=== PATIENT | female | born 1935 | race Caucasian/White ===

== ENCOUNTER 2018-02-16 23:04 | Inpatient (IN) ==
--- NOTE | 2018-02-16 23:28 | Emergency Department Note ---
Disposition Clinical Impression: Left-sided weakness, Ataxia of left upper extremity Disposition: Admitted As Inpatient Condition: Good Time of Disposition: 02:51 Neuro HPI - General Chief Complaint: ED Neuro Symptoms/Deficit Stated Complaint: left sided weakness Time Seen by Provider: 02/16/18 23:12 Source: patient, EMS Limitations: no limitations Nursing Notes Reviewed: Yes Vital Signs Reviewed: Yes - History of Present Illness HPI Narrative: Patient is an 82-year-old female with past medical history of diabetes, hypertension, hyperlipidemia. She presents today due to left-sided weakness. She states that around 3 PM, possibly earlier, she started having left upper and left lower extremity weakness and some mild slurred speech. She states that she did not notice any slurred speech until her neighbor came over around 3 PM and told her that she was slurring her words. At that time, she did notice that she was weaker on the left upper and lower extremities. She also has chronic intermittent tingling of the left hand that is present today. She says that the symptoms have fully speech have since resolved. She was not going to come in but her neighbors and family convinced her to come in. She does report some residual mild left upper and left lower extremity weakness but says that it has improved significantly from earlier today. Denies any previous history of stroke. Not on any blood thinners. - Related Data Home Medications: Previous Rx's Medication Instructions Recorded Amoxicillin/Clavulanate [Augmentin] 875 mg PO BIDWM #20 tablet 04/26/17 Cetirizine HCl [Zyrtec] 10 mg PO DAILY #14 tablet 04/26/17 Meclizine [Antivert] 25 mg PO QID #20 tablet 04/26/17 Allergies/Adverse Reactions: Allergies Allergy/AdvReac Type Severity Reaction Status Date / Time No Known Allergies Allergy Verified 04/26/17 20:15 All systems ED: reviewed and negative except as stated. Constitutional: Denies: fever Cardiovascular: Denies: chest pain Respiratory: Denies: cough, dyspnea, wheezes Gastrointestinal: Denies: abdominal pain, nausea, vomiting, diarrhea Integumentary: Denies: rash Neurological: Reports: weakness, paresthesias. Denies: headache, numbness Past Medical History - Past Medical History Attestation: Yes The following information was validated with the patient. Source: patient Medical history: Reports: diabetes, hyperlipidemia, hypertension, thyroid disease Surgical history: Reports: non-contributory - Social History Smoking Status: Never smoker Alcohol use: Reports: none Drug use: Reports: none Physical Exam - General Limitations: no limitations General appearance: alert - Head Head exam: atraumatic, normocephalic, normal inspection - Eye Eye exam: Present: normal appearance, PERRL, EOMI - ENT ENT exam: normal exam, normal oropharynx, mucous membranes moist - Neck Neck exam: Present: normal inspection, full ROM, trachea midline - Chest Chest inspection: Present: normal inspection, symmetric chest wall rise - Respiratory Respiratory exam: Present: normal lung sounds bilaterally. Absent: respiratory distress, wheezes, stridor, accessory muscle use - Cardiovascular Cardiovascular exam: Present: regular rate, normal rhythm, normal heart sounds - Abdominal Exam Abdominal exam: Present: soft, Non-Tender. Absent: tenderness, distention, guarding, rebound, rigidity - Extremities Exam Extremities exam: Present: normal inspection, full ROM. Absent: tenderness, pedal edema - Neurological Exam Neurological exam: Present: alert, oriented X3, CN II-XII intact - Expanded Neurological Exam Patient oriented to: Present: person, place, time Speech: Present: fluid speech Cranial nerves: EOM function (II, III, IV, ): Normal, facial sensation (V): Normal, facial palsy (VII): Normal, spinal accessory function (XI): Normal, tongue deviation (XII): Normal Cerebellar function: finger to nose: Abnormal Left Motor strength - LUE: 5/5 Motor strength - RUE: 5/5 Motor strength - LLE: 4/5 Motor strength - RLE: 5/5 Sensory exam upper extremity: light touch: Normal Sensory exam lower extremity: light touch: Normal Coma Scale Eye Opening: Spontaneous Coma Scale Motor Response: Obeys Commands Coma Scale Verbal Response: Oriented Coma Scale Total: 15 Course Course Narrative: Patient is approximately 8-1/2 hours out from the original onset of symptoms. L5 window for TPA. However, we will proceed with CT angiogram of the head and neck to assess for any large clot that may be amenable to thrombectomy. Patient does have left upper cavity ataxia and some mild weakness of the left lower extremity on exam. See NIH section for further detail. We discussed admission after testing for further CVA care and workup. Patient was agreeable with this plan. 02:46 CXR negative for any acute cardiopulmonary process. Troponin negative. EKG shows no acute ST changes. CTA of head and neck negative for any acute infarct or area amenable to thrombectomy. We will admit the patient for further care at this time. Chest X-Ray 02/16/18 23:23 IMPRESSION: Hypoventilatory changes. No radiographic evidence of acute cardiopulmonary process. D/ / Master Hoffman MD / Master Hoffman MD Interpreting Provider: Master Hoffman MD Angiography CT 02/16/18 23:24 IMPRESSION: Chronic appearing infarct, small, left parieto-occipital area. No evidence of acute territorial infarct. Right proximal ICA stenosis of 60%. Mild narrowing of both right and left M1 segments of middle cerebral arteries. D/ / Pineda Schuster MD / Pineda Schuster MD Interpreting Provider: Pineda Schuster MD Neck CTA 02/16/18 23:24 IMPRESSION: Chronic appearing infarct, small, left parieto-occipital area. No evidence of acute territorial infarct. Right proximal ICA stenosis of 60%. Mild narrowing of both right and left M1 segments of middle cerebral arteries. D/ / Pineda Schuster MD / Pineda Schuster MD Interpreting Provider: Pineda Schuster MD Vital Signs Temperature 97.6 F 02/16/18 23:09 Pulse Rate 57 02/16/18 23:09 Respiratory Rate 16 02/16/18 23:09 Blood Pressure 198/111 02/16/18 23:09 O2 Sat by Pulse Oximetry 96 02/16/18 23:09 Temperature 97.6 F 02/17/18 04:24 Pulse Rate 65 02/17/18 04:24 Respiratory Rate 19 02/17/18 04:24 Blood Pressure 207/92 02/17/18 04:24 O2 Sat by Pulse Oximetry 92 02/17/18 04:24 Oxygen Delivery Oxygen Delivery Room Air Neuro Symptoms/Deficit - MDM Narrative Medical decision making narrative: Patient is approximately 8-1/2 hours out from the original onset of symptoms. L5 window for TPA. However, we will proceed with CT angiogram of the head and neck to assess for any large clot that may be amenable to thrombectomy. Patient does have left upper cavity ataxia and some mild weakness of the left lower extremity on exam. See NIH section for further detail. We discussed admission after testing for further CVA care and workup. Patient was agreeable with this plan. 02:46 CXR negative for any acute cardiopulmonary process. Troponin negative. EKG shows no acute ST changes. CTA of head and neck negative for any acute infarct or area amenable to thrombectomy. We will admit the patient for further care at this time. Patient given aspirin 325mg - Medical Records Medical records reviewed: Yes I reviewed the patient's medical records. - Lab Data Lab results reviewed: Yes I reviewed the patient's lab results. Result diagrams: 02/16/18 23:59 02/16/18 23:59 Lab Results 02/16/18 02/16/18 02/16/18 Range/Units 23:59 23:59 23:59 WBC 5.2 (4.3-11.1) K/mcL RBC 2.77 L (3.82-4.97) M/mcL Hgb 9.0 L (11.5-15.4) g/dL Hct 27.5 L (35.3-44.9) % MCV 99.3 (83.0-100.0) fL MCH 32.5 (28.0-33.3) pg MCHC 32.7 (31.6-35.5) g/dL RDW 14.5 (11.5-14.5) % Plt Count 221 (140-400) K/mcL MPV 10.7 (9.4-12.4) fL Immature Gran % 0.0 (0-4) % Seg Neutrophils % 51.6 % Lymphocytes % 35.9 % Monocytes % 6.9 % Eosinophils % 5.2 % Basophils % 0.4 % Neutrophils # 2.7 (1.6-8.9) K/mcL Lymphocytes # 1.9 (0.6-4.6) K/mcL Monocytes # 0.4 (0.0-1.3) K/mcL Eosinophils # 0.3 (0.0-0.6) K/mcL Basophils # 0.0 (0.0-0.2) K/mcL PT 11.9 (9.4-12.1) Seconds INR 1.1 APTT 33.7 (26.0-36.0) Seconds Sodium 137 (136-145) mEq/L Potassium 4.0 (3.5-5.1) mEq/L Chloride 105 (98-107) mEq/L Carbon Dioxide 24 (23-29) mEq/L BUN 18 (8-23) mg/dL Creatinine 1.04 (0.60-1.20) mg/dL Est GFR ( Amer) > 60 (> 60) Est GFR (Non-Af Amer) 51 L (> 60) BUN/Creatinine Ratio 17 (6-26) Glucose 119 H (70-105) mg/dL Calculated Osmolality 287 (280-300) Calcium 9.4 (8.6-10.3) mg/dL Troponin I < 0.03 (< 0.04) ng/mL - Radiology Data Radiology results reviewed: Yes I reviewed the patient's radiology results. Chest X-Ray 02/16/18 23:23 IMPRESSION: Hypoventilatory changes. No radiographic evidence of acute cardiopulmonary process. D/ / Master Hoffman MD / Master Hoffman MD Interpreting Provider: Master Hoffman MD Angiography CT 02/16/18 23:24 IMPRESSION: Chronic appearing infarct, small, left parieto-occipital area. No evidence of acute territorial infarct. Right proximal ICA stenosis of 60%. Mild narrowing of both right and left M1 segments of middle cerebral arteries. D/ / Pineda Schuster MD / Pineda Schuster MD Interpreting Provider: Pineda Schuster MD Neck CTA 02/16/18 23:24 IMPRESSION: Chronic appearing infarct, small, left parieto-occipital area. No evidence of acute territorial infarct. Right proximal ICA stenosis of 60%. Mild narrowing of both right and left M1 segments of middle cerebral arteries. D/ / Pineda Schuster MD / Pineda Schuster MD Interpreting Provider: Pineda Schuster MD - EKG Data EKG attestation: Yes I reviewed and interpreted this EKG. NIH Stroke Scale - Level of Consciousness LOC: Alert - LOC Questions LOC Questions: Answers both correctly - LOC Commands LOC Commands: Performs both correctly - Best Gaze Best Gaze: Normal - Visual Visual: No visual loss - Facial Palsy Facial Palsy: Normal - Motor Arms Motor Arm-Left: No drift for 10 seconds Motor Arm-Right: No drift for 10 seconds - Motor Legs Motor Leg-Left: No drift for 5 seconds Motor Leg-Right: No drift for 5 seconds - Limb Ataxia Limb Ataxia: Present in ONE limb - Sensory Sensory: Normal - Best Language Best Language: No aphasia - Dysarthria Dysarthria: Normal - Extinction and Inattention Extinction and Inattention: Normal - NIHSS Total Score NIHSS Total Score: 1 S.B.A.R. - S.B.A.R. Situation: Demographics, MOA Background: Presenting Complaint, Relevant PMH, Meds, & Allergies Assessment: Vital Signs, Course and respsone to treatment, Exam Concerns, Patient/Family Expectation, Pertinant Lab Results Recommendation: Barrier(s) to disposition, Recommendation based on pending studies, treatments, or consults S.B.A.R. Report Given to: Dr. Schwartz Attestation Statement - Attestation Attestation: I examined this patient and my medical decision-making was reviewed with the Resident Physician. I agree with the documented findings, disposition and treatment plan as described except to the extent set forth below. Findings consistent with possible stroke. The patient is out of the window for any thrombolytic medication. An NIH score is 1. Patient be admitted for further intervention. No advanced imaging findings of acute stroke.
[2018-02-17 00:13] LABS: Basophils % 0.4 %; Eosinophils # 0.3 K/mcL (0.0-0.6); Eosinophils % 5.2 %; Hematocrit 27.5 % (35.3-44.9); Lymphocytes # 1.9 K/mcL (0.6-4.6); Lymphocytes % 35.9 %; Mean Corpuscular HGB Conc 32.7 g/dL (31.6-35.5); Mean Corpuscular Hemoglobin 32.5 pg (28.0-33.3); Mean Corpuscular Volume 99.3 fL (83.0-100.0); Mean Platelet Volume 10.7 fL (9.4-12.4); Monocytes # 0.4 K/mcL (0.0-1.3); Monocytes % 6.9 %; Neutrophils # 2.7 K/mcL (1.6-8.9); Platelet Count 221 K/mcL (140-400); Red Blood Count 2.77 M/mcL (3.82-4.97); Red Cell Distribution Width 14.5 % (11.5-14.5); Segmented Neutrophils % 51.6 %
[2018-02-17 00:17] LABS: INR 1.1; Prothrombin Time 11.9 Seconds (9.4-12.1)
[2018-02-17 00:20] LABS: Activated Partial Thrombo Time 33.7 Seconds (26.0-36.0)
[2018-02-17 00:30] LABS: BUN/Creatinine Ratio 17 (6-26); Blood Urea Nitrogen 18 mg/dL (8-23); Calcium 9.4 mg/dL (8.6-10.3); Carbon Dioxide 24 mEq/L (23-29); Chloride 105 mEq/L (98-107); Glucose 119 mg/dL (70-105); Osmolality,Calculated 287 (280-300); Sodium 137 mEq/L (136-145); Troponin I < 0.03 ng/mL (< 0.04); eGFR For African Americans > 60 (> 60); eGFR For Non-African Americans 51 (> 60)
[2018-02-17] MEDS ORDERED: Aspirin 325 MG TABLET PO ONE (02:30)
[2018-02-17] MEDS ORDERED: Gadolinium Contrast Agent (WT Based) IV PRN (03:27)
[2018-02-17] MEDS ORDERED: Naloxone 0.4 MG/ML INJ IVP PRN (03:36)
[2018-02-17] MEDS ORDERED: OXYCODONE Oral CONC 10 MG/0.5 ML ORAL.SYG SL PRN (03:36)
[2018-02-17] MEDS ORDERED: Acetaminophen 650 MG RECTAL SUPP RC PRN (03:43)
[2018-02-17] MEDS ORDERED: Ondansetron 4 MG/2 ML VIAL IVP STA (03:44)
[2018-02-17] MEDS ORDERED: Ondansetron 4 MG/2 ML VIAL IVP PRN (03:45)
--- NOTE | 2018-02-17 04:48 | Internal Med History&Physical ---
Date of Encounter: 02/17/18 Time of Encounter: 04:44 Internal Medicine - H&P: HPI Chief complaint: "My friend was worried about my speech" Admitted From: Emergency Dept Plans for Post Hospital Care: Home History of present illness: Ms. Navarro is a 82 year old female who presented to ED this evening after a friend thought she was having speech difficulties. Patient was in her apartment when a friend came to visit. Friend noticed that patient had " slurred speech." Patient states that she also noticed some left arm and left leg weakness, accompanied by left arm parasthesias worse than her baseline. At the time of my interview, patient was accompanied by her son. Son states that the patient's speech is currently still slurred. She states that the left arm numbness, tingling, and weakness is better, but still present. She denies chest pain, SOB, abdominal pain, nausea, vomiting, fever, and chills. She denies NELSON and any other focal neurological deficits other than those mentioned previously. She is hemodynamically stable at this time. BP is a little elevated, but we will let it ride a little higher to maintain permissive hypertension following CVA. Patient has no other specific complaints at this time. Chart review shows PMH of HTN, HLD, Type II DM, and hypothyroidism. However, patient has not been to PCP or taking her medications for several months now. Past Med Surg Social Fam HX - Past Medical History Attestation: Yes The following information was validated with the patient. Medical history: diabetes, hyperlipidemia, hypertension, thyroid disease - Past Surgical History Surgical History: non-contributory - Social History Smoking Status: Never smoker Smokeless Tobacco Status: No Alcohol use: none Drug use: none - Family History Father History Unknown: Yes Mother Living Status: Age at : 59 Cause of : cancer; lymphoma Hx Family Cardiac Disorders: No Hx Family Respiratory Disorders: No Hx Family Cancer: Yes Hx Family GI Disorders: No Hx Family Genitourinary Disorders: No Hx Family Endocrine Disorder: No Hx Family Musculoskeletal Disorders: No Hx Family Neuromuscular Disorders: No Hx Family Neurologic Disorders: No Hx Family HEENT Disorders: No Hx Family Autoimmune Disorders: No Hx Family Reproductive Disorders: No Hx Family Psychosocial Disorders: No Hx Family Medical Disorders: No - Additional Family History Additional family history: I reviewed family history with patient. Internal Medicine - H&P: Meds Amoxicillin/Clavulanate [Augmentin] 875 mg PO BIDWM #20 tablet 04/26/17 [Rx] Cetirizine HCl [Zyrtec] 10 mg PO DAILY #14 tablet 04/26/17 [Rx] Meclizine [Antivert] 25 mg PO QID #20 tablet 04/26/17 [Rx] 3 Allergy/AdvReac Type Severity Reaction Status Date / Time No Known Allergies Allergy Verified 04/26/17 20:15 All Systems PM: A 10-system review of systems was performed and is negative for pertinent findings except as documented above in the HPI. - Constitutional Vitals: Temp Pulse Resp BP Pulse Ox 97.6 F 65 19 207/92 92 02/17/18 04:24 02/17/18 04:24 02/17/18 04:24 02/17/18 04:24 02/17/18 04:24 General appearance: Present: cooperative, A&O X 3, pleasant, no acute distress, obese, answers questions appropriately - Head Head exam: Present: atraumatic, normal inspection, normocephalic - Eye Eye exam: Present: EOMI, normal appearance, PERRL. Absent: conjunctival injection, nystagmus, scleral icterus - ENT ENT exam: Present: mucous membranes moist, normal external ear exam, normal oropharynx - Neck Neck exam general surgery: Present: supple, trachea midline. Absent: lymphadenopathy, tenderness, thyromegaly - Respiratory Respiratory exam: Present: CTAB. Absent: accessory muscle use, rales, rhonchi, wheezes Additional comments: Normal WOB - Cardiovascular Cardiovascular exam: Present: RRR, +S1, +S2. Absent: diastolic murmur, gallop, rubs, systolic murmur Additional comments: No BLE edema - GI/Abdominal GI/Abdominal exam: Present: normal bowel sounds, soft. Absent: distended, hepatomegaly, mass, splenomegaly, tenderness - Neurological Exam Neurological exam: Present: alert, CN II-XII intact, motor sensory deficit, oriented X3, speech deficit. Absent: no focal deficits, strengths equal and symetr throughout, facial droop Additional comments: Slurred speech, LUE/LLE strength 4/5, RUE/RLE strength 5/5, altered sensation on left dorsal hand - Psychiatric Psychiatric exam: Present: normal affect, normal mood. Absent: agitated, anxious, depressed - Skin Skin exam: Present: dry, intact, warm. Absent: cyanosis, rash Internal Med - H&P Results - Labs CBC & Chem 7: 02/16/18 23:59 02/16/18 23:59 - Assessment and plan (1) CVA (cerebral vascular accident) Current Visit: Yes Status: Suspected Assessment and plan: Patient admitted as inpatient with telemetry. He is outside the window for tPA. We will perform stroke workup. CT head showed a likely old stroke. Will order MRI brain to evaluate further. Consult neurology in AM; appreciate their input. NPO until speech evaluation. PT/OT consulted. Will also obtain ECHO. CTA neck already performed in ED. We will allow permissive HTN for the time being. Continue aspirin 81 mg QD and lipitor 40 mg QHS when taking PO. We will monitor closely with Q4H neurochecks. Qualifiers: CVA mechanism: unspecified Qualified Code(s): I63.9 - Cerebral infarction, unspecified (2) Paresthesia of left upper extremity Current Visit: Yes Status: Acute Assessment and plan: This is an acute on chronic issue. Chronic issue may be related to uncontrolled Type II DM. Acute worsening may be related to CVA. Treatment CVA as per above. Treating Type II DM as per below. (3) Left-sided weakness Current Visit: Yes Status: Acute Assessment and plan: Likely secondary to acute CVA. Management of CVA as per above. (4) Anemia Current Visit: Yes Status: Acute Assessment and plan: Hgb = 9.0. No signs or symptoms of bleeding. We will check hemoccult. Repeat CBC in AM. Qualifiers: Anemia type: unspecified type Qualified Code(s): D64.9 - Anemia, unspecified (5) Poor compliance Current Visit: Yes Status: Chronic Assessment and plan: Has not seen PCP or taking medications for HTN, HLD, Type II DM, and hypothyroidism for several months now. SW consulted. (6) HTN (hypertension) Current Visit: Yes Status: Chronic Assessment and plan: Non-compliance over last few months. BP elevated now, but will allow permissive hypertension due to acute CVA. We will resume home BP medications once we are able to do the reconciliation and once we're outside of the permissive hypertension window. Qualifiers: Hypertension type: essential hypertension Qualified Code(s): I10 - Essential (primary) hypertension (7) HLD (hyperlipidemia) Current Visit: Yes Status: Chronic Assessment and plan: Non-compliance over last few months. Started lipitor 40 mg QHS as per above. We will looking into reconciling this with what she was taking at home. Qualifiers: Hyperlipidemia type: mixed hyperlipidemia Qualified Code(s): E78.2 - Mixed hyperlipidemia (8) Type 2 diabetes mellitus with polyneuropathy Current Visit: Yes Status: Chronic Assessment and plan: Non-compliance over last few months. Blood glucose looks ok at this time. We will start accuchecks and low dose SSI Q6H while NPO. (9) Hypothyroidism Current Visit: Yes Status: Chronic Assessment and plan: Non-compliance over last few months. Restart levothyroxine at old home dose when taking PO. Qualifiers: Hypothyroidism type: unspecified Qualified Code(s): E03.9 - Hypothyroidism , unspecified (10) DVT prophylaxis Current Visit: Yes Status: Acute Assessment and plan: Start lovenox 40 mg SQ QD. - Time Spent With Patient Total time spent is greater than 50% in coordination of care (as documented) at patient's floor/unit and/or counseling patient: less than 15 minutes
[2018-02-17] MEDS: *HR* Enoxaparin 40 MG/0.4 ML SYRINGE SQ SCH (04:53)
[2018-02-17] MEDS ORDERED: *HR* Dextrose 50 % in Water (Syg) 50 ML SYRINGE IVP PRN (05:04)
[2018-02-17] MEDS ORDERED: D5% in Water 1,000 ML IVC PRN (05:04)
[2018-02-17] MEDS ORDERED: Dextrose Gel 15 GM/37.5 ML TUBE PO PRN ×2 (05:04)
[2018-02-17] MEDS: Insulin LISPRO 300 UNITS/3 ML VIAL SQ SCH ×4 (05:40→23:20)
[2018-02-17 05:58] LABS: Basophils % 0.3 %; Eosinophils # 0.2 K/mcL (0.0-0.6); Eosinophils % 2.7 %; Hematocrit 29.6 % (35.3-44.9); Hemoglobin 9.5 g/dL (11.5-15.4); Immature Granulocytes % 0.2 % (0-4); Lymphocytes # 1.3 K/mcL (0.6-4.6); Lymphocytes % 21.4 %; Mean Corpuscular HGB Conc 32.1 g/dL (31.6-35.5); Mean Corpuscular Volume 99.7 fL (83.0-100.0); Mean Platelet Volume 10.8 fL (9.4-12.4); Monocytes # 0.3 K/mcL (0.0-1.3); Monocytes % 4.9 %; Neutrophils # 4.2 K/mcL (1.6-8.9); Platelet Count 222 K/mcL (140-400); Red Blood Count 2.97 M/mcL (3.82-4.97); Red Cell Distribution Width 14.6 % (11.5-14.5); Segmented Neutrophils % 70.5 %
[2018-02-17 06:17] LABS: Chol/HDL Ratio 7.9 (0-4.9)
[2018-02-17 06:18] LABS: Amphetamine Screen,Urine Negative ng/mL (Cutoff=1000); Barbiturate Screen,Urine Negative ng/mL (Cutoff=200); Benzodiazepines Screen,Urine Negative ng/mL (Cutoff=200); Cannabinoid Screen,Urine Negative ng/mL (Cutoff = 50); Cocaine Screen,Urine Negative ng/mL (Cutoff= 300); Opiate Screen,Urine Negative ng/mL (Cutoff=300); Phencyclidine Screen,Urine Negative ng/mL (Cutoff=25)
[2018-02-17 06:18] LABS: BUN/Creatinine Ratio 16 (6-26); Blood Urea Nitrogen 16 mg/dL (8-23); Calcium 9.4 mg/dL (8.6-10.3); Carbon Dioxide 25 mEq/L (23-29); Chloride 105 mEq/L (98-107); Glucose 136 mg/dL (70-105); Osmolality,Calculated 287 (280-300); Sodium 137 mEq/L (136-145); eGFR For African Americans > 60 (> 60); eGFR For Non-African Americans 55 (> 60)
[2018-02-17 08:14] LABS: Estimated Average Glucose 123 mg/dl; Hemoglobin A1C 5.9 %
[2018-02-17] MEDS: Aspirin Enteric Coated 81 MG Tablet PO SCH (08:33)
--- NOTE | 2018-02-17 13:54 | Internal Med Progress Note ---
Date of Encounter: 02/17/18 Time of Encounter: 13:52 - Assessment and plan (1) CVA (cerebral vascular accident) Current Visit: Yes Status: Suspected Assessment and plan: presented with left-sided weakness and slurred speech. Not eligible for TPA due to time of last known well. Head CT negative. Brain MRI several small acute infarcts within the right MCA involving the posterior right frontal lobe and right parietal lobe. Neck CTA with 60% stenosis of our ICA and mild narrowing of bilateral middle cerebral arteries. Still with left-sided weakness on exam. Continue ASA, statin. Echo pending. Neurology consulted Qualifiers: CVA mechanism: unspecified Qualified Code(s): I63.9 - Cerebral infarction, unspecified (2) Poor compliance Current Visit: Yes Status: Chronic Assessment and plan: Has not seen PCP or taking medications for HTN, HLD, Type II DM, and hypothyroidism for several months now. SW consulted. (3) HTN (hypertension) Current Visit: Yes Status: Chronic Assessment and plan: Non-compliance over last few months. BP elevated; BP medication initially held to allow for permissive hypertension. Resume home BP medication to allow for a gradual reduction in SBP. On her to BP and titrate PRN Qualifiers: Hypertension type: essential hypertension Qualified Code(s): I10 - Essential (primary) hypertension (4) HLD (hyperlipidemia) Current Visit: Yes Status: Chronic Assessment and plan: per hx. LDL 185; has been noncompliant with medications recently. Continue home statin. Qualifiers: Hyperlipidemia type: mixed hyperlipidemia Qualified Code(s): E78.2 - Mixed hyperlipidemia (5) Type 2 diabetes mellitus with polyneuropathy Current Visit: Yes Status: Chronic Assessment and plan: per hx. Hgb A1c 5.9%. Monitor blood sugar (6) Hypothyroidism Current Visit: Yes Status: Chronic Assessment and plan: per hx. Cont home levothyroxine. Qualifiers: Hypothyroidism type: unspecified Qualified Code(s): E03.9 - Hypothyroidism , unspecified (7) Anemia Current Visit: Yes Status: Acute Assessment and plan: Hgb = 9.0. No signs or symptoms of bleeding. We will check hemoccult. Repeat CBC in AM. Qualifiers: Anemia type: unspecified type Qualified Code(s): D64.9 - Anemia, unspecified (8) DVT prophylaxis Current Visit: Yes Status: Acute Assessment and plan: lovenox - Time Spent With Patient Total time spent is greater than 50% in coordination of care (as documented) at patient's floor/unit and/or counseling patient: - Subjective Interval history: Seen and examined at bedside. Patient is new to me, information obtained from chart review and patient report. Says she feels better but still having some left-sided weakness. She thinks speech is back to baseline. No blurred or double vision. No paresthesias. - Constitutional Vitals: Temp Pulse Resp BP Pulse Ox 97.8 F 52 14 165/73 97 02/17/18 11:17 02/17/18 11:17 02/17/18 11:17 02/17/18 11:17 02/17/18 11:17 General appearance: Present: cooperative, A&O X 3, pleasant, no acute distress, obese, answers questions appropriately - Head Head exam: Present: atraumatic, normocephalic - Eye Eye exam: Present: PERRL, conjuntiva pink, sclera anicteric Pupils: Present: PERRL - Neck Neck exam general surgery: Present: supple, trachea midline. Absent: lymphadenopathy - Respiratory Respiratory exam: Present: CTAB. Absent: accessory muscle use, rales, rhonchi, wheezes - Cardiovascular Cardiovascular exam: Present: RRR, +S1, +S2. Absent: diastolic murmur, gallop, rubs, systolic murmur - GI/Abdominal GI/Abdominal exam: Present: normal bowel sounds, soft, no peritoneal signs. Absent: distended, tenderness - Extremities Exam Extremities exam: Present: warm, radial pulses palpable and symmetrical. Absent : calf tenderness, cyanotic, pedal edema - Neurological Exam Neurological exam: Present: CN II-XII intact, oriented X3, no focal deficits. Absent: strengths equal and symetr throughout, pronater drift, facial droop, speech deficit Additional comments: Right upper extremity 4/5 strength. - Skin Skin exam: Present: dry, intact Internal Medicine: Result - Labs CBC & Chem 7: 02/17/18 05:39 02/17/18 05:39 Labs: Short CBC 02/17/18 Range/Units 05:39 WBC 6.0 (4.3-11.1) K/mcL Hgb 9.5 L (11.5-15.4) g/dL Hct 29.6 L (35.3-44.9) % Plt Count 222 (140-400) K/mcL Neutrophils # 4.2 (1.6-8.9) K/mcL BMP 02/17/18 05:39 Sodium 137 Potassium 4.0 Chloride 105 Carbon Dioxide 25 BUN 16 Creatinine 0.98 Glucose 136 H Calcium 9.4 - ABG Interpretation ABG results: PT/INR, D-dimer PT 11.9 Seconds (9.4-12.1) 02/16/18 23:59 Consult Discharge Plan - Plan Referrals: NONE,PCP [Primary Care Provider] -
--- NOTE | 2018-02-17 17:21 | Neurology - Consult Note ---
Date of Encounter: 02/17/18 Time of Encounter: 17:19 Assessment and Plan (1) CVA (cerebral vascular accident) Current Visit: Yes Status: Suspected Patient has developed left sided weakness, facial droop, slurry speech and left sided paresthesia, caused by likely borderzone infarct to th right side, likely related to symptomatic left ICA stenosis of 60%. She does have multiple risk factors for CVA including her age, HTN, DM and hyperlipidemia. Agree with continuing her on Aspirin as antiplatelet therapy for stroke. Would recommend vascular surgery consultation, and i do believe that the left ICA stenosis of 60% is symptomatic but the patient is an elderly patient and has multiple risk factors therefore questionable conservative vs surgical intervention vs carotid artery stenting. Continue statin therapy. Regular BP, permissive blood pressure management. Await echocardiography. Qualifiers: CVA mechanism: stenosis Precerebral and cerebral artery: carotid artery Laterality of affected vessel: right Qualified Code(s): I63.231 - Cerebral infarction due to unspecified occlusion or stenosis of right carotid arteries History of Present Illness Chief complaint: left sided weakness, numbness and speech difficulty HPI: Ms. Navarro is a 82 year old female with PMH significant for HTN, DM, hyperlipidemia obesity who developed acute onset of slurry speech, left sided weakness and paresthesia. Symptoms started few days ago and she states that a girl who knew her told her that she needs to get checked because her speech was slurred. She describes weakness to her left arm and leg and also numbness to the left side as well. Initial CT of head was read negative for acute changes. However, MRI of brain demonstrated ' Several small punctate acute infarcts are identified within the right MCA distribution involving the posterior right frontal lobe and right parietal lobe'. I reviewed the images personally and i think the pattern may suggest borderzone infarct. CTA of the neck reviewed 60% right ICA stenosis. Patient currently still has weakness to the left arm and leg that interfere with her walking. She normally does not take aspirin at home. She was started aspirin here in the hospital Past Med Surg Social Fam HX - Past Medical History Medical history: diabetes, hyperlipidemia, hypertension, thyroid disease - Past Surgical History Surgical History: non-contributory - Social History Smoking Status: Never smoker Smokeless Tobacco Status: No Alcohol use: none Drug use: none - Family History Father History Unknown: Yes Mother Living Status: Age at : 59 Cause of : cancer; lymphoma Hx Family Cardiac Disorders: No Hx Family Respiratory Disorders: No Hx Family Cancer: Yes Hx Family GI Disorders: No Hx Family Genitourinary Disorders: No Hx Family Endocrine Disorder: No Hx Family Musculoskeletal Disorders: No Hx Family Neuromuscular Disorders: No Hx Family Neurologic Disorders: No Hx Family HEENT Disorders: No Hx Family Autoimmune Disorders: No Hx Family Reproductive Disorders: No Hx Family Psychosocial Disorders: No Hx Family Medical Disorders: No Medications and Allergies Amoxicillin/Clavulanate [Augmentin] 875 mg PO BIDWM #20 tablet 04/26/17 [Rx] Cetirizine HCl [Zyrtec] 10 mg PO DAILY #14 tablet 04/26/17 [Rx] Meclizine [Antivert] 25 mg PO QID #20 tablet 04/26/17 [Rx] 3 Allergy/AdvReac Type Severity Reaction Status Date / Time No Known Allergies Allergy Verified 04/26/17 20:15 All Systems: The remainder of the systems were reviewed and are negative Physical Examination - Vital Signs Vital Signs: Initial Vital Signs Temp Pulse Resp BP Pulse Ox 97.6 F 57 16 198/111 96 02/16/18 23:09 02/16/18 23:09 02/16/18 23:09 02/16/18 23:09 02/16/18 23:09 - Constitutional General appearance: comfortable - Neurologic Sensorimotor examination: intact (Grossly intact) Motor examination - right side: 5/5: deltoids, biceps, triceps, wrist flexion, wrist extension, elevator repairer, hip flexors, tibialis Anterior, quadriceps, toe extension (EHL), plantarflexion Motor examination - left side: 4/5: deltoids, biceps, triceps, wrist flexion, wrist extension, hip flexors, elevator repairer, quadriceps, tibialis Anterior, toe extension (EHL), plantarflexion Detailed sensory examination: intact (Grossly intact) Posture: other (None) Reflexes: Biceps: 1+, Triceps: 1+, Brachioradialis: 1+, Patella: 1+, Achilles: 1 + Mental Status Examination: awake, alert, oriented to person, oriented to place, oriented to time, follows commands appropriately, answers questions appropriately, no agnosia, no aphasia, no aproxia Cranial nerve examination: PERRL, EOMI (few large amplitude, non sustained nystagmus noted when gazing to the right side), visual mon intact, corneal reflexes brisk symmetrically, sensory to face intact, mastication intact, no facial asymmetry is present (left facial droop noted), no dysarthria (Slightly dysarthric, language content is normal), hearing is intact symmetrically, soft palate elevates bilaterally upon phonation, gag reflex intact, flexes SCM and trapezius muscles symmetrically with full power, tongue protrudes midline, no atrophy or facial fasiculations present Results - Laboratory Findings CBC and BMP: 02/17/18 05:39 02/17/18 05:39 Abnormal lab findings: Abnormal lab results RBC 2.97 M/mcL (3.82-4.97) L 02/17/18 05:39 Hgb 9.5 g/dL (11.5-15.4) L 02/17/18 05:39 Hct 29.6 % (35.3-44.9) L 02/17/18 05:39 RDW 14.6 % (11.5-14.5) H 02/17/18 05:39 Est GFR (Non-Af Amer) 55 (> 60) L 02/17/18 05:39 Glucose 136 mg/dL (70-105) H 02/17/18 05:39 POC Glucose 144 mg/dL (70-99) H 02/17/18 04:29 Hemoglobin A1c 5.9 % (-5.6) H 02/17/18 05:39 Triglycerides 285 mg/dL (< 150) H 02/17/18 05:39 Cholesterol 277 mg/dL (< 200) H 02/17/18 05:39 LDL Cholesterol, Calc 185 mg/dL (0-99) H 02/17/18 05:39 VLDL Cholesterol, Calc 57 mg/dL (< 31) H 02/17/18 05:39 HDL Cholesterol 35 mg/dL (40-59) L 02/17/18 05:39 Cholesterol/HDL Ratio 7.9 (0-4.9) H 02/17/18 05:39 Consult Discharge Plan - Plan Referrals: Axel Vazquez MD [Non-Partnered Physician] - 02/18/18 3:00 pm NONE,PCP [Primary Care Provider] -
[2018-02-18] MEDS: *HR* Enoxaparin 40 MG/0.4 ML SYRINGE SQ SCH (04:53)
[2018-02-18] MEDS: Insulin LISPRO 300 UNITS/3 ML VIAL SQ SCH ×4 (05:24→20:31)
[2018-02-18] MEDS: Aspirin Enteric Coated 81 MG Tablet PO SCH (09:16)
--- NOTE | 2018-02-18 13:15 | Internal Med Progress Note ---
Date of Encounter: 02/18/18 Time of Encounter: 10:30 - Assessment and plan (1) CVA (cerebral vascular accident) Current Visit: Yes Status: Suspected Assessment and plan: Patient developed left-sided weakness and facial droop slurred speech and left- sided anesthesia was seen by neurology suspect likely border zone infarct to the right side related to symptomatic left ICA stenosis of 60%. Neurology recommending continue aspirin and statin-vascular consultation-consult Dr. Benjamin- he requested carotid Dopplers which were ordered TTE showed no source of emboli Qualifiers: Qualified Code(s): I63.231 - Cerebral infarction due to unspecified occlusion or stenosis of right carotid arteries (2) Poor compliance Current Visit: Yes Status: Chronic Assessment and plan: Social work has been consulted-patient has not been compliant with medications and has not followed with PCP for several months. According to case planner note her insurance company has denied rehabilitation placement and she will have to follow up with primary care after discharge in order for PCP to assess and set up home health (3) HTN (hypertension) Current Visit: Yes Status: Chronic Assessment and plan: Patient has been noncompliant with medication over the past few months-resume blood pressure is stable Qualifiers: Qualified Code(s): I10 - Essential (primary) hypertension (4) HLD (hyperlipidemia) Current Visit: Yes Status: Chronic Assessment and plan: LDL 185; has been noncompliant with medications recently. Continue home statin. Qualifiers: Qualified Code(s): E78.2 - Mixed hyperlipidemia (5) Type 2 diabetes mellitus with polyneuropathy Current Visit: Yes Status: Chronic Assessment and plan: per hx. Hgb A1c 5.9%. Accu-Cheks before meals at bedtime with sliding scale insulin and diabetic diet (6) Hypothyroidism Current Visit: Yes Status: Chronic Assessment and plan: Cont home levothyroxine. Qualifiers: Qualified Code(s): E03.9 - Hypothyroidism, unspecified (7) Anemia Current Visit: Yes Status: Acute Assessment and plan: Hgb stable 9.5 today. No signs or symptoms of bleeding. We will check hemoccult. Repeat CBC in AM. Qualifiers: Qualified Code(s): D64.9 - Anemia, unspecified (8) DVT prophylaxis Current Visit: Yes Status: Acute Assessment and plan: lovenox - Time Spent With Patient Total time spent is greater than 50% in coordination of care (as documented) at patient's floor/unit and/or counseling patient: - Subjective Interval history: This patient is new to me I did review records. I examined the patient at bedside. She is sitting up in a chair She is A/O x3 following simple commands. Speech is clear and fluent, equal strength X4. Denies any pain or discomfort. - Constitutional Vitals: Temp Pulse Resp BP Pulse Ox 97.8 F 52 14 137/61 93 02/18/18 10:56 02/18/18 10:56 02/18/18 10:56 02/18/18 10:56 02/18/18 10:56 General appearance: Present: cooperative, A&O X 3, pleasant, no acute distress, obese, answers questions appropriately - Head Head exam: Present: atraumatic, normocephalic - Eye Eye exam: Present: PERRL, conjuntiva pink, sclera anicteric Pupils: Present: PERRL - Neck Neck exam general surgery: Present: supple, trachea midline. Absent: lymphadenopathy - Respiratory Respiratory exam: Present: CTAB. Absent: accessory muscle use, rales, rhonchi, wheezes - Cardiovascular Cardiovascular exam: Present: RRR, +S1, +S2. Absent: diastolic murmur, gallop, rubs, systolic murmur - GI/Abdominal GI/Abdominal exam: Present: normal bowel sounds, soft, no peritoneal signs. Absent: distended, tenderness - Extremities Exam Extremities exam: Present: warm, radial pulses palpable and symmetrical. Absent : calf tenderness, cyanotic, pedal edema - Neurological Exam Neurological exam: Present: CN II-XII intact, oriented X3, no focal deficits, strengths equal and symetr throughout. Absent: pronater drift, facial droop, speech deficit - Skin Skin exam: Present: dry, intact Internal Medicine: Result - Labs CBC & Chem 7: 02/17/18 05:39 02/17/18 05:39 - ABG Interpretation ABG results: PT/INR, D-dimer PT 11.9 Seconds (9.4-12.1) 02/16/18 23:59 Consult Discharge Plan - Plan Referrals: Axel Vazquez MD [Primary Care Provider] - 02/20/18 11:00 am
--- NOTE | 2018-02-18 16:07 | Neurology Progress Note ---
Date of Encounter: 02/18/18 Time of Encounter: 16:04 Assessment and Plan (1) CVA (cerebral vascular accident) Current Visit: Yes Status: Suspected Patient has developed left sided weakness, facial droop, slurry speech and left sided paresthesia, caused by likely borderzone infarct to th right side, likely related to symptomatic left ICA stenosis of 60%. She does have multiple risk factors for CVA including her age, HTN, DM and hyperlipidemia. Agree with continuing her on Aspirin as antiplatelet therapy for stroke. echocardiography showed no source of emboli or other pathologies that would require anticoagulation therapy. Would recommend vascular surgery consultation, and i do believe that the left ICA stenosis of 60% is symptomatic but the patient is an elderly patient and has multiple risk factors therefore questionable conservative vs surgical intervention. Continue statin therapy. Regular BP, permissive blood pressure management. Follow PT evaluation and recommendation. Please call if any questions Qualifiers: CVA mechanism: stenosis Precerebral and cerebral artery: carotid artery Laterality of affected vessel: right Qualified Code(s): I63.231 - Cerebral infarction due to unspecified occlusion or stenosis of right carotid arteries Subjective Principal diagnosis: CVA, carotid artery stenosis Interval history: patient seen and examined. She is doing well and stable in terms of her neurological deficits She is slightly weak to the left side with reduced dexterity. Speech appears fluent now. She still has slight facial droop. echocardiography resulted reviewed. normal LVEF, no significant regional wall motion abnormality, no evidence of PFO. CTA of neck showed 60% left ICA stenosis. Carotid artery duplex result pending. Patient on Aspirin 81mg daily which is new for her. Objective - Constitutional Vitals: Temp Pulse Resp BP Pulse Ox 98.3 F 55 14 125/53 92 02/18/18 15:06 02/18/18 15:06 02/18/18 15:06 02/18/18 15:06 02/18/18 15:06 - Neurological Exam Sensorimotor examination: Present: intact (Grossly intact) Motor examination - right side: 5/5: deltoids, biceps, triceps, wrist flexion, wrist extension, leases and land supervisor, hip flexors, tibialis Anterior, quadriceps, toe extension (EHL), plantarflexion Motor examination - left side: 4/5: deltoids, biceps, triceps, wrist flexion, wrist extension, hip flexors, leases and land supervisor, quadriceps, tibialis Anterior, toe extension (EHL), plantarflexion Sensation intact: Present: intact (Grossly intact) Posture: Present: other (None) Mental Status Examination: Present: awake, alert, oriented to person, oriented to place, oriented to time, follows commands appropriately, answers questions appropriately, no agnosia, no aphasia, no aproxia Cranial nerve examination: Present: PERRL, EOMI (few large amplitude, non sustained nystagmus noted when gazing to the right side), visual mon intact, corneal reflexes brisk symmetrically, sensory to face intact, mastication intact , no facial asymmetry is present (left facial droop noted), no dysarthria ( Slightly dysarthric, language content is normal), hearing is intact symmetrically, soft palate elevates bilaterally upon phonation, gag reflex intact, flexes SCM and trapezius muscles symmetrically with full power, tongue protrudes midline, no atrophy or facial fasiculations present Results - Laboratory Findings CBC and BMP: 02/17/18 05:39 02/17/18 05:39 Abnormal lab findings: Abnormal lab results RBC 2.97 M/mcL (3.82-4.97) L 02/17/18 05:39 Hgb 9.5 g/dL (11.5-15.4) L 02/17/18 05:39 Hct 29.6 % (35.3-44.9) L 02/17/18 05:39 RDW 14.6 % (11.5-14.5) H 02/17/18 05:39 Est GFR (Non-Af Amer) 55 (> 60) L 02/17/18 05:39 Glucose 136 mg/dL (70-105) H 02/17/18 05:39 POC Glucose 121 mg/dL (70-99) H 02/17/18 16:32 Hemoglobin A1c 5.9 % (-5.6) H 02/17/18 05:39 Triglycerides 285 mg/dL (< 150) H 02/17/18 05:39 Cholesterol 277 mg/dL (< 200) H 02/17/18 05:39 LDL Cholesterol, Calc 185 mg/dL (0-99) H 02/17/18 05:39 VLDL Cholesterol, Calc 57 mg/dL (< 31) H 02/17/18 05:39 HDL Cholesterol 35 mg/dL (40-59) L 02/17/18 05:39 Cholesterol/HDL Ratio 7.9 (0-4.9) H 02/17/18 05:39 TSH 39.714 mcIU/mL (0.340-5.600) H 02/18/18 07:04 Consult Discharge Plan - Plan Referrals: Axel Vazquez MD [Primary Care Provider] - 02/20/18 11:00 am
--- NOTE | 2018-02-18 18:17 | Vascular/Endovasc Consult Note ---
Date of Encounter: 02/18/18 Time of Encounter: 18:09 Assessment and Plan (1) Carotid stenosis Current Visit: Yes Status: Acute Patient has carotid stenosis by CT angiogram of 60% on the right and 50% on the left. The vertebral arteries appear to be normal. In order to further corroborate this study however have recommended a carotid artery duplex scan. This is not yet been performed. Pending the results of the duplex scan I will make further recommendations in regards to the utility and timing of any carotid endarterectomy procedure. Due to her age I do not recommend carotid stenting angioplasty. Qualifiers: Laterality: bilateral Qualified Code(s): I65.23 - Occlusion and stenosis of bilateral carotid arteries (2) Carotid stenosis with cerebral infarction less than 8 weeks ago Current Visit: Yes Status: Acute See above (3) Ataxia of left upper extremity Current Visit: Yes Status: Acute Residual left upper extremity weakness and ataxia following recent right hemispheric stroke (4) CVA (cerebral vascular accident) Current Visit: Yes Status: Suspected Right hemispheric acute strokes. These are punctate. Qualifiers: CVA mechanism: stenosis Precerebral and cerebral artery: carotid artery Laterality of affected vessel: right Qualified Code(s): I63.231 - Cerebral infarction due to unspecified occlusion or stenosis of right carotid arteries (5) Anemia Current Visit: Yes Status: Acute Patient has anemia documented on her CBC Qualifiers: Anemia type: unspecified type Qualified Code(s): D64.9 - Anemia, unspecified - History of Present Illness Consult date: 02/18/18 Consult reason: Acute stroke and carotid stenosis Chief complaint: Acute stroke History of present illness: Ms. Navarro is a 82 year old female Admitted via the ER with facial droop and left-sided weakness and slurred speech. These symptoms have improved during the hospitalization. The patient has no previous history of neurologic events or stroke. She has not had a previous carotid duplex scan. Imaging studies during this hospitalization have included a CT angiogram of the neck and brain, MRI of the brain, and echocardiogram. The studies demonstrate what is interpreted as a 60% right and 50% left internal carotid artery stenosis by CT angiogram. There are several punctate acute strokes in the right frontal and right parietal region. The echocardiogram was unimpressive. The patient has a carotid artery duplex scan ordered but it is not yet been performed. The patient has a whole host of risk factors for vascular disease. In addition she also has an anemia and her hemoglobin is only 9.5. Past Med Surg Social Fam HX - Past Medical History Medical history: diabetes, hyperlipidemia, hypertension, thyroid disease - Past Surgical History Surgical History: non-contributory - Social History Smoking Status: Never smoker Smokeless Tobacco Status: No Alcohol use: none Drug use: none - Family History Father History Unknown: Yes Mother Living Status: Age at : 59 Cause of : cancer; lymphoma Hx Family Cardiac Disorders: No Hx Family Respiratory Disorders: No Hx Family Cancer: Yes Hx Family GI Disorders: No Hx Family Genitourinary Disorders: No Hx Family Endocrine Disorder: No Hx Family Musculoskeletal Disorders: No Hx Family Neuromuscular Disorders: No Hx Family Neurologic Disorders: No Hx Family HEENT Disorders: No Hx Family Autoimmune Disorders: No Hx Family Reproductive Disorders: No Hx Family Psychosocial Disorders: No Hx Family Medical Disorders: No Medications and Allergies Cetirizine HCl [Zyrtec] 10 mg PO DAILY #14 tablet 04/26/17 [Rx] Cyanocobalamin (B-12) [Vitamin B12] 1,000 mcg PO DAILY 02/18/18 [History] 3 Allergy/AdvReac Type Severity Reaction Status Date / Time No Known Allergies Allergy Verified 04/26/17 20:15 All Systems Review: The remainder of the systems were reviewed and are negative Exam Vital Signs, Last 4 Hours Temp Pulse Resp BP Pulse Ox 02/18/18 15:06 98.3 F 55 14 125/53 92 General: Present: Conversant, No Apparent Distress, Well developed, Well nourished, Other (Obese) HEENT: Present: Atraumatic, Normocephaly, Trachea midline, Pupils equal Neck: Absent: JVD, Lymphadenopathy, Left Carotid bruit, Right Carotid bruit, Midline deformity, Tracheal deviation, Thyromegaly Cardiac: Present: Reg Rate and Rhythm, Normal S1 and S2, Other (Patient has a holosystolic murmur 2/6 that is across the precordium and radiates into the upper chest.) Lungs: Present: Normal Breath Sounds, No Wheeze, Rales, Rhonchi Neuro: Present: Alert and responsive, Cranial nerves grossly intact, Sensory nerves grossly intact, Other (Patient has ataxia of the left wrist and hands with mild weakness of the left upper extremity and of the left lower extremity. Right-handed individual) Abdomen: Present: Soft, Non-tender, Other (No abdominal bruits. No pulsatile masses.). Absent: Masses Vascular: Present: Normal capillary refill, Pulse, normal. Absent: Clubbing, Cyanosis, Surgical incisions, Amputation(s) Skin: Present: No rashes noted on visualized skin. Absent: Wound/ulcer(s) Musculoskeletal: Present: No Chest Wall Tenderness Consult Discharge Plan - Plan Referrals: Axel Vazquez MD [Primary Care Provider] - 02/20/18 11:00 am
[2018-02-18] MEDS ORDERED: Insulin LISPRO 300 UNITS/3 ML VIAL SQ SCH (21:00)
[2018-02-19 05:09] LABS: Basophils % 0.4 %; Eosinophils # 0.3 K/mcL (0.0-0.6); Eosinophils % 4.6 %; Hematocrit 28.3 % (35.3-44.9); Hemoglobin 8.7 g/dL (11.5-15.4); Immature Granulocytes % 0.2 % (0-4); Lymphocytes # 2.1 K/mcL (0.6-4.6); Lymphocytes % 36.7 %; Mean Corpuscular HGB Conc 30.7 g/dL (31.6-35.5); Mean Corpuscular Volume 100.7 fL (83.0-100.0); Mean Platelet Volume 11.4 fL (9.4-12.4); Monocytes # 0.4 K/mcL (0.0-1.3); Monocytes % 6.5 %; Platelet Count 243 K/mcL (140-400); Red Blood Count 2.81 M/mcL (3.82-4.97); Red Cell Distribution Width 14.6 % (11.5-14.5); Segmented Neutrophils % 51.6 %
[2018-02-19] MEDS: *HR* Enoxaparin 40 MG/0.4 ML SYRINGE SQ SCH (05:11)
[2018-02-19 05:33] LABS: Calcium 9.2 mg/dL (8.6-10.3); Potassium 4.2 mEq/L (3.5-5.1)
[2018-02-19] MEDS: Insulin LISPRO 300 UNITS/3 ML VIAL SQ SCH ×4 (07:52→20:18)
[2018-02-19] MEDS: Aspirin Enteric Coated 81 MG Tablet PO SCH (08:04)
[2018-02-19 09:37] LABS: % Iron Saturation 17 % (15-50); Ferritin 106 ng/ml (10-120); Iron 47 mcg/dL (50-170); Transferrin 203 mg/dL (203-362)
[2018-02-19 10:23] LABS: Folate 8.9 ng/mL (3.0-16.0)
--- NOTE | 2018-02-19 16:20 | Neurology Progress Note ---
Date of Encounter: 02/19/18 Time of Encounter: 16:13 Assessment and Plan (1) CVA (cerebral vascular accident) Current Visit: Yes Status: Suspected Patient has developed left sided weakness, facial droop, slurry speech and left sided paresthesia, caused by likely borderzone infarct to th right side, likely related to symptomatic left ICA stenosis of 60%. Already seen by Dr. Archie Toscano who recommended carotid artery duplex study, showing bilateral ICA stenosis of 60-79%. Agree that due to her age and comorbidities, surgical intervention may be related to increased risk of cardiovascular or cerebral vascular consequence and would defer to vascular surgery for treatment recommendations. If surgical intervention not considered will keep her antiplatelet therapy in the form of full strength aspirin 325mg daily, continue statin therapy. Physical therapy. Qualifiers: CVA mechanism: stenosis Precerebral and cerebral artery: carotid artery Laterality of affected vessel: right Qualified Code(s): I63.231 - Cerebral infarction due to unspecified occlusion or stenosis of right carotid arteries Subjective Principal diagnosis: CVA, carotid artery stenosis Interval history: patient seen and examined. She is doing well and stable in terms of her neurological deficits She is slightly weak to the left side with reduced dexterity. Speech appears fluent now. She still has slight facial droop. echocardiography resulted reviewed. normal LVEF, no significant regional wall motion abnormality, no evidence of PFO. CTA of neck showed 60% left ICA stenosis. Carotid artery duplex result pending. Patient on Aspirin 81mg daily which is new for her. Dr Archie Toscano saw the patient and recommended carotid artery duplex study which is already completed. showed bilateral ICA stenosis of 60-79% bilateral. Objective - Constitutional Vitals: Temp Pulse Resp BP Pulse Ox 98.2 F 56 17 134/66 95 02/19/18 14:52 02/19/18 14:52 02/19/18 14:52 02/19/18 14:52 02/19/18 14:52 - Neurological Exam Sensorimotor examination: Present: intact (Grossly intact) Motor examination - left side: 4/5: deltoids, biceps, triceps, wrist flexion, wrist extension, hip flexors, brick sorter, quadriceps, tibialis Anterior, toe extension (EHL), plantarflexion Sensation intact: Present: intact (Grossly intact) Posture: Present: other (None) Mental Status Examination: Present: awake, alert, oriented to person, oriented to place, oriented to time, follows commands appropriately, answers questions appropriately, no agnosia, no aphasia, no aproxia Cranial nerve examination: Present: PERRL, EOMI (few large amplitude, non sustained nystagmus noted when gazing to the right side), visual mon intact, corneal reflexes brisk symmetrically, sensory to face intact, mastication intact , no facial asymmetry is present (left facial droop noted), no dysarthria ( Slightly dysarthric, language content is normal), hearing is intact symmetrically, soft palate elevates bilaterally upon phonation, gag reflex intact, flexes SCM and trapezius muscles symmetrically with full power, tongue protrudes midline, no atrophy or facial fasiculations present Results - Laboratory Findings CBC and BMP: 02/19/18 04:05 02/19/18 04:05 Abnormal lab findings: Abnormal lab results RBC 2.81 M/mcL (3.82-4.97) L 02/19/18 04:05 Hgb 8.7 g/dL (11.5-15.4) L 02/19/18 04:05 Hct 28.3 % (35.3-44.9) L 02/19/18 04:05 MCV 100.7 fL (83.0-100.0) H 02/19/18 04:05 MCHC 30.7 g/dL (31.6-35.5) L 02/19/18 04:05 RDW 14.6 % (11.5-14.5) H 02/19/18 04:05 Est GFR ( Amer) 54 (> 60) L 02/19/18 04:05 Est GFR (Non-Af Amer) 45 (> 60) L 02/19/18 04:05 POC Glucose 124 mg/dL (70-99) H 02/18/18 20:30 Hemoglobin A1c 5.9 % (-5.6) H 02/17/18 05:39 Iron 47 mcg/dL (50-170) L 02/19/18 08:51 Triglycerides 285 mg/dL (< 150) H 02/17/18 05:39 Cholesterol 277 mg/dL (< 200) H 02/17/18 05:39 LDL Cholesterol, Calc 185 mg/dL (0-99) H 02/17/18 05:39 VLDL Cholesterol, Calc 57 mg/dL (< 31) H 02/17/18 05:39 HDL Cholesterol 35 mg/dL (40-59) L 02/17/18 05:39 Cholesterol/HDL Ratio 7.9 (0-4.9) H 02/17/18 05:39 Vitamin B12 229 pg/mL (250-1100) L 02/19/18 08:51 TSH 39.714 mcIU/mL (0.340-5.600) H 02/18/18 07:04 Consult Discharge Plan - Plan Referrals: Axel Vazquez MD [Primary Care Provider] - 02/20/18 11:00 am
--- NOTE | 2018-02-19 18:30 | Vascular/[facility] Progress Note ---
Date of Encounter: 02/19/18 Time of Encounter: 18:00 - Assessment and plan (1) Carotid stenosis Current Visit: Yes Status: Acute The patient's carotid duplex scan indicates an approximate 80% right internal carotid artery stenosis. She also has atherosclerotic disease in the right common carotid artery. In light of the patient's history and other imaging studies I believe that the right carotid system is symptomatic. Therefore I recommended a right carotid endarterectomy for the patient for next week. I believe she would benefit from further therapy. I've anticipated that we would offer her carotid artery surgery on of next week. I'm not sure what her inpatient or outpatient status will be at that time. She clearly needs to continue her therapy to allow her to make as complete a recovery as possible from her right hemispheric stroke. I reviewed with the patient the potential risks and benefits as well as complications and alternatives to the right carotid endarterectomy. All questions were answered. The patient wishes to proceed as recommended. Qualifiers: Laterality: bilateral Qualified Code(s): I65.23 - Occlusion and stenosis of bilateral carotid arteries (2) Carotid stenosis with cerebral infarction less than 8 weeks ago Current Visit: Yes Status: Acute See above (3) Ataxia of left upper extremity Current Visit: Yes Status: Acute Residual left upper extremity weakness and ataxia following recent right hemispheric stroke (4) CVA (cerebral vascular accident) Current Visit: Yes Status: Suspected Right hemispheric acute strokes. These are punctate. Qualifiers: CVA mechanism: stenosis Precerebral and cerebral artery: carotid artery Laterality of affected vessel: right Qualified Code(s): I63.231 - Cerebral infarction due to unspecified occlusion or stenosis of right carotid arteries (5) Anemia Current Visit: Yes Status: Acute Patient has anemia documented on her CBC Qualifiers: Anemia type: unspecified type Qualified Code(s): D64.9 - Anemia, unspecified - Subjective Interval history: Patient complains of nausea this afternoon. She states it's related to her sinuses with sinus drainage and she has had this problem in the past. She relates no new neurologic symptoms. The patient has been receiving physical and occupational therapy. I have reviewed the carotid duplex scan that I had ordered yesterday. The images and velocity measurements indicate an approximate right internal carotid artery stenosis of 80%. There is diffuse disease in the right carotid system. There is less significant stenosis in the left carotid system. Vital Signs, Last 4 Hours Temp Pulse Resp BP Pulse Ox 02/19/18 14:52 98.2 F 56 17 134/66 95 - Physical Examination General: Present: Conversant, No Apparent Distress, Well developed HEENT: Present: Atraumatic, Normocephaly Neck: Absent: JVD Neuro: Present: Alert and responsive, Cranial nerves grossly intact, Other ( Mild left hand weakness and ataxia.) Results 02/19/18 04:05 02/19/18 04:05 Lab Results, Last 24 hours 02/19/18 02/19/18 04:05 04:05 WBC 5.7 Hgb 8.7 L Hct 28.3 L Plt Count 243 Sodium 139 Potassium 4.2 Chloride 106 Carbon Dioxide 27 BUN 21 Creatinine 1.17 Glucose 104 Calcium 9.2 - Imaging / Other Tests Non Invasive Vascular Testing: report reviewed (Approximate 80% right internal carotid artery stenosis), image reviewed Consult Discharge Plan - Plan Referrals: Axel Vazquez MD [Primary Care Provider] - 02/20/18 11:00 am
--- NOTE | 2018-02-19 19:19 | Internal Med Progress Note ---
Date of Encounter: 02/19/18 Time of Encounter: 19:16 - Assessment and plan (1) CVA (cerebral vascular accident) Current Visit: Yes Status: Suspected Assessment and plan: Patient developed left-sided weakness and facial droop slurred speech and left- sided anesthesia was seen by neurology suspect likely border zone infarct to the right side related to symptomatic left ICA stenosis of 60%. Neurology recommending continue aspirin and statin-vascular consultation-consult Dr. Benjamin- he requested carotid Dopplers which were ordered- did an approximate 80 % right internal carotid artery stenosis. - vascular recommending carotid endarterectomy- scheduling for next week possibly THUR TTE showed no source of emboli PT/OT recommending short term rehab- porter sample case states insurance denying rehab placement- will have PCP set up Home health PT/OT Qualifiers: CVA mechanism: stenosis Precerebral and cerebral artery: carotid artery Laterality of affected vessel: right Qualified Code(s): I63.231 - Cerebral infarction due to unspecified occlusion or stenosis of right carotid arteries (2) Poor compliance Current Visit: Yes Status: Chronic (3) HTN (hypertension) Current Visit: Yes Status: Chronic Qualifiers: Hypertension type: essential hypertension Qualified Code(s): I10 - Essential (primary) hypertension (4) HLD (hyperlipidemia) Current Visit: Yes Status: Chronic Assessment and plan: LDL 185; has been noncompliant with medications recently. Continue home statin. Qualifiers: Hyperlipidemia type: mixed hyperlipidemia Qualified Code(s): E78.2 - Mixed hyperlipidemia (5) Type 2 diabetes mellitus with polyneuropathy Current Visit: Yes Status: Chronic Assessment and plan: per hx. Hgb A1c 5.9%. Accu-Cheks before meals at bedtime with sliding scale insulin and diabetic diet (6) Hypothyroidism Current Visit: Yes Status: Chronic Assessment and plan: Cont home levothyroxine. Qualifiers: Hypothyroidism type: unspecified Qualified Code(s): E03.9 - Hypothyroidism , unspecified (7) Anemia Current Visit: Yes Status: Acute Assessment and plan: Hgb stable. No signs or symptoms of bleeding. We will check hemoccult. Repeat CBC in AM. Qualifiers: Anemia type: unspecified type Qualified Code(s): D64.9 - Anemia, unspecified (8) DVT prophylaxis Current Visit: Yes Status: Acute - Time Spent With Patient Total time spent is greater than 50% in coordination of care (as documented) at patient's floor/unit and/or counseling patient: - Subjective Interval history: I examined the patient at bedside. She is sitting up in chair, she is neurologically intact. - Constitutional Vitals: Temp Pulse Resp BP Pulse Ox 98.0 F 61 16 165/65 94 02/19/18 18:41 02/19/18 18:41 02/19/18 18:41 02/19/18 18:41 02/19/18 18:41 General appearance: Present: cooperative, A&O X 3, pleasant, no acute distress, obese, answers questions appropriately - Head Head exam: Present: atraumatic, normocephalic - Eye Eye exam: Present: PERRL, conjuntiva pink, sclera anicteric Pupils: Present: PERRL - Neck Neck exam general surgery: Present: supple, trachea midline. Absent: lymphadenopathy - Respiratory Respiratory exam: Present: CTAB. Absent: accessory muscle use, rales, rhonchi, wheezes - Cardiovascular Cardiovascular exam: Present: RRR, +S1, +S2. Absent: diastolic murmur, gallop, rubs, systolic murmur - GI/Abdominal GI/Abdominal exam: Present: normal bowel sounds, soft, no peritoneal signs. Absent: distended, tenderness - Extremities Exam Extremities exam: Present: warm, radial pulses palpable and symmetrical. Absent : calf tenderness, cyanotic, pedal edema - Neurological Exam Neurological exam: Present: CN II-XII intact, oriented X3, no focal deficits. Absent: pronater drift, facial droop, speech deficit - Skin Skin exam: Present: dry, intact Internal Medicine: Result - Labs CBC & Chem 7: 02/19/18 04:05 02/19/18 04:05 Labs: Short CBC 02/19/18 Range/Units 04:05 WBC 5.7 (4.3-11.1) K/mcL Hgb 8.7 L (11.5-15.4) g/dL Hct 28.3 L (35.3-44.9) % Plt Count 243 (140-400) K/mcL Neutrophils # 3.0 (1.6-8.9) K/mcL BMP 02/19/18 04:05 Sodium 139 Potassium 4.2 Chloride 106 Carbon Dioxide 27 BUN 21 Creatinine 1.17 Glucose 104 Calcium 9.2 - ABG Interpretation ABG results: PT/INR, D-dimer PT 11.9 Seconds (9.4-12.1) 02/16/18 23:59 Consult Discharge Plan - Plan Referrals: Axel Vazquez MD [Primary Care Provider] - 02/20/18 11:00 am
[2018-02-20] MEDS ORDERED: *HR* Enoxaparin 30 MG/0.3 ML SYRINGE SQ SCH (06:00)
[2018-02-20 06:13] LABS: Basophils % 0.4 %; Eosinophils # 0.3 K/mcL (0.0-0.6); Eosinophils % 5.3 %; Hematocrit 28.2 % (35.3-44.9); Hemoglobin 8.9 g/dL (11.5-15.4); Immature Granulocytes % 0.4 % (0-4); Lymphocytes # 1.8 K/mcL (0.6-4.6); Lymphocytes % 33.6 %; Mean Corpuscular HGB Conc 31.6 g/dL (31.6-35.5); Mean Corpuscular Hemoglobin 31.8 pg (28.0-33.3); Mean Corpuscular Volume 100.7 fL (83.0-100.0); Mean Platelet Volume 10.5 fL (9.4-12.4); Monocytes # 0.4 K/mcL (0.0-1.3); Monocytes % 7.4 %; Neutrophils # 2.8 K/mcL (1.6-8.9); Nucleated Red Blood Cells 0.6 /100 WBC (0); Platelet Count 225 K/mcL (140-400); Red Cell Distribution Width 14.6 % (11.5-14.5); Segmented Neutrophils % 52.9 %
[2018-02-20 06:27] LABS: Calcium 9.3 mg/dL (8.6-10.3); Potassium 4.2 mEq/L (3.5-5.1)
[2018-02-20] MEDS: Aspirin Enteric Coated 81 MG Tablet PO SCH (07:37)
[2018-02-20] MEDS: Insulin LISPRO 300 UNITS/3 ML VIAL SQ SCH ×3 (07:37→16:22)
--- NOTE | 2018-02-20 10:56 | Vascular/[facility] Progress Note ---
Date of Encounter: 02/20/18 Time of Encounter: 10:54 - Assessment and plan (1) Carotid stenosis Current Visit: Yes Status: Acute The patient's carotid duplex scan indicates an approximate 80% right internal carotid artery stenosis. She also has atherosclerotic disease in the right common carotid artery. In light of the patient's history and other imaging studies I believe that the right carotid system is symptomatic. Therefore I recommended a right carotid endarterectomy for the patient for next week. I believe she would benefit from further therapy. I've anticipated that we would offer her carotid artery surgery on of next week. I'm not sure what her inpatient or outpatient status will be at that time. She clearly needs to continue her therapy to allow her to make as complete a recovery as possible from her right hemispheric stroke. I reviewed with the patient the potential risks and benefits as well as complications and alternatives to the right carotid endarterectomy. All questions were answered. The patient wishes to proceed as recommended. The carotid surgery recommendations were again reviewed with the patient. All questions were answered. Patient may leave the hospital from a vascular surgery perspective. Plan on right carotid endarterectomy a week from today. Qualifiers: Laterality: bilateral Qualified Code(s): I65.23 - Occlusion and stenosis of bilateral carotid arteries (2) Carotid stenosis with cerebral infarction less than 8 weeks ago Current Visit: Yes Status: Acute See above (3) Ataxia of left upper extremity Current Visit: Yes Status: Acute Residual left upper extremity weakness and ataxia following recent right hemispheric stroke (4) CVA (cerebral vascular accident) Current Visit: Yes Status: Suspected Right hemispheric acute strokes. These are punctate. Qualifiers: CVA mechanism: stenosis Precerebral and cerebral artery: carotid artery Laterality of affected vessel: right Qualified Code(s): I63.231 - Cerebral infarction due to unspecified occlusion or stenosis of right carotid arteries (5) Anemia Current Visit: Yes Status: Acute Patient has anemia documented on her CBC Qualifiers: Anemia type: unspecified type Qualified Code(s): D64.9 - Anemia, unspecified - Subjective Interval history: Patient is feeling better today. She was up walking in the hallways. She was able to ambulate to the nurse's station and back. She has improved strength and agility in her left hand and she is able bean picker objects without using the right hand. Vital Signs, Last 4 Hours Temp Pulse Resp BP Pulse Ox 02/20/18 06:55 97.9 F 76 17 113/55 97 - Physical Examination General: Present: Conversant, No Apparent Distress HEENT: Present: Atraumatic Neck: Absent: JVD Neuro: Present: Alert and responsive, No focal deficits noted, Cranial nerves grossly intact Results 02/20/18 05:55 02/20/18 05:55 Lab Results, Last 24 hours 02/20/18 02/20/18 05:55 05:55 WBC 5.3 Hgb 8.9 L Hct 28.2 L Plt Count 225 Sodium 138 Potassium 4.2 Chloride 105 Carbon Dioxide 29 BUN 22 Creatinine 1.20 Glucose 106 H Calcium 9.3 Consult Discharge Plan - Plan Referrals: Axel Vazquez MD [Primary Care Provider] - 02/26/18 9:30 am
--- NOTE | 2018-02-20 13:12 | Event Note ---
Date of Encounter: 02/20/18 Time of Encounter: 13:11 Due to scheduling changes the right carotid endarterectomy will have to be changed to February 25.
[2018-02-20 15:03] VITALS: BP 123/72
[2018-02-20] MEDS ORDERED: Cyanocobalamin (B-12) 1,000 MCG/ML VIAL SQ ONE (15:13)
--- NOTE | 2018-02-20 17:09 | Discharge Summary ---
- NOTES TO OUTPATIENT PROVIDER Notes to Outpatient Provider: Patient is to undergo Right cartoid endartectomy SaturdayFebruary 25. Patient is noncompliant with medications- B12 low offered home injections she refused, will cont with oral medications. Monitor H/H. Monitor TSH. Continue ASA Statin per neurology. Insurance denied rehab placement - please assess for HH Orders not resulted at time of discharge: Pending orders 02/17/18 05:03 Fecal Hemoccult [Occult Blood,Stool] [BF] Stat Date of Encounter: 02/20/18 Time of Encounter: 17:05 - Discharge Diagnosis (1) CVA (cerebral vascular accident) Priority: Primary Status: Suspected Qualifiers: CVA mechanism: stenosis Precerebral and cerebral artery: carotid artery Laterality of affected vessel: right Qualified Code(s): I63.231 - Cerebral infarction due to unspecified occlusion or stenosis of right carotid arteries (2) Poor compliance Priority: Secondary Status: Chronic (3) HTN (hypertension) Priority: Secondary Status: Chronic Qualifiers: Hypertension type: essential hypertension Qualified Code(s): I10 - Essential (primary) hypertension (4) HLD (hyperlipidemia) Priority: Secondary Status: Chronic Qualifiers: Hyperlipidemia type: mixed hyperlipidemia Qualified Code(s): E78.2 - Mixed hyperlipidemia (5) Type 2 diabetes mellitus with polyneuropathy Priority: Secondary Status: Chronic (6) Hypothyroidism Priority: Secondary Status: Chronic Qualifiers: Hypothyroidism type: unspecified Qualified Code(s): E03.9 - Hypothyroidism , unspecified (7) Anemia Priority: Secondary Status: Chronic Qualifiers: Anemia type: unspecified type Qualified Code(s): D64.9 - Anemia, unspecified Hospital course: Ms. Navarro is a 82 year old female PMH HTN HLD hypothyroid DM- Patient has not been to PCP or taking medications for several month . She was brought to the ED after experiencing slurred speech and left sided weakness. Her symptoms have resolved CT of head was negative for avcute changes, MRI did show several small punctate acute infarcta within the borderzone infarct. Echo with EF 60-65 % NO PFO CTA of neck show Right proximal ICA stenosis of 60%.Carotid duplex revealed 80% right internal carotoid artery stenosis- Seen by neurology- CVA caused borderzone infarct to th right side, likely related to symptomatic left ICA stenosis of 60%. vascular surgery was consulted recommending - a right carotid endarterectomy for the patient for next week. She is scheduled for Saturday. Neurology recommending to continue with ASA and statin. Patient has not been taking medications for several months, Explained to her the importance of compliance especially with ASA and statin. She was restarted on home medications., Hgb around 8-9 No active bleeding anemia workup did show low B12 as well as patient appears to have undiagnosed stage 3 CKD- Wanted to give patient subque B12 at home but patient refused. Will continue with home oral B12. Advised patient to follow up with PCP- set up appointment for next week, appoint was originally for however will need to be rescheduled after surgery. PT had originally recommended swing bed rehab for patient however insurance declined. She lives at home with her son and will require home health. This will need to be initiated by PCP. Patient verbalized understanding concerning follow ups and compliance to medications. Also advised her to follow preop instructions She is hemodynamically stable and ready for discharge Discharge discussed with: patient - Time Spent with Patient Total time spent providing and/or coordinating discharge services: - Discharge Medications Prescriptions: Aspirin Enteric Coated [Aspirin EC] 81 mg PO DAILY #30 tablet. Atorvastatin [Lipitor] 40 mg PO HS #30 tablet Cyanocobalamin (B-12) [Vitamin B12] 1,000 mcg PO DAILY #30 tablet Levothyroxine [Synthroid] 50 mcg PO 0630 #30 tablet Home Medications: Cetirizine HCl [Zyrtec] 10 mg PO DAILY #14 tablet 04/26/17 [Rx] Aspirin Enteric Coated [Aspirin EC] 81 mg PO DAILY #30 tablet. 02/20/18 [Rx] Atorvastatin [Lipitor] 40 mg PO HS #30 tablet 02/20/18 [Rx] Cyanocobalamin (B-12) [Vitamin B12] 1,000 mcg PO DAILY #30 tablet 02/20/18 [Rx] Levothyroxine [Synthroid] 50 mcg PO 0630 #30 tablet 02/20/18 [Rx] Allergies/Adverse Reactions: 3 Allergy/AdvReac Type Severity Reaction Status Date / Time No Known Allergies Allergy Verified 04/26/17 20:15 Date of admission: 02/17/18 03:36 Primary care physician: Axel Vazquez MD Consults: 02/17/18 04:44 Consult to Media Reporter [CONS] Routine Reason for SW Consult: Please assess home situation and find placement if needed. 02/18/18 13:08 Consult to Vascular Surgery [CONS] Routine Consulting Provider: Vascular Surgery Maru Reason for Consult: Right proximal ICA stenosis of 60%- L sided weakness and slurre speech Time Notified: 13:09 Call Completed: Yes Discharging clinician: Abbie Zuniga Anticipated date of discharge: 02/20/18 - Constitutional Vitals: Temp Pulse Resp BP Pulse Ox 97.3 F L 60 16 123/72 94 02/20/18 15:00 02/20/18 15:00 02/20/18 15:00 02/20/18 15:00 02/20/18 15:00 General appearance: Present: cooperative, A&O X 3, pleasant, no acute distress, obese, answers questions appropriately - Head Head exam: Present: atraumatic, normocephalic - Neck Neck exam general surgery: Present: supple, trachea midline. Absent: lymphadenopathy - Respiratory Respiratory exam: Present: CTAB. Absent: accessory muscle use, rales, rhonchi, wheezes - Cardiovascular Cardiovascular exam: Present: RRR, +S1, +S2. Absent: diastolic murmur, gallop, rubs, systolic murmur - GI/Abdominal GI/Abdominal exam: Present: normal bowel sounds, soft, no peritoneal signs. Absent: distended, tenderness - Extremities Exam Extremities exam: Present: warm, radial pulses palpable and symmetrical. Absent : calf tenderness, cyanotic, pedal edema - Neurological Exam Neurological exam: Present: CN II-XII intact, oriented X3, no focal deficits. Absent: pronater drift, facial droop, speech deficit - Skin Skin exam: Present: dry, intact - Patient Status Disposition: Home, Self-Care Condition: Good Functional capacity at discharge: independent ambulation Overall status at discharge: patient is back to baseline - Discharge Instructions Instructions: Levothyroxine (By mouth), Aspirin (By mouth), Atorvastatin (By mouth), Vitamin B-12 (Cyanocobalamin) (By mouth), Carotid Endarterectomy (DC), Ischemic Stroke (DC), Ischemic Stroke (GEN), Self Care Measures After a Stroke ( DC), Self Care Measures After a Stroke (GEN), Ischemic Stroke, Senior Safety Support Manager ( GEN) Follow Up With: Axel Vazquez MD [Primary Care Provider] - 02/26/18 9:30 am Archie Toscano MD [Partnered Physician] - (Please attend you scheduled appts.) - Diet and Activity Activity: increase activity as tolerated Diet: low fat, low cholesterol
== END 2018-02-20 18:00 | disposition home or self-care (01) | DRG 65 ==
LOC: 3BNU 23:04 → EMEROO 23:04 → 3BNU 02-17 04:00
PROVIDERS: ADMIT Internal Medicine; ATTEND Internal Medicine

== ENCOUNTER 2018-02-25 10:26 | Inpatient (IN) ==
[2018-02-25] MEDS ORDERED: Ringers Solution, Lactated 1,000 ML IVC SCH (11:00)
--- NOTE | 2018-02-25 11:24 | Anesthesia Evaluation PreOp ---
Date of Encounter: 02/25/18 Time of Encounter: 11:24 - Past History Planned Operation: R CEA Cardiac History: HTN, Hyperlipidemia, Other (Findings: Study Quality * Technically adequate exam. ECG Findings * Sinus bradycardia. Left Ventricle * LVEF 60-65%. * Moderate concentric left ventricular hypertrophy. * Resting LVOT gradient, 22mmHg. No evidence for LOIDA of the mitral valve. Right Ventricle * Normal right ventricular structure and function. Mitral Valve * Trace mitral regurgitation. * Normal mitral valve structure. Interatrial Septum * No evidence of PFO with agitated saline contrast. 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 02/20/18 [Rx] Atorvastatin [Lipitor] 40 mg PO HS #30 tablet 02/20/18 [Rx] Cyanocobalamin (B-12) [Vitamin B12] 1,000 mcg PO DAILY #30 tablet 02/20/18 [Rx] Levothyroxine [Synthroid] 50 mcg PO 0630 #30 tablet 02/20/18 [Rx] 3 Allergy/AdvReac Type Severity Reaction Status Date / Time No Known Allergies Allergy Verified 02/25/18 11:03 - Meds/Allergy Pre-op Review Medications Reviewed: Yes Allergies Reviewed: Yes Beta Blockers on Current Med List: No Anesthesia Results - Labs Laboratory Tests 02/16/18 02/17/18 02/20/18 23:59 05:39 05:55 WBC 5.3 Hgb 8.9 L Hct 28.2 L Plt Count 225 PT 11.9 INR 1.1 APTT 33.7 Sodium Potassium Chloride Carbon Dioxide BUN Creatinine Glucose POC Glucose Est Mean Plasma Glucose 123 Hemoglobin A1c 5.9 H 02/20/18 02/20/18 05:55 16:16 WBC Hgb Hct Plt Count PT INR APTT Sodium 138 Potassium 4.2 Chloride 105 Carbon Dioxide 29 BUN 22 Creatinine 1.20 Glucose 106 H POC Glucose 138 H Est Mean Plasma Glucose Hemoglobin A1c - Imaging EKG: report reviewed (sinus bradycardia) Anesthesia Exam O2 Sat Height 1.63 m Height 1.63 m Weight 96.615 kg Weight 96.615 kg O2 Sat by Pulse Oximetry 97 Vital Signs Temp Pulse Resp BP Pulse Ox 97.9 F 62 18 192/91 97 02/25/18 11:00 02/25/18 11:00 02/25/18 11:00 02/25/18 11:00 02/25/18 11:00 Height: 63" Weight: 209lbs - HEENT Pupil (Motor): Pupils equal, EOMI Mallampati: II Teeth: Edentulous Denture Type: Upper: Complete, Lower: Complete Oral Opening: Greater than 3 - FICTION AND NONFICTION WRITER PROSE LOC: Oriented FICTION AND NONFICTION WRITER PROSE Motor: Normal RUE, Normal LUE, Normal RLE, Normal LLE, Normal Face FICTION AND NONFICTION WRITER PROSE Sensory: Normal: RUE, LUE, RLE, LLE, Face - Cardiac Rhythm: Regular - Pulmonary Breath Sounds: bilateral Clear Respiratory Effort: Symmetrical Anesthesia Assess/Plan ASA Score: 3 Modified Eldred Scale for Level of Consciousness: Cooperative, oriented, and tranquil Anesthetic Plan: General Monitoring Plan: Standard Monitors, A-Line (phil) Recovery Plan: PACU
[2018-02-25] MEDS ORDERED: CeFAZolin Syr 2,000MG/20 ML 2,000 MG/20 ML SYRINGE IVPB ONE (11:40)
[2018-02-25] MEDS ORDERED: ceFAZolin 1,000 MG, Sodium Chloride IRRigation 1,000 ML IR ONE (12:10)
[2018-02-25] MEDS ORDERED: Heparin 1,000 UNITS/500 mL 500 ML ONE (13:21)
--- NOTE | 2018-02-25 14:51 | History & Physical Report ---
Date of Encounter: 02/25/18 Time of Encounter: 14:49 24 Hour HP Update - Instructions Instructions: If the History and Physical is less than 30 days old and was completed prior to A.M. admission and or procedure and has NOT been updated on calendar day of procedure please complete this update prior to performing procedure. - Update Patient reports changes in Medical Condition: No Changes in examination, assessment, or condition: No Changes in Medication: No Preop tests/diagnostics Reviewed: Yes Surgery Remains Indicated: Yes Consent for Planned Operative Procedure(s) Verified: Yes - Pre-Operative Checklist Preoperative Checklist Indicated: Yes Prophylactic Antibiotic Ordered: Yes Home Medications Include Beta Sonia: No Beta Sonia Taken Today (Day of Surgery): No Beta Sonia Taken Yesterday (Day Prior to Surgery): No Is VTE Prophylaxis Indicated?: Yes
[2018-02-25] MEDS ORDERED: Lidocaine 1% 20 ML MDV ONE (14:52)
[2018-02-25] MEDS ORDERED: Heparin 1,000 UNITS/500 mL 1,000 ML ONE (14:52)
[2018-02-25] MEDS ORDERED: *HR* Promethazine 25 MG/ML VIAL IVP PRN (15:07)
[2018-02-25] MEDS ORDERED: *HR* Labetalol 100 MG/20 ML MDV IVP PRN (15:07)
[2018-02-25] MEDS ORDERED: *HR* OxyCODONE Immed Rel 5 MG TABLET PO PRN (15:07)
[2018-02-25] MEDS ORDERED: *HR* FentaNYL (PF) 100 MCG/2 ML VIAL IVP PRN (15:07)
[2018-02-25] MEDS ORDERED: MORPHINE SUL Oral CONC 10 MG/0.5 ML ORAL.SYG SL PRN (15:07)
[2018-02-25] MEDS ORDERED: Ondansetron 4 MG/2 ML VIAL IVP ONE (15:07)
[2018-02-25] MEDS ORDERED: Lidocaine -MPF 4% 5 ML AMPUL ONE (16:20)
[2018-02-25] MEDS ORDERED: *HR* Phenylephrine 10 MG/ML VIAL ONE (16:20)
[2018-02-25] MEDS ORDERED: Lidocaine -MPF 2% 2 ML VIAL ONE (16:20)
[2018-02-25] MEDS ORDERED: *HR* FentaNYL (PF) 100 MCG/2 ML VIAL ONE (16:20)
[2018-02-25] MEDS ORDERED: *HR* Propofol 200 MG/20 ML VIAL IVP ONE (16:20)
[2018-02-25] MEDS ORDERED: *HR* Atropine Sulfate 8 MG/20 ML VIAL IVP ONE (16:20)
[2018-02-25] MEDS ORDERED: Ondansetron 4 MG/2 ML VIAL ONE (16:20)
[2018-02-25] MEDS ORDERED: *HR* Rocuronium Bromide 50 MG/5 ML VIAL ONE (16:20)
[2018-02-25] MEDS ORDERED: *HR* Remifentanil 2 MG VIAL IVP ONE (16:20)
[2018-02-25] MEDS ORDERED: Dexamethasone 4 MG/ML VIAL ONE (16:20)
[2018-02-25] MEDS ORDERED: EPHEDrine 50 MG/ML VIAL ONE (16:20)
[2018-02-25] MEDS ORDERED: *HR* Heparin 5,000 UNIT/ML VIAL ONE ×2 (16:50→18:04)
[2018-02-25] MEDS ORDERED: *HR* Remifentanil 1 MG VIAL IVP ONE (18:39)
--- NOTE | 2018-02-25 19:40 | Operative Note ---
Date of procedure: 02/25/18 Pre-op diagnosis: CVA/right carotid stenosis Post-op diagnosis: same Procedure: right carotid endarterectomy with 8 Fr shunt and 2 bovine pericardial patches Complications: none Anesthesia: JAMEEA Surgeon: Archie Toscano Was there an digital sales assistant present: No Estimated blood loss (cc): 200 Specimen: 0 Condition: stable Disposition: PACU Procedure in Detail: History Qian Navarro is an 82-year-old white female who was seen in consultation last week for an acute stroke and significant carotid artery disease. The patient haddisturbance and left-sided weakness for a significant right carotid artery stenosis. The patient was improving with therapy and it made dramatic improvement in her neurologic condition over the 48 hours following her stroke. It was judged appropriate for her to continue her therapy as she was improving rapidly and asked the patient to return in one week later for her right carotid endarterectomy. Patient now comes for that procedure. Procedure After informed consent was obtained the patient was taken to the operating room. General endotracheal anesthesia was established under arterial line pressure monitoring. The right neck was sterilely prepped and draped. A timeout protocol was observed. An oblique incision was then made paralleling the anterior border of sternocleidomastoid muscle. Dissection was carried down to reveal the carotid sheath. The contents of the carotid sheath were identified. The nervous structures were preserved. The bifurcation of the carotid artery was high in the neck and there was significant tortuosity of the right internal carotid artery. This led to a rather tedious dissection in order to adequately mobilize the vessel. The hypoglossal nerve was identified and preserved but required mobilization due to the high extent of the carotid artery lesion. After this long dissection was complete and controls obtained of the respective carotid vessels 5000 units of heparin were administered intravenously. After a three-minute delay the vessels were clamped with the internal carotid artery clamped first. Using an 11 blade knife and Boothe scissors the artery was opened. An 8 [place] shunt was then inserted atraumatically. Patency of the shunt was confirmed by the use of intraoperative Doppler. Inspection of the plaque revealed a very irregular in threatening plaque with loose material and heterogeneous appearances. There is no signs of thrombus in the luminal surface. There is no signs of intraluminal hemorrhage. The endarterectomy was begun at the distal aspect of the common carotid artery. A dissection plane was established and then the dissection was carried proximally and distally circumferentially. Proceeding proximally the plaque extended such that the arteriotomy needed to be extended in order to remove an appropriate amount of the plaque. Similarly on the distal extent of the endarterectomy the distal arteriotomy also needed to be extended. The plaque was then eventually completely removed. The bed of the vessel was inspected for any residual debris. The superior thyroid and external carotid artery orifice were also endarterectomized. The bed of the vessel was carefully flushed and inspected. A patch angioplasty using a bovine pericardial patch was then initiated. Because of the length of the disease in the long endarterectomy necessary to bovine pericardial patches were necessary in order to close the wound. These were cut to size and were sewn into position at the proximal and distal end. There were then cut to size and sewn together immediately below the area of the carotid bifurcation. Leaving a small space open on the suture line the 8 [place] shunt was clamped, divided, and removed. The area was back flushed from the internal carotid artery and then the final few sutures were placed. The external carotid and common carotid artery were opened. Then the internal was reopened. There was no hemodynamic distress with this maneuver. The wound was then irrigated with antibiotic containing solution. Hemostasis was achieved. The heparin was not reversed. A superficial cervical block using half percent Marcaine was performed. The wound was then closed in layers using absorbable suture. No drains were placed. A dry sterile dressing was applied. The patient was extubated in the operating room and found to be neurologically intact. She was then taken to the recovery room in stable condition.
--- NOTE | 2018-02-25 20:31 | Anesthesia Evaluation Post Op ---
Date of Encounter: 02/25/18 Time of Encounter: 20:35 - Vital Signs Vital Signs: Vital Signs/O2 Sat/Glucose, Most Current Temp Pulse Resp BP Pulse Ox 02/25/18 20:21 97.2 F L 73 18 139/64 93 02/25/18 20:11 71 18 136/66 94 02/25/18 20:01 70 16 146/66 94 02/25/18 19:51 98.5 F 76 16 134/71 95 - Lungs Lungs: Clear Ascult./Percussion - Airway Airway: Non-obstructed - Cardiovascular Regular Rate - Mental Status Mental Status: Alert & Oriented, Answers Appropriately - Pain Pain Scale: 0 - Nausea Vomiting Nausea Vomiting: Not Present - Hydration Hydration: Ice chips - Discharge PostOp Status: Transfer Patient to floor
[2018-02-25] MEDS ORDERED: *HR* HYDROcodone/Acet 5/325 mg TABLET PO PRN (21:42)
[2018-02-25] MEDS ORDERED: Ondansetron 4 MG/2 ML VIAL IVP PRN (21:42)
[2018-02-25] MEDS ORDERED: traMADol 50 MG TABLET PO PRN (21:42)
[2018-02-25] MEDS ORDERED: Naloxone 0.4 MG/ML INJ IVP PRN (21:42)
[2018-02-25] MEDS ORDERED: Acetaminophen 325 MG TABLET PO PRN (21:42)
[2018-02-25] MEDS: CeFAZolin Pre 2,000 MG/100 ML 2,000 MG/100 ML BAG IVPB SCH (23:29)
[2018-02-25] MEDS: *HR* Metoprolol 5 MG/5 ML VIAL IVP SCH (23:29)
[2018-02-26 04:20] LABS: Basophils % 0.1 %; Hematocrit 24.6 % (35.3-44.9); Hemoglobin 7.9 g/dL (11.5-15.4); Immature Granulocytes % 0.5 % (0-4); Lymphocytes % 7.5 %; Mean Corpuscular HGB Conc 32.1 g/dL (31.6-35.5); Mean Corpuscular Hemoglobin 32.1 pg (28.0-33.3); Mean Platelet Volume 11.1 fL (9.4-12.4); Monocytes # 0.2 K/mcL (0.0-1.3); Monocytes % 2.2 %; Neutrophils # 7.7 K/mcL (1.6-8.9); Platelet Count 222 K/mcL (140-400); Red Blood Count 2.46 M/mcL (3.82-4.97); Red Cell Distribution Width 14.6 % (11.5-14.5); Segmented Neutrophils % 89.7 %
[2018-02-26 04:31] LABS: Lymphocytes # 0.7 K/mcL (0.6-4.6)
[2018-02-26 04:34] LABS: Potassium 4.1 mEq/L (3.5-5.1)
[2018-02-26] MEDS: *HR* Metoprolol 5 MG/5 ML VIAL IVP SCH ×2 (05:29→11:34)
[2018-02-26] MEDS: CeFAZolin Pre 2,000 MG/100 ML 2,000 MG/100 ML BAG IVPB SCH (08:00)
[2018-02-26] MEDS ORDERED: Cyanocobalamin (B-12) 1,000 MCG TABLET PO SCH (09:00)
[2018-02-26] MEDS ORDERED: Aspirin Enteric Coated 81 MG Tablet PO SCH (09:00)
[2018-02-26] MEDS ORDERED: Loratadine 10 MG TABLET PO SCH (09:00)
--- NOTE | 2018-02-26 10:07 | Discharge Summary ---
Orders not resulted at time of discharge: Pending orders 02/25/18 Red Blood Cells [BBK] Routine Date of Encounter: 02/26/18 Time of Encounter: 08:20 - Discharge Diagnosis (1) Type 2 diabetes mellitus with polyneuropathy Priority: Secondary Status: Chronic Comments: Patient has chronic diabetes (2) CVA (cerebral vascular accident) Priority: Secondary Status: Suspected Comments: Patient had right frontal and parietal lobe infarcts Qualifiers: CVA mechanism: embolism Precerebral and cerebral artery: middle cerebral artery Laterality of affected vessel: right Qualified Code(s): I63.411 - Cerebral infarction due to embolism of right middle cerebral artery (3) Carotid stenosis with cerebral infarction less than 8 weeks ago Priority: Primary Status: Acute Comments: Patient has significant carotid artery stenosis greater on right side than on the left. (4) Left-sided weakness Priority: Secondary Status: Acute Comments: Secondary to right hemispheric CVA - Hospital Course Hospital course: Ms. Navarro is a 82 year old female Fluids suffered a right hemispheric stroke last week. The patient was responding well to therapy. She was stable and was brought back to the hospital at this time. She underwent a right carotid endarterectomy yesterday. The patient very complex plaque. It was very diffuse and heterogeneous. The degree of stenosis is greater than what was depicted on duplex scan and CT angiogram. The patient tolerated the procedure and anesthesia well. She was neurologically stable postoperatively. She has mild left-sided weakness and particularly ataxia of the left hand. This is slowly improving with therapy and exercise. The patient was hemodynamically stable. She was felt fit for discharge on the afternoon of postoperative day #1. Postoperative instructions were reviewed with the patient. A prescription for [place] was provided to the patient upon discharge for a number of 7 pills - Time Spent with Patient Total time spent providing and/or coordinating discharge services: - Discharge Medications Prescriptions: HYDROcodone/Acet 5/325 mg [[place] 5-325 mg] 1 tab PO Q6HR PRN 7 Days #7 tablet PRN Reason: Moderate Pain Home Medications: Cetirizine HCl [Zyrtec] 10 mg PO DAILY #14 tablet 04/26/17 [Rx] Aspirin Enteric Coated [Aspirin EC] 81 mg PO DAILY #30 tablet 02/20/18 [Rx] Atorvastatin [Lipitor] 40 mg PO HS #30 tablet 02/20/18 [Rx] Cyanocobalamin (B-12) [Vitamin B12] 1,000 mcg PO DAILY #30 tablet 02/20/18 [Rx] Levothyroxine [Synthroid] 50 mcg PO 0630 #30 tablet 02/20/18 [Rx] HYDROcodone/Acet 5/325 mg [[place] 5-325 mg] 1 tab PO Q6HR PRN 7 Days #7 tablet [Rx] Allergies/Adverse Reactions: 3 Allergy/AdvReac Type Severity Reaction Status Date / Time No Known Allergies Allergy Verified 02/25/18 11:03 Date of admission: 02/25/18 20:52 Primary care physician: Axel Vazquez MD Consults: None Procedure(s) Performed: Right carotid endarterectomy with bovine pericardial patch angioplasty Discharging clinician: Archie Toscano Anticipated date of discharge: 02/26/18 Exam Vital Signs, Last 4 Hours Temp Pulse Resp BP Pulse Ox 02/26/18 08:00 56 02/26/18 07:23 97.5 F L 74 18 117/62 100 General: Present: Conversant, No Apparent Distress HEENT: Present: Atraumatic, Normocephaly, Trachea midline Neck: Absent: JVD Cardiac: Present: Reg Rate and Rhythm Lungs: Present: Decreased breath sounds Neuro: Present: Alert and responsive, Cranial nerves grossly intact, Other ( Mild left-sided weakness. Ataxia of left hand. These are similar to the findings preoperatively.) Abdomen: Present: Soft Vascular: Present: Surgical incisions (Right neck incision is clean and dry.) - Patient Status Disposition: Home, Self-Care Condition: Fair Functional capacity at discharge: uses cane/walker Overall status at discharge: patient is progressing back to baseline - Discharge Instructions Follow Up With: Axel Vazquez MD [Primary Care Provider] - 03/04/18 9:30 am Archie Toscano MD [Partnered Physician] - 03/19/18 2:25 pm Additional Instructions: Use ice pack on right neck for 48 hours following discharge Keep right neck incision dry for 5 days following surgery Resume usual home medications Resume physical and occupational therapy exercises as recommended from her original admission last week following her stroke No lifting greater than 10 pounds - Diet and Activity Activity: increase activity as tolerated Diet: advance to your usual diet - VTE Documentation of Mechanical Device: Intermittent pneumatic compression device
[2018-02-26 11:36] VITALS: BP 110/48
== END 2018-02-26 14:19 | disposition home or self-care (01) | DRG 37 ==
LOC: SAMDAY 10:26 → 2NNU 20:52
PROVIDERS: ADMIT Surgery Vascular Surgery; ATTEND Surgery Vascular Surgery

== ENCOUNTER 2018-07-25 04:08 | Inpatient (IN) ==
[2018-07-25] MEDS ORDERED: Nitroglycerin 0.4 MG TAB.SUBL SL PRN (04:29)
--- NOTE | 2018-07-25 04:37 | Emergency Department Note ---
Disposition Clinical Impression: Chest pain Qualifiers: Chest pain type: unspecified Qualified Code(s): R07.9 - Chest pain, unspecified Disposition: Admitted As Inpatient Condition: Fair Time of Disposition: 06:31 Chest Pain HPI - General Chief Complaint: ED Chest Pain Stated Complaint: CP Time Seen by Provider: 07/25/18 04:13 Source: patient, EMS Limitations: no limitations Vital Signs Reviewed: Yes Nursing Notes Reviewed: Yes - History of Present Illness HPI Narrative: 82-year-old female presents from home via EMS for evaluation of chest pain. Onset approximately 3:00 this morning. She was ordered awake when it occurred. This started as a dull pain in the middle of her back and then became as substernal chest heaviness. She has associated nausea with mild dyspnea. No diaphoresis. PMH: DM, HTN, HLD, thyroid disease ROS: Positive: As above Negative: Fever, chills, palpitations, dyspnea, abdominal pain, trauma or fall, weakness, numbness, tingling. No melena or hematochezia. Severity scale (1-10): 9 - Related Data Home Medications Medication Instructions Recorded Confirmed Diclofenac Sodium [Voltaren] 2 gm TP QID PRN 07/25/18 07/25/18 Levothyroxine Sodium [Levoxyl] 75 mcg PO DAILY 07/25/18 07/25/18 Lisinopril [Zestril] 5 mg PO DAILY 07/25/18 07/25/18 Loratadine [Allergy Relief] 10 mg PO DAILY 07/25/18 07/25/18 Metformin HCl 500 mg PO BID 07/25/18 07/25/18 Previous Rx's Medication Instructions Recorded Aspirin Enteric Coated [Aspirin EC] 81 mg PO DAILY #30 tablet. 02/20/18 Atorvastatin [Lipitor] 40 mg PO HS #30 tablet 02/20/18 Cyanocobalamin (B-12) [Vitamin B12] 1,000 mcg PO DAILY #30 tablet 02/20/18 Allergies Allergy/AdvReac Type Severity Reaction Status Date / Time No Known Allergies Allergy Verified 07/25/18 04:10 Chest Pain PMH - Past Medical History Medical history: Reports: diabetes, hyperlipidemia, hypertension, thyroid disease Surgical history: Reports: non-contributory Psychiatric history: Reports: no psych history - Social History Smoking Status: Never smoker Alcohol use: Reports: none Drug use: Reports: none Physical Exam - General Limitations: no limitations General appearance: alert Course Course Narrative: Cardiac Echo January 2018: Findings: Study Quality: * Technically adequate exam. ECG Findings: * Sinus bradycardia. Left Ventricle: * LVEF 60-65%. * Moderate concentric left ventricular hypertrophy. * Resting LVOT gradient, 22mmHg. No evidence for LOIDA of the mitral valve. Right Ventricle: * Normal right ventricular structure and function. Mitral Valve: * Trace mitral regurgitation. * Normal mitral valve structure. Interatrial Septum: * No evidence of PFO with agitated saline contrast. IVC: * The IVC is not dilated. The patient describes the chest pain that is atypical, concern for ACS. Initial troponin is normal in no acute ischemic changes on EKG. This is, however, within the window of uncertainty 4 troponin. She is a vasculopath is evidence for medical history including her carotid stenosis. Last echo shows LVEF 60- 65%. Patient's pain was unchanged and remain 8/10 after receiving a single nitroglycerin. Blood pressure dropped from systolic 150s to systolic 120s. Nursing did not continue with the second sublingual nitroglycerin secondary to BP concerns. Morphine ordered. Serum hematology shows anemia. This is consistent with patient's baseline hemoglobin for the past several months. She reports no melena or hematochezia. Discussed the above with the admitting hospitalist. He requests consult to cardiology. Will also FOBT in order type and screen prior to transport to floor. EKG #1 EKG dated 07/25/2018 at 04:22 interpreted as sinus bradycardia with rate 47. Baseline artifact. TN measured to appx 80ms. QRS 131, QTC 4:30. Normal axis. Nonspecific ST-T changes. Compared to previous EKG dated 07/14/2018 showing no acute ischemic changes or comparison; heart rate 67 at that time. EKG #2 EKG dated 07/25/2018 at 05:01 interpreted as sinus bradycardia with rate of 44. TN interval measured at approximately 80 ms. QRS 124, QTC 473. Normal axis. Nonspecific ST-T changes. Compared to EKG #1 and 2 EKG dated 07/14/2018 showing no acute ischemic changes comparison. Vital Signs Temperature 98.7 F 07/25/18 04:11 Pulse Rate 51 07/25/18 04:11 Respiratory Rate 16 07/25/18 04:11 Blood Pressure 146/69 07/25/18 04:11 O2 Sat by Pulse Oximetry 100 07/25/18 04:11 Temperature 98.7 F 07/25/18 04:11 Pulse Rate 54 07/25/18 06:56 Respiratory Rate 16 07/25/18 06:56 Blood Pressure 98/43 07/25/18 06:56 O2 Sat by Pulse Oximetry 99 07/25/18 06:56 Oxygen Delivery Oxygen Delivery Room Air Chest Pain - Lab Data Result diagrams: 07/25/18 04:19 07/25/18 04:19 Lab Results 07/25/18 07/25/18 07/25/18 Range/Units 04:13 04:19 04:19 WBC 10.3 (4.3-11.1) K/mcL RBC 2.77 L (3.82-4.97) M/mcL Hgb 7.9 L (11.5-15.4) g/dL Hct 26.8 L (35.3-44.9) % MCV 96.8 (83.0-100.0) fL MCH 28.5 (28.0-33.3) pg MCHC 29.5 L (31.6-35.5) g/dL RDW 14.1 (11.5-14.5) % Plt Count 408 H (140-400) K/mcL MPV 10.4 (9.4-12.4) fL Immature Gran % 0.3 (0-4) % Seg Neutrophils % 62.4 % Lymphocytes % 26.3 % Monocytes % 6.8 % Eosinophils % 3.9 % Basophils % 0.3 % Neutrophils # 6.4 (1.6-8.9) K/mcL Lymphocytes # 2.7 (0.6-4.6) K/mcL Monocytes # 0.7 (0.0-1.3) K/mcL Eosinophils # 0.4 (0.0-0.6) K/mcL Basophils # 0.0 (0.0-0.2) K/mcL PT 13.0 H (9.4-12.1) Seconds INR 1.2 APTT 33.4 (26.0-36.0) Seconds Sodium 139 (136-145) mEq/L Potassium 3.9 (3.5-5.1) mEq/L Chloride 105 (98-107) mEq/L Carbon Dioxide 22 L (23-29) mEq/L BUN 21 (8-23) mg/dL Creatinine 1.14 (0.60-1.20) mg/dL Est GFR ( Amer) 56 L (> 60) Est GFR (Non-Af Amer) 46 L (> 60) BUN/Creatinine Ratio 18 (6-26) Glucose 164 H (70-105) mg/dL Calculated Osmolality 295 (280-300) Calcium 9.2 (8.6-10.3) mg/dL Troponin I < 0.03 (< 0.04) ng/mL Stool Occult Bld Scrn (Negative) 07/25/18 Range/Units 07:15 WBC (4.3-11.1) K/mcL RBC (3.82-4.97) M/mcL Hgb (11.5-15.4) g/dL Hct (35.3-44.9) % MCV (83.0-100.0) fL MCH (28.0-33.3) pg MCHC (31.6-35.5) g/dL RDW (11.5-14.5) % Plt Count (140-400) K/mcL MPV (9.4-12.4) fL Immature Gran % (0-4) % Seg Neutrophils % % Lymphocytes % % Monocytes % % Eosinophils % % Basophils % % Neutrophils # (1.6-8.9) K/mcL Lymphocytes # (0.6-4.6) K/mcL Monocytes # (0.0-1.3) K/mcL Eosinophils # (0.0-0.6) K/mcL Basophils # (0.0-0.2) K/mcL PT (9.4-12.1) Seconds INR APTT (26.0-36.0) Seconds Sodium (136-145) mEq/L Potassium (3.5-5.1) mEq/L Chloride (98-107) mEq/L Carbon Dioxide (23-29) mEq/L BUN (8-23) mg/dL Creatinine (0.60-1.20) mg/dL Est GFR ( Amer) (> 60) Est GFR (Non-Af Amer) (> 60) BUN/Creatinine Ratio (6-26) Glucose (70-105) mg/dL Calculated Osmolality (280-300) Calcium (8.6-10.3) mg/dL Troponin I (< 0.04) ng/mL Stool Occult Bld Scrn Negative (Negative) Heart Score - Score History: Moderately Suspicious EKG: Non Specific repolarisation Disturbance Age: Greater than 65 Risk Factors: Equal/Greater than 3 risk factor or history of atherosclerotic disease Troponin: Less than normal limit HEART Score Total: 6
[2018-07-25 04:55] LABS: Basophils % 0.3 %; Eosinophils # 0.4 K/mcL (0.0-0.6); Eosinophils % 3.9 %; Hematocrit 26.8 % (35.3-44.9); Hemoglobin 7.9 g/dL (11.5-15.4); Immature Granulocytes % 0.3 % (0-4); Lymphocytes # 2.7 K/mcL (0.6-4.6); Lymphocytes % 26.3 %; Mean Corpuscular HGB Conc 29.5 g/dL (31.6-35.5); Mean Corpuscular Hemoglobin 28.5 pg (28.0-33.3); Mean Corpuscular Volume 96.8 fL (83.0-100.0); Mean Platelet Volume 10.4 fL (9.4-12.4); Monocytes # 0.7 K/mcL (0.0-1.3); Monocytes % 6.8 %; Neutrophils # 6.4 K/mcL (1.6-8.9); Platelet Count 408 K/mcL (140-400); Red Blood Count 2.77 M/mcL (3.82-4.97); Red Cell Distribution Width 14.1 % (11.5-14.5); Segmented Neutrophils % 62.4 %
[2018-07-25 05:09] LABS: INR 1.2
[2018-07-25 05:11] LABS: Activated Partial Thrombo Time 33.4 Seconds (26.0-36.0)
[2018-07-25 05:13] LABS: BUN/Creatinine Ratio 18 (6-26); Blood Urea Nitrogen 21 mg/dL (8-23); Calcium 9.2 mg/dL (8.6-10.3); Carbon Dioxide 22 mEq/L (23-29); Chloride 105 mEq/L (98-107); Glucose 164 mg/dL (70-105); Osmolality,Calculated 295 (280-300); Potassium 3.9 mEq/L (3.5-5.1); Sodium 139 mEq/L (136-145); Troponin I < 0.03 ng/mL (< 0.04); eGFR For Non-African Americans 46 (> 60)
[2018-07-25] MEDS ORDERED: *HR* Morphine 2 MG/ML SYRINGE IVP ONE (06:41)
[2018-07-25] MEDS ORDERED: Aspirin 325 MG TABLET PO ONE (06:48)
[2018-07-25] MEDS ORDERED: *HR* FentaNYL (PF) 100 MCG/2 ML VIAL IVP ONE (07:01)
[2018-07-25] MEDS ORDERED: 0.9 % Sodium Chloride 500 ML IVC ONE (07:01)
--- NOTE | 2018-07-25 07:35 | Emergency Department Note ---
Disposition Clinical Impression: Chest pain Qualifiers: Chest pain type: unspecified Qualified Code(s): R07.9 - Chest pain, unspecified Disposition: Admitted As Inpatient Condition: Fair General Adult HPI - General Chief complaint: ED Chest Pain Stated complaint: CP Time Seen by Provider: 07/25/18 04:13 Source: patient, EMS Limitations: no limitations Nursing Notes Reviewed: Yes Vital Signs Reviewed: Yes - History of Present Illness Pain Scale: 9 - Related Data Home Medications Medication Instructions Recorded Confirmed Diclofenac Sodium [Voltaren] 2 gm TP QID PRN 07/25/18 07/25/18 Levothyroxine Sodium [Levoxyl] 75 mcg PO DAILY 07/25/18 07/25/18 Lisinopril [Zestril] 5 mg PO DAILY 07/25/18 07/25/18 Loratadine [Allergy Relief] 10 mg PO DAILY 07/25/18 07/25/18 Metformin HCl 500 mg PO BID 07/25/18 07/25/18 Previous Rx's Medication Instructions Recorded Aspirin Enteric Coated [Aspirin EC] 81 mg PO DAILY #30 tablet. 02/20/18 Atorvastatin [Lipitor] 40 mg PO HS #30 tablet 02/20/18 Cyanocobalamin (B-12) [Vitamin B12] 1,000 mcg PO DAILY #30 tablet 02/20/18 Allergies Allergy/AdvReac Type Severity Reaction Status Date / Time No Known Allergies Allergy Verified 07/25/18 04:10 Past Medical History - Past Medical History Medical history: Reports: diabetes, hyperlipidemia, hypertension, thyroid disease Surgical history: Reports: non-contributory Psychiatric history: Reports: no psych history - Social History Smoking Status: Never smoker Smokeless Tobacco Status: No Alcohol use: Reports: none Drug use: Reports: none Physical Exam - General Limitations: no limitations General appearance: alert Course Vital Signs Temperature 98.7 F 07/25/18 04:11 Pulse Rate 51 07/25/18 04:11 Respiratory Rate 16 07/25/18 04:11 Blood Pressure 146/69 07/25/18 04:11 O2 Sat by Pulse Oximetry 100 07/25/18 04:11 Temperature 98.7 F 07/25/18 04:11 Pulse Rate 54 07/25/18 06:56 Respiratory Rate 16 07/25/18 06:56 Blood Pressure 98/43 07/25/18 06:56 O2 Sat by Pulse Oximetry 99 07/25/18 06:56 Oxygen Delivery Oxygen Delivery Room Air Medical Decision Making - Medical Records Medical records reviewed: Yes I reviewed the patient's medical records. - Lab Data Lab results reviewed: Yes I reviewed the patient's lab results. Result diagrams: 07/25/18 04:19 07/25/18 04:19 Lab Results 07/25/18 07/25/18 07/25/18 Range/Units 04:13 04:19 04:19 WBC 10.3 (4.3-11.1) K/mcL RBC 2.77 L (3.82-4.97) M/mcL Hgb 7.9 L (11.5-15.4) g/dL Hct 26.8 L (35.3-44.9) % MCV 96.8 (83.0-100.0) fL MCH 28.5 (28.0-33.3) pg MCHC 29.5 L (31.6-35.5) g/dL RDW 14.1 (11.5-14.5) % Plt Count 408 H (140-400) K/mcL MPV 10.4 (9.4-12.4) fL Immature Gran % 0.3 (0-4) % Seg Neutrophils % 62.4 % Lymphocytes % 26.3 % Monocytes % 6.8 % Eosinophils % 3.9 % Basophils % 0.3 % Neutrophils # 6.4 (1.6-8.9) K/mcL Lymphocytes # 2.7 (0.6-4.6) K/mcL Monocytes # 0.7 (0.0-1.3) K/mcL Eosinophils # 0.4 (0.0-0.6) K/mcL Basophils # 0.0 (0.0-0.2) K/mcL PT 13.0 H (9.4-12.1) Seconds INR 1.2 APTT 33.4 (26.0-36.0) Seconds Sodium 139 (136-145) mEq/L Potassium 3.9 (3.5-5.1) mEq/L Chloride 105 (98-107) mEq/L Carbon Dioxide 22 L (23-29) mEq/L BUN 21 (8-23) mg/dL Creatinine 1.14 (0.60-1.20) mg/dL Est GFR ( Amer) 56 L (> 60) Est GFR (Non-Af Amer) 46 L (> 60) BUN/Creatinine Ratio 18 (6-26) Glucose 164 H (70-105) mg/dL Calculated Osmolality 295 (280-300) Calcium 9.2 (8.6-10.3) mg/dL Troponin I < 0.03 (< 0.04) ng/mL Stool Occult Bld Scrn (Negative) 07/25/18 Range/Units 07:15 WBC (4.3-11.1) K/mcL RBC (3.82-4.97) M/mcL Hgb (11.5-15.4) g/dL Hct (35.3-44.9) % MCV (83.0-100.0) fL MCH (28.0-33.3) pg MCHC (31.6-35.5) g/dL RDW (11.5-14.5) % Plt Count (140-400) K/mcL MPV (9.4-12.4) fL Immature Gran % (0-4) % Seg Neutrophils % % Lymphocytes % % Monocytes % % Eosinophils % % Basophils % % Neutrophils # (1.6-8.9) K/mcL Lymphocytes # (0.6-4.6) K/mcL Monocytes # (0.0-1.3) K/mcL Eosinophils # (0.0-0.6) K/mcL Basophils # (0.0-0.2) K/mcL PT (9.4-12.1) Seconds INR APTT (26.0-36.0) Seconds Sodium (136-145) mEq/L Potassium (3.5-5.1) mEq/L Chloride (98-107) mEq/L Carbon Dioxide (23-29) mEq/L BUN (8-23) mg/dL Creatinine (0.60-1.20) mg/dL Est GFR ( Amer) (> 60) Est GFR (Non-Af Amer) (> 60) BUN/Creatinine Ratio (6-26) Glucose (70-105) mg/dL Calculated Osmolality (280-300) Calcium (8.6-10.3) mg/dL Troponin I (< 0.04) ng/mL Stool Occult Bld Scrn Negative (Negative) - Radiology Data Radiology results reviewed: Yes I reviewed the patient's radiology results. Chest X-Ray 07/25/18 04:13 IMPRESSION: No acute process. Stable exam. D/ / Barak Castillo MD / Barak Castillo MD Interpreting Provider: Barak Castillo MD - EKG Data EKG #1 EKG attestation: Yes I reviewed and interpreted this EKG. EKG results narrative: EKG shows a sinus bradycardia with ventricular rate of 44. Left ventricular hypertrophy. No acute ST segment elevation or depression. Attestation Statement - Attestation Attestation: I, Mani Madsen MD, personally evaluated this patient and discussed their management with the resident physician. I reviewed the resident's note and agree with the documented findings, medical decision making, and plan of care. 82-year-old female presents to the emergency department by EMS with a complaint of awakening from sleep about 3 AM with pain across the middle of her back which then radiated into the anterior chest in the substernal region. She described as a dull aching pain. Some mild shortness of breath associated with the pain. Some nausea and vomiting. No diaphoresis. The back pain totally resolved after the pain moved into the front of her chest. Time of my exam she denies any back pain but states she still has some substernal discomfort which she describes as just a heaviness in her chest. On examination patient is a well-developed well-nourished elderly female in no acute distress. She is alert and oriented 3. There is no cyanosis or diaphoresis. There is some mild tenderness palpation over the anterior chest wall. No bony crepitus or subcutaneous emphysema. Breath sounds are clear and equal bilaterally. Heart regular with a mild bradycardia. Abdomen is soft and nontender with normal bowel sounds. EKG shows a sinus bradycardia with ventricular rate of 44. LVH. No acute ST segment elevation or depression. Labs reviewed. Troponin normal. Chest x-ray negative for acute cardiopulmonary abnormality. The hospitalist, Dr. Perez, was consulted and accepted admission of the patient.
[2018-07-25] MEDS ORDERED: Naloxone 0.4 MG/ML INJ IVP PRN (09:27)
[2018-07-25] MEDS ORDERED: Acetaminophen 325 MG TABLET PO PRN (09:27)
[2018-07-25] MEDS ORDERED: 0.9 % Sodium Chloride 1,000 ML IVC SCH (09:30)
[2018-07-25] MEDS ORDERED: Isovue-370 500 ML INFUS..BTL IV ONE (09:30)
--- NOTE | 2018-07-25 09:41 | Internal Med History&Physical ---
Date of Encounter: 07/25/18 Time of Encounter: 08:00 Internal Medicine - H&P: HPI Chief complaint: Epigastric pain Admitted From: Home Plans for Post Hospital Care: Home History of present illness: Ms. Navarro is a 82 year old female present to ER for epigastric pain with nausea and vomiting. Past medical history is significant for diabetes, hypertension, hypothyroidism, Hx of carotid stenosis s/p Rt carotid endart erectomy. Patient to start to have epigastric pain since 3 AM this morning, with nausea and vomited 5 times. The vomiting is stomach content, no blood in it. Patient said the pain is sharp, constant, 8 out of 10, radiated to the back. Patient has mild shortness of breath. Denies diaphoresis. Denies fever, diarrhea, or urination symptoms. Patient has mild dry cough. In the emergency room, EKG and chest x-ray unremarkable, first troponin negative. Patient was considered chest pain and admitted to rule out ACS. Past Med Surg Social Fam HX - Past Medical History Medical history: diabetes, hyperlipidemia, hypertension, thyroid disease Psychiatric history: no psych history - Past Surgical History Surgical History: non-contributory Additional surgical history: goiter, rt carotid endarectomy - Social History Smoking Status: Never smoker Smokeless Tobacco Status: No Alcohol use: none Drug use: none - Family History Mother Living Status: Age at : 58 Cause of : lymphoma Hx Family Cardiac Disorders: No Hx Family Respiratory Disorders: No Hx Family Cancer: Yes (lymphoma) Hx Family GI Disorders: No Hx Family Endocrine Disorder: No Hx Family Neuromuscular Disorders: No Hx Family Neurologic Disorders: No Hx Family HEENT Disorders: No Hx Family Autoimmune Disorders: No Father History Unknown: Yes Internal Medicine - H&P: Meds Aspirin Enteric Coated [Aspirin EC] 81 mg PO DAILY #30 tablet. 02/20/18 [Rx] Atorvastatin [Lipitor] 40 mg PO HS #30 tablet 02/20/18 [Rx] Cyanocobalamin (B-12) [Vitamin B12] 1,000 mcg PO DAILY #30 tablet 02/20/18 [Rx] Diclofenac Sodium [Voltaren] 2 gm TP QID PRN 07/25/18 [History] Levothyroxine Sodium [Levoxyl] 75 mcg PO DAILY 07/25/18 [History] Lisinopril [Zestril] 5 mg PO DAILY 07/25/18 [History] Loratadine [Allergy Relief] 10 mg PO DAILY 07/25/18 [History] Metformin HCl 500 mg PO BID 07/25/18 [History] Allergy/AdvReac Type Severity Reaction Status Date / Time No Known Allergies Allergy Verified 07/25/18 04:10 All Systems PM: A 10-system review of systems was performed and is negative for pertinent findings except as documented above in the HPI. - Constitutional Vitals: Temp Pulse Resp BP Pulse Ox 97.4 F L 52 17 140/59 98 07/25/18 08:36 07/25/18 08:36 07/25/18 08:36 07/25/18 08:36 07/25/18 08:41 General appearance: Present: mild distress, A&O X 3, answers questions appropriately Exam: AAO x 3, in mild acute distress HEENT: NC/AT, PERRL Neck: Supple, no JVD Lungs: CTA b/l Heart: S1S2, RRR, systolic murmur 4/6 in aortic area Abd: Soft, tenderness on epigastric are, no rebound or guarding, BS normal Ext: No pedal edema Neuro: No focal deficit Internal Med - H&P Results - Labs CBC & Chem 7: 07/25/18 04:19 07/25/18 10:39 Labs: Short CBC 07/25/18 Range/Units 04:19 WBC 10.3 (4.3-11.1) K/mcL Hgb 7.9 L (11.5-15.4) g/dL Hct 26.8 L (35.3-44.9) % Plt Count 408 H (140-400) K/mcL Neutrophils # 6.4 (1.6-8.9) K/mcL BMP 07/25/18 04:19 Sodium 139 Potassium 3.9 Chloride 105 Carbon Dioxide 22 L BUN 21 Creatinine 1.14 Glucose 164 H Calcium 9.2 Cardiac Enzymes 07/25/18 Range/Units 04:19 Troponin I < 0.03 (< 0.04) ng/mL - Impressions ITS Impressions Chest X-Ray 07/25/18 04:13 IMPRESSION: No acute process. Stable exam. D/ / Barak Castillo MD / Barak Castillo MD Interpreting Provider: Barak Castillo MD - Assessment and plan (1) Chest pain Current Visit: Yes Status: Acute Assessment and plan: Actually epigastric area pain. Pt has elevated lipase >1800, consist with acute pancreatitis. - Cont cardiac surgeon and finish 3 sets of troponin to r/o ACS - Start acute pancreatitis treatment. Qualifiers: Chest pain type: unspecified Qualified Code(s): R07.9 - Chest pain, unspecified (2) DVT prophylaxis Current Visit: No Status: Acute Assessment and plan: Heparin SC (3) HTN (hypertension) Current Visit: No Status: Chronic Assessment and plan: Cont home med after resume diet. Now hydralazine PRN iv. Qualifiers: Hypertension type: essential hypertension Qualified Code(s): I10 - Essential (primary) hypertension (4) Hypothyroidism Current Visit: No Status: Chronic Assessment and plan: Cont home meds. Qualifiers: Hypothyroidism type: unspecified Qualified Code(s): E03.9 - Hypothyroidism, unspecified (5) Type 2 diabetes mellitus with polyneuropathy Current Visit: No Status: Chronic Assessment and plan: SSI now (6) Acute pancreatitis Current Visit: Yes Status: Acute Assessment and plan: Pt has epigastric pain, radiated to back. with N/V. Lipase > 1800 with mildly increased bilirubin and liver enzyme. Consistant with acute pancreatitis. - CT abd to r/o necrotic pancreatitis. - NPO, IVF - Symptomatic treatment with pain and nausea med - US abd r/o gall stone - Lipid penal r/o hypertriglyceridemia - Pt denies alcohol use. Qualifiers: Pancreatitis type: unspecified pancreatitis type Acute pancreatitis complication: uninfected necrosis Qualified Code(s): K85.91 - Acute pancreatitis with uninfected necrosis, unspecified - Time Spent With Patient Total time spent is greater than 50% in coordination of care (as documented) at patient's floor/unit and/or counseling patient: 30 min 25 - 35 minutes
[2018-07-25] MEDS: *HR* HYDROcodone/Acet 5/325 mg TABLET PO PRN (10:58)
[2018-07-25] MEDS: Ondansetron 4 MG/2 ML VIAL IVP PRN (10:58)
[2018-07-25] MEDS: Pantoprazole 40 MG VIAL IVP SCH (10:58)
[2018-07-25 11:10] LABS: Troponin I < 0.03 ng/mL (< 0.04)
[2018-07-25 11:34] LABS: Alanine Aminotransferase 60 Units/L (7-52); Albumin 3.2 g/dL (3.5-5.7); Albumin/Globulin Ratio 0.8 (1.1-2.2); Alkaline Phosphatase 105 Units/L (34-104); Aspartate Amino Transferase 150 Units/L (13-39); BUN/Creatinine Ratio 19 (6-26); Bilirubin,Total 1.1 mg/dL (0.3-1.0); Blood Urea Nitrogen 22 mg/dL (8-23); Calcium 9.3 mg/dL (8.6-10.3); Carbon Dioxide 23 mEq/L (23-29); Chloride 108 mEq/L (98-107); Globulin 3.8 g/dL (2.4-3.5); Glucose 174 mg/dL (70-105); Lipase > 1800 Units/L (11-82); Osmolality,Calculated 300 (280-300); Potassium 4.3 mEq/L (3.5-5.1); Sodium 141 mEq/L (136-145); eGFR For Non-African Americans 46 (> 60)
[2018-07-25] MEDS ORDERED: *HR* Dextrose 50 % in Water (Syg) 50 ML SYRINGE IVP PRN (11:49)
[2018-07-25] MEDS ORDERED: Dextrose Gel 15 GM/37.5 ML TUBE PO PRN ×2 (11:49)
[2018-07-25] MEDS ORDERED: D5% in Water 1,000 ML IVC PRN (11:49)
[2018-07-25] MEDS ORDERED: OXYCODONE Oral CONC 10 MG/0.5 ML ORAL.SYG SL PRN (12:34)
[2018-07-25] MEDS: 0.9 % Sodium Chloride 1,000 ML IVC SCH (13:01)
[2018-07-25] MEDS: Insulin LISPRO 300 UNITS/3 ML VIAL SQ SCH ×2 (13:08→21:13)
--- NOTE | 2018-07-25 16:09 | Electrocardiograph Report ---
[facility] Test Date: 2018-07-25 Pat Name: Qian Navarro Department: [id number] Room: 3B21 Gender: F [employer] Supervisor: : [id number] Requested By: Nahum Perez Order Number: [id number] Reading MD: Luis Enrique Edward Measurements Intervals [place] Rate: 47 P: 53 MN: 53 QRS: -22 QRSD: 131 T: 220 QT: 495 QTc: 438 Interpretive Statements Sinus bradycardia Short MN interval Left ventricular hypertrophy Anterior Q waves, possibly due to LVH Abnormal T, probable ischemia, lateral leads Electronically Signed On 07-25-2018 16:07:31 EDT by Luis Enrique Edward
[2018-07-25] MEDS: *HR* Heparin 5,000 UNIT/ML VIAL SQ SCH (21:38)
[2018-07-25 22:57] LABS: Adenovirus Not Detected (Not Detect); Bordetella Pertussis Not Detected (Not Detect); Chlamydophila pneumoniae Not Detected (Not Detect); Coronavirus 229E Not Detected (Not Detect); Coronavirus HKU1 Not Detected (Not Detect); Coronavirus NL63 Not Detected (Not Detect); Coronavirus OC43 Not Detected (Not Detect); Human Metapneumovirus Not Detected (Not Detect); Human Rhinovirus/Enterovirus Not Detected (Not Detect); Influenza A Subtype 2009 H1 Not Detected (Not Detect); Influenza A Untypeable Not Detected (Not Detect); Influenza B Not Detected (Not Detect); Mycoplasma pneumoniae Not Detected (Not Detect); Parainfluenza Virus 1 Not Detected (Not Detect); Parainfluenza Virus 2 Not Detected (Not Detect); Parainfluenza Virus 3 Not Detected (Not Detect); Parainfluenza Virus 4 Not Detected (Not Detect); Respiratory Syncytial Virus Not Detected (Not Detect)
[2018-07-26] MEDS: MetroNIDAZOLE 500 MG/100 ML 500 MG/100 ML BAG IVPB SCH ×3 (00:02→17:12)
[2018-07-26] MEDS: Insulin LISPRO 300 UNITS/3 ML VIAL SQ SCH ×4 (01:23→16:56)
[2018-07-26] MEDS: 0.9 % Sodium Chloride 1,000 ML IVC SCH ×2 (02:50→09:00)
[2018-07-26 04:08] LABS: Basophils % 0.2 %; Eosinophils # 0.1 K/mcL (0.0-0.6); Eosinophils % 0.7 %; Hematocrit 24.1 % (35.3-44.9); Hemoglobin 7.2 g/dL (11.5-15.4); Immature Granulocytes % 0.3 % (0-4); Lymphocytes # 1.4 K/mcL (0.6-4.6); Lymphocytes % 10.8 %; Mean Corpuscular HGB Conc 29.9 g/dL (31.6-35.5); Mean Corpuscular Hemoglobin 28.7 pg (28.0-33.3); Monocytes % 7.7 %; Neutrophils # 10.4 K/mcL (1.6-8.9); Platelet Count 341 K/mcL (140-400); Red Blood Count 2.51 M/mcL (3.82-4.97); Red Cell Distribution Width 14.6 % (11.5-14.5); Segmented Neutrophils % 80.3 %
[2018-07-26 04:30] LABS: Chol/HDL Ratio 3.2 (0-4.9)
[2018-07-26 04:45] LABS: Thyroid Stimulating Hormone 3.908 mcIU/mL (0.340-5.600)
[2018-07-26 04:50] LABS: Alanine Aminotransferase 169 Units/L (7-52); Albumin 2.8 g/dL (3.5-5.7); Albumin/Globulin Ratio 0.8 (1.1-2.2); Alkaline Phosphatase 158 Units/L (34-104); Aspartate Amino Transferase 310 Units/L (13-39); BUN/Creatinine Ratio 20 (6-26); Bilirubin,Total 2.1 mg/dL (0.3-1.0); Blood Urea Nitrogen 29 mg/dL (8-23); Calcium 8.5 mg/dL (8.6-10.3); Carbon Dioxide 25 mEq/L (23-29); Chloride 110 mEq/L (98-107); Globulin 3.3 g/dL (2.4-3.5); Glucose 87 mg/dL (70-105); Lipase > 1800 Units/L (11-82); Osmolality,Calculated 297 (280-300); Potassium 4.2 mEq/L (3.5-5.1); Sodium 141 mEq/L (136-145); Total Protein 6.1 g/dL (6.4-8.9); eGFR For Non-African Americans 35 (> 60)
[2018-07-26 04:56] LABS: Folate 9.2 ng/mL (3.0-16.0)
[2018-07-26 05:02] LABS: Vitamin B12 > 1500 pg/mL (250-1100)
[2018-07-26] MEDS: *HR* Heparin 5,000 UNIT/ML VIAL SQ SCH ×2 (06:09→17:18)
[2018-07-26] MEDS: Loratadine 10 MG TABLET PO SCH (08:27)
[2018-07-26] MEDS ORDERED: Aspirin Enteric Coated 81 MG Tablet PO SCH (09:00)
[2018-07-26] MEDS: Pantoprazole 40 MG VIAL IVP SCH (09:14)
--- NOTE | 2018-07-26 10:38 | General Surgery Consult Note ---
<Dom Stock S - Last Filed: 07/26/18 10:48> Date of Encounter: 07/26/18 Time of Encounter: 10:00 Assessment and Plan (1) Cholecystitis Current Visit: Yes Status: Acute Evidence on US and CT ab/pelvis (07/25) Plan for laparoscopic cholecystectomy with possible open in a few days after pancreatitis has resolved Patient NPO WBC 12.9 On flagyl and cipro Alk phos elevated at 158 today, will follow labs On IVF 110 ml/hr Acetaminophen and norco for pain Zofran for nausea, Protonix for GI prophylaxis (2) Acute pancreatitis Current Visit: Yes Status: Acute Evidence on CT ab/pelvis (07/25), possibility of gallstone pancreatitis Lipase >1800, amylase 823 Continue Abx NPO IV fluid 110 ml/hr Pain controlled with norco and acetaminophen GI prophylaxis Plan for laparoscopic cholecystectomy when pancreatitis resolves Will continue to monitor labs Qualifiers: Pancreatitis type: unspecified pancreatitis type Acute pancreatitis c omplication: uninfected necrosis Qualified Code(s): K85.91 - Acute pancreatitis with uninfected necrosis, unspecified History of Present Illness Consult date: 07/26/18 Reason for consult: other (cholecystitis) Requesting physician: Anaya Tucker History of present illness: 82 F with PMHx of HTN, HLD, and diabetes presented to ED 07/25 with epigastric pain. Patient had negative troponin. Abdomen/pelvis CT concerning for acute pancreatits, cholelithiasis, and sigmoid diverticulosis. Right upper quadrant ultrasound showed cholecystitis, multiple gallstones, and an 8mm common bile duct. Patient had elevated lipase, alk phos, and leukocytosis. Surgery was consulted for acute cholecystitis with the possibility of gallstone pancreati tis. Patient states she developed dull epigastric pain that radiates to the back a few days ago. Eating makes it worse. She admits to associated nausea and vomiting that occurred around the same time. Patient states the pain is better today. She denies fevers/chill, chest pain, SOB, trauma, changes in bowel/bladder habits. Past Med Surg Social Fam HX - Past Medical History Medical history: diabetes, hyperlipidemia, hypertension, thyroid disease Psychiatric history: no psych history - Past Surgical History Surgical History: non-contributory Additional surgical history: goiter, rt carotid endarectomy - Social History Smoking Status: Never smoker Smokeless Tobacco Status: No Alcohol use: none Drug use: none - Family History Father History Unknown: Yes Mother Living Status: Age at : 58 Cause of : lymphoma Hx Family Cardiac Disorders: No Hx Family Respiratory Disorders: No Hx Family Cancer: Yes (lymphoma) Hx Family GI Disorders: No Hx Family Endocrine Disorder: No Hx Family Neuromuscular Disorders: No Hx Family Neurologic Disorders: No Hx Family HEENT Disorders: No Hx Family Autoimmune Disorders: No Medications and Allergies RX: Aspirin Enteric Coated [Aspirin EC] 81 mg PO DAILY #30 tablet.dr 02/20/18 [Rx] RX: Atorvastatin [Lipitor] 40 mg PO HS #30 tablet 02/20/18 [Rx] RX: Cyanocobalamin (B-12) [Vitamin B12] 1,000 mcg PO DAILY #30 tablet 02/20/18 [Rx] Diclofenac Sodium [Voltaren] 2 gm TP QID PRN 07/25/18 [History] Levothyroxine Sodium [Levoxyl] 75 mcg PO DAILY 07/25/18 [History] Loratadine [Allergy Relief] 10 mg PO DAILY 07/25/18 [History] RX: Lisinopril [Zestril] 5 mg PO DAILY 07/25/18 [History] RX: Metformin HCl 500 mg PO BID 07/25/18 [History] Allergy/AdvReac Type Severity Reaction Status Date / Time No Known Allergies Allergy Verified 07/25/18 04:10 Review of Systems All systems PM: The remainder of the systems were reviewed and are negative General Surgery Exam Initial Vital Signs Temp Pulse Resp BP Pulse Ox 98.7 F 51 16 146/69 100 07/25/18 04:11 07/25/18 04:11 07/25/18 04:11 07/25/18 04:11 07/25/18 04:11 - General physical appearance well developed, well nourished - Respiratory normal expansion, normal respiratory effort - Cardiovascular Cardiovascular exam: Present: RRR - Abdomen Abdomen general surgery: Present: bowel sounds present, soft, tender Abdominal Tenderness: Present: epigastic, RUQ - Integumentary Integumentary general surgery: Present: warm and dry, no abnormal pigmentation - Psychiatric Psychiatric general surgery: Present: A&Ox3, appropriate Exam Initial Vital Signs Temp Pulse Resp BP Pulse Ox 98.7 F 51 16 146/69 100 07/25/18 04:11 07/25/18 04:11 07/25/18 04:11 07/25/18 04:11 07/25/18 04:11 Results - Labs 07/26/18 03:07 07/26/18 03:07 Abnormal lab results WBC 12.9 K/mcL (4.3-11.1) H 07/26/18 03:07 RBC 2.51 M/mcL (3.82-4.97) L 07/26/18 03:07 Hgb 7.2 g/dL (11.5-15.4) L 07/26/18 03:07 Hct 24.1 % (35.3-44.9) L 07/26/18 03:07 MCHC 29.9 g/dL (31.6-35.5) L 07/26/18 03:07 RDW 14.6 % (11.5-14.5) H 07/26/18 03:07 Neutrophils # 10.4 K/mcL (1.6-8.9) H 07/26/18 03:07 PT 13.0 Seconds (9.4-12.1) H 07/25/18 04:13 Chloride 110 mEq/L (98-107) H 07/26/18 03:07 BUN 29 mg/dL (8-23) H 07/26/18 03:07 Creatinine 1.43 mg/dL (0.60-1.20) H 07/26/18 03:07 Est GFR ( Amer) 43 (> 60) L 07/26/18 03:07 Est GFR (Non-Af Amer) 35 (> 60) L 07/26/18 03:07 Calcium 8.5 mg/dL (8.6-10.3) L 07/26/18 03:07 Iron 10 mcg/dL (50-170) L 07/26/18 03:07 % Saturation 5 % (15-50) L 07/26/18 03:07 Transferrin 156 mg/dL (203-362) L 07/26/18 03:07 Ferritin 375 ng/mL (10-120) H 07/26/18 03:07 Total Bilirubin 2.1 mg/dL (0.3-1.0) H 07/26/18 03:07 AST 310 Units/L (13-39) H 07/26/18 03:07 ALT 169 Units/L (7-52) H 07/26/18 03:07 Alkaline Phosphatase 158 Units/L (34-104) H 07/26/18 03:07 Serum Total Protein 6.1 g/dL (6.4-8.9) L 07/26/18 03:07 Albumin 2.8 g/dL (3.5-5.7) L 07/26/18 03:07 Albumin/Globulin Ratio 0.8 (1.1-2.2) L 07/26/18 03:07 HDL Cholesterol 25 mg/dL (40-59) L 07/26/18 03:07 Amylase 823 Units/L (29-103) H 07/26/18 08:51 Lipase > 1800 Units/L (11-82) H 07/26/18 03:07 Vitamin B12 > 1500 pg/mL (250-1100) H 07/26/18 03:07 Diabetes panel 07/25/18 07/26/18 07/26/18 Range/Units 10:39 03:07 03:07 Sodium 141 141 (136-145) mEq/L Potassium 4.3 4.2 (3.5-5.1) mEq/L Chloride 108 H 110 H (98-107) mEq/L Carbon Dioxide 23 25 (23-29) mEq/L BUN 22 29 H (8-23) mg/dL Creatinine 1.13 1.43 H (0.60-1.20) mg/dL Glucose 174 H 87 (70-105) mg/dL Calcium 9.3 8.5 L (8.6-10.3) mg/dL AST 150 H 310 H (13-39) Units/L ALT 60 H 169 H (7-52) Units/L Alkaline Phosphatase 105 H 158 H (34-104) Units/L Albumin 3.2 L 2.8 L (3.5-5.7) g/dL Triglycerides 84 (< 150) mg/dL HDL Cholesterol 25 L (40-59) mg/dL Thyroid panel 07/26/18 Range/Units 03:07 TSH 3.908 (0.340-5.600) mcIU/mL Calcium panel 07/25/18 07/26/18 Range/Units 10:39 03:07 Calcium 9.3 8.5 L (8.6-10.3) mg/dL Albumin 3.2 L 2.8 L (3.5-5.7) g/dL Pituitary panel 07/25/18 07/26/18 07/26/18 Range/Units 10:39 03:07 03:07 Sodium 141 141 (136-145) mEq/L Potassium 4.3 4.2 (3.5-5.1) mEq/L Chloride 108 H 110 H (98-107) mEq/L Carbon Dioxide 23 25 (23-29) mEq/L BUN 22 29 H (8-23) mg/dL Creatinine 1.13 1.43 H (0.60-1.20) mg/dL Glucose 174 H 87 (70-105) mg/dL Calcium 9.3 8.5 L (8.6-10.3) mg/dL TSH 3.908 (0.340-5.600) mcIU/mL Adrenal panel 07/25/18 07/26/18 Range/Units 10:39 03:07 Sodium 141 141 (136-145) mEq/L Potassium 4.3 4.2 (3.5-5.1) mEq/L Chloride 108 H 110 H (98-107) mEq/L Carbon Dioxide 23 25 (23-29) mEq/L BUN 22 29 H (8-23) mg/dL Creatinine 1.13 1.43 H (0.60-1.20) mg/dL Glucose 174 H 87 (70-105) mg/dL Calcium 9.3 8.5 L (8.6-10.3) mg/dL Total Bilirubin 1.1 H 2.1 H (0.3-1.0) mg/dL AST 150 H 310 H (13-39) Units/L ALT 60 H 169 H (7-52) Units/L Alkaline Phosphatase 105 H 158 H (34-104) Units/L Albumin 3.2 L 2.8 L (3.5-5.7) g/dL All other labs normal. Consult Discharge Plan - Plan Referrals: Jordyn Renee, [Primary Care Provider] - <Radha Potter - Last Filed: 07/26/18 12:43> Assessment and Plan (1) Gallstone pancreatitis Current Visit: Yes Status: Acute patient with acute gallstone pancreatitis amylase >800 lipase >1800 npo ivf hydration prn pain control gi/dvt prophylaxis before patient can undergo surgery she needs to normalize her amylase/lipase additionally her lfts have increased, will trend, if continue to elevate she may need MRCP/ERCP (2) Sigmoid diverticulitis Current Visit: Yes Status: Acute patient with diverticulosis of the colon and inflammation around the sigmoid - mild but present with complaints of LLQ pain several days ago she is on cipro and flagyl which is appropriate treatment for diverticulitis patient has never previously had a colonoscopy and therefore will need one as outpatient (3) HTN (hypertension) Current Visit: No Status: Chronic ok to continue home meds wiht sip water Qualifiers: Hypertension type: essential hypertension Qualified Code(s): I10 - Essential (primary) hypertension (4) HLD (hyperlipidemia) Current Visit: No Status: Chronic ok to hold currently cholesterol panel ok Qualifiers: Hyperlipidemia type: mixed hyperlipidemia Qualified Code(s): E78.2 - Mixed hyperlipidemia (5) Type 2 diabetes mellitus with polyneuropathy Current Visit: No Status: Chronic MBS/SSI, management per hospitalist primarily controlled (6) Hypothyroidism Current Visit: No Status: Chronic continue synthroid Qualifiers: Hypothyroidism type: unspecified Qualified Code(s): E03.9 - Hypothyroidism, unspecified (7) Anemia Current Visit: No Status: Chronic patient with chronic anemia - no previous colonosocpy, will need as outpatient Qualifiers: Anemia type: unspecified type Qualified Code(s): D64.9 - Anemia, unspecified History of Present Illness History of present illness: Patient is an 82 yo female with complaints of abdominal pain that started this past saturday (today is saturday), the pain was epigastric and radiated into her back. She also complained of LLQ several days ago that is no longer present. It was a dull persistent pain with episodes of sharp pain. She had nausea and vomiting Saturday as well. No diarrhea. No fevers, chills or night sweats. She presented to the ED and was admitted. Patient with CT scan abdomen which showed pancreatitis, duodenal inflammation, cholecystitis and mild sigmoid diverticulitis. wbc 10, Hb low at 7, lfts elevated. US gallbladder showed gallastones, 8 mm cbd, mild gallbladder wall thickening and small amount of pericholecystic fluid. Past Med Surg Social Fam HX - Past Medical History Source: patient Medical history: diabetes, hyperlipidemia, hypertension, thyroid disease (hypothyroid) - Past Surgical History Surgical History: hysterectomy, orthopedic, other (right knee scope) - Social History Current living situation: Home - Independent, Home Review of Systems All systems PM: reviewed and no additional remarkable complaints except as stated All systems PM: The remainder of the systems were reviewed and are negative General Surgery Exam Initial Vital Signs Temp Pulse Resp BP Pulse Ox 98.7 F 51 16 146/69 100 07/25/18 04:11 07/25/18 04:11 07/25/18 04:11 07/25/18 04:11 07/25/18 04:11 - General physical appearance well developed, well nourished, no distress - Eyes PERRL, normal ocular movement - ENT normal mucosa, normocephalic - Neck trachea midline - Respiratory normal expansion, clear to auscultation - Cardiovascular Cardiovascular exam: Present: RRR, no murmurs/rubs/gallops - Abdomen Abdomen general surgery: Present: bowel sounds present, soft, non tender. Absent: tender, guarding, rebound - Integumentary Integumentary general surgery: Present: warm and dry, no abnormal pigmentation - Neurologic Present: CN 2-12 grossly intact - Musculoskeletal Present: normal posture - Psychiatric Psychiatric general surgery: Present: A&Ox3, speech is normal Exam Initial Vital Signs Temp Pulse Resp BP Pulse Ox 98.7 F 51 16 146/69 100 07/25/18 04:11 07/25/18 04:11 07/25/18 04:11 07/25/18 04:11 07/25/18 04:11 Results - Labs 07/26/18 03:07 07/26/18 03:07 Abnormal lab results WBC 12.9 K/mcL (4.3-11.1) H 07/26/18 03:07 RBC 2.51 M/mcL (3.82-4.97) L 07/26/18 03:07 Hgb 7.2 g/dL (11.5-15.4) L 07/26/18 03:07 Hct 24.1 % (35.3-44.9) L 07/26/18 03:07 MCHC 29.9 g/dL (31.6-35.5) L 07/26/18 03:07 RDW 14.6 % (11.5-14.5) H 07/26/18 03:07 Neutrophils # 10.4 K/mcL (1.6-8.9) H 07/26/18 03:07 PT 13.0 Seconds (9.4-12.1) H 07/25/18 04:13 Chloride 110 mEq/L (98-107) H 07/26/18 03:07 BUN 29 mg/dL (8-23) H 07/26/18 03:07 Creatinine 1.43 mg/dL (0.60-1.20) H 07/26/18 03:07 Est GFR ( Amer) 43 (> 60) L 07/26/18 03:07 Est GFR (Non-Af Amer) 35 (> 60) L 07/26/18 03:07 Calcium 8.5 mg/dL (8.6-10.3) L 07/26/18 03:07 Iron 10 mcg/dL (50-170) L 07/26/18 03:07 % Saturation 5 % (15-50) L 07/26/18 03:07 Transferrin 156 mg/dL (203-362) L 07/26/18 03:07 Ferritin 375 ng/mL (10-120) H 07/26/18 03:07 Total Bilirubin 2.1 mg/dL (0.3-1.0) H 07/26/18 03:07 AST 310 Units/L (13-39) H 07/26/18 03:07 ALT 169 Units/L (7-52) H 07/26/18 03:07 Alkaline Phosphatase 158 Units/L (34-104) H 07/26/18 03:07 Serum Total Protein 6.1 g/dL (6.4-8.9) L 07/26/18 03:07 Albumin 2.8 g/dL (3.5-5.7) L 07/26/18 03:07 Albumin/Globulin Ratio 0.8 (1.1-2.2) L 07/26/18 03:07 HDL Cholesterol 25 mg/dL (40-59) L 07/26/18 03:07 Amylase 823 Units/L (29-103) H 07/26/18 08:51 Lipase > 1800 Units/L (11-82) H 07/26/18 03:07 Vitamin B12 > 1500 pg/mL (250-1100) H 07/26/18 03:07 Diabetes panel 07/26/18 07/26/18 Range/Units 03:07 03:07 Sodium 141 (136-145) mEq/L Potassium 4.2 (3.5-5.1) mEq/L Chloride 110 H (98-107) mEq/L Carbon Dioxide 25 (23-29) mEq/L BUN 29 H (8-23) mg/dL Creatinine 1.43 H (0.60-1.20) mg/dL Glucose 87 (70-105) mg/dL Calcium 8.5 L (8.6-10.3) mg/dL AST 310 H (13-39) Units/L ALT 169 H (7-52) Units/L Alkaline Phosphatase 158 H (34-104) Units/L Albumin 2.8 L (3.5-5.7) g/dL Triglycerides 84 (< 150) mg/dL HDL Cholesterol 25 L (40-59) mg/dL Thyroid panel 07/26/18 Range/Units 03:07 TSH 3.908 (0.340-5.600) mcIU/mL Calcium panel 07/26/18 Range/Units 03:07 Calcium 8.5 L (8.6-10.3) mg/dL Albumin 2.8 L (3.5-5.7) g/dL Pituitary panel 07/26/18 07/26/18 Range/Units 03:07 03:07 Sodium 141 (136-145) mEq/L Potassium 4.2 (3.5-5.1) mEq/L Chloride 110 H (98-107) mEq/L Carbon Dioxide 25 (23-29) mEq/L BUN 29 H (8-23) mg/dL Creatinine 1.43 H (0.60-1.20) mg/dL Glucose 87 (70-105) mg/dL Calcium 8.5 L (8.6-10.3) mg/dL TSH 3.908 (0.340-5.600) mcIU/mL Adrenal panel 07/26/18 Range/Units 03:07 Sodium 141 (136-145) mEq/L Potassium 4.2 (3.5-5.1) mEq/L Chloride 110 H (98-107) mEq/L Carbon Dioxide 25 (23-29) mEq/L BUN 29 H (8-23) mg/dL Creatinine 1.43 H (0.60-1.20) mg/dL Glucose 87 (70-105) mg/dL Calcium 8.5 L (8.6-10.3) mg/dL Total Bilirubin 2.1 H (0.3-1.0) mg/dL AST 310 H (13-39) Units/L ALT 169 H (7-52) Units/L Alkaline Phosphatase 158 H (34-104) Units/L Albumin 2.8 L (3.5-5.7) g/dL All other labs normal. - Imaging CT scan - abdomen: report reviewed, image reviewed CT scan - pelvis: report reviewed, image reviewed US - abdomen: report reviewed - Attending Attestation I examined this patient and my medical decision-making was reviewed with the Resident Physician. I agree with the documented findings, disposition and treatment plan as described except to the extent set forth below.
--- NOTE | 2018-07-26 15:17 | Internal Med Progress Note ---
Hospitalist Progress Note - Encounter Date of Encounter: 07/26/18 Time of Encounter: 09:00 - Subjective Interval History: Pt state less abd pain today. No fever. Vitals stable. Denies N/V - Exam Vitals: Temp Pulse Resp BP Pulse Ox 97.8 F 78 16 118/56 95 07/26/18 12:14 07/26/18 12:14 07/26/18 12:14 07/26/18 12:14 07/26/18 12:14 Exam: AAO x 3, in mild acute distress HEENT: NC/AT, PERRL Neck: Supple, no JVD Lungs: CTA b/l Heart: S1S2, RRR, systolic murmur 4/6 in aortic area Abd: Soft, tenderness on epigastric are, no rebound or guarding, BS normal, Gonsales's sign +/- Ext: No pedal edema Neuro: No focal deficit - Assessment and Plan (1) Chest pain Current Visit: Yes Status: Acute Assessment and Plan: Actually epigastric area pain. Pt has elevated lipase >1800, consist with acute pancreatitis. - 3 sets of troponin negative, has r/o ACS - Start acute pancreatitis treatment. (2) DVT prophylaxis Current Visit: No Status: Acute Assessment and Plan: Heparin SC (3) HTN (hypertension) Current Visit: No Status: Chronic Assessment and Plan: Cont home med after resume diet. Now hydralazine PRN iv.. BP is not high. (4) Hypothyroidism Current Visit: No Status: Chronic Assessment and Plan: Cont home meds. 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 with N/V. Lipase > 1800 with mildly increased bilirubin and liver enzyme. Consistant with acute pancreatitis. - CT abd confirmed pancreatitis. - Cont NPO, IVF - Symptomatic treatment with pain and nausea med - US abd shows gall stone with cholecystitis, CBD 8mm - No hypertriglyceridemia - Pt denies alcohol use. (7) Cholecystitis Current Visit: Yes Status: Acute Assessment and Plan: CT and US abd shows acute cholecystitis. - Cont NPO. - Place pt on cipro and flagyl iv. - Surgical consult appreciated, plan for Lap cholecystectomy when pancreatitis improved. (8) Sigmoid diverticulitis Current Visit: Yes Status: Acute Assessment and Plan: CT shows diverticulitis. Pt has no symptoms now but c/o LLQ pain previously. - Pt is on NPO now. - On cipro and flagyl. DVT Prophylaxis: Heparin SC - Summary of Assessment and Plan Summary of Assessment and Plan: Change to inpatient status as pt has high lipase > 1800 - Time Spent with Patient Total time spent is greater than 50% in coordination of care (as documented) at patient's floor/unit and/or counseling patient: 25 - 35 minutes Plan of Care Discussed with: patient Internal Medicine: Result - Labs CBC & Chem 7: 07/26/18 03:07 07/26/18 03:07 Labs: Short CBC 07/26/18 Range/Units 03:07 WBC 12.9 H (4.3-11.1) K/mcL Hgb 7.2 L (11.5-15.4) g/dL Hct 24.1 L (35.3-44.9) % Plt Count 341 (140-400) K/mcL Neutrophils # 10.4 H (1.6-8.9) K/mcL BMP 07/26/18 03:07 Sodium 141 Potassium 4.2 Chloride 110 H Carbon Dioxide 25 BUN 29 H Creatinine 1.43 H Glucose 87 Calcium 8.5 L Cardiac Enzymes 07/25/18 Range/Units 15:46 Troponin I < 0.03 (< 0.04) ng/mL Liver Function 07/26/18 Range/Units 03:07 Total Bilirubin 2.1 H (0.3-1.0) mg/dL AST 310 H (13-39) Units/L ALT 169 H (7-52) Units/L Alkaline Phosphatase 158 H (34-104) Units/L Albumin 2.8 L (3.5-5.7) g/dL - ABG Interpretation ABG results: PT/INR, D-dimer PT 13.0 Seconds (9.4-12.1) H 07/25/18 04:13 - Impressions Impressions Abdomen/Pelvis CT 07/25/18 11:44 IMPRESSION: 1. Acute pancreatitis. No abnormal fluid collection or abscess. Please note that in the absence of intravenous contrast, sensitivity of the exam for pancreatic necrosis is low. 2. Cholelithiasis. Please refer to recent ultrasound done for additional information as ultrasound is a more sensitive modality for evaluation of the gallbladder. By CT, there is mild pericholecystic inflammation. 3. Mild periduodenal inflammation, likely secondary duodenitis from the pancreatitis. 4. Sigmoid diverticulosis with mild perisigmoid inflammation in the left lower quadrant. Please correlate with clinical symptoms if patient has left lower quadrant abdominal pain, this may represent an uncomplicated diverticulitis. D/ / 07/25/2018 18:42:25 Syd Gayle MD / jackson Interpreting Provider: Syd Gayle MD Echocardiogram 07/25/18 12:17 Impressions: Technically adequate exam. LVEF 60-65%. Mild left ventricular diastolic dysfunction. Normal right ventricular structure and function. Mild aortic stenosis. The estimated aortic valve area was approximately 1.6 cm2 with peak aortic valve gradient of 28 mmHg and peak aortic valve velocity of 2.62m/s Abdomen Ultrasound 07/25/18 17:00 IMPRESSION: Findings suspicious for cholecystitis D/ / Raghav Tinoco MD / Raghav Tinoco MD Interpreting Provider: Raghav Tinoco MD Consult Discharge Plan - Plan Referrals: Jordyn Renee, DO [Primary Care Provider] - (1) Chest pain Qualifiers: Chest pain type: unspecified Qualified Code(s): R07.9 - Chest pain, unspecified (3) HTN (hypertension) Qualifiers: Hypertension type: essential hypertension Qualified Code(s): I10 - Essential (primary) hypertension (4) Hypothyroidism Qualifiers: Hypothyroidism type: unspecified Qualified Code(s): E03.9 - Hypothyroidism, unspecified (6) Acute pancreatitis Qualifiers: Pancreatitis type: biliary Acute pancreatitis complication: uninfected necrosis Qualified Code(s): K85.11 - Biliary acute pancreatitis with uninfected necrosis
[2018-07-27] MEDS: 0.9 % Sodium Chloride 1,000 ML IVC SCH ×3 (00:19→17:00)
[2018-07-27] MEDS: MetroNIDAZOLE 500 MG/100 ML 500 MG/100 ML BAG IVPB SCH ×3 (01:11→15:52)
[2018-07-27] MEDS: Insulin LISPRO 300 UNITS/3 ML VIAL SQ SCH ×4 (01:21→17:02)
[2018-07-27] MEDS: D5% in Lactated Ringers 1,000 ML IVC SCH (02:24)
[2018-07-27 03:55] LABS: Basophils % 0.1 %; Eosinophils # 0.2 K/mcL (0.0-0.6); Eosinophils % 2.1 %; Hematocrit 23.4 % (35.3-44.9); Hemoglobin 6.8 g/dL (11.5-15.4); Immature Granulocytes % 0.3 % (0-4); Lymphocytes # 0.9 K/mcL (0.6-4.6); Lymphocytes % 9.9 %; Mean Corpuscular HGB Conc 29.1 g/dL (31.6-35.5); Mean Corpuscular Hemoglobin 28.2 pg (28.0-33.3); Mean Corpuscular Volume 97.1 fL (83.0-100.0); Mean Platelet Volume 10.9 fL (9.4-12.4); Monocytes # 0.7 K/mcL (0.0-1.3); Monocytes % 7.8 %; Neutrophils # 6.9 K/mcL (1.6-8.9); Platelet Count 289 K/mcL (140-400); Red Blood Count 2.41 M/mcL (3.82-4.97); Red Cell Distribution Width 14.6 % (11.5-14.5); Segmented Neutrophils % 79.8 %
[2018-07-27 04:17] LABS: Alanine Aminotransferase 99 Units/L (7-52); Albumin 2.5 g/dL (3.5-5.7); Albumin/Globulin Ratio 0.8 (1.1-2.2); Alkaline Phosphatase 171 Units/L (34-104); Amylase 341 Units/L (29-103); Aspartate Amino Transferase 111 Units/L (13-39); BUN/Creatinine Ratio 24 (6-26); Bilirubin,Direct 1.1 mg/dL (0.0-0.2); Bilirubin,Indirect 0.5 mg/dL (0.0-1.2); Bilirubin,Total 1.6 mg/dL (0.3-1.0); Blood Urea Nitrogen 25 mg/dL (8-23); Calcium 8.2 mg/dL (8.6-10.3); Carbon Dioxide 24 mEq/L (23-29); Chloride 110 mEq/L (98-107); Globulin 3.2 g/dL (2.4-3.5); Glucose 77 mg/dL (70-105); Osmolality,Calculated 291 (280-300); Potassium 3.8 mEq/L (3.5-5.1); Sodium 139 mEq/L (136-145); Total Protein 5.7 g/dL (6.4-8.9); eGFR For Non-African Americans 52 (> 60)
[2018-07-27 04:29] LABS: Lipase 872 Units/L (11-82)
[2018-07-27] MEDS: *HR* Heparin 5,000 UNIT/ML VIAL SQ SCH ×2 (06:15→18:25)
[2018-07-27] MEDS: *HR* HYDROcodone/Acet 5/325 mg TABLET PO PRN (08:12)
[2018-07-27] MEDS: Pantoprazole 40 MG VIAL IVP SCH (08:13)
[2018-07-27] MEDS: Loratadine 10 MG TABLET PO SCH (08:40)
--- NOTE | 2018-07-27 09:34 | General Surgery Progress Note ---
<Radha Potter - Last Filed: 07/27/18 14:42> Date of Encounter: 07/27/18 - Assessment and Plan (1) Gallstone pancreatitis Current Visit: Yes Status: Acute amylase and lipase trending down appropriately check labs tomorrow plan lapaproscopic cholecystectomy in next 24 to 48 hours (2) Sigmoid diverticulitis Current Visit: Yes Status: Acute pain in LLQ resolved continue abx currently outpatient colonoscopy (3) HTN (hypertension) Current Visit: No Status: Chronic ok po meds, controlled Qualifiers: Hypertension type: essential hypertension Qualified Code(s): I10 - Essential (primary) hypertension (4) Type 2 diabetes mellitus with polyneuropathy Current Visit: No Status: Chronic (5) Hypothyroidism Current Visit: No Status: Chronic continue synthroid Qualifiers: Hypothyroidism type: unspecified Qualified Code(s): E03.9 - Hypothyroidism, unspecified (6) Anemia Current Visit: No Status: Chronic colonoscopy as outpatient Qualifiers: Anemia type: unspecified type Qualified Code(s): D64.9 - Anemia, unspecified (7) Cyst, dermoid, scalp and neck Current Visit: Yes Status: Acute patient with at least 5 very large protuberant scalp cysts that are increasing in size with time and causing pain will plan excision in OR when remove gallbladder risks and benefits discussed with patient and she wishes to proceed (8) Pain Current Visit: Yes Status: Acute scalp cysts cause pain Subjective Patient reports: no new complaints, feels better, tolerating liquids well, flatus, no bowel movement, afebrile Narrative: patient complains of 6 scalp sebaceous cysts that she first noticed 13 years ago. Over this time they have increased in size, some significantly. She complains of pain when she tries to lean her head against things even pillows and when she underwood/brushes her hair. She would like to have them removed Objective Vital Signs - Last 8 Hours Temp Pulse Resp BP Pulse Ox 07/27/18 12:47 98.6 F 54 16 152/54 100 07/27/18 12:32 97.7 F 53 16 131/56 07/27/18 11:33 97.6 F 53 16 149/61 98 07/27/18 07:42 98.6 F 59 16 146/68 94 Intake and Output 07/26/18 07/27/18 07/27/18 23:59 07:59 15:59 Intake Total 300 / 300 100 / 100 350 / 350 Output Total 300 / 300 200 / 200 Balance 0 / 0 -100 / -100 350 / 350 Intake: IV Fluids 300 / 300 100 / 100 Cipro Premix 400 MG/200 ML 400 200 / 200 mg In 200 ml @ 200 mls/hr IVPB Q12HR [facility] Rx#:[id number] Flagyl Premix 500 MG/100 ML 500 100 / 100 100 / 100 mg In 100 ml @ 100 mls/hr IVPB Q8HR [facility] Rx#:[id number] Blood Product 350 / 350 Rbcs Leuko Poor As-1 Unit 350 / 350 [id number] Output: Urine 300 / 300 200 / 200 Other: Weight 88.9 kg Blood Glucose* 76 95 112 Patient Weight 07/27/18 23:59 Weight 88.9 kg - General physical appearance well developed, well nourished, no distress - Eyes PERRL, normal ocular movement - ENT normal mucosa, Other (5 large (over 2 cm) scalp sebaceous cysts, one ~1 cm size) - Neck Neck exam: trachea midline - Respiratory normal expansion, normal respiratory effort - Cardiovascular Cardiovascular exam: Present: RRR - Abdomen Abdomen: Present: bowel sounds present, soft, non tender. Absent: distended, guarding, rebound - Integumentary no rash, no growths - Musculoskeletal normal posture - Psychiatric oriented to time, oriented to person, oriented to place, memory intact - Labs 07/27/18 02:38 07/27/18 02:38 Diabetes panel 07/27/18 Range/Units 02:38 Sodium 139 (136-145) mEq/L Potassium 3.8 (3.5-5.1) mEq/L Chloride 110 H (98-107) mEq/L Carbon Dioxide 24 (23-29) mEq/L BUN 25 H (8-23) mg/dL Creatinine 1.03 (0.60-1.20) mg/dL Glucose 77 (70-105) mg/dL Calcium 8.2 L (8.6-10.3) mg/dL AST 111 H (13-39) Units/L ALT 99 H (7-52) Units/L Alkaline Phosphatase 171 H (34-104) Units/L Albumin 2.5 L (3.5-5.7) g/dL Calcium panel 07/27/18 Range/Units 02:38 Calcium 8.2 L (8.6-10.3) mg/dL Albumin 2.5 L (3.5-5.7) g/dL Pituitary panel 07/27/18 Range/Units 02:38 Sodium 139 (136-145) mEq/L Potassium 3.8 (3.5-5.1) mEq/L Chloride 110 H (98-107) mEq/L Carbon Dioxide 24 (23-29) mEq/L BUN 25 H (8-23) mg/dL Creatinine 1.03 (0.60-1.20) mg/dL Glucose 77 (70-105) mg/dL Calcium 8.2 L (8.6-10.3) mg/dL Adrenal panel 07/27/18 Range/Units 02:38 Sodium 139 (136-145) mEq/L Potassium 3.8 (3.5-5.1) mEq/L Chloride 110 H (98-107) mEq/L Carbon Dioxide 24 (23-29) mEq/L BUN 25 H (8-23) mg/dL Creatinine 1.03 (0.60-1.20) mg/dL Glucose 77 (70-105) mg/dL Calcium 8.2 L (8.6-10.3) mg/dL Total Bilirubin 1.6 H (0.3-1.0) mg/dL AST 111 H (13-39) Units/L ALT 99 H (7-52) Units/L Alkaline Phosphatase 171 H (34-104) Units/L Albumin 2.5 L (3.5-5.7) g/dL Consult Discharge Plan - Plan Referrals: Jordyn Renee DO [Primary Care Provider] - - Attending Attestation I examined this patient and my medical decision-making was reviewed with the Resident Physician. I agree with the documented findings, disposition and treatment plan as described except to the extent set forth below. <Dom Stock - Last Filed: 07/27/18 16:23> Time of Encounter: 07:20 - Assessment and Plan (1) Cholecystitis Current Visit: Yes Status: Acute Evidence on US and CT ab/pelvis (07/25) Plan for laparoscopic cholecystectomy with possible open in 24-28 hours after pancreatitis has resolved Patient had elevated LFTs, will trend, may need MRCP/ERCP Patient NPO WBC 12.9 > 8.7 today On flagyl and cipro Alk phos elevated 158 > 171 today, will follow labs On IVF 110 ml/hr Acetaminophen and norco for pain Zofran for nausea, Protonix for GI prophylaxis (2) Acute pancreatitis Current Visit: Yes Status: Acute Evidence on CT ab/pelvis (07/25), possibility of gallstone pancreatitis Lipase >1800 > 872 today Amylase 823 > 341 today Continue Abx NPO IV fluid 110 ml/hr Pain controlled with norco and acetaminophen GI prophylaxis Plan for laparoscopic cholecystectomy when pancreatitis resolves Will continue to monitor labs Qualifiers: Pancreatitis type: biliary Acute pancreatitis complication: uninfected necrosis Qualified Code(s): K85.11 - Biliary acute pancreatitis with uninfected necrosis (3) Sigmoid diverticulitis Current Visit: Yes Status: Acute CT evidence of diverticulosis with inflammation around sigmoid colon LLQ pain has resolved On cipro and flagyl Patient denies history of colonoscopy and will need one as an outpatient (4) Cyst, dermoid, scalp and neck Current Visit: Yes Status: Acute Patient complains of at least 5 large cysts on her scalp They are causing her pain and have increased in size over the past few years Plan to excise cysts at same time of cholecystectomy Patient is in agreement with procedure Subjective Patient reports: no new complaints, feels better, pain is less, flatus, no bowel movement Narrative: Patient resting well this AM. She states her pain is improved. She denies nausea, vomiting, abdominal pain, CP, SOB. This morning patient also complained of several sebaceous scalp cysts which have grown overtime and cause her pain. She wishes to have these removed during her cholecystectomy. Objective Vital Signs - Last 8 Hours Temp Pulse Resp BP Pulse Ox 07/27/18 07:42 98.6 F 59 16 146/68 94 07/27/18 02:55 98.5 F 60 16 129/55 99 Intake and Output 07/26/18 07/27/18 07/27/18 23:59 07:59 15:59 Intake Total 300 / 300 100 / 100 Output Total 300 / 300 200 / 200 Balance 0 / 0 -100 / -100 Intake: IV Fluids 300 / 300 100 / 100 Cipro Premix 400 MG/200 ML 400 200 / 200 mg In 200 ml @ 200 mls/hr IVPB Q12HR [facility] Rx#:[id number] Flagyl Premix 500 MG/100 ML 500 100 / 100 100 / 100 mg In 100 ml @ 100 mls/hr IVPB Q8HR [facility] Rx#:[id number] Output: Urine 300 / 300 200 / 200 Other: Weight 88.9 kg Blood Glucose* 76 95 Patient Weight 07/27/18 23:59 Weight 88.9 kg - General physical appearance well developed - Respiratory normal expansion, normal respiratory effort - Cardiovascular Cardiovascular exam: Present: RRR - Abdomen Abdomen: Present: bowel sounds present, soft, tender Abdominal Tenderness: epigastic, RUQ - Integumentary no rash - Psychiatric oriented to time, oriented to person, oriented to place - Labs 07/27/18 02:38 07/27/18 02:38 Diabetes panel 07/27/18 Range/Units 02:38 Sodium 139 (136-145) mEq/L Potassium 3.8 (3.5-5.1) mEq/L Chloride 110 H (98-107) mEq/L Carbon Dioxide 24 (23-29) mEq/L BUN 25 H (8-23) mg/dL Creatinine 1.03 (0.60-1.20) mg/dL Glucose 77 (70-105) mg/dL Calcium 8.2 L (8.6-10.3) mg/dL AST 111 H (13-39) Units/L ALT 99 H (7-52) Units/L Alkaline Phosphatase 171 H (34-104) Units/L Albumin 2.5 L (3.5-5.7) g/dL Calcium panel 07/27/18 Range/Units 02:38 Calcium 8.2 L (8.6-10.3) mg/dL Albumin 2.5 L (3.5-5.7) g/dL Pituitary panel 07/27/18 Range/Units 02:38 Sodium 139 (136-145) mEq/L Potassium 3.8 (3.5-5.1) mEq/L Chloride 110 H (98-107) mEq/L Carbon Dioxide 24 (23-29) mEq/L BUN 25 H (8-23) mg/dL Creatinine 1.03 (0.60-1.20) mg/dL Glucose 77 (70-105) mg/dL Calcium 8.2 L (8.6-10.3) mg/dL Adrenal panel 07/27/18 Range/Units 02:38 Sodium 139 (136-145) mEq/L Potassium 3.8 (3.5-5.1) mEq/L Chloride 110 H (98-107) mEq/L Carbon Dioxide 24 (23-29) mEq/L BUN 25 H (8-23) mg/dL Creatinine 1.03 (0.60-1.20) mg/dL Glucose 77 (70-105) mg/dL Calcium 8.2 L (8.6-10.3) mg/dL Total Bilirubin 1.6 H (0.3-1.0) mg/dL AST 111 H (13-39) Units/L ALT 99 H (7-52) Units/L Alkaline Phosphatase 171 H (34-104) Units/L Albumin 2.5 L (3.5-5.7) g/dL
[2018-07-27] MEDS ORDERED: 0.9 % Sodium Chloride 250 ML ONE (11:42)
[2018-07-27] MEDS: Ondansetron 4 MG/2 ML VIAL IVP PRN ×2 (11:44→15:48)
--- NOTE | 2018-07-27 13:39 | Internal Med Progress Note ---
Hospitalist Progress Note - Encounter Date of Encounter: 07/27/18 Time of Encounter: 09:00 - Subjective Interval History: Pt denies abd pain/nausea/vomiting. No fever. C/O mild back pain. C/O right hands numbness but state she has it on and off for months. - Exam Vitals: Temp Pulse Resp BP Pulse Ox 98.6 F 54 16 152/54 100 07/27/18 12:47 07/27/18 12:47 07/27/18 12:47 07/27/18 12:47 07/27/18 12:47 Exam: AAO x 3, in mild acute distress HEENT: NC/AT, PERRL Neck: Supple, no JVD Lungs: CTA b/l Heart: S1S2, RRR, systolic murmur 4/6 in aortic area Abd: Soft, NT, BS normal Ext: No pedal edema Neuro: No focal deficit - Assessment and Plan (1) Chest pain Current Visit: Yes Status: Acute Assessment and Plan: Actually epigastric area pain. Pt has elevated lipase >1800, consist with acute pancreatitis. - 3 sets of troponin negative, has r/o ACS - Start acute pancreatitis treatment. (2) DVT prophylaxis Current Visit: No Status: Acute Assessment and Plan: Heparin SC (3) HTN (hypertension) Current Visit: No Status: Chronic Assessment and Plan: Cont home med. (4) Hypothyroidism Current Visit: No Status: Chronic Assessment and Plan: Cont home meds. 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 with N/V. Lipase > 1800 with mildly increased bilirubin and liver enzyme. Consistant with acute pancreatitis. CT abd confirmed pancreatitis. - Improved, started clear liquid diet - Symptomatic treatment with pain and nausea med - US abd shows gall stone with cholecystitis, CBD 8mm, surgery consult on case, plan for lap cholecystectomy after pancreatitis resolved. - No hypertriglyceridemia - Pt denies alcohol use. (7) Cholecystitis Current Visit: Yes Status: Acute Assessment and Plan: CT and US abd shows acute cholecystitis. - Cont cipro and flagyl iv. - Surgical consult appreciated, plan for Lap cholecystectomy when pancreatitis resolved. (8) Sigmoid diverticulitis Current Visit: Yes Status: Acute Assessment and Plan: CT shows diverticulitis. Pt has no symptoms now but c/o LLQ pain previously. - On cipro and flagyl. DVT Prophylaxis: Heparin SC - Time Spent with Patient Total time spent is greater than 50% in coordination of care (as documented) at patient's floor/unit and/or counseling patient: 25 - 35 minutes Plan of Care Discussed with: patient Internal Medicine: Result - Labs CBC & Chem 7: 07/27/18 02:38 07/27/18 02:38 Labs: Short CBC 07/27/18 Range/Units 02:38 WBC 8.7 (4.3-11.1) K/mcL Hgb 6.8 L (11.5-15.4) g/dL Hct 23.4 L (35.3-44.9) % Plt Count 289 (140-400) K/mcL Neutrophils # 6.9 (1.6-8.9) K/mcL BMP 07/27/18 02:38 Sodium 139 Potassium 3.8 Chloride 110 H Carbon Dioxide 24 BUN 25 H Creatinine 1.03 Glucose 77 Calcium 8.2 L Liver Function 07/27/18 Range/Units 02:38 Total Bilirubin 1.6 H (0.3-1.0) mg/dL Direct Bilirubin 1.1 H (0.0-0.2) mg/dL AST 111 H (13-39) Units/L ALT 99 H (7-52) Units/L Alkaline Phosphatase 171 H (34-104) Units/L Albumin 2.5 L (3.5-5.7) g/dL - ABG Interpretation ABG results: PT/INR, D-dimer PT 13.0 Seconds (9.4-12.1) H 07/25/18 04:13 - Impressions Impressions Abdomen/Pelvis CT 07/25/18 11:44 IMPRESSION: 1. Acute pancreatitis. No abnormal fluid collection or abscess. Please note that in the absence of intravenous contrast, sensitivity of the exam for pancreatic necrosis is low. 2. Cholelithiasis. Please refer to recent ultrasound done for additional information as ultrasound is a more sensitive modality for evaluation of the gallbladder. By CT, there is mild pericholecystic inflammation. 3. Mild periduodenal inflammation, likely secondary duodenitis from the pancreatitis. 4. Sigmoid diverticulosis with mild perisigmoid inflammation in the left lower quadrant. Please correlate with clinical symptoms if patient has left lower quadrant abdominal pain, this may represent an uncomplicated diverticulitis. D/ / 07/25/2018 18:42:25 Syd Gayle MD / jackson Interpreting Provider: Syd Gayle MD Echocardiogram 07/25/18 12:17 Impressions: Technically adequate exam. LVEF 60-65%. Mild left ventricular diastolic dysfunction. Normal right ventricular structure and function. Mild aortic stenosis. The estimated aortic valve area was approximately 1.6 cm2 with peak aortic valve gradient of 28 mmHg and peak aortic valve velocity of 2.62m/s Consult Discharge Plan - Plan Referrals: Jordyn Renee DO [Primary Care Provider] - (1) Chest pain Qualifiers: Chest pain type: unspecified Qualified Code(s): R07.9 - Chest pain, unspecified (3) HTN (hypertension) Qualifiers: Hypertension type: essential hypertension Qualified Code(s): I10 - Essential (primary) hypertension (4) Hypothyroidism Qualifiers: Hypothyroidism type: unspecified Qualified Code(s): E03.9 - Hypothyroidism, u nspecified (6) Acute pancreatitis Qualifiers: Pancreatitis type: biliary Acute pancreatitis complication: uninfected necrosis Qualified Code(s): K85.11 - Biliary acute pancreatitis with uninfected necrosis
[2018-07-28] MEDS: MetroNIDAZOLE 500 MG/100 ML 500 MG/100 ML BAG IVPB SCH ×3 (00:03→15:28)
[2018-07-28 00:58] LABS: Basophils % 0.1 %; Eosinophils # 0.3 K/mcL (0.0-0.6); Eosinophils % 4.2 %; Hemoglobin 7.8 g/dL (11.5-15.4); Immature Granulocytes % 0.3 % (0-4); Lymphocytes % 14.2 %; Mean Corpuscular Hemoglobin 28.6 pg (28.0-33.3); Mean Corpuscular Volume 95.2 fL (83.0-100.0); Mean Platelet Volume 11.1 fL (9.4-12.4); Monocytes # 0.6 K/mcL (0.0-1.3); Monocytes % 8.2 %; Neutrophils # 5.2 K/mcL (1.6-8.9); Platelet Count 259 K/mcL (140-400); Red Blood Count 2.73 M/mcL (3.82-4.97); Red Cell Distribution Width 14.9 % (11.5-14.5)
[2018-07-28 01:09] LABS: Alanine Aminotransferase 79 Units/L (7-52); Albumin 2.8 g/dL (3.5-5.7); Albumin/Globulin Ratio 0.9 (1.1-2.2); Alkaline Phosphatase 217 Units/L (34-104); Amylase 155 Units/L (29-103); Aspartate Amino Transferase 72 Units/L (13-39); BUN/Creatinine Ratio 21 (6-26); Bilirubin,Direct 0.8 mg/dL (0.0-0.2); Bilirubin,Indirect 0.7 mg/dL (0.0-1.2); Bilirubin,Total 1.5 mg/dL (0.3-1.0); Blood Urea Nitrogen 20 mg/dL (8-23); Calcium 8.8 mg/dL (8.6-10.3); Carbon Dioxide 25 mEq/L (23-29); Chloride 109 mEq/L (98-107); Glucose 72 mg/dL (70-105); Lipase 389 Units/L (11-82); Osmolality,Calculated 287 (280-300); Potassium 3.8 mEq/L (3.5-5.1); Sodium 138 mEq/L (136-145); Total Protein 5.8 g/dL (6.4-8.9); eGFR For Non-African Americans 56 (> 60)
[2018-07-28] MEDS: D5% in Lactated Ringers 1,000 ML IVC SCH (03:51)
[2018-07-28] MEDS ORDERED: OXYCODONE Oral CONC 10 MG/0.5 ML ORAL.SYG SL ONE (04:11)
[2018-07-28] MEDS: *HR* Heparin 5,000 UNIT/ML VIAL SQ SCH ×2 (04:37→17:45)
[2018-07-28 05:38] LABS: Hematocrit 25.8 % (35.3-44.9); Hemoglobin 7.7 g/dL (11.5-15.4)
[2018-07-28] MEDS: Insulin LISPRO 300 UNITS/3 ML VIAL SQ SCH ×3 (07:34→17:26)
[2018-07-28] MEDS: Ondansetron 4 MG/2 ML VIAL IVP PRN ×2 (08:44→18:39)
[2018-07-28] MEDS: Pantoprazole 40 MG VIAL IVP SCH (08:44)
[2018-07-28] MEDS: Loratadine 10 MG TABLET PO SCH ×2 (08:47→10:28)
--- NOTE | 2018-07-28 12:06 | General Surgery Progress Note ---
<KarloEvita An - Last Filed: 07/28/18 12:04> Date of Encounter: 07/28/18 Time of Encounter: 12:05 - Assessment and Plan (1) Gallstone pancreatitis Current Visit: Yes Status: Acute Remains with n/v. Will decrease diet to CLD and add prn promethazine. If vomiting or pains worsens, make NPO Will plan for surgical intervention in the next 24-48 hours NPO at midnight Continue IV ATBX continue IVF (2) Cyst, dermoid, scalp and neck Current Visit: Yes Status: Acute Will plan for surgical excisions in the next 24-48 hours See a/p above Subjective Patient reports: no new complaints, still having pain (and nausea), voiding w/o difficulty, nausea, vomiting, afebrile Objective Vital Signs - Last 8 Hours Temp Pulse Resp BP Pulse Ox 07/28/18 11:59 97.9 F 53 16 147/63 99 07/28/18 07:03 97.8 F 72 16 169/62 95 Intake and Output 07/27/18 07/28/18 07/28/18 23:59 07:59 15:59 Intake Total 300 / 300 100 / 100 0 / 0 Balance 300 / 300 100 / 100 0 / 0 Intake: IV Fluids 300 / 300 100 / 100 Cipro Premix 400 MG/200 ML 400 200 / 200 mg In 200 ml @ 200 mls/hr IVPB Q12HR [facility] Rx#:[id number] Flagyl Premix 500 MG/100 ML 500 100 / 100 100 / 100 mg In 100 ml @ 100 mls/hr IVPB Q8HR [facility] Rx#:[id number] Oral 0 / 0 Other: Meal Breakfast Percent of Meal Consumed 0% Weight 92 kg Blood Glucose* 136 87 93 Patient Weight 07/28/18 23:59 Weight 92 kg - General physical appearance no distress, moderate pain - ENT poor mcc - Neck Neck exam: trachea midline, no lymphadectomy - Respiratory normal expansion, normal respiratory effort, clear to auscultation - Cardiovascular Cardiovascular exam: Present: RRR, distant heart sounds - Abdomen Abdomen: Present: bowel sounds present, soft, tender Abdominal Tenderness: RUQ - Integumentary other (multiple large cysts on her scalp) - Neurologic normal sensation - Musculoskeletal normal posture - Psychiatric oriented to time, oriented to person, oriented to place, memory intact - Labs 07/28/18 05:24 07/28/18 00:07 Diabetes panel 07/28/18 Range/Units 00:07 Sodium 138 (136-145) mEq/L Potassium 3.8 (3.5-5.1) mEq/L Chloride 109 H (98-107) mEq/L Carbon Dioxide 25 (23-29) mEq/L BUN 20 (8-23) mg/dL Creatinine 0.96 (0.60-1.20) mg/dL Glucose 72 (70-105) mg/dL Calcium 8.8 (8.6-10.3) mg/dL AST 72 H (13-39) Units/L ALT 79 H (7-52) Units/L Alkaline Phosphatase 217 H (34-104) Units/L Albumin 2.8 L (3.5-5.7) g/dL Calcium panel 07/28/18 Range/Units 00:07 Calcium 8.8 (8.6-10.3) mg/dL Albumin 2.8 L (3.5-5.7) g/dL Pituitary panel 07/28/18 Range/Units 00:07 Sodium 138 (136-145) mEq/L Potassium 3.8 (3.5-5.1) mEq/L Chloride 109 H (98-107) mEq/L Carbon Dioxide 25 (23-29) mEq/L BUN 20 (8-23) mg/dL Creatinine 0.96 (0.60-1.20) mg/dL Glucose 72 (70-105) mg/dL Calcium 8.8 (8.6-10.3) mg/dL Adrenal panel 07/28/18 Range/Units 00:07 Sodium 138 (136-145) mEq/L Potassium 3.8 (3.5-5.1) mEq/L Chloride 109 H (98-107) mEq/L Carbon Dioxide 25 (23-29) mEq/L BUN 20 (8-23) mg/dL Creatinine 0.96 (0.60-1.20) mg/dL Glucose 72 (70-105) mg/dL Calcium 8.8 (8.6-10.3) mg/dL Total Bilirubin 1.5 H (0.3-1.0) mg/dL AST 72 H (13-39) Units/L ALT 79 H (7-52) Units/L Alkaline Phosphatase 217 H (34-104) Units/L Albumin 2.8 L (3.5-5.7) g/dL Consult Discharge Plan - Plan Referrals: Jordyn Renee, DO [Primary Care Provider] - <Radha Potter - Last Filed: 07/29/18 09:06> - Assessment and Plan (1) Gallstone pancreatitis Current Visit: Yes Status: Acute (2) Sigmoid diverticulitis Current Visit: Yes Status: Acute (3) HTN (hypertension) Current Visit: No Status: Chronic Qualifiers: Hypertension type: essential hypertension Qualified Code(s): I10 - Essential (primary) hypertension (4) Type 2 diabetes mellitus with polyneuropathy Current Visit: No Status: Chronic (5) Hypothyroidism Current Visit: No Status: Chronic Qualifiers: Hypothyroidism type: unspecified Qualified Code(s): E03.9 - Hypothyroidism, unspecified (6) Anemia Current Visit: No Status: Chronic Qualifiers: Anemia type: unspecified type Qualified Code(s): D64.9 - Anemia, unspecified (7) Cyst, dermoid, scalp and neck Current Visit: Yes Status: Acute (8) Pain Current Visit: Yes Status: Acute Objective Vital Signs - Last 8 Hours Temp Pulse Resp BP Pulse Ox 07/29/18 06:41 98.2 F 55 15 156/55 98 07/29/18 04:03 98.0 F 51 16 160/76 98 Intake and Output 07/28/18 07/29/18 07/29/18 23:59 07:59 15:59 Intake Total 320 / 320 1026 / 1026 Output Total 300 / 300 300 / 300 Balance 726 / 726 Intake: IV Fluids 200 / 200 1026 / 1026 0.9 % Sodium Chloride 1,000 ML 726 / 726 @ 60 mls/hr IVC .[id number] [facility] Rx #:[id number] Cipro Premix 400 MG/200 ML 400 100 / 100 200 / 200 mg In 200 ml @ 200 mls/hr IVPB Q12HR [facility] Rx#:[id number] Flagyl Premix 500 MG/100 ML 500 100 / 100 100 / 100 mg In 100 ml @ 100 mls/hr IVPB Q8HR [facility] Rx#:[id number] Oral 120 / 120 0 / 0 Output: Urine 300 / 300 300 / 300 Other: Weight 91.8 kg Blood Glucose* 156 91 Patient Weight 07/29/18 23:59 Weight 91.8 kg - Labs 07/29/18 06:11 07/29/18 06:11 Diabetes panel 07/29/18 Range/Units 06:11 Sodium 139 (136-145) mEq/L Potassium 3.7 (3.5-5.1) mEq/L Chloride 110 H (98-107) mEq/L Carbon Dioxide 25 (23-29) mEq/L BUN 11 (8-23) mg/dL Creatinine 0.81 (0.60-1.20) mg/dL Glucose 80 (70-105) mg/dL Calcium 8.8 (8.6-10.3) mg/dL AST 36 (13-39) Units/L ALT 53 H (7-52) Units/L Alkaline Phosphatase 208 H (34-104) Units/L Albumin 2.6 L (3.5-5.7) g/dL Calcium panel 07/29/18 Range/Units 06:11 Calcium 8.8 (8.6-10.3) mg/dL Albumin 2.6 L (3.5-5.7) g/dL Pituitary panel 07/29/18 Range/Units 06:11 Sodium 139 (136-145) mEq/L Potassium 3.7 (3.5-5.1) mEq/L Chloride 110 H (98-107) mEq/L Carbon Dioxide 25 (23-29) mEq/L BUN 11 (8-23) mg/dL Creatinine 0.81 (0.60-1.20) mg/dL Glucose 80 (70-105) mg/dL Calcium 8.8 (8.6-10.3) mg/dL Adrenal panel 07/29/18 Range/Units 06:11 Sodium 139 (136-145) mEq/L Potassium 3.7 (3.5-5.1) mEq/L Chloride 110 H (98-107) mEq/L Carbon Dioxide 25 (23-29) mEq/L BUN 11 (8-23) mg/dL Creatinine 0.81 (0.60-1.20) mg/dL Glucose 80 (70-105) mg/dL Calcium 8.8 (8.6-10.3) mg/dL Total Bilirubin 0.8 (0.3-1.0) mg/dL AST 36 (13-39) Units/L ALT 53 H (7-52) Units/L Alkaline Phosphatase 208 H (34-104) Units/L Albumin 2.6 L (3.5-5.7) g/dL - Attending Attestation I have personally performed a face to face evaluation on this patient. I have reviewed and agree with the care plan. History and Exam by me shows:
[2018-07-28 12:56] LABS: Hematocrit 27.9 % (35.3-44.9); Hemoglobin 8.4 g/dL (11.5-15.4)
[2018-07-28] MEDS: *HR* HYDROcodone/Acet 5/325 mg TABLET PO PRN (15:27)
[2018-07-28] MEDS: 0.9 % Sodium Chloride 1,000 ML IVC SCH (15:28)
--- NOTE | 2018-07-28 16:41 | Internal Med Progress Note ---
Hospitalist Progress Note - Encounter Date of Encounter: 07/28/18 Time of Encounter: 09:00 - Subjective Interval History: Pt has nausea/vomiting this morning but not abd pain. states feels funny after have received oxycodone this am. No fever. C/O mild back pain. C/O right hands numbness but state she has it on and off for months. - Exam Vitals: Temp Pulse Resp BP Pulse Ox 97.8 F 57 16 174/66 99 07/28/18 15:43 07/28/18 15:43 07/28/18 15:43 07/28/18 15:43 07/28/18 15:43 Exam: AAO x 3, in mild acute distress HEENT: NC/AT, PERRL Neck: Supple, no JVD Lungs: CTA b/l Heart: S1S2, RRR, systolic murmur 4/6 in aortic area Abd: Soft, NT, BS normal Ext: No pedal edema Neuro: No focal deficit - Assessment and Plan (1) DVT prophylaxis Current Visit: No Status: Acute (2) HTN (hypertension) Current Visit: No Status: Chronic Assessment and Plan: Cont home med. Hydralazine iv PRN. (3) Hypothyroidism Current Visit: No Status: Chronic Assessment and Plan: Cont home meds. (4) Type 2 diabetes mellitus with polyneuropathy Current Visit: No Status: Chronic Assessment and Plan: SSI now (5) Acute pancreatitis Current Visit: Yes Status: Acute Assessment and Plan: - Improved, still on clear liquid diet because she has N/V today - Symptomatic treatment with pain and nausea med - US abd shows gall stone with cholecystitis, CBD 8mm, surgery consult on case, plan for lap cholecystectomy after pancreatitis resolved. - No hypertriglyceridemia - Pt denies alcohol use. (6) Cholecystitis Current Visit: Yes Status: Acute Assessment and Plan: CT and US abd shows acute cholecystitis. - Cont cipro and flagyl iv. - Surgical consult appreciated, plan for Lap cholecystectomy when pancreatitis resolved. (7) Sigmoid diverticulitis Current Visit: Yes Status: Acute Assessment and Plan: CT shows diverticulitis. Pt has no symptoms now but c/o LLQ pain previously. - On cipro and flagyl. DVT Prophylaxis: Heparin SC - Time Spent with Patient Total time spent is greater than 50% in coordination of care (as documented) at patient's floor/unit and/or counseling patient: 30 min 25 - 35 minutes Plan of Care Discussed with: patient Internal Medicine: Result - Labs CBC & Chem 7: 07/28/18 12:44 07/28/18 00:07 Labs: Short CBC 07/28/18 07/28/18 07/28/18 Range/Units 00:07 05:24 12:44 WBC 7.2 (4.3-11.1) K/mcL Hgb 7.8 L 7.7 L 8.4 L (11.5-15.4) g/dL Hct 26.0 L 25.8 L 27.9 L (35.3-44.9) % Plt Count 259 (140-400) K/mcL Neutrophils # 5.2 (1.6-8.9) K/mcL BMP 07/28/18 00:07 Sodium 138 Potassium 3.8 Chloride 109 H Carbon Dioxide 25 BUN 20 Creatinine 0.96 Glucose 72 Calcium 8.8 Liver Function 07/28/18 Range/Units 00:07 Total Bilirubin 1.5 H (0.3-1.0) mg/dL Direct Bilirubin 0.8 H (0.0-0.2) mg/dL AST 72 H (13-39) Units/L ALT 79 H (7-52) Units/L Alkaline Phosphatase 217 H (34-104) Units/L Albumin 2.8 L (3.5-5.7) g/dL - ABG Interpretation ABG results: PT/INR, D-dimer PT 13.0 Seconds (9.4-12.1) H 07/25/18 04:13 Consult Discharge Plan - Plan Referrals: Jordyn Renee DO [Primary Care Provider] - (2) HTN (hypertension) Qualifiers: Hypertension type: essential hypertension Qualified Code(s): I10 - Essential (primary) hypertension (3) Hypothyroidism Qualifiers: Hypothyroidism type: unspecified Qualified Code(s): E03.9 - Hypothyroidism, unspecified (5) Acute pancreatitis Qualifiers: Pancreatitis type: biliary Acute pancreatitis complication: uninfected necrosis Qualified Code(s): K85.11 - Biliary acute pancreatitis with uninfected necrosis
[2018-07-28 17:34] LABS: Hematocrit 27.3 % (35.3-44.9); Hemoglobin 8.1 g/dL (11.5-15.4)
--- NOTE | 2018-07-28 19:14 | Anesthesia Evaluation PreOp ---
Date of Encounter: 07/28/18 Time of Encounter: 19:00 - Past History Planned Operation: Lap Cholecystectomy, Excision Scalp Lesion Cardiac History: HTN, Hyperlipidemia, Other (Anemia) Pulmonary History: Denies Any Significant HX RETINAL SURGEON History: Denies Any Significant HX Other Medical History: Diabetes Type II, Thyroid (Hypothyroid) Anesthesia History: No Prior Anesthetic Complications, Past Anesthesia (Rt CEA) Alcohol Use: none Drug use: none Medications and Allergies Aspirin Enteric Coated [Aspirin EC] 81 mg PO DAILY #30 tablet. 02/20/18 [Rx] Atorvastatin [Lipitor] 40 mg PO HS #30 tablet 02/20/18 [Rx] Cyanocobalamin (B-12) [Vitamin B12] 1,000 mcg PO DAILY #30 tablet 02/20/18 [Rx] Diclofenac Sodium [Voltaren] 2 gm TP QID PRN 07/25/18 [History] Levothyroxine Sodium [Levoxyl] 75 mcg PO DAILY 07/25/18 [History] Lisinopril [Zestril] 5 mg PO DAILY 07/25/18 [History] Loratadine [Allergy Relief] 10 mg PO DAILY 07/25/18 [History] Metformin HCl 500 mg PO BID 07/25/18 [History] Allergy/AdvReac Type Severity Reaction Status Date / Time No Known Allergies Allergy Verified 07/25/18 04:10 - Meds/Allergy Pre-op Review Medications Reviewed: Yes Allergies Reviewed: Yes Beta Blockers on Current Med List: No Anesthesia Results - Labs 07/28/18 17:21 07/28/18 00:07 - Imaging EKG: report reviewed (SB Short DE) Additional studies: ECHO EF 65%, mild , mild Diastolic Dysfunction Anesthesia Exam Vital Signs/O2 Sat/Glucose, Most Current Temp Pulse Resp BP Pulse Ox 07/28/18 18:34 97.7 F 52 16 155/74 98 07/28/18 15:43 97.8 F 57 16 174/66 99 Height: 5'5 Weight: 202 lbs NPO (# of Hours): MN Pain Scale: 0 - HEENT Pupil (Motor): Pupils equal, EOMI Mallampati: III Teeth: Prosthesis Denture Type: Upper: Complete Oral Opening: Less than or equal to 3 - RETINAL SURGEON LOC: Oriented RETINAL SURGEON Motor: Normal RUE, Normal LUE, Normal RLE, Normal LLE, Normal Face RETINAL SURGEON Sensory: Normal: RUE, LUE, RLE, LLE, Face - Cardiac Rhythm: Regular Murmur: None JVD: No Carotid Bruit: No - Pulmonary Breath Sounds: bilateral Clear Respiratory Effort: Symmetrical Anesthesia Assess/Plan ASA Score: 3 (HTN Anemia DM) Modified [place] Scale for Level of Consciousness: Cooperative, oriented, and tranquil Anesthetic Plan: General Monitoring Plan: Standard Monitors Recovery Plan: PACU (Discussed GA, agrees to proceed)
[2018-07-28] MEDS: *HR* Promethazine 25 MG/ML VIAL IVP PRN (20:04)
[2018-07-29] MEDS: MetroNIDAZOLE 500 MG/100 ML 500 MG/100 ML BAG IVPB SCH ×4 (01:08→16:05)
[2018-07-29] MEDS: *HR* Heparin 5,000 UNIT/ML VIAL SQ SCH ×2 (06:01→18:10)
[2018-07-29 06:28] LABS: Basophils % 0.2 %; Eosinophils # 0.3 K/mcL (0.0-0.6); Eosinophils % 4.5 %; Hemoglobin 7.9 g/dL (11.5-15.4); Immature Granulocytes % 0.3 % (0-4); Lymphocytes # 0.7 K/mcL (0.6-4.6); Lymphocytes % 11.8 %; Mean Corpuscular HGB Conc 30.4 g/dL (31.6-35.5); Mean Corpuscular Volume 95.6 fL (83.0-100.0); Mean Platelet Volume 10.4 fL (9.4-12.4); Monocytes # 0.5 K/mcL (0.0-1.3); Monocytes % 8.2 %; Neutrophils # 4.7 K/mcL (1.6-8.9); Platelet Count 243 K/mcL (140-400); Red Blood Count 2.72 M/mcL (3.82-4.97); Red Cell Distribution Width 14.6 % (11.5-14.5)
[2018-07-29 06:52] LABS: Alanine Aminotransferase 53 Units/L (7-52); Albumin 2.6 g/dL (3.5-5.7); Albumin/Globulin Ratio 0.8 (1.1-2.2); Alkaline Phosphatase 208 Units/L (34-104); Aspartate Amino Transferase 36 Units/L (13-39); BUN/Creatinine Ratio 14 (6-26); Bilirubin,Direct 0.5 mg/dL (0.0-0.2); Bilirubin,Indirect 0.3 mg/dL (0.0-1.2); Bilirubin,Total 0.8 mg/dL (0.3-1.0); Blood Urea Nitrogen 11 mg/dL (8-23); Calcium 8.8 mg/dL (8.6-10.3); Carbon Dioxide 25 mEq/L (23-29); Chloride 110 mEq/L (98-107); Globulin 3.2 g/dL (2.4-3.5); Glucose 80 mg/dL (70-105); Lipase 94 Units/L (11-82); Osmolality,Calculated 286 (280-300); Potassium 3.7 mEq/L (3.5-5.1); Sodium 139 mEq/L (136-145); Total Protein 5.8 g/dL (6.4-8.9); eGFR For Non-African Americans > 60 (> 60)
[2018-07-29] MEDS: Insulin LISPRO 300 UNITS/3 ML VIAL SQ SCH ×3 (07:23→17:23)
[2018-07-29] MEDS: Loratadine 10 MG TABLET PO SCH (07:30)
[2018-07-29] MEDS: Pantoprazole 40 MG VIAL IVP SCH (07:30)
[2018-07-29] MEDS ORDERED: 0.9 % Sodium Chloride 250 ML ONE (12:15)
--- NOTE | 2018-07-29 12:36 | Internal Med Progress Note ---
Hospitalist Progress Note - Encounter Date of Encounter: 07/29/18 Time of Encounter: 12:35 - Subjective Interval History: Pt resting and had no complaints. She is a little nervous about the upcoming surgery. - Exam Vitals: Temp Pulse Resp BP Pulse Ox 98.1 F 58 15 158/59 97 07/29/18 10:40 07/29/18 10:40 07/29/18 10:40 07/29/18 10:40 07/29/18 10:40 Exam: AAO x 3, in mild acute distress HEENT: NC/AT, PERRL Neck: Supple, no JVD Lungs: CTA b/l Heart: S1S2, RRR, systolic murmur 4/6 in aortic area Abd: Soft, NT, BS normal Ext: No pedal edema Neuro: No focal deficit - Assessment and Plan (1) Acute pancreatitis Current Visit: Yes Status: Acute Assessment and Plan: Patient presented with acute pancreatitis, likely secondary to gallstone disease, significantly elevated lipase, AST/ALT, and ALP initially, ultrasound showed possible cholecystitis, cholelithiasis, mildly dilated CBD. Patient lipase, AST/ALT decreased, patient is stable for surgical management. (2) Cholecystitis Current Visit: Yes Status: Acute Assessment and Plan: Cholecystectomy scheduled today. (3) HTN (hypertension) Current Visit: No Status: Chronic Assessment and Plan: Cont home med. Hydralazine iv PRN. (4) Type 2 diabetes mellitus with polyneuropathy Current Visit: No Status: Chronic Assessment and Plan: SSI now (5) Hypothyroidism Current Visit: No Status: Chronic Assessment and Plan: Cont home meds. (6) DVT prophylaxis Current Visit: No Status: Acute Assessment and Plan: Heparin SC (7) Sigmoid diverticulitis Current Visit: Yes Status: Acute Assessment and Plan: CT shows diverticulitis. Pt has no symptoms now but c/o LLQ pain previously. - On cipro and flagyl. - Time Spent with Patient Total time spent is greater than 50% in coordination of care (as documented) at patient's floor/unit and/or counseling patient: Greater than 35 minutes Plan of Care Discussed with: patient Internal Medicine: Result - Labs CBC & Chem 7: 07/29/18 06:11 07/29/18 06:11 Labs: Short CBC 07/28/18 07/28/18 07/29/18 Range/Units 12:44 17:21 06:11 WBC 6.2 (4.3-11.1) K/mcL Hgb 8.4 L 8.1 L 7.9 L (11.5-15.4) g/dL Hct 27.9 L 27.3 L 26.0 L (35.3-44.9) % Plt Count 243 (140-400) K/mcL Neutrophils # 4.7 (1.6-8.9) K/mcL BMP 07/29/18 06:11 Sodium 139 Potassium 3.7 Chloride 110 H Carbon Dioxide 25 BUN 11 Creatinine 0.81 Glucose 80 Calcium 8.8 Liver Function 07/29/18 Range/Units 06:11 Total Bilirubin 0.8 (0.3-1.0) mg/dL Direct Bilirubin 0.5 H (0.0-0.2) mg/dL AST 36 (13-39) Units/L ALT 53 H (7-52) Units/L Alkaline Phosphatase 208 H (34-104) Units/L Albumin 2.6 L (3.5-5.7) g/dL - ABG Interpretation ABG results: PT/INR, D-dimer PT 13.0 Seconds (9.4-12.1) H 07/25/18 04:13 Consult Discharge Plan - Plan Referrals: Jordyn Renee DO [Primary Care Provider] - (1) Acute pancreatitis Qualifiers: Pancreatitis type: biliary Acute pancreatitis complication: uninfected necrosis Qualified Code(s): K85.11 - Biliary acute pancreatitis with uninfected necrosis (3) HTN (hypertension) Qualifiers: Hypertension type: essential hypertension Qualified Code(s): I10 - Essential (primary) hypertension (5) Hypothyroidism Qualifiers: Hypothyroidism type: unspecified Qualified Code(s): E03.9 - Hypothyroidism, unspecified
[2018-07-29] MEDS ORDERED: *HR* Propofol 200 MG/20 ML VIAL IVP ONE (13:40)
[2018-07-29] MEDS ORDERED: *HR* FentaNYL (PF) 100 MCG/2 ML VIAL ONE (13:40)
[2018-07-29] MEDS: Ondansetron 4 MG/2 ML VIAL IVP PRN ×2 (13:43→21:25)
--- NOTE | 2018-07-29 13:55 | Electrocardiograph Report ---
[place] [id number] Test Date: 2018-07-25 Pat Name: Qian Navarro Department: [id number] Room: 3A Gender: F Kindergartner: : 1935 Requested By: Chayo Perez Order Number: [id number] Reading MD: Ramos Kraus Measurements Intervals [place] Rate: 44 P: 24 [place]: 45 QRS: -24 QRSD: 124 T: 151 QT: 552 QTc: 473 Interpretive Statements Sinus bradycardia IVCD Possible left ventricular hypertrophy ST-T changes due to hypertrophy and/or ischemia Electronically Signed On 07-29-2018 13:53:24 EDT by Ramos Kraus
[2018-07-29] MEDS ORDERED: Lidocaine -MPF 2% 2 ML VIAL ONE (13:58)
[2018-07-29] MEDS ORDERED: Dexamethasone 4 MG/ML VIAL ONE (13:58)
[2018-07-29] MEDS ORDERED: *HR* Rocuronium Bromide 50 MG/5 ML VIAL ONE (13:58)
[2018-07-29] MEDS ORDERED: Ondansetron 4 MG/2 ML VIAL ONE (13:58)
[2018-07-29] MEDS ORDERED: Neostigmine Methylsulfate 3 MG/3 ML SYRINGE ONE (14:08)
[2018-07-29] MEDS ORDERED: Acetaminophen IV 1,000 MG/100 ML INFUS..BTL ONE (14:19)
--- NOTE | 2018-07-29 16:38 | Anesthesia Evaluation Post Op ---
Date of Encounter: 07/29/18 Time of Encounter: 16:37 - Vital Signs Vital Signs: Vital Signs/O2 Sat, Most Current Temp Pulse Resp BP Pulse Ox 98.8 F 60 15 143/62 97 07/29/18 16:25 07/29/18 16:25 07/29/18 16:25 07/29/18 16:25 07/29/18 16:25 - Lungs Lungs: Clear Ascult./Percussion - Airway Airway: Non-obstructed - Cardiovascular Regular Rate - Mental Status Mental Status: Alert & Oriented, Answers Appropriately - Pain Pain Scale: 0 Pain Scale used: Numeric (1 - 10) - Nausea Vomiting Nausea Vomiting: Not Present - Hydration Hydration: Ice chips, Has not voided - Discharge PostOp Status: Transfer Patient to floor
[2018-07-29] MEDS: 0.9 % Sodium Chloride 1,000 ML IVC SCH ×3 (17:22→21:33)
[2018-07-30 05:22] LABS: Basophils % 0.1 %; Eosinophils # 0.2 K/mcL (0.0-0.6); Eosinophils % 3.6 %; Hematocrit 30.7 % (35.3-44.9); Hemoglobin 9.2 g/dL (11.5-15.4); Immature Granulocytes % 0.1 % (0-4); Lymphocytes % 15.2 %; Mean Corpuscular Hemoglobin 28.4 pg (28.0-33.3); Mean Corpuscular Volume 94.8 fL (83.0-100.0); Mean Platelet Volume 10.3 fL (9.4-12.4); Monocytes # 0.5 K/mcL (0.0-1.3); Monocytes % 7.3 %; Platelet Count 263 K/mcL (140-400); Red Blood Count 3.24 M/mcL (3.82-4.97); Red Cell Distribution Width 14.8 % (11.5-14.5); Segmented Neutrophils % 73.7 %
[2018-07-30 05:43] LABS: BUN/Creatinine Ratio 10 (6-26); Blood Urea Nitrogen 9 mg/dL (8-23); Calcium 8.7 mg/dL (8.6-10.3); Carbon Dioxide 27 mEq/L (23-29); Chloride 109 mEq/L (98-107); Glucose 112 mg/dL (70-105); Osmolality,Calculated 287 (280-300); Potassium 3.5 mEq/L (3.5-5.1); Sodium 139 mEq/L (136-145); eGFR For Non-African Americans > 60 (> 60)
[2018-07-30 05:59] LABS: Thyroid Stimulating Hormone 10.304 mcIU/mL (0.340-5.600)
[2018-07-30] MEDS: *HR* Heparin 5,000 UNIT/ML VIAL SQ SCH ×2 (05:59→18:16)
[2018-07-30] MEDS: Insulin LISPRO 300 UNITS/3 ML VIAL SQ SCH ×3 (08:05→18:16)
[2018-07-30] MEDS: MetroNIDAZOLE 500 MG/100 ML 500 MG/100 ML BAG IVPB SCH (08:07)
[2018-07-30] MEDS: Pantoprazole 40 MG VIAL IVP SCH (08:32)
[2018-07-30] MEDS: Cyanocobalamin (B-12) 1,000 MCG TABLET PO SCH (08:32)
[2018-07-30] MEDS: Loratadine 10 MG TABLET PO SCH (08:32)
--- NOTE | 2018-07-30 11:41 | Internal Med Progress Note ---
Hospitalist Progress Note - Encounter Date of Encounter: 07/30/18 Time of Encounter: 11:39 - Subjective Interval History: Patient seen and examined in the room, she has no complaints at this time. She was reported to have 1 episode of atrial fibrillation with RVR while on the OR table yesterday. The scheduled cholecystectomy was canceled, patient was placed on Cardizem drip, cardiology was consulted. Due to the floor yesterday. Cardizem drip was discontinued due to bradycardia. Patient denies history of atrial fibrillation, she denies any chest pain, shortness of breath, or palpitation. - Exam Vitals: Temp Pulse Resp BP Pulse Ox 97.5 F L 58 15 165/65 97 07/30/18 08:01 07/30/18 08:01 07/30/18 08:01 07/30/18 08:01 07/30/18 08:01 Exam: AAO x 3, in mild acute distress HEENT: NC/AT, PERRL Neck: Supple, no JVD Lungs: CTA b/l Heart: S1S2, RRR, systolic murmur 4/6 in aortic area Abd: Soft, NT, BS normal Ext: No pedal edema Neuro: No focal deficit - Assessment and Plan (1) Atrial fibrillation Current Visit: Yes Status: Suspected Assessment and Plan: Patient was reported to have 1 episode of atrial fibrillation with RVR yesterday while on the OR table. Surgeries was canceled. Patient was placed on Cardizem drip and cardiology was consulted. She was found to be sinus rhythm when arrived on the floor. Cardizem gtt was dc later due to bradycardia HR40-60. repeat labs showed TSH 10, and free T4 is low. ECHO 07/25/2018 LVEF 60-65%, Mild left ventricular diastolic dysfunction, Normal right ventricular structure and function, Mild aortic stenosis. - NO EKG obtained while Pt was in afib. She does not have any afib prior and after the reported event. - ECHO results showed mild valvular disease. No other alarming structural abnormalities. - Hx of hypothyroid and on Synthroid, TSH is low. will adjust does if OK with cardiology. - Cardio on board, appreciate help. (2) Acute pancreatitis Current Visit: Yes Status: Resolved Assessment and Plan: Patient presented with acute pancreatitis, likely secondary to gallstone disease, significantly elevated lipase, AST/ALT, and ALP initially, ultrasound showed possible cholecystitis, cholelithiasis, mildly dilated CBD. Patient lipase, AST/ALT decreased, patient is stable for surgical management. (3) Cholecystitis Current Visit: Yes Status: Acute Assessment and Plan: Cholecystectomy was canceled yesterday due to new onset of atrial fibrillation with RVR. (4) HTN (hypertension) Current Visit: No Status: Chronic Assessment and Plan: BP slightly elevated, Lisinopril dose increased. Hydralazine iv PRN. (5) Type 2 diabetes mellitus with polyneuropathy Current Visit: No Status: Chronic Assessment and Plan: SSI now (6) Hypothyroidism Current Visit: No Status: Chronic Assessment and Plan: TSH is 10, will adjust dose if OK with cardiology. She had one reported episode of Afib with RVR yesterday while in the OR. (7) DVT prophylaxis Current Visit: No Status: Acute Assessment and Plan: Heparin SC (8) Sigmoid diverticulitis Current Visit: Yes Status: Acute Assessment and Plan: CT shows diverticulitis. Pt has no symptoms now but c/o LLQ pain previously. - On cipro and flagyl. - Time Spent with Patient Total time spent is greater than 50% in coordination of care (as documented) at patient's floor/unit and/or counseling patient: Greater than 35 minutes Plan of Care Discussed with: patient Internal Medicine: Result - Labs CBC & Chem 7: 07/30/18 05:03 07/30/18 05:03 Labs: Short CBC 07/30/18 Range/Units 05:03 WBC 6.7 (4.3-11.1) K/mcL Hgb 9.2 L (11.5-15.4) g/dL Hct 30.7 L (35.3-44.9) % Plt Count 263 (140-400) K/mcL Neutrophils # 5.0 (1.6-8.9) K/mcL BMP 07/30/18 05:03 Sodium 139 Potassium 3.5 Chloride 109 H Carbon Dioxide 27 BUN 9 Creatinine 0.87 Glucose 112 H Calcium 8.7 - ABG Interpretation ABG results: PT/INR, D-dimer PT 13.0 Seconds (9.4-12.1) H 07/25/18 04:13 Consult Discharge Plan - Plan Referrals: Jordyn Renee, [Primary Care Provider] - (1) Atrial fibrillation Qualifiers: Atrial fibrillation type: paroxysmal Qualified Code(s): I48.0 - Paroxysmal atrial fibrillation (2) Acute pancreatitis Qualifiers: Pancreatitis type: biliary Acute pancreatitis complication: uninfected necrosis Qualified Code(s): K85.11 - Biliary acute pancreatitis with uninfected necrosis (4) HTN (hypertension) Qualifiers: Hypertension type: essential hypertension Qualified Code(s): I10 - Essential (primary) hypertension (6) Hypothyroidism Qualifiers: Hypothyroidism type: unspecified Qualified Code(s): E03.9 - Hypothyroidism, unspecified
--- NOTE | 2018-07-30 11:48 | Cardiology Consult Note ---
<Nan Guzmán - Last Filed: 07/30/18 12:36> Date of Encounter: 07/30/18 Time of Encounter: 10:45 Assessment and Plan (1) Arrhythmia Current Visit: Yes Status: Acute Lap alexa reportedly cancelled yesterday due to reported new onset atrial fibrillation after induction of anesthesia. No ECG's or saved telemetry strips represent atrial fibrillation. On anesthesia record--reported HR 128. No atrial fibrillation identified on telemetry review. No chest pain or palpitations reported. Telemetry reviewed, there is a short episode of PAT on telemetry. Reviewed with Dr. Lozoya. TTE shows preserved LVEF with normal wall motion. No evidence of atrial fibrillation noted on available telemetry strips, ECGs, or telemetry review. No further cardiac testing recommended. Qualifiers: Arrhythmia type: paroxysmal tachycardia, unspecified Qualified Code(s): I47.9 - Paroxysmal tachycardia, unspecified; I47 - Paroxysmal tachycardia (2) Anemia Current Visit: No Status: Chronic Has required 2 units PRBC admission. Mgmt per GI/primary service. Qualifiers: Anemia type: unspecified type Qualified Code(s): D64.9 - Anemia, unspecified Discussion w patient/family: The assessment and plan as outlined above was discussed with the patient and/or family members who expressed understanding and agreement. All questions were answered. Thank you for involving us in the care of your patient. Please call with any questions. History of Present Illness Consult date: 07/30/18 Requesting physician: Radha Potter Consult reason: Atrial fibrillation Chief complaint: Abdominal pain History of present illness: Ms. Navarro is a 83 year old female with PMHx significant for HTN, CVA, and recent right CEA who presented to the ED several days ago with complaints of back and abdominal pain. She was found to have acute pancreatitis secondary to gallstones; she has been hospitalized for several days. Lap alexa scheduled for yesterday, however cancelled due to reported new onset atrial fibrillation after induction of anesthesia--Cardiology was then consulted. Saved strips reviewed with Dr. Lozoya; there is no evidence of atrial fibrillation noted on strips available. Past Med Surg Social Fam HX - Past Medical History Attestation: Yes The following information was validated with the patient. Source: patient Medical history: diabetes, hyperlipidemia, hypertension, peripheral artery disease, thyroid disease (hypothyroid) Psychiatric history: no psych history - Past Surgical History Surgical History: hysterectomy, orthopedic, other (right knee scope) Additional surgical history: goiter, rt carotid endarectomy - Social History Smoking Status: Never smoker Smokeless Tobacco Status: No Alcohol use: none Drug use: none - Family History Mother Living Status: Age at : 58 Cause of : lymphoma Hx Family Cardiac Disorders: No Hx Family Respiratory Disorders: No Hx Family Cancer: Yes (lymphoma) Hx Family GI Disorders: No Hx Family Endocrine Disorder: No Hx Family Neuromuscular Disorders: No Hx Family Neurologic Disorders: No Hx Family HEENT Disorders: No Hx Family Autoimmune Disorders: No Father History Unknown: Yes Medications and Allergies Aspirin Enteric Coated [Aspirin EC] 81 mg PO DAILY #30 tablet.dr 02/20/18 [Rx] Atorvastatin [Lipitor] 40 mg PO HS #30 tablet 02/20/18 [Rx] Cyanocobalamin (B-12) [Vitamin B12] 1,000 mcg PO DAILY #30 tablet 02/20/18 [Rx] Diclofenac Sodium [Voltaren] 2 gm TP QID PRN 07/25/18 [History] Levothyroxine Sodium [Levoxyl] 75 mcg PO DAILY 07/25/18 [History] Lisinopril [Zestril] 5 mg PO DAILY 07/25/18 [History] Loratadine [Allergy Relief] 10 mg PO DAILY 07/25/18 [History] Metformin HCl 500 mg PO BID 07/25/18 [History] Allergy/AdvReac Type Severity Reaction Status Date / Time No Known Allergies Allergy Verified 07/25/18 04:10 All Systems Review: The remainder of the systems were reviewed and are negative - Cardiovascular Cardiovascular: as per HPI Physical Examination Vital Signs, Last 4 Hours Temp Pulse Resp BP Pulse Ox 07/30/18 11:20 98.6 F 57 15 170/72 97 07/30/18 08:01 97.5 F L 58 15 165/65 97 General: Conversant, No Apparent Distress HEENT: Atraumatic, Normocephaly, Mucus Membranes Moist Neck: No JVD, Normal carotid pulses Cardiac: Reg Rate and Rhythm, Normal S1 and S2, No Murmur Lungs: Normal Breath Sounds, No Wheeze, Rales, Rhonchi Neuro: Alert and responsive, No focal deficits noted Abdomen: Soft, Non-Tender Skin: No rashes noted on visualized skin Musculoskeletal: No Chest Wall Tenderness Extremities: No Clubbing, No Cyanosis, No Edema, Normal Pulses Results 07/30/18 05:03 07/30/18 05:03 Lab Results 07/30/18 07/30/18 07/30/18 05:03 05:03 05:03 WBC 6.7 Hgb 9.2 L Hct 30.7 L Plt Count 263 Sodium 139 Potassium 3.5 Chloride 109 H Carbon Dioxide 27 BUN 9 Creatinine 0.87 Glucose 112 H Calcium 8.7 TSH 10.304 H Active Medications Acetaminophen (Tylenol) 650 mg PO Q6HR PRN PRN Reason: Mild Pain/Fever Stop: 01/24/19 09:28 Hydrocodone Bitart/Acetaminophen ([place] 5-325 Mg) 1 tab PO Q6HR PRN PRN Reason: Moderate Pain Stop: 01/24/19 09:28 Last Admin: 07/28/18 15:27 Dose: 1 tab Atorvastatin Calcium (Lipitor) 40 mg PO HS [facility] Stop: 01/24/19 21:01 Last Admin: 07/29/18 21:25 Dose: 40 mg Cyanocobalamin (Vitamin B12) 1,000 mcg PO DAILY [facility] Stop: 01/29/19 09:01 Last Admin: 07/30/18 08:32 Dose: 1,000 mcg Dextrose/Water (Dextrose 50% (Syg)) 25 ml IVP AD PRN PRN Reason: Hypoglycemia Stop: 01/24/19 11:50 Last Admin: 07/27/18 01:10 Dose: 25 ml Glucagon (Glucagen) 1 mg IM ONCE PRN PRN Reason: Hypoglycemia Stop: 01/24/19 11:50 Glucose (Gluctose) 15 gm PO ONCE PRN PRN Reason: Hypoglycemia Stop: 01/24/19 11:50 Glucose (Gluctose) 30 gm PO ONCE PRN PRN Reason: Hypoglycemia Stop: 01/24/19 11:50 Heparin Sodium (Porcine) (Heparin) 5,000 unit SQ Q12HCO [facility] Stop: 01/24/19 18:01 Last Admin: 07/30/18 05:59 Dose: 5,000 unit Hydralazine HCl (Hydralazine) 10 mg IVP Q6HR PRN PRN Reason: Hypertension Stop: 01/24/19 12:28 Last Admin: 07/29/18 13:30 Dose: 10 mg Dextrose (Dextrose 5%) 1,000 mls @ 100 mls/hr IVC .Q10H PRN PRN Reason: HYPOGLYCEMIA Stop: 01/24/19 11:50 Last Admin: 07/27/18 01:11 Dose: 100 mls/hr Ciprofloxacin Lactate (Cipro Premix 400 Mg/200 Ml) 400 mg in 200 mls @ 200 mls/hr IVPB Q12HR [facility] Stop: 01/24/19 19:14 Last Admin: 07/30/18 05:59 Dose: 200 mls/hr Metronidazole (Flagyl Premix 500 Mg/100 Ml) 500 mg in 100 mls @ 100 mls/hr IVPB Q8HR [facility] Stop: 01/25/19 00:01 Last Infusion: 07/30/18 10:03 Dose: Infused Sodium Chloride (0.9 % Sodium Chloride) 1,000 mls @ 60 mls/hr IVC .[id number] [facility] Stop: 01/26/19 10:46 Last Admin: 07/29/18 21:33 Dose: Not Given Insulin Human Lispro (Humalog) 0 units SQ TIDAC [facility]; Protocol Stop: 01/26/19 11:31 Last Admin: 07/30/18 12:00 Dose: Not Given Levothyroxine Sodium (Synthroid) 75 mcg PO 0630 [facility] Stop: 01/25/19 06:31 Last Admin: 07/30/18 05:59 Dose: 75 mcg Lisinopril (Zestril) 10 mg PO DAILY [facility]; Protocol Stop: 01/29/19 11:46 Loratadine (Claritin) 10 mg PO DAILY [facility]; Protocol Stop: 01/25/19 09:01 Last Admin: 07/30/18 08:32 Dose: 10 mg Naloxone HCl (Narcan) 0.4 mg IVP Q2MIN PRN PRN Reason: SEE COMMENTS Stop: 01/24/19 09:28 Nitroglycerin (Nitroglycerin) 0.4 mg SL Q5MIN PRN PRN Reason: Chest Pain Stop: 01/24/19 04:30 Last Admin: 07/25/18 06:33 Dose: 0.4 mg Ondansetron HCl (Zofran) 4 mg IVP Q4H PRN PRN Reason: Nausea And Vomiting Stop: 01/24/19 09:28 Last Admin: 07/29/18 21:25 Dose: 4 mg Pantoprazole Sodium (Protonix) 40 mg IVP DAILY [facility] Stop: 01/24/19 09:46 Last Admin: 07/30/18 08:32 Dose: 40 mg Promethazine HCl (Phenergan) 12.5 mg IVP Q6HR PRN PRN Reason: Nausea And Vomiting Stop: 01/27/19 12:07 Last Admin: 07/28/18 20:04 Dose: 12.5 mg - Imaging and Cardiology Echo: report reviewed - EKG Interpretation EKG results cardiology: personally reviewed Consult Discharge Plan - Plan Referrals: Jordyn Renee, DO [Primary Care Provider] - <Trish Lozoya - Last Filed: 07/30/18 17:20> - Attending Attestation Patient was seen and evaluated independently by me. Findings, assessment and plan were discussed at length with patient, questions answered. Agree with nurse practitioner's/resident's documentation. Addition as follows, 83 yo CF ho CVA, HTN, R-CEA, hypothyroidism, anemia. P/w abd pain. Imp gall stone pancreatitis. Plan for lap alexa yesterday, which was cancelled for possible "Afib" on tele. Review of ECG and Tele showed SR, PAT, PACs without evidence of Afib. Echo nl EF, RV nl, no chamber dilatation, mild . A: PAT anemia gall stone pancreatitis P: no anticoagulation indicated lopressor jaz-op for HR and BP ctr GI consult Trish Lozoya MD, PhD Assessment and Plan Discussion w patient/family: The assessment and plan as outlined above was discussed with the patient and/or family members who expressed understanding and agreement. All questions were answered. Thank you for involving us in the care of your patient. Please call with any questions. History of Present Illness History of present illness: Ms. Navarro is a 83 year old female All Systems Review: The remainder of the systems were reviewed and are negative Physical Examination Vital Signs, Last 4 Hours Temp Pulse Resp BP Pulse Ox 07/30/18 17:02 98.2 F 59 17 146/71 98 Results 07/30/18 05:03 07/30/18 05:03 Lab Results 07/30/18 07/30/18 07/30/18 05:03 05:03 05:03 WBC 6.7 Hgb 9.2 L Hct 30.7 L Plt Count 263 Sodium 139 Potassium 3.5 Chloride 109 H Carbon Dioxide 27 BUN 9 Creatinine 0.87 Glucose 112 H Calcium 8.7 TSH 10.304 H
--- NOTE | 2018-07-30 16:48 | General Surgery Progress Note ---
<Dom Stock S - Last Filed: 07/30/18 17:42> Date of Encounter: 07/30/18 Time of Encounter: 09:00 - Assessment and Plan (1) Cholecystitis Current Visit: Yes Status: Acute Scheduled lap alexa was cancelled yesterday due to new onset atrial fibrillation with RVR after induction of anesthesia Cardiology was consulted No ECGs or telemetry strips represent atrial fibrillation No chest pain or palpitations TTE shows preserved LVEF with normal wall motion No further cardiac testing recommended Evidence on US and CT ab/pelvis (07/25) Patient had elevated LFTs, now are down trending T. bili normal Patient on diabetic diet today WBC 6.7 today On flagyl and cipro Alk phos 171 > 217 > 208 today Amylase and lipase have been down trending On IVF 60 ml/hr Acetaminophen and norco for pain Zofran for nausea, Protonix for GI prophylaxis (2) Acute pancreatitis Current Visit: Yes Status: Resolved Evidence on CT ab/pelvis (07/25), possibility of gallstone pancreatitis Lipase >1800 > 872 > 389 > 94 Amylase 823 > 341 > 155 Continue Abx On diabetic diet IV fluid 60 ml/hr Patient denies pain, nausea, vomiting Not tender to palpation Pain controlled with norco and acetaminophen GI prophylaxis Will continue to monitor labs Qualifiers: Pancreatitis type: biliary Acute pancreatitis complication: uninfected necrosis Qualified Code(s): K85.11 - Biliary acute pancreatitis with uninfected necrosis (3) Sigmoid diverticulitis Current Visit: Yes Status: Acute CT evidence of diverticulosis with inflammation around sigmoid colon LLQ pain has resolved On cipro and flagyl Patient denies history of colonoscopy and will need one as an outpatient (4) Cyst, dermoid, scalp and neck Current Visit: Yes Status: Acute Patient complains of at least 5 large cysts on her scalp They are causing her pain and have increased in size over the past few years Plan to excise cysts at same time of cholecystectomy Patient is in agreement with procedure (5) Hypothyroidism Current Visit: No Status: Chronic Management per primary team Patient's TSH was elevated >10 Started on home levothyroxine Qualifiers: Hypothyroidism type: unspecified Qualified Code(s): E03.9 - Hypothyroidism, unspecified (6) Anemia Current Visit: No Status: Chronic Management per primary team Patient has required 2 units of PRBCs this admission, 1 additional is ordered if patient would need in OR Hgb 9.2 today Qualifiers: Anemia type: unspecified type Qualified Code(s): D64.9 - Anemia, unspecified Subjective Patient reports: no new complaints, feels better, pain is less, tolerating a regular diet, flatus, no bowel movement Narrative: Patient's surgery was cancelled yesterday due to afib with RVR. She is doing well this morning. She states her abdominal pain is improving and almost gone. She said she was very nervous about her surgery yesterday. She tolerated her diet well this AM. She denies nausea, vomiting, BMs, CP, SOB. Objective Vital Signs - Last 8 Hours Temp Pulse Resp BP Pulse Ox 07/30/18 11:20 98.6 F 57 15 170/72 97 Intake and Output 07/30/18 07/30/18 07/30/18 07:59 15:59 23:59 Intake Total 41 / 41 520 / 520 Output Total 400 / 400 225 / 225 Balance -359 / -359 295 / 295 Intake: IV Fluids 41 / 41 100 / 100 Cardizem 50 MG In 0.9 % Sodium 41 / 41 Chloride 40 ML @ 5 MG/HR 5 mls/ hr IVC .Q10H [facility] Rx#:[id number] Flagyl Premix 500 MG/100 ML 500 100 / 100 mg In 100 ml @ 100 mls/hr IVPB Q8HR [facility] Rx#:[id number] Oral 0 / 0 420 / 420 Output: Urine 400 / 400 225 / 225 Other: Meal Lunch Percent of Meal Consumed 100% Weight 94.5 kg Blood Glucose* 129 Patient Weight 07/30/18 23:59 Weight 94.5 kg - General physical appearance well developed, well nourished - Respiratory normal expansion, normal respiratory effort - Cardiovascular Cardiovascular exam: Present: RRR - Abdomen Abdomen: Present: bowel sounds present, soft, non tender - Integumentary no rash - Psychiatric oriented to time, oriented to person, oriented to place - Additional Exam Multiple (at least 5) sebaceous cysts on patient's scalp - Labs 07/30/18 05:03 07/30/18 05:03 Diabetes panel 07/30/18 Range/Units 05:03 Sodium 139 (136-145) mEq/L Potassium 3.5 (3.5-5.1) mEq/L Chloride 109 H (98-107) mEq/L Carbon Dioxide 27 (23-29) mEq/L BUN 9 (8-23) mg/dL Creatinine 0.87 (0.60-1.20) mg/dL Glucose 112 H (70-105) mg/dL Calcium 8.7 (8.6-10.3) mg/dL Thyroid panel 07/30/18 Range/Units 05:03 TSH 10.304 H (0.340-5.600) mcIU/mL Calcium panel 07/30/18 Range/Units 05:03 Calcium 8.7 (8.6-10.3) mg/dL Pituitary panel 07/30/18 07/30/18 Range/Units 05:03 05:03 Sodium 139 (136-145) mEq/L Potassium 3.5 (3.5-5.1) mEq/L Chloride 109 H (98-107) mEq/L Carbon Dioxide 27 (23-29) mEq/L BUN 9 (8-23) mg/dL Creatinine 0.87 (0.60-1.20) mg/dL Glucose 112 H (70-105) mg/dL Calcium 8.7 (8.6-10.3) mg/dL TSH 10.304 H (0.340-5.600) mcIU/mL Adrenal panel 07/30/18 Range/Units 05:03 Sodium 139 (136-145) mEq/L Potassium 3.5 (3.5-5.1) mEq/L Chloride 109 H (98-107) mEq/L Carbon Dioxide 27 (23-29) mEq/L BUN 9 (8-23) mg/dL Creatinine 0.87 (0.60-1.20) mg/dL Glucose 112 H (70-105) mg/dL Calcium 8.7 (8.6-10.3) mg/dL Consult Discharge Plan - Plan Referrals: Jordyn Renee, DO [Primary Care Provider] - <Radha Potter - Last Filed: 07/31/18 08:21> - Assessment and Plan (1) Gallstone pancreatitis Current Visit: Yes Status: Acute patients labs have returned to normal ok for diet ok to dc from surgery standpoint and will schedule surgery as outpatient no abdominal pain, no nausea or emesis (2) Sigmoid diverticulitis Current Visit: Yes Status: Acute (3) HTN (hypertension) Current Visit: No Status: Chronic Qualifiers: Hypertension type: essential hypertension Qualified Code(s): I10 - Essential (primary) hypertension (4) Type 2 diabetes mellitus with polyneuropathy Current Visit: No Status: Chronic (5) Hypothyroidism Current Visit: No Status: Chronic Qualifiers: Hypothyroidism type: unspecified Qualified Code(s): E03.9 - Hypothyroidism, unspecified (6) Anemia Current Visit: No Status: Chronic Qualifiers: Anemia type: unspecified type Qualified Code(s): D64.9 - Anemia, unspecified (7) Cyst, dermoid, scalp and neck Current Visit: Yes Status: Acute (8) Pain Current Visit: Yes Status: Acute (9) Atrial fibrillation Current Visit: Yes Status: Suspected patient did not undergo anesthesia induction yesterday, afib was noted on ekg monitor tech while she was laying awake on OR table appreciate cardiology input Qualifiers: Atrial fibrillation type: paroxysmal Qualified Code(s): I48.0 - Paroxysmal atrial fibrillation Subjective Patient reports: feels better, tolerating a regular diet, flatus, afebrile Objective Vital Signs - Last 8 Hours Temp Pulse Resp BP Pulse Ox 07/31/18 06:27 98.9 F 67 18 180/63 95 07/31/18 04:46 98.8 F 66 18 177/62 91 Intake and Output 07/30/18 07/31/18 07/31/18 23:59 07:59 15:59 Intake Total 200 / 200 0 / 0 Output Total 700 / 700 500 / 500 Balance -500 / -500 -500 / -500 Intake: Oral 200 / 200 0 / 0 Output: Urine 700 / 700 500 / 500 Other: # Bowel Movements 0 0 Weight 95.9 kg Blood Glucose* 145 112 Patient Weight 07/31/18 23:59 Weight 95.9 kg - General physical appearance well developed, well nourished, no distress - Eyes PERRL - ENT normal mucosa, normocephalic - Respiratory normal expansion, normal respiratory effort - Cardiovascular Cardiovascular exam: Present: RRR - Abdomen Abdomen: Present: bowel sounds present, soft, non tender. Absent: distended - Musculoskeletal normal posture - Psychiatric oriented to time, oriented to person, oriented to place, speech is normal - Labs 07/31/18 05:16 07/31/18 05:16 Diabetes panel 07/31/18 Range/Units 05:16 Sodium 141 (136-145) mEq/L Potassium 3.5 (3.5-5.1) mEq/L Chloride 110 H (98-107) mEq/L Carbon Dioxide 24 (23-29) mEq/L BUN 9 (8-23) mg/dL Creatinine 0.84 (0.60-1.20) mg/dL Glucose 117 H (70-105) mg/dL Calcium 8.4 L (8.6-10.3) mg/dL Calcium panel 07/31/18 Range/Units 05:16 Calcium 8.4 L (8.6-10.3) mg/dL Pituitary panel 07/31/18 Range/Units 05:16 Sodium 141 (136-145) mEq/L Potassium 3.5 (3.5-5.1) mEq/L Chloride 110 H (98-107) mEq/L Carbon Dioxide 24 (23-29) mEq/L BUN 9 (8-23) mg/dL Creatinine 0.84 (0.60-1.20) mg/dL Glucose 117 H (70-105) mg/dL Calcium 8.4 L (8.6-10.3) mg/dL Adrenal panel 07/31/18 Range/Units 05:16 Sodium 141 (136-145) mEq/L Potassium 3.5 (3.5-5.1) mEq/L Chloride 110 H (98-107) mEq/L Carbon Dioxide 24 (23-29) mEq/L BUN 9 (8-23) mg/dL Creatinine 0.84 (0.60-1.20) mg/dL Glucose 117 H (70-105) mg/dL Calcium 8.4 L (8.6-10.3) mg/dL - Attending Attestation I examined this patient and my medical decision-making was reviewed with the Resident Physician. I agree with the documented findings, disposition and treatment plan as described except to the extent set forth below.
[2018-07-30] MEDS: metroNIDAZOLE 500 MG TABLET PO SCH ×2 (18:16→21:18)
[2018-07-31 05:30] LABS: Basophils % 0.3 %; Eosinophils # 0.2 K/mcL (0.0-0.6); Eosinophils % 2.9 %; Hematocrit 28.3 % (35.3-44.9); Hemoglobin 8.7 g/dL (11.5-15.4); Immature Granulocytes % 0.3 % (0-4); Lymphocytes # 1.1 K/mcL (0.6-4.6); Lymphocytes % 15.5 %; Mean Corpuscular HGB Conc 30.7 g/dL (31.6-35.5); Mean Corpuscular Volume 94.3 fL (83.0-100.0); Mean Platelet Volume 10.3 fL (9.4-12.4); Monocytes # 0.5 K/mcL (0.0-1.3); Monocytes % 7.3 %; Neutrophils # 5.4 K/mcL (1.6-8.9); Platelet Count 228 K/mcL (140-400); Red Cell Distribution Width 14.8 % (11.5-14.5); Segmented Neutrophils % 73.7 %
[2018-07-31] MEDS: *HR* Heparin 5,000 UNIT/ML VIAL SQ SCH (05:36)
[2018-07-31] MEDS: 0.9 % Sodium Chloride 1,000 ML IVC SCH (05:37)
[2018-07-31 05:51] LABS: BUN/Creatinine Ratio 11 (6-26); Blood Urea Nitrogen 9 mg/dL (8-23); Calcium 8.4 mg/dL (8.6-10.3); Carbon Dioxide 24 mEq/L (23-29); Chloride 110 mEq/L (98-107); Glucose 117 mg/dL (70-105); Osmolality,Calculated 292 (280-300); Potassium 3.5 mEq/L (3.5-5.1); Sodium 141 mEq/L (136-145); eGFR For Non-African Americans > 60 (> 60)
[2018-07-31] MEDS: Loratadine 10 MG TABLET PO SCH (07:53)
[2018-07-31] MEDS: Cyanocobalamin (B-12) 1,000 MCG TABLET PO SCH (07:53)
[2018-07-31] MEDS: metroNIDAZOLE 500 MG TABLET PO SCH ×2 (07:53→15:09)
[2018-07-31] MEDS ORDERED: amLODIPine 5 MG TABLET PO SCH (09:00)
--- NOTE | 2018-07-31 09:51 | Discharge Summary ---
- NOTES TO OUTPATIENT PROVIDER Notes to Outpatient Provider: f/u with general surgery within one week. f/u with PCP within a week. Orders not resulted at time of discharge: Pending orders 07/29/18 11:24 Red Blood Cells [BBK] Stat Type and Screen [BBK] Stat Date of Encounter: 07/31/18 Time of Encounter: 09:48 - Discharge Diagnosis (1) Acute pancreatitis Priority: Primary Status: Resolved Qualifiers: Pancreatitis type: biliary Acute pancreatitis complication: uninfected necrosis Qualified Code(s): K85.11 - Biliary acute pancreatitis with uninfected necrosis (2) Cholecystitis Priority: Primary Status: Acute (3) HTN (hypertension) Priority: Secondary Status: Chronic Qualifiers: Hypertension type: essential hypertension Qualified Code(s): I10 - Essential (primary) hypertension (4) Type 2 diabetes mellitus with polyneuropathy Priority: Secondary Status: Chronic (5) Hypothyroidism Priority: Secondary Status: Chronic Qualifiers: Hypothyroidism type: unspecified Qualified Code(s): E03.9 - Hypothyroidism, unspecified (6) DVT prophylaxis Priority: Primary Status: Acute (7) Sigmoid diverticulitis Priority: Primary Status: Acute Hospital course: Ms. Navarro is a 83 year old female with past medical history significant for diabetes, hypertension, hypothyroidism, diverticulosis, and carotid artery stenosis status post right side carotid endarterectomy presented with acute onset of epigastric pain. Labs revealed significantly elevated lipase and amylase. AST/LT, ALP, and bilirubin were also elevated. An abdominal CT revealed acute pancreatitis, possible cholecystitis and cholelithiasis. Her symptoms have improved after supportive care. Amylase and lipase have been trending down. General surgery was consulted, cholecystectomy was scheduled on 07/29/2018. However, patient was found to be tachycardia while on the OR table, the surgery was canceled. Atrial fibrillation with RVR was suspected, card iology was consulted. A By reviewing patient telemetry, there was no evidence of atrial fibrillation recorded. Her recent echocardiogram 07/25/2018 revealed normal ejection fraction without wall motion abnormalities. TSH was found slightly elevated, although the patient thyroid hormone replacement. These could be caused by acute illness. Decision was made to continue monitoring her TSH as outpatient, adjust the dose by PCP if indicated. After discussing with general surgery, patient will be discharged home today. She will continue follow-up with general surgery, and plan for cholecystectomy as outpatient. She will continue to take oral antibiotics for 5 more days (acute cholecystitis and diverticulitis). She will follow-up with PCP within a week. Discharge discussed with: patient Time spent discussing smoking cessation with patient: more than 10 minutes - Time Spent with Patient Total time spent providing and/or coordinating discharge services: Greater than 30 minutes - Discharge Medications Prescriptions: HYDROcodone/Acet 5/325 mg [[place] 5-325 mg] 1 tab PO Q6HR PRN 3 Days #12 tablet PRN Reason: Moderate Pain amLODIPine [Norvasc] 5 mg PO DAILY #30 tablet Ciprofloxacin [Cipro] 500 mg PO BID #10 tablet Lisinopril [Zestril] 10 mg PO DAILY #30 tablet metroNIDAZOLE [Flagyl] 500 mg PO TID #15 tablet Home Medications: Aspirin Enteric Coated [Aspirin EC] 81 mg PO DAILY #30 tablet. 02/20/18 [Rx] Atorvastatin [Lipitor] 40 mg PO HS #30 tablet 02/20/18 [Rx] Cyanocobalamin (B-12) [Vitamin B12] 1,000 mcg PO DAILY #30 tablet 02/20/18 [Rx] Diclofenac Sodium [Voltaren] 2 gm TP QID PRN 07/25/18 [History] Levothyroxine Sodium [Levoxyl] 75 mcg PO DAILY 07/25/18 [History] Loratadine [Allergy Relief] 10 mg PO DAILY 07/25/18 [History] Metformin HCl 500 mg PO BID 07/25/18 [History] Ciprofloxacin [Cipro] 500 mg PO BID #10 tablet 07/31/18 [Rx] HYDROcodone/Acet 5/325 mg [[place] 5-325 mg] 1 tab PO Q6HR PRN 3 Days #12 tablet 07/31/18 [Rx] Lisinopril [Zestril] 10 mg PO DAILY #30 tablet 07/31/18 [Rx] amLODIPine [Norvasc] 5 mg PO DAILY #30 tablet 07/31/18 [Rx] metroNIDAZOLE [Flagyl] 500 mg PO TID #15 tablet 07/31/18 [Rx] Allergies/Adverse Reactions: Allergy/AdvReac Type Severity Reaction Status Date / Time No Known Allergies Allergy Verified 07/25/18 04:10 Date of admission: 07/26/18 11:01 Primary care physician: James Tran Consults: 07/26/18 08:12 Consult to Surgery [CONS] Routine Consulting Provider: [facility] Reason for Consult: Acute cholecystitis Call Completed: Yes 07/29/18 16:33 Consult to Cardiology [CONS] Routine Comment: Consulting Provider: Cardiology [facility] Reason for Consult: new onset afib Time Notified: 16:33 Call Completed: Yes Anticipated date of discharge: 07/31/18 - Constitutional Vitals: Temp Pulse Resp BP Pulse Ox 98.9 F 69 16 137/62 95 07/31/18 06:27 07/31/18 09:00 07/31/18 09:00 07/31/18 09:00 07/31/18 06:27 General appearance: Present: mild distress, A&O X 3, answers questions appropriately Exam: AAO x 3, in mild acute distress HEENT: NC/AT, PERRL Neck: Supple, no JVD Lungs: CTA b/l Heart: S1S2, RRR, systolic murmur 4/6 in aortic area Abd: Soft, NT, BS normal Ext: No pedal edema Neuro: No focal deficit - Patient Status Disposition: Home Health Service Condition: Fair Functional capacity at discharge: uses cane/walker Overall status at discharge: patient is progressing back to baseline - Discharge Instructions Follow Up With: Jordyn Renee DO [Primary Care Provider] - - Diet and Activity Activity: increase activity as tolerated Diet: diabetic diet
--- NOTE | 2018-07-31 10:04 | Physician Discharge Referral ---
Addendum entered and electronically signed by Janice Gomez 07/31/18 11:22: Service needed: Please add PT evaluation and treatment to home health aide and Nursing. Original Note: Home Health/Hosp Referral Info Transfer to: Home Health Provider in Charge Post Discharge: PCP - Diagnosis (1) Acute pancreatitis Priority: Primary Status: Resolved (2) Cholecystitis Priority: Primary Status: Acute (3) HTN (hypertension) Priority: Secondary Status: Chronic (4) Type 2 diabetes mellitus with polyneuropathy Priority: Secondary Status: Chronic (5) Hypothyroidism Priority: Secondary Status: Chronic (6) DVT prophylaxis Priority: Primary Status: Acute (7) Sigmoid diverticulitis Priority: Primary Status: Acute - Respiratory Orders Smoking Cessation: Smoking cessation has been advised. For more information, call the [facility] [facility] Quit Line at [phone]-NOW. - Diet/Nutrition Diet/Nutrition Orders: Cardiac - Activity Activity Orders: Up ad arpita - Services Needed Following services are medically necessary services: Nursing, Home Health Aide - Transfer Medications Prescriptions: HYDROcodone/Acet 5/325 mg [[place] 5-325 mg] 1 tab PO Q6HR PRN 3 Days #12 tablet PRN Reason: Moderate Pain amLODIPine [Norvasc] 5 mg PO DAILY #30 tablet Ciprofloxacin [Cipro] 500 mg PO BID #10 tablet Lisinopril [Zestril] 10 mg PO DAILY #30 tablet metroNIDAZOLE [Flagyl] 500 mg PO TID #15 tablet Home Medications: Aspirin Enteric Coated [Aspirin EC] 81 mg PO DAILY #30 tablet. 02/20/18 [Rx] Atorvastatin [Lipitor] 40 mg PO HS #30 tablet 02/20/18 [Rx] Cyanocobalamin (B-12) [Vitamin B12] 1,000 mcg PO DAILY #30 tablet 02/20/18 [Rx] Diclofenac Sodium [Voltaren] 2 gm TP QID PRN 07/25/18 [History] Levothyroxine Sodium [Levoxyl] 75 mcg PO DAILY 07/25/18 [History] Loratadine [Allergy Relief] 10 mg PO DAILY 07/25/18 [History] Metformin HCl 500 mg PO BID 07/25/18 [History] Ciprofloxacin [Cipro] 500 mg PO BID #10 tablet 07/31/18 [Rx] HYDROcodone/Acet 5/325 mg [[place] 5-325 mg] 1 tab PO Q6HR PRN 3 Days #12 tablet 07/31/18 [Rx] Lisinopril [Zestril] 10 mg PO DAILY #30 tablet 07/31/18 [Rx] amLODIPine [Norvasc] 5 mg PO DAILY #30 tablet 07/31/18 [Rx] metroNIDAZOLE [Flagyl] 500 mg PO TID #15 tablet 07/31/18 [Rx] Allergies/Adverse Reactions: Allergy/AdvReac Type Severity Reaction Status Date / Time No Known Allergies Allergy Verified 07/25/18 04:10 Certification: Further, I certify that my clinical findings support that this patient is homebound (i.e. absences from home require considerable and taxing effort and ar e for medical reasons or temple services or infrequently or short duration when for other reasons) because: Homebound Reason: Patient requires assistance of a person or device to safely leave home Attestation: My signature below is to certify that this patient is under my care and that I, or nurse practitioner, or a physician's front office assistant working with me, has a [id number] encounter with this patient.
[2018-07-31 14:34] VITALS: BP 181/69
[2018-07-31] MEDS: *HR* HYDROcodone/Acet 5/325 mg TABLET PO PRN (15:08)
[2018-07-31] MEDS: Insulin LISPRO 300 UNITS/3 ML VIAL SQ SCH ×2 (15:09→17:04)
[2018-07-31] MEDS: *HR* Promethazine 25 MG/ML VIAL IVP PRN (15:09)
== END 2018-07-31 18:34 | disposition home health service (06) | DRG 444 ==
LOC: 3BNU 04:08 → EMEROOARM 04:08 → 3BNU 08:11 → 3ANU 07-28 20:28
PROVIDERS: ADMIT Internal Medicine; ATTEND Internal Medicine

== ENCOUNTER 2018-09-11 22:38 | Inpatient (IN) ==
[2018-09-11] MEDS ORDERED: Ondansetron ODT 4 MG TAB.RAPDIS SL ONE (22:48)
[2018-09-11] MEDS ORDERED: *HR* FentaNYL (PF) 100 MCG/2 ML VIAL IVP ONE (22:50)
--- NOTE | 2018-09-11 22:51 | Emergency Department Note ---
Disposition Clinical Impression: Pancreatitis Qualifiers: Chronicity: acute Pancreatitis type: unspecified pancreatitis type Acute pancreatitis complication: unspecified Qualified Code(s): K85.90 - Acute pancreatitis without necrosis or infection, unspecified Disposition: Admitted As Inpatient Condition: Good Abdominal Pain HPI - General Chief Complaint: ED Abdominal Pain Stated Complaint: abd pain Time Seen by Provider: 09/11/18 22:46 Source: patient, EMS Mode of arrival: EMS Limitations: no limitations Nursing Notes Reviewed: Yes Vital Signs Reviewed: Yes - History of Present Illness HPI Narrative: 83-year-old female with a past medical history of diabetes, peripheral artery disease, hypothyroidism, hypertension, CVA, right CEA, cholecystitis, pancreatitis with new-onset A. fib in June 2008 seen presents emergency department for evaluation of right-sided abdominal pain that started around 2100 this evening while patient was watching TV. Patient states she has had a long- standing history of "gallbladder problems". Patient is less and she was admitted she states to have surgery with Dr. Brown to have her gallbladder removed however this is when they noticed that she had new onset A. fib with RVR after receiving anesthesia. The cholecystectomy was stopped at that time. Patient states she is supposed to follow up with Dr. Brown outpatient in August however she missed the appointment due to her son having his own issues and she did not have transportation. Patient states the pain started mid epigastric and radiated to the right upper quadrant now shows the right upper quadrant, she is really unable to describe but she says it is constant. This is accompanied with nausea, 0 emesis. Nothing makes this better, nothing makes this worse. Patient denies an increase in flatus, belching. Last bowel movement was 2 days ago. She denies hematemesis, melena, hematochezia Pt Subjective Complaint: abdominal pain Onset (ago): hour(s) Consistency: constant Location: RUQ, epigastric Pain Severity: moderate, severe Pain Scale: 8 Quality: cannot describe Radiation: none Migration to: no migration Improves with: nothing Worsens with: nothing Context: history of similar episodes Associated symptoms: Reports: nausea. Denies: vomiting, diarrhea, fever, chil ls, constipation, dysuria, hematemesis, hematochezia, melena, hematuria, anorexia, syncope Treatments prior to arrival: none - Related Data LMP (females 10-50): other Home Medications Medication Instructions Recorded Confirmed RX: Diclofenac Sodium [Voltaren] 2 gm TP QID PRN 07/25/18 07/25/18 RX: Levothyroxine Sodium [Levoxyl] 75 mcg PO DAILY 07/25/18 07/25/18 RX: Loratadine [Allergy Relief] 10 mg PO DAILY 07/25/18 07/25/18 RX: Metformin HCl 500 mg PO BID 07/25/18 07/25/18 Previous Rx's Medication Instructions Recorded RX: Aspirin Enteric Coated 81 mg PO DAILY #30 tablet. 02/20/18 [Aspirin EC] RX: Atorvastatin [Lipitor] 40 mg PO HS #30 tablet 02/20/18 RX: Cyanocobalamin (B-12) [Vitamin 1,000 mcg PO DAILY #30 tablet 02/20/18 B12] RX: Ciprofloxacin [Cipro] 500 mg PO BID #10 tablet 07/31/18 RX: Lisinopril [Zestril] 10 mg PO DAILY #30 tablet 07/31/18 RX: amLODIPine [Norvasc] 5 mg PO DAILY #30 tablet 07/31/18 RX: metroNIDAZOLE [Flagyl] 500 mg PO TID #15 tablet 07/31/18 Allergies Allergy/AdvReac Type Severity Reaction Status Date / Time No Known Allergies Allergy Verified 09/11/18 22:46 All systems ED: reviewed and negative except as stated. Review of Systems: As Per HPI Constitutional: Denies: fever, chills ENT ED: Denies: throat pain Cardiovascular: Denies: chest pain, palpitations Respiratory: Denies: cough Gastrointestinal: Reports: abdominal pain, nausea. Denies: vomiting, diarrhea, constipation, hematemesis, melena, hematochezia Genitourinary: Denies: urgency, dysuria, frequency, hematuria Musculoskeletal: Denies: back pain Integumentary: Denies: rash Abdominal Pain PMH - Past Medical History Medical history: Reports: atrial fibrillation, diabetes, hyperlipidemia, hypertension, peripheral artery disease, thyroid disease Female Surgical History: Reports: appendectomy, hysterectomy, thyroidectomy Psychiatric history: Reports: no psych history - Social History Smoking status: Never smoker Alcohol use: Reports: none Drug use: Reports: none Physical Exam - General Limitations: no limitations General appearance: alert, in no apparent distress - Head Head exam: atraumatic, normocephalic, normal inspection - Eye Eye exam: Present: normal appearance - ENT ENT exam: mucous membranes moist - Neck Neck exam: Present: normal inspection, full ROM, trachea midline. Absent: tenderness, lymphadenopathy - Chest Chest inspection: Present: normal inspection, symmetric chest wall rise - Respiratory Respiratory exam: Present: normal lung sounds bilaterally - Cardiovascular Cardiovascular exam: Present: regular rate, normal rhythm, normal heart sounds, systolic murmur - Abdominal Exam Abdominal exam: Present: soft, tenderness, normal bowel sounds. Absent: distention, guarding, rebound, rigidity, organomegaly Abdominal tenderness: Present: RUQ - Extremities Exam Extremities exam: Present: normal inspection, full ROM. Absent: tenderness, pedal edema - Neurological Exam Neurological exam: Present: alert, oriented X3 - Psychiatric Psychiatric exam: Present: normal affect, normal mood - Skin Skin exam: Present: warm, dry, intact, normal color Course Course Narrative: Pleasant, nontoxic appearing female in no acute distress. Respirations are easy and even. Patient arrives via EMS, she is on room air with good saturation, vital signs are within normal limits. Heart rate is 60 bpm and regular. Patient is afebrile, normotensive. Upon arrival to the emergency department patient is running 1 L normal saline. Physical exam reveals right upper quadrant tenderness with palpation, normal bowel signs, no masses, organomegaly. Heart rate normal, Irregular rhythm, patient does have a systolic murmur is very pronounced. Good perfusion. No edema. EKG reveals sinus karen with vent rate of 55bpm, no evidence of ischemia. Respirations receiving even, lungs are clear to auscultate. Patient's family coincidences a gallbladder attack, we will obtain basic labs, treat pain. Patient stated he inserted in the epigastric area, because of age, history we will obtain an EKG as well as. We will hold off on imaging at this time pending completion of labs. Patient without any active chest pain, has had multiple episodes this pain which was a cholecystitis type pain. No evidence of cardiac etiology, no chest pain complaints, no diaphoresis, no shortness of breath, no edema. Patient does have chronic A. fib, heart rate is controlled during assessment and in route via EMS. Patient states she is anticoagulated that she does not know which medicine, she noted she does not have to get the Coumadin clinic. She states her medicine starts with an A. Review of records shows cardiology added amlodipine however they stated patient was felt to be anticoagulated as it was not indicated. Patient did have an EF of 60-65% in June 2018. In June 2018 patient did not have cholecystitis and pancreatitis, during preparing for surgery and anesthesiology is when patient went into A. fib RVR, since then she does been chronically A. fib. Patient without any complications a previous hospital stay, she improved with antibiotics and fluids. - Reevaluation(s) Reevaluation #1: Patient resting comfortably, she states her pain was better with the fentanyl h owever she is still continuing to have significant abdominal pain. Patient's physical assessment is unchanged. Patient remains afebrile, non-tachycardic. Labs returned with a baseline CBC, leukocytosis or leukopenia, H&H is at patient's baseline; metabolic panel returns unremarkable, LFTs returned unremarkable, troponin less than 0.03, UA is negative. Patient's lipase does return elevated at 376, previously patient had a lipase greater than 1800 however it did return to 94 on her last laboratory level prior to discharge last time she was here for pancreatitis. Patient with a CT of the abdomen and pelvis previously that did show cholelithiasis. As stated previously, patient with known cholelithiasis, no pancreatitis. There is no evidence of systemic infection, no evidence of emergent surgical abdomen, no evidence of sepsis. I do not feel repeating imaging at this time is necessary as patient's liver function is at baseline, she does have elevation of her lipase indicating a pancreatitis however this is not reflected of emergent need and the rest of her laboratory values. Ultrasound Patient with difficulty managing pain, will need to be nothing by mouth and monitored. I did discuss with her admission to the hospital for pain and nausea management as well as fluids. Case discussed with Dr. Mohan who has had 1:1 facetime with patient and is agreeable to plan of care. We will page hospitalist at this time. Time: 00:29 Reevaluation #2: Spoke with hospitalist, agreeable to admit for inpatient services for pain and nausea control. Time: 00:39 Vital Signs Temperature 97.9 F 09/11/18 22:43 Pulse Rate 46 09/11/18 22:43 Respiratory Rate 16 09/11/18 22:43 Blood Pressure 150/62 09/11/18 22:43 O2 Sat by Pulse Oximetry 97 09/11/18 22:43 Temperature 98.0 F 12/14/18 04:41 Pulse Rate 56 09/12/18 04:41 Respiratory Rate 15 09/12/18 04:41 Blood Pressure 125/56 09/12/18 04:41 O2 Sat by Pulse Oximetry 95 09/12/18 04:41 Oxygen Delivery Oxygen Delivery Room Air Abdominal Pain - Differential Diagnosis Differential Diagnosis: Likely: abdominal pain non-specific, pancreatitis. Unlikely: acute appendicitis, diverticulitis, diverticulosis - Medical Records Medical records reviewed: Yes I reviewed the patient's medical records. - Lab Data Lab results reviewed: Yes I reviewed the patient's lab results. Result diagrams: 09/11/18 23:01 09/11/18 23:01 Lab Results 09/11/18 09/11/18 09/11/18 Range/Units 23:01 23:01 23:19 WBC 7.0 (4.3-11.1) K/mcL RBC 3.01 L (3.82-4.97) M/mcL Hgb 9.0 L (11.5-15.4) g/dL Hct 28.9 L (35.3-44.9) % MCV 96.0 (83.0-100.0) fL MCH 29.9 (28.0-33.3) pg MCHC 31.1 L (31.6-35.5) g/dL RDW 15.9 H (11.5-14.5) % Plt Count 273 (140-400) K/mcL MPV 11.5 (9.4-12.4) fL Immature Gran % 0.7 (0-4) % Seg Neutrophils % 52.4 % Lymphocytes % 33.0 % Monocytes % 6.0 % Eosinophils % 7.5 % Basophils % 0.4 % Neutrophils # 3.6 (1.6-8.9) K/mcL Lymphocytes # 2.3 (0.6-4.6) K/mcL Monocytes # 0.4 (0.0-1.3) K/mcL Eosinophils # 0.5 (0.0-0.6) K/mcL Basophils # 0.0 (0.0-0.2) K/mcL Sodium 137 (136-145) mEq/L Potassium 3.7 (3.5-5.1) mEq/L Chloride 106 (98-107) mEq/L Carbon Dioxide 25 (23-29) mEq/L BUN 25 H (8-23) mg/dL Creatinine 0.97 (0.60-1.20) mg/dL Est GFR ( Amer) > 60 (> 60) Est GFR (Non-Af Amer) 55 L (> 60) BUN/Creatinine Ratio 26 (6-26) Glucose 117 H (70-105) mg/dL Calculated Osmolality 289 (280-300) Calcium 9.5 (8.6-10.3) mg/dL Total Bilirubin 0.8 (0.3-1.0) mg/dL Direct Bilirubin 0.3 H (0.0-0.2) mg/dL Indirect Bilirubin 0.5 (0.0-1.2) mg/dL AST 47 H (13-39) Units/L ALT 18 (7-52) Units/L Alkaline Phosphatase 133 H (34-104) Units/L Troponin I < 0.03 (< 0.04) ng/mL Serum Total Protein 6.8 (6.4-8.9) g/dL Albumin 3.6 (3.5-5.7) g/dL Globulin 3.2 (2.4-3.5) g/dL Albumin/Globulin Ratio 1.1 (1.1-2.2) Lipase 376 H (11-82) Units/L Urine Color Yellow (Yellow) Urine Clarity Clear (Clear) Urine pH 5.0 (5.0-8.0) pH Units Ur Specific [place] 1.015 (1.010-1.025) Urine Protein Negative (Neg-Trace) mg/dL Urine Glucose (UA) Normal (Normal) mg/dL Urine Ketones Negative (Negative) mg/dL Urine Blood Negative (Negative) Urine Nitrite Negative (Negative) Urine Bilirubin Negative (Negative) Urine Urobilinogen Normal (Normal) mg/dL Ur Leukocyte Esterase Trace H (Negative) Urine Microscopic RBC 0-3 (0-3) per hpf Urine Microscopic WBC 0-3 (0-3) per hpf Ur Squamous Epith Cells Many H (None-Few) per lpf Urine Bacteria None Seen (None-Few) per hpf Hyaline Casts None Seen (None-Few) per lpf Ur Culture Indicated? NO. A (NO) - EKG Data EKG attestation: Yes I reviewed and interpreted this EKG. Attestation Statement - Attestation Attestation: Dr. Mohan note: Patient seen in conjunction with mid-level provider Tammi Jackson. Please see her charting for complete documentation. Patient has had epigastric abdominal pain with nausea over this evening. No diarrhea. Nonsurgical abdomen. She is mild to moderately tender on examination. History of similar symptoms when she was diagnosed pancreatitis or dysuria. No indication for imaging at this time. Admitted for symptomatic care.
[2018-09-11 23:27] LABS: Bilirubin,Urine Negative (Negative); Blood,Urine Negative (Negative); Clarity,Urine Clear (Clear); Color,Urine Yellow (Yellow); Glucose,Urine (UA) Normal (Normal); Ketones,Urine Negative (Negative); Leukocyte Esterase,Urine Trace (Negative); Nitrite,Urine Negative (Negative); Protein,Urine Negative (Neg-Trace); Specific Gravity,Urine 1.015 (1.010-1.025); Urobilinogen,Urine Normal (Normal)
[2018-09-11 23:30] LABS: Bacteria,Urine None Seen per hpf (None-Few); Hyaline Casts,Urine None Seen per lpf (None-Few); RBC,Urine 0-3 per hpf (0-3); Squamous Epithelial Cell,Urine Many per lpf (None-Few); WBC,Urine 0-3 per hpf (0-3)
[2018-09-11 23:59] LABS: Alanine Aminotransferase 18 Units/L (7-52); Albumin 3.6 g/dL (3.5-5.7); Albumin/Globulin Ratio 1.1 (1.1-2.2); Alkaline Phosphatase 133 Units/L (34-104); Aspartate Amino Transferase 47 Units/L (13-39); BUN/Creatinine Ratio 26 (6-26); Bilirubin,Direct 0.3 mg/dL (0.0-0.2); Bilirubin,Indirect 0.5 mg/dL (0.0-1.2); Bilirubin,Total 0.8 mg/dL (0.3-1.0); Blood Urea Nitrogen 25 mg/dL (8-23); Calcium 9.5 mg/dL (8.6-10.3); Carbon Dioxide 25 mEq/L (23-29); Chloride 106 mEq/L (98-107); Globulin 3.2 g/dL (2.4-3.5); Glucose 117 mg/dL (70-105); Lipase 376 Units/L (11-82); Osmolality,Calculated 289 (280-300); Potassium 3.7 mEq/L (3.5-5.1); Sodium 137 mEq/L (136-145); Total Protein 6.8 g/dL (6.4-8.9); Troponin I < 0.03 ng/mL (< 0.04); eGFR For Non-African Americans 55 (> 60)
[2018-09-12 00:04] LABS: Basophils % 0.4 %; Eosinophils # 0.5 K/mcL (0.0-0.6); Eosinophils % 7.5 %; Hematocrit 28.9 % (35.3-44.9); Immature Granulocytes % 0.7 % (0-4); Lymphocytes # 2.3 K/mcL (0.6-4.6); Mean Corpuscular HGB Conc 31.1 g/dL (31.6-35.5); Mean Corpuscular Hemoglobin 29.9 pg (28.0-33.3); Mean Platelet Volume 11.5 fL (9.4-12.4); Monocytes # 0.4 K/mcL (0.0-1.3); Neutrophils # 3.6 K/mcL (1.6-8.9); Platelet Count 273 K/mcL (140-400); Red Blood Count 3.01 M/mcL (3.82-4.97); Red Cell Distribution Width 15.9 % (11.5-14.5); Segmented Neutrophils % 52.4 %
[2018-09-12] MEDS ORDERED: *HR* Morphine Immed Rel 30 MG TABLET PO ONE (00:21)
[2018-09-12] MEDS: 0.9 % Sodium Chloride 1,000 ML IVC SCH ×2 (02:04→13:14)
[2018-09-12] MEDS: *HR* FentaNYL (PF) 100 MCG/2 ML VIAL IVP PRN ×2 (02:05→13:14)
[2018-09-12] MEDS: Ondansetron 4 MG/2 ML VIAL IVP PRN (02:06)
[2018-09-12] MEDS: *HR* Heparin 5,000 UNIT/ML VIAL SQ SCH ×2 (06:29→16:17)
--- NOTE | 2018-09-12 08:52 | Internal Med History&Physical ---
<Thelmaidris - Last Filed: 09/12/18 10:06> Date of Encounter: 09/12/18 Time of Encounter: 09:15 Internal Medicine - H&P: HPI Admitted From: Emergency Dept Plans for Post Hospital Care: Home History of present illness: Ms. Navarro is a 83 year old female Internal Medicine - H&P: Meds Aspirin Enteric Coated [Aspirin EC] 81 mg PO DAILY #30 tablet. 02/20/18 [Rx] Atorvastatin [Lipitor] 40 mg PO HS #30 tablet 02/20/18 [Rx] Cyanocobalamin (B-12) [Vitamin B12] 1,000 mcg PO DAILY #30 tablet 02/20/18 [Rx] Diclofenac Sodium [Voltaren] 2 gm TP QID PRN 07/25/18 [History] Levothyroxine Sodium [Levoxyl] 75 mcg PO DAILY 07/25/18 [History] Loratadine [Allergy Relief] 10 mg PO DAILY 07/25/18 [History] Metformin HCl 500 mg PO BID 07/25/18 [History] Ciprofloxacin [Cipro] 500 mg PO BID #10 tablet 07/31/18 [Rx] Lisinopril [Zestril] 10 mg PO DAILY #30 tablet 07/31/18 [Rx] amLODIPine [Norvasc] 5 mg PO DAILY #30 tablet 07/31/18 [Rx] metroNIDAZOLE [Flagyl] 500 mg PO TID #15 tablet 07/31/18 [Rx] Allergy/AdvReac Type Severity Reaction Status Date / Time No Known Allergies Allergy Verified 09/11/18 22:46 All Systems PM: A 10-system review of systems was performed and is negative for pertinent findings except as documented above in the HPI. - Constitutional Vitals: Temp Pulse Resp BP Pulse Ox 98.0 F 56 15 125/56 95 09/12/18 04:41 09/12/18 04:41 09/12/18 04:41 09/12/18 04:41 09/12/18 04:41 Internal Med - H&P Results - Labs CBC & Chem 7: 09/11/18 23:01 09/11/18 23:01 Labs: Short CBC 09/11/18 Range/Units 23:01 WBC 7.0 (4.3-11.1) K/mcL Hgb 9.0 L (11.5-15.4) g/dL Hct 28.9 L (35.3-44.9) % Plt Count 273 (140-400) K/mcL Neutrophils # 3.6 (1.6-8.9) K/mcL BMP 09/11/18 23:01 Sodium 137 Potassium 3.7 Chloride 106 Carbon Dioxide 25 BUN 25 H Creatinine 0.97 Glucose 117 H Calcium 9.5 Cardiac Enzymes 09/11/18 Range/Units 23:01 Troponin I < 0.03 (< 0.04) ng/mL Liver Function 09/11/18 Range/Units 23:01 Total Bilirubin 0.8 (0.3-1.0) mg/dL Direct Bilirubin 0.3 H (0.0-0.2) mg/dL AST 47 H (13-39) Units/L ALT 18 (7-52) Units/L Alkaline Phosphatase 133 H (34-104) Units/L Albumin 3.6 (3.5-5.7) g/dL Urine 09/11/18 Range/Units 23:19 Urine Color Yellow (Yellow) Urine Clarity Clear (Clear) Urine pH 5.0 (5.0-8.0) pH Units Ur Specific [place] 1.015 (1.010-1.025) Urine Protein Negative (Neg-Trace) mg/dL Urine Glucose (UA) Normal (Normal) mg/dL - Assessment and plan (1) Acute pancreatitis Current Visit: Yes Status: Acute Qualifiers: Pancreatitis type: biliary Acute pancreatitis complication: uninfected necrosis Qualified Code(s): K85.11 - Biliary acute pancreatitis with uninfected necrosis (2) HTN (hypertension) Current Visit: Yes Status: Chronic Qualifiers: Hypertension type: essential hypertension Qualified Code(s): I10 - Essential (primary) hypertension (3) HLD (hyperlipidemia) Current Visit: Yes Status: Chronic Qualifiers: Hyperlipidemia type: mixed hyperlipidemia Qualified Code(s): E78.2 - Mixed hyperlipidemia (4) Type 2 diabetes mellitus with polyneuropathy Current Visit: Yes Status: Chronic (5) Hypothyroidism Current Visit: No Status: Chronic Qualifiers: Hypothyroidism type: unspecified Qualified Code(s): E03.9 - Hypothyroidism, unspecified (6) Carotid stenosis Current Visit: No Status: Acute Qualifiers: Laterality: bilateral Qualified Code(s): I65.23 - Occlusion and stenosis of bilateral carotid arteries (7) DVT prophylaxis Current Visit: Yes Status: Acute - Time Spent With Patient Total time spent is greater than 50% in coordination of care (as documented) at patient's floor/unit and/or counseling patient: - Attending Attestation I saw evaluated and examined this patient and my medical decision-making was reviewed with the Resident Physician, Oh Tafoya. I agree with the documented findings, disposition and treatment plan as described except to any changes set forth below. We independently had [id number] contact with the patient. Patient with history of diabetes, hypertension, hypothyroidism, recently diagnosed atrial fibrillation presented to the ER with complaints of abdominal pain. It began yesterday. Initially it was located in the epigastric region. She has continued to have pain in this location intermittently since then. She is also having pain in her both inguinal/groin region since coming to the ER. She denies any nausea or vomiting. She last ate yesterday evening and developed pain soon after. She was previously diagnosed with pancreatitis in June and at that time had been recommended cholecystectomy. However when she was taken down to the OR, she developed atrial fibrillation and so surgery was held. Since then she has not been able to follow up with surgery to reschedule. She denies any chest pain or palpitations. No shortness of breath. No pedal edema. No orthopnea. General: Patient is alert, mild distress, oriented x 3 ENT: Mucous membranes moist. Respiratory: Good respiratory effort. Normal breath sounds. No wheezing or crackles. Cardiovascular: Regular rate and rhythm. s1 and s2 normal No clicks, rubs, gallops, or murmurs. No pedal edema Abdomen: Abdomen is soft, tender in the epigastric region and right and left lower quadrants. No hernia palpable. Bowel sounds are present Musculoskeletal: Spontaneously moving all extremities Skin: warm, dry, intact. Neuro: Alert oriented x 3 normal cranial nerves, no focal deficits Acute pancreatitis: Patient's lipase is elevated. Check amylase. Previously diagnosed with cholelithiasis and was recommended cholecystectomy. Will consult surgery for reevaluation. Keep nothing by mouth. Antiemetics. IV fluids. Pain control. Atrial fibrillation: Currently in sinus rhythm. Not on anticoagulation at this time. Diabetes mellitus type 2: Monitor blood sugars. Sliding scale insulin. Essential hypertension: Resume home medications. Due to prophylaxis with subcutaneous heparin <Oh Tafoya - Last Filed: 09/12/18 11:12> Date of Encounter: 09/12/18 Time of Encounter: 08:49 Internal Medicine - H&P: HPI Chief complaint: abdominal pain History of present illness: Qian Navarro is an 83-year-old female with a past medical history of type II DM, hypothyroidism, hypertension, CVA, coronary artery stenosis bilaterally, cholecystitis, and pancreatitis. The patient states last night around 2100 she started having mild epigastric pain and nausea. She states the pain progressively got worse and began radiating into her RUQ. She states she was having some shortness of breath but this was due to increased pain with inspiration. The patient describes the pain as 10/10 at the time. She denies taking anything for relief of the pain. She required ambulance transport to [facility] due to increasing severity of pain. She states she had several episodes of vomiting while being transported from the emergency department to her hospital room. She states she was scheduled to have a cholecystectomy in June 2018 however the patient had an onset of Afib with RvR with induction of anesthesia and the surgery had to be cancelled. The patient was seen by Cardiology while in the hospital at the time and they were not able to confirm Afib on telemetry or EKG strips and she was sent home without anticoagulation and continued her normal home medications. She states she was supposed to follow up with Dr. Potter to reschedule her cholecystectomy but has not been able to do so due to transportation issues at home. At this time the patient states her pain is well controlled. She denies nausea or vomiting at this time. She denies fevers, chills, chest pain, or shortness of breath. She was complaining of mild lower abdominal pain. Past Med Surg Social Fam HX - Past Medical History Medical history: atrial fibrillation, diabetes, hyperlipidemia, hypertension, peripheral artery disease, thyroid disease Psychiatric history: no psych history - Past Surgical History Surgical History: hysterectomy, orthopedic, other (right knee scope) Additional surgical history: goiter, rt carotid endarectomy - Social History Smoking Status: Never smoker Smokeless Tobacco Status: No Alcohol use: none Drug use: none - Family History Mother Living Status: Hx Family Cardiac Disorders: No Hx Family Respiratory Disorders: No Hx Family Cancer: Yes (lymphoma) Hx Family GI Disorders: No Hx Family Endocrine Disorder: No Hx Family Neuromuscular Disorders: No Hx Family Neurologic Disorders: No Hx Family HEENT Disorders: No Hx Family Autoimmune Disorders: No All Systems PM: A 10-system review of systems was performed and is negative for pertinent findings except as documented above in the HPI. Review of systems: +: nausea, vomiting, mid-epigastric pain, RUQ pain, lower abdominal pain -: fever, chills, diaphoresis, back pain, chest pain, SOB, vision changes, skin changes, dysuria - Constitutional Vitals: Temp Pulse Resp BP Pulse Ox 98.0 F 56 15 125/56 95 09/12/18 04:41 09/12/18 04:41 09/12/18 04:41 09/12/18 04:41 09/12/18 04:41 Exam: General: No acute distress, appears stated age, alert and oriented x3 Head: Atraumatic, normocephalic Skin: No jaundice, diffuse xeroderma Eyes: No scleral icterus, EOMI Cardio: Regular rate and rhythm, 1/6 systolic ejection murmur, no rubs, no gallops, no carotid bruits, capillary refill <2 seconds, radial pulses 2+ bilaterally Respiratory: Clear to auscultation bilaterally, no diminished breath sounds Abdomen: Soft, Non-distended, Tender to light palpation in epigastric and RUQ regions, tender to palpation along lower abdomen, normal bowel sounds Extremities: Symmetric bilaterally no erythema or edema Internal Med - H&P Results - Labs CBC & Chem 7: 09/11/18 23:01 09/11/18 23:01 Labs: Short CBC 09/11/18 Range/Units 23:01 WBC 7.0 (4.3-11.1) K/mcL Hgb 9.0 L (11.5-15.4) g/dL Hct 28.9 L (35.3-44.9) % Plt Count 273 (140-400) K/mcL Neutrophils # 3.6 (1.6-8.9) K/mcL BMP 09/11/18 23:01 Sodium 137 Potassium 3.7 Chloride 106 Carbon Dioxide 25 BUN 25 H Creatinine 0.97 Glucose 117 H Calcium 9.5 Cardiac Enzymes 09/11/18 Range/Units 23:01 Troponin I < 0.03 (< 0.04) ng/mL Liver Function 09/11/18 Range/Units 23:01 Total Bilirubin 0.8 (0.3-1.0) mg/dL Direct Bilirubin 0.3 H (0.0-0.2) mg/dL AST 47 H (13-39) Units/L ALT 18 (7-52) Units/L Alkaline Phosphatase 133 H (34-104) Units/L Albumin 3.6 (3.5-5.7) g/dL Urine // Range/Units 23:19 Urine Color Yellow (Yellow) Urine Clarity Clear (Clear) Urine pH 5.0 (5.0-8.0) pH Units Ur Specific [place] 1.015 (1.010-1.025) Urine Protein Negative (Neg-Trace) mg/dL Urine Glucose (UA) Normal (Normal) mg/dL - Assessment and plan (1) Acute pancreatitis Current Visit: Yes Status: Acute Assessment and plan: 1) Acute Pancreatitis Pancreatitis likely secondary to cholelithiasis as this patient was recently diagnosed in June 2018 with pancreatitis and cholelithiasis Lipase = 376; Alkaline phosphatase = 133; Direct bilirubin = .3 Will not repeat abdomen CT or ultrasound because her symptoms today are similar to her previous diagnosis approximately 6 weeks ago, will consult general surgery for further recommendations CT scan 07/25 demonstrated acute pancreatitis and cholelithiasis Abdomen U/S 07/25 demonstrated Mild gallbladder wall thickening. Trace pericholecystic fluid. Numerous small gallstones. Positive sonographic Mu rphy's sign. Consult general surgery Continue IVF Keep NPO Pain control PRN Zofran for nausea control PRN Qualifiers: Pancreatitis type: biliary Acute pancreatitis complication: uninfected necrosis Qualified Code(s): K85.11 - Biliary acute pancreatitis with uninfected necrosis (2) HTN (hypertension) Current Visit: Yes Status: Chronic Assessment and plan: a. Known diagnosis of hypertension, continue Norvasc b. Hold Lisinopril for concern for developing LAURA while keeping patient NPO Qualifiers: Hypertension type: essential hypertension Qualified Code(s): I10 - Essential (primary) hypertension (3) HLD (hyperlipidemia) Current Visit: Yes Status: Chronic Assessment and plan: known hx. Qualifiers: Hyperlipidemia type: mixed hyperlipidemia Qualified Code(s): E78.2 - Mixed hyperlipidemia (4) Type 2 diabetes mellitus with polyneuropathy Current Visit: Yes Status: Chronic Assessment and plan: Known diagnosis of type II DM Glucose monitoring q6 hours, low dose insulin sliding scale NPO (5) Hypothyroidism Current Visit: No Status: Chronic Assessment and plan: Known diagnosis of hypothyroidism, continue Levothyroxin when patient is not NPO Qualifiers: Hypothyroidism type: unspecified Qualified Code(s): E03.9 - Hypothyroidism, unspecified (6) Carotid stenosis Current Visit: No Status: Acute Assessment and plan: a. Known diagnosis of Coronary artery stenosis, will continue atorvastatin and ASA b. Carotid Doppler 07/18 demonstrated Right mid ICA has a severe, 60-79% stenosis and left bifurcation has a severe, 60-79% stenosis Qualifiers: Laterality: bilateral Qualified Code(s): I65.23 - Occlusion and stenosis of bilateral carotid arteries (7) DVT prophylaxis Current Visit: Yes Status: Acute Assessment and plan: SQ Heparin 5000 units Q8hrs. - Time Spent With Patient Total time spent is greater than 50% in coordination of care (as documented) at patient's floor/unit and/or counseling patient:
[2018-09-12] MEDS ORDERED: Naloxone 0.4 MG/ML INJ IVP PRN (09:21)
[2018-09-12] MEDS ORDERED: *HR* Dextrose 50 % in Water (Syg) 50 ML SYRINGE IVP PRN (10:39)
[2018-09-12] MEDS ORDERED: D5% in Water 1,000 ML IVC PRN (10:39)
[2018-09-12] MEDS ORDERED: Dextrose Gel 15 GM/37.5 ML TUBE PO PRN ×2 (10:39)
[2018-09-12] MEDS: Insulin LISPRO 300 UNITS/3 ML VIAL SQ SCH ×2 (13:47→16:19)
--- NOTE | 2018-09-12 13:48 | General Surgery Consult Note ---
<Evita Dietrich - Last Filed: 09/12/18 13:43> Date of Encounter: 09/12/18 Time of Encounter: 13:43 Assessment and Plan (1) Abdominal pain Current Visit: Yes Status: Acute Per record review, CT of the abdomen and pelvis as well as an ultrasound on 07/25/2018 noted cholecystitis. Possibility of gallstone pancreatitis. No new imaging has been completed this admission. Her lipase is 376, AST 47, alkaline phosphatase 133, direct bilirubin 0.3, and her white blood cell count is normal. She has right upper and left upper quadrant tenderness to palpation, there is no involuntary guarding, bowel sounds are present. Surgery will continue to follow along with you to assess progress and determine timing of cholecystectomy. Serial abdominal exams repeat a.m. labs NPO except medications continue G.I. and DVT prophylaxis per primary team IV ATBX per primary team No indication for repeat imaging at this time Qualifiers: Abdominal location: generalized Qualified Code(s): R10.84 - Generalized abdominal pain History of Present Illness Consult date: 09/12/18 (Dr. Radha Potter) Reason for consult: abdominal pain Requesting physician: Linda Renee History of present illness: Ms. Lugo is an 83-year-old female with a past medical history of hypertension, hyperlipidemia, diabetes, ASHD, CVA, and atrial fibrillation who presented on 09/12/2018 with complaints of abdominal pain. She was seen recently in June 2018 by [facility] for cholecystitis and acute pancreatitis. Surgery did attempt to perform a cholecystectomy that admission however when she was taken down to the operating suite, she went into atrial fibrillation in the surgery was canceled. She was recommended to follow-up as an outpatient. Patient was lost in follow-up, and she states this was due to family dynamics that inhibited her from keeping her appointments. Of note when asked about her recollection of going into atrial fibrillation in June, she states she got very anxious when she saw the nurses setting things up for surgery. She states she has difficulty with transportation and would likely be unable to keep follow-up appointments if she did not have her gallbladder out the admission. She reports that the pain started around 11 PM on 09/11/2018 and progressively got worse radiating to her right upper quadrant. Her pain was a 10 out of 10, sharp, and constant. She had not tried anything to alleviate the pain prior to coming to the emergency department. She endorses several episodes of vomiting that were associated with the pain. She denied fever, chills, constipation, diarrhea, black, bloody, or tarry stool. Presently she states that her discomfort is better controlled with pain medication. Past Med Surg Social Fam HX - Past Medical History Source: patient Medical history: atrial fibrillation, coronary artery disease, diabetes, hyperli pidemia, hypertension, peripheral artery disease, thyroid disease Additional medical history: CVA Psychiatric history: no psych history - Past Surgical History Surgical History: hysterectomy, orthopedic, other (right knee scope) Additional surgical history: goiter, rt carotid endarectomy - Social History Smoking Status: Never smoker Smokeless Tobacco Status: No Alcohol use: none Drug use: none - Family History Mother Living Status: Hx Family Cardiac Disorders: No Hx Family Respiratory Disorders: No Hx Family Cancer: Yes (lymphoma) Hx Family GI Disorders: No Hx Family Endocrine Disorder: No Hx Family Neuromuscular Disorders: No Hx Family Neurologic Disorders: No Hx Family HEENT Disorders: No Hx Family Autoimmune Disorders: No Medications and Allergies Aspirin Enteric Coated [Aspirin EC] 81 mg PO DAILY #30 tablet. 02/20/18 [Rx] Atorvastatin [Lipitor] 40 mg PO HS #30 tablet 02/20/18 [Rx] Cyanocobalamin (B-12) [Vitamin B12] 1,000 mcg PO DAILY #30 tablet 02/20/18 [Rx] Diclofenac Sodium [Voltaren] 2 gm TP QID PRN 07/25/18 [History] Levothyroxine Sodium [Levoxyl] 75 mcg PO DAILY 07/25/18 [History] Loratadine [Allergy Relief] 10 mg PO DAILY 07/25/18 [History] Metformin HCl 500 mg PO BID 07/25/18 [History] Ciprofloxacin [Cipro] 500 mg PO BID #10 tablet 07/31/18 [Rx] Lisinopril [Zestril] 10 mg PO DAILY #30 tablet 07/31/18 [Rx] amLODIPine [Norvasc] 5 mg PO DAILY #30 tablet 07/31/18 [Rx] metroNIDAZOLE [Flagyl] 500 mg PO TID #15 tablet 07/31/18 [Rx] Allergy/AdvReac Type Severity Reaction Status Date / Time No Known Allergies Allergy Verified 09/11/18 22:46 Review of Systems All systems PM: reviewed and no additional remarkable complaints except as stated All systems PM: The remainder of the systems were reviewed and are negative General Surgery Exam Initial Vital Signs Temp Pulse Resp BP Pulse Ox 97.9 F 46 16 150/62 97 09/11/18 22:43 09/11/18 22:43 09/11/18 22:43 09/11/18 22:43 09/11/18 22:43 - General physical appearance no distress, moderate pain - Neck trachea midline - Respiratory normal expansion, normal respiratory effort, clear to auscultation - Cardiovascular Cardiovascular exam: Present: RRR, 15, 16 - Abdomen Abdomen general surgery: Present: bowel sounds present, soft, tender Abdominal Tenderness: Present: RUQ, LUQ - Integumentary Integumentary general surgery: Present: warm and dry, no abnormal pigmentation - Neurologic Present: CN 2-12 grossly intact, normal coordination, normal sensation - Musculoskeletal Present: normal gait, normal posture - Psychiatric Psychiatric general surgery: Present: A&Ox3, appropriate, oriented to person, oriented to place, oriented to time, speech is normal, memory intact Exam Initial Vital Signs Temp Pulse Resp BP Pulse Ox 97.9 F 46 16 150/62 97 09/11/18 22:43 09/11/18 22:43 09/11/18 22:43 09/11/18 22:43 09/11/18 22:43 Results - Labs 09/11/18 23:01 09/11/18 23:01 Abnormal lab results RBC 3.01 M/mcL (3.82-4.97) L 09/11/18 23:01 Hgb 9.0 g/dL (11.5-15.4) L 09/11/18 23:01 Hct 28.9 % (35.3-44.9) L 09/11/18 23:01 MCHC 31.1 g/dL (31.6-35.5) L 09/11/18 23:01 RDW 15.9 % (11.5-14.5) H 09/11/18 23:01 BUN 25 mg/dL (8-23) H 09/11/18 23:01 Est GFR (Non-Af Amer) 55 (> 60) L 09/11/18 23:01 Glucose 117 mg/dL (70-105) H 09/11/18 23:01 POC Glucose 140 mg/dL (70-99) H 09/12/18 05:51 Direct Bilirubin 0.3 mg/dL (0.0-0.2) H 09/11/18 23:01 AST 47 Units/L (13-39) H 09/11/18 23:01 Alkaline Phosphatase 133 Units/L (34-104) H 09/11/18 23:01 Amylase 453 Units/L (29-103) H 09/12/18 09:57 Lipase 376 Units/L (11-82) H 09/11/18 23:01 Ur Leukocyte Esterase Trace (Negative) H 09/11/18 23:19 Ur Squamous Epith Cells Many per lpf (None-Few) H 09/11/18 23:19 Ur Culture Indicated? NO. (NO) A 09/11/18 23:19 Diabetes panel 09/11/18 Range/Units 23:01 Sodium 137 (136-145) mEq/L Potassium 3.7 (3.5-5.1) mEq/L Chloride 106 (98-107) mEq/L Carbon Dioxide 25 (23-29) mEq/L BUN 25 H (8-23) mg/dL Creatinine 0.97 (0.60-1.20) mg/dL Glucose 117 H (70-105) mg/dL Calcium 9.5 (8.6-10.3) mg/dL AST 47 H (13-39) Units/L ALT 18 (7-52) Units/L Alkaline Phosphatase 133 H (34-104) Units/L Albumin 3.6 (3.5-5.7) g/dL Calcium panel 09/11/18 Range/Units 23:01 Calcium 9.5 (8.6-10.3) mg/dL Albumin 3.6 (3.5-5.7) g/dL Pituitary panel 09/11/18 Range/Units 23:01 Sodium 137 (136-145) mEq/L Potassium 3.7 (3.5-5.1) mEq/L Chloride 106 (98-107) mEq/L Carbon Dioxide 25 (23-29) mEq/L BUN 25 H (8-23) mg/dL Creatinine 0.97 (0.60-1.20) mg/dL Glucose 117 H (70-105) mg/dL Calcium 9.5 (8.6-10.3) mg/dL Adrenal panel 09/11/18 Range/Units 23:01 Sodium 137 (136-145) mEq/L Potassium 3.7 (3.5-5.1) mEq/L Chloride 106 (98-107) mEq/L Carbon Dioxide 25 (23-29) mEq/L BUN 25 H (8-23) mg/dL Creatinine 0.97 (0.60-1.20) mg/dL Glucose 117 H (70-105) mg/dL Calcium 9.5 (8.6-10.3) mg/dL Total Bilirubin 0.8 (0.3-1.0) mg/dL AST 47 H (13-39) Units/L ALT 18 (7-52) Units/L Alkaline Phosphatase 133 H (34-104) Units/L Albumin 3.6 (3.5-5.7) g/dL All other labs normal. Consult Discharge Plan - Plan Referrals: Deanne Haddad, [employer]ER [Advanced Practice Nurse] - 09/16/18 1:00 pm <Radha Potter - Last Filed: 09/13/18 11:43> Date of Encounter: 09/12/18 Assessment and Plan (1) Abdominal pain Current Visit: Yes Status: Acute Qualifiers: Abdominal location: generalized Qualified Code(s): R10.84 - Generalized abdominal pain (2) Gallstone pancreatitis Current Visit: No Status: Acute patient with recurrence gallstone pancreatitis trend amylase, lipase serial abdominal exams abx prn pain control gi/dvt prophyl hold xarelto OOB ambulate Past Med Surg Social Fam HX - Past Medical History Source: patient Review of Systems All systems PM: The remainder of the systems were reviewed and are negative General Surgery Exam Initial Vital Signs Temp Pulse Resp BP Pulse Ox 97.9 F 46 16 150/62 97 09/11/18 22:43 09/11/18 22:43 09/11/18 22:43 09/11/18 22:43 09/11/18 22:43 - General physical appearance well developed, well nourished, no distress, moderate pain - Eyes PERRL, normal ocular movement - ENT normal mucosa, normocephalic - Neck trachea midline - Respiratory normal expansion, clear to auscultation - Cardiovascular Cardiovascular exam: Present: RRR - Abdomen Abdomen general surgery: Present: bowel sounds present, soft, tender. Absent: distended, guarding, rebound Abdominal Tenderness: Present: epigastic - Integumentary Integumentary general surgery: Present: warm and dry, no abnormal pigmentation - Neurologic Present: CN 2-12 grossly intact - Musculoskeletal Present: normal posture - Psychiatric Psychiatric general surgery: Present: A&Ox3, speech is normal Exam Initial Vital Signs Temp Pulse Resp BP Pulse Ox 97.9 F 46 16 150/62 97 09/11/18 22:43 09/11/18 22:43 09/11/18 22:43 09/11/18 22:43 09/11/18 22:43 Results - Labs 09/13/18 03:20 09/13/18 03:20 Abnormal lab results RBC 2.83 M/mcL (3.82-4.97) L 09/13/18 03:20 Hgb 8.3 g/dL (11.5-15.4) L 09/13/18 03:20 Hct 27.9 % (35.3-44.9) L 09/13/18 03:20 MCHC 29.7 g/dL (31.6-35.5) L 09/13/18 03:20 RDW 16.1 % (11.5-14.5) H 09/13/18 03:20 PT 13.8 Seconds (9.4-12.1) H 09/13/18 07:49 Chloride 109 mEq/L (98-107) H 09/13/18 03:20 BUN 25 mg/dL (8-23) H 09/13/18 03:20 BUN/Creatinine Ratio 28 (6-26) H 09/13/18 03:20 Total Bilirubin 1.5 mg/dL (0.3-1.0) H 09/13/18 03:20 Direct Bilirubin 0.3 mg/dL (0.0-0.2) H 09/11/18 23:01 AST 130 Units/L (13-39) H 09/13/18 03:20 ALT 111 Units/L (7-52) H 09/13/18 03:20 Alkaline Phosphatase 181 Units/L (34-104) H 09/13/18 03:20 Serum Total Protein 6.1 g/dL (6.4-8.9) L 09/13/18 03:20 Albumin 3.0 g/dL (3.5-5.7) L 09/13/18 03:20 Albumin/Globulin Ratio 1.0 (1.1-2.2) L 09/13/18 03:20 Amylase 386 Units/L (29-103) H 09/13/18 03:20 Lipase 1217 Units/L (11-82) H 09/13/18 03:20 Ur Leukocyte Esterase Trace (Negative) H 09/11/18 23:19 Ur Squamous Epith Cells Many per lpf (None-Few) H 09/11/18 23:19 Ur Culture Indicated? NO. (NO) A 09/11/18 23:19 Diabetes panel 09/13/18 Range/Units 03:20 Sodium 139 (136-145) mEq/L Potassium 4.2 (3.5-5.1) mEq/L Chloride 109 H (98-107) mEq/L Carbon Dioxide 25 (23-29) mEq/L BUN 25 H (8-23) mg/dL Creatinine 0.89 (0.60-1.20) mg/dL Glucose 85 (70-105) mg/dL Calcium 8.8 (8.6-10.3) mg/dL AST 130 H (13-39) Units/L ALT 111 H (7-52) Units/L Alkaline Phosphatase 181 H (34-104) Units/L Albumin 3.0 L (3.5-5.7) g/dL Calcium panel 09/13/18 Range/Units 03:20 Calcium 8.8 (8.6-10.3) mg/dL Albumin 3.0 L (3.5-5.7) g/dL Pituitary panel 09/13/18 Range/Units 03:20 Sodium 139 (136-145) mEq/L Potassium 4.2 (3.5-5.1) mEq/L Chloride 109 H (98-107) mEq/L Carbon Dioxide 25 (23-29) mEq/L BUN 25 H (8-23) mg/dL Creatinine 0.89 (0.60-1.20) mg/dL Glucose 85 (70-105) mg/dL Calcium 8.8 (8.6-10.3) mg/dL Adrenal panel 09/13/18 Range/Units 03:20 Sodium 139 (136-145) mEq/L Potassium 4.2 (3.5-5.1) mEq/L Chloride 109 H (98-107) mEq/L Carbon Dioxide 25 (23-29) mEq/L BUN 25 H (8-23) mg/dL Creatinine 0.89 (0.60-1.20) mg/dL Glucose 85 (70-105) mg/dL Calcium 8.8 (8.6-10.3) mg/dL Total Bilirubin 1.5 H (0.3-1.0) mg/dL AST 130 H (13-39) Units/L ALT 111 H (7-52) Units/L Alkaline Phosphatase 181 H (34-104) Units/L Albumin 3.0 L (3.5-5.7) g/dL All other labs normal. - Attending Attestation I have personally performed a face to face evaluation on this patient. I have reviewed and agree with the care plan. History and Exam by me shows:
--- NOTE | 2018-09-12 15:36 | Electrocardiograph Report ---
[place] [id number] Test Date: 2018-09-11 Pat Name: Qian Navarro Department: [id number] Room: 3A31 Gender: F Entry Analyst: : 1935 Requested By: Mariah Jackson Order Number: [id number] Reading MD: Ramos Mayen Measurements Intervals [place] Rate: 55 P: MA: QRS: -16 QRSD: 115 T: 72 QT: 488 QTc: 467 Interpretive Statements Sinus rhythm Nonspecific intraventricular conduction delay Electronically Signed On 09-12-2018 15:34:43 EST by Ramos Mayen
[2018-09-13] MEDS: Insulin LISPRO 300 UNITS/3 ML VIAL SQ SCH ×4 (00:19→19:00)
[2018-09-13 04:23] LABS: Hematocrit 27.9 % (35.3-44.9); Hemoglobin 8.3 g/dL (11.5-15.4); Mean Corpuscular HGB Conc 29.7 g/dL (31.6-35.5); Mean Corpuscular Hemoglobin 29.3 pg (28.0-33.3); Mean Corpuscular Volume 98.6 fL (83.0-100.0); Mean Platelet Volume 11.5 fL (9.4-12.4); Platelet Count 217 K/mcL (140-400); Red Blood Count 2.83 M/mcL (3.82-4.97); Red Cell Distribution Width 16.1 % (11.5-14.5)
[2018-09-13 04:29] LABS: Alanine Aminotransferase 111 Units/L (7-52); Alkaline Phosphatase 181 Units/L (34-104); Aspartate Amino Transferase 130 Units/L (13-39); BUN/Creatinine Ratio 28 (6-26); Bilirubin,Total 1.5 mg/dL (0.3-1.0); Blood Urea Nitrogen 25 mg/dL (8-23); Calcium 8.8 mg/dL (8.6-10.3); Carbon Dioxide 25 mEq/L (23-29); Chloride 109 mEq/L (98-107); Globulin 3.1 g/dL (2.4-3.5); Glucose 85 mg/dL (70-105); Osmolality,Calculated 292 (280-300); Potassium 4.2 mEq/L (3.5-5.1); Sodium 139 mEq/L (136-145); Total Protein 6.1 g/dL (6.4-8.9); eGFR For Non-African Americans > 60 (> 60)
[2018-09-13] MEDS: *HR* Heparin 5,000 UNIT/ML VIAL SQ SCH ×2 (05:49→17:57)
[2018-09-13] MEDS: 0.9 % Sodium Chloride 1,000 ML IVC SCH (05:49)
[2018-09-13] MEDS ORDERED: 0.9 % Sodium Chloride 1,000 ML IVC ONE (07:20)
[2018-09-13] MEDS ORDERED: Ringers Solution, Lactated 2,000 ML IVC SCH (08:30)
[2018-09-13 08:32] LABS: INR 1.2; Prothrombin Time 13.8 Seconds (9.4-12.1)
[2018-09-13] MEDS: Pantoprazole 40 MG VIAL IVP SCH (08:38)
[2018-09-13] MEDS ORDERED: *HR* LORazepam 2 MG/ML VIAL IVP ONE (10:12)
[2018-09-13] MEDS: Piperacillin/Tazobactam 3.375 GM in 0.9 % Sodium Chloride Mini Bag 100 ML IVPB SCH ×2 (11:17→17:57)
--- NOTE | 2018-09-13 11:45 | General Surgery Progress Note ---
Date of Encounter: 09/13/18 Time of Encounter: 11:43 - Assessment and Plan (1) Abdominal pain Current Visit: Yes Status: Acute prn pain control, improved today but still present Qualifiers: Abdominal location: generalized Qualified Code(s): R10.84 - Generalized abdominal pain (2) Gallstone pancreatitis Current Visit: No Status: Acute amylase and lipase increased today as did lft's mrcp done and images reviewed, awaiting report may need ercp trend labs will plan surgery when appropriate decrease in pancreatitis prn pain control abx continue npo currently Subjective Patient reports: no new complaints, feels better, still having pain, pain is less, flatus, no bowel movement, afebrile Objective Vital Signs - Last 8 Hours Temp Pulse Resp BP Pulse Ox 09/13/18 06:57 98.8 F 56 16 119/63 98 Intake and Output 09/12/18 09/13/18 09/13/18 23:59 07:59 15:59 Intake Total 0 / 0 1000 / 1000 Output Total 200 / 200 675 / 675 Balance -200 / -200 325 / 325 Intake: IV Fluids 1000 / 1000 0.9 % Sodium Chloride 1,000 ML 1000 / 1000 @ 75 mls/hr IVC .[id number] DAPHNEY Rx #:[id number] Oral 0 / 0 0 / 0 Output: Urine 200 / 200 Catheter 675 / 675 Other: Meal DINNER NPO Percent of Meal Consumed 0% # Bowel Movements 0 Weight 89.1 kg Blood Glucose* 91 75 Patient Weight 09/13/18 23:59 Weight 89.1 kg - General physical appearance well nourished, no distress, moderate pain - Eyes PERRL, normal ocular movement - ENT normal mucosa, normocephalic - Neck Neck exam: trachea midline - Respiratory normal expansion, normal respiratory effort - Cardiovascular Cardiovascular exam: Present: RRR - Abdomen Abdomen: Present: bowel sounds present, soft, tender. Absent: distended, guarding, rebound Abdominal Tenderness: epigastic - Integumentary no rash, no growths - Neurologic CN 2-12 grossly intact - Musculoskeletal normal posture - Psychiatric oriented to time, oriented to person, oriented to place, speech is normal, memory intact - Labs 09/13/18 03:20 09/13/18 03:20 Diabetes panel 09/13/18 Range/Units 03:20 Sodium 139 (136-145) mEq/L Potassium 4.2 (3.5-5.1) mEq/L Chloride 109 H (98-107) mEq/L Carbon Dioxide 25 (23-29) mEq/L BUN 25 H (8-23) mg/dL Creatinine 0.89 (0.60-1.20) mg/dL Glucose 85 (70-105) mg/dL Calcium 8.8 (8.6-10.3) mg/dL AST 130 H (13-39) Units/L ALT 111 H (7-52) Units/L Alkaline Phosphatase 181 H (34-104) Units/L Albumin 3.0 L (3.5-5.7) g/dL Calcium panel 09/13/18 Range/Units 03:20 Calcium 8.8 (8.6-10.3) mg/dL Albumin 3.0 L (3.5-5.7) g/dL Pituitary panel 09/13/18 Range/Units 03:20 Sodium 139 (136-145) mEq/L Potassium 4.2 (3.5-5.1) mEq/L Chloride 109 H (98-107) mEq/L Carbon Dioxide 25 (23-29) mEq/L BUN 25 H (8-23) mg/dL Creatinine 0.89 (0.60-1.20) mg/dL Glucose 85 (70-105) mg/dL Calcium 8.8 (8.6-10.3) mg/dL Adrenal panel 09/13/18 Range/Units 03:20 Sodium 139 (136-145) mEq/L Potassium 4.2 (3.5-5.1) mEq/L Chloride 109 H (98-107) mEq/L Carbon Dioxide 25 (23-29) mEq/L BUN 25 H (8-23) mg/dL Creatinine 0.89 (0.60-1.20) mg/dL Glucose 85 (70-105) mg/dL Calcium 8.8 (8.6-10.3) mg/dL Total Bilirubin 1.5 H (0.3-1.0) mg/dL AST 130 H (13-39) Units/L ALT 111 H (7-52) Units/L Alkaline Phosphatase 181 H (34-104) Units/L Albumin 3.0 L (3.5-5.7) g/dL - Imaging MRI - abdomen: report reviewed, image reviewed Consult Discharge Plan - Plan Referrals: Deanne Haddad, [employer]ER [Advanced Practice Nurse] - 09/16/18 1:00 pm
--- NOTE | 2018-09-13 12:40 | Internal Med Progress Note ---
Hospitalist Progress Note - Encounter Date of Encounter: 09/13/18 Time of Encounter: 08:26 - Subjective Interval History: Patient seen and examined this morning. No acute overnight events. Abnormal pain much improved. Currently nothing by mouth. No fevers chills nausea or vomiting. - Exam Vitals: Temp Pulse Resp BP Pulse Ox 97.8 F 55 16 138/56 99 09/13/18 11:53 09/13/18 11:53 09/13/18 11:53 09/13/18 11:53 09/13/18 11:53 Exam: General: In no acute distress. Conversant. Obese. Respiratory exam: CTAB. no accessory muscle use, rales, rhonchi, wheezes Cardiovascular exam: RRR, +S1, +S2. has systolic murmur, no gallop, rubs. GI/Abdominal exam: RUQ tenderness, Non-distended, Normal bowel sounds, soft, no peritoneal signs. Extremities exam: full ROM, no pedal edema, warm, pulses palpable in b/l lower extremities. no calf tenderness Neurological exam: CN II-XII intact, AO X3, no focal deficits. no pronater drift, facial droop, speech deficit Skin exam: No skin rash, ulcer, purpura or ecchymosis. - Assessment and Plan (1) HTN (hypertension) Current Visit: Yes Status: Chronic (2) HLD (hyperlipidemia) Current Visit: Yes Status: Chronic (3) Type 2 diabetes mellitus with polyneuropathy Current Visit: Yes Status: Chronic (4) Hypothyroidism Current Visit: No Status: Chronic (5) Carotid stenosis Current Visit: No Status: Acute (6) Acute pancreatitis Current Visit: Yes Status: Acute (7) DVT prophylaxis Current Visit: Yes Status: Acute - Summary of Assessment and Plan Summary of Assessment and Plan: Acute pancreatitis - Likely gall stone pancreatitis with CT scan 07/25 demonstrating acute pancreatitis and cholelithiasis. - keep NPO - Worsening Lipase and LFT today. However clinically better. recieved only 1L till now. Will give 1 L NS bolus and increase LR to 125 cc. Will get MRCP. Discussed with GI. - Surgery following. Started on zosyn. Will need cholecystectomy eventually. h/o Afib - Currently sinus. Rate controlled. HR in 50s. - not on anticoagulation currently HTN - Hold home medication for now. BP stable DM - hold home metformin - c/w accuchecks and sliding scale. Hypothyroidism - c/w levothyroixin IV 25 mcg. Carotid stenosis - Carotid Doppler 07/18 demonstrated Right mid ICA has a severe, 60-79% stenosis and left bifurcation has a severe, 60-79% stenosis - c/w aspirin and statin when able to take PO. DVT prophylaxis - SQ Heparin - Time Spent with Patient Total time spent is greater than 50% in coordination of care (as documented) at patient's floor/unit and/or counseling patient: Internal Medicine: Result - Labs CBC & Chem 7: 09/13/18 03:20 09/13/18 03:20 Labs: Short CBC 09/13/18 Range/Units 03:20 WBC 7.1 (4.3-11.1) K/mcL Hgb 8.3 L (11.5-15.4) g/dL Hct 27.9 L (35.3-44.9) % Plt Count 217 (140-400) K/mcL BMP 09/13/18 03:20 Sodium 139 Potassium 4.2 Chloride 109 H Carbon Dioxide 25 BUN 25 H Creatinine 0.89 Glucose 85 Calcium 8.8 Liver Function 09/13/18 Range/Units 03:20 Total Bilirubin 1.5 H (0.3-1.0) mg/dL AST 130 H (13-39) Units/L ALT 111 H (7-52) Units/L Alkaline Phosphatase 181 H (34-104) Units/L Albumin 3.0 L (3.5-5.7) g/dL - ABG Interpretation ABG results: PT/INR, D-dimer PT 13.8 Seconds (9.4-12.1) H 09/13/18 07:49 - Impressions Impressions Abdomen MRI 09/13/18 07:27 IMPRESSION: Stones and sludge within the gallbladder lumen. No significant gallbladder wall thickening. Normal MRCP. Edema and fluid adjacent to the pancreas suggesting acute inflammation. There is also small amount of perihepatic fluid and fluid in the right upper quadrant. Para small bilateral pleural effusions with left lower lobe dependent airspace disease, atelectasis and/or pneumonia. D/ / Tania Mendoza Cha, MD / Tania Mendoza Cha, MD Interpreting Provider: Tania Mendoza Cha, MD Consult Discharge Plan - Plan Referrals: Deanne Haddad, DISABILITY COUNSELOR [Advanced Practice Nurse] - 09/16/18 1:00 pm (1) HTN (hypertension) Qualifiers: Hypertension type: essential hypertension Qualified Code(s): I10 - Essential (primary) hypertension (2) HLD (hyperlipidemia) Qualifiers: Hyperlipidemia type: mixed hyperlipidemia Qualified Code(s): E78.2 - Mixed hyperlipidemia (4) Hypothyroidism Qualifiers: Hypothyroidism type: unspecified Qualified Code(s): E03.9 - Hypothyroidism, unspecified (5) Carotid stenosis Qualifiers: Laterality: bilateral Qualified Code(s): I65.23 - Occlusion and stenosis of bilateral carotid arteries (6) Acute pancreatitis Qualifiers: Pancreatitis type: biliary Acute pancreatitis complication: uninfected nec rosis Qualified Code(s): K85.11 - Biliary acute pancreatitis with uninfected necrosis
[2018-09-13 15:28] LABS: Bilirubin,Direct 0.7 mg/dL (0.0-0.2); Bilirubin,Indirect 0.9 mg/dL (0.0-1.2); Bilirubin,Total 1.6 mg/dL (0.3-1.0)
[2018-09-13] MEDS: Levothyroxine Sodium 100 MCG VIAL IVP SCH (17:57)
[2018-09-13] MEDS: Acetaminophen 325 MG TABLET PO PRN (20:42)
[2018-09-14] MEDS: Insulin LISPRO 300 UNITS/3 ML VIAL SQ SCH ×4 (00:20→18:03)
[2018-09-14] MEDS: Piperacillin/Tazobactam 3.375 GM in 0.9 % Sodium Chloride Mini Bag 100 ML IVPB SCH ×3 (00:21→17:05)
[2018-09-14 05:08] LABS: Basophils % 0.4 %; Eosinophils # 0.4 K/mcL (0.0-0.6); Eosinophils % 6.8 %; Hematocrit 24.4 % (35.3-44.9); Hemoglobin 7.6 g/dL (11.5-15.4); Immature Granulocytes % 0.2 % (0-4); Lymphocytes # 1.2 K/mcL (0.6-4.6); Lymphocytes % 22.1 %; Mean Corpuscular HGB Conc 31.1 g/dL (31.6-35.5); Mean Corpuscular Hemoglobin 29.9 pg (28.0-33.3); Mean Corpuscular Volume 96.1 fL (83.0-100.0); Monocytes # 0.4 K/mcL (0.0-1.3); Monocytes % 7.2 %; Neutrophils # 3.3 K/mcL (1.6-8.9); Platelet Count 171 K/mcL (140-400); Red Blood Count 2.54 M/mcL (3.82-4.97); Red Cell Distribution Width 15.5 % (11.5-14.5); Segmented Neutrophils % 63.3 %
[2018-09-14 05:27] LABS: Alanine Aminotransferase 67 Units/L (7-52); Albumin 2.7 g/dL (3.5-5.7); Alkaline Phosphatase 149 Units/L (34-104); Amylase 105 Units/L (29-103); Aspartate Amino Transferase 47 Units/L (13-39); BUN/Creatinine Ratio 23 (6-26); Bilirubin,Direct 0.4 mg/dL (0.0-0.2); Bilirubin,Indirect 0.6 mg/dL (0.0-1.2); Blood Urea Nitrogen 18 mg/dL (8-23); Calcium 8.5 mg/dL (8.6-10.3); Carbon Dioxide 25 mEq/L (23-29); Chloride 110 mEq/L (98-107); Globulin 2.8 g/dL (2.4-3.5); Glucose 83 mg/dL (70-105); Lipase 279 Units/L (11-82); Osmolality,Calculated 289 (280-300); Potassium 3.8 mEq/L (3.5-5.1); Sodium 139 mEq/L (136-145); Total Protein 5.5 g/dL (6.4-8.9); eGFR For Non-African Americans > 60 (> 60)
[2018-09-14] MEDS: *HR* Heparin 5,000 UNIT/ML VIAL SQ SCH ×2 (05:55→18:05)
[2018-09-14] MEDS: Levothyroxine Sodium 100 MCG VIAL IVP SCH (08:22)
[2018-09-14] MEDS: Pantoprazole 40 MG VIAL IVP SCH (08:22)
[2018-09-14] MEDS ORDERED: 0.9 % Sodium Chloride 1,000 ML IVC SCH ×2 (08:30→12:06)
--- NOTE | 2018-09-14 12:03 | General Surgery Progress Note ---
Date of Encounter: 09/14/18 Time of Encounter: 12:02 - Assessment and Plan (1) Abdominal pain Current Visit: Yes Status: Acute prn pain control, improving tolearting clears Qualifiers: Abdominal location: generalized Qualified Code(s): R10.84 - Generalized abdominal pain (2) Gallstone pancreatitis Current Visit: No Status: Acute amylase and lipase decreased mrcp shows no cbd stones will plan laparoscopic cholecystectomy, possible cholangiograms, possible open tomorrow, risks and benefits discussed and she wishes to proceed clears today, npo ok po meds at midnight continue ivf hydration prn pain control OOB ambulate hold anticoagulation in anticipation of surgery Subjective Patient reports: no new complaints, feels better, still having pain, pain is less, tolerating liquids well, flatus, no bowel movement, afebrile Objective Vital Signs - Last 8 Hours Temp Pulse Resp BP Pulse Ox 09/14/18 07:26 97.8 F 51 16 130/64 98 Intake and Output 09/13/18 09/14/18 09/14/18 23:59 07:59 15:59 Intake Total 1340 / 1340 100 / 100 1380 / 1380 Output Total 500 / 500 850 / 850 Balance 840 / 840 -750 / -750 1380 / 1380 Intake: IV Fluids 1100 / 1100 100 / 100 900 / 900 Lactated Ringers 2,000 ML @ 150 1000 / 1000 900 / 900 mls/hr IVC .[id number] [facility] Rx#: [id number] Zosyn 3.375 GM In 0.9 % Sodium 100 / 100 100 / 100 Chloride (Mini-Bag +) 100 ML @ 25 mls/hr IVPB Q8HR [facility] Rx#: [id number] Oral 240 / 240 0 / 0 480 / 480 Output: Catheter 500 / 500 850 / 850 Other: Meal Breakfast # Bowel Movements 0 0 Weight 89.6 kg Blood Glucose* 150 94 Patient Weight 09/14/18 23:59 Weight 89.6 kg - General physical appearance well developed, well nourished, no distress - Eyes PERRL, normal ocular movement - ENT normal mucosa, Other (multiple scalp cysts) - Neck Neck exam: trachea midline - Respiratory normal expansion, clear to auscultation - Cardiovascular Cardiovascular exam: Present: RRR - Abdomen Abdomen: Present: bowel sounds present, soft, non tender. Absent: distended, guarding, rebound - Integumentary no rash - Neurologic CN 2-12 grossly intact - Musculoskeletal normal posture - Psychiatric oriented to time, oriented to person, oriented to place, speech is normal, memory intact - Labs 09/14/18 04:51 09/14/18 04:51 Short CBC 09/14/18 Range/Units 04:51 WBC 5.3 (4.3-11.1) K/mcL Hgb 7.6 L (11.5-15.4) g/dL Hct 24.4 L (35.3-44.9) % Plt Count 171 (140-400) K/mcL Neutrophils # 3.3 (1.6-8.9) K/mcL BMP 09/14/18 Range/Units 04:51 Sodium 139 (136-145) mEq/L Potassium 3.8 (3.5-5.1) mEq/L Chloride 110 H (98-107) mEq/L Carbon Dioxide 25 (23-29) mEq/L BUN 18 (8-23) mg/dL Creatinine 0.78 (0.60-1.20) mg/dL Glucose 83 (70-105) mg/dL Calcium 8.5 L (8.6-10.3) mg/dL Liver Function 09/14/18 09/13/18 Range/Units 04:51 03:20 Total Bilirubin 1.0 1.6 H (0.3-1.0) mg/dL Direct Bilirubin 0.4 H 0.7 H (0.0-0.2) mg/dL AST 47 H (13-39) Units/L ALT 67 H (7-52) Units/L Alkaline Phosphatase 149 H (34-104) Units/L Albumin 2.7 L (3.5-5.7) g/dL Vital Signs Temp Pulse Resp BP Pulse Ox 09/14/18 07:26 97.8 F 51 16 130/64 98 09/14/18 03:38 97.6 F 58 14 128/60 97 09/14/18 00:09 97.7 F 58 14 133/64 98 09/13/18 19:25 97.7 F 56 14 130/58 96 09/13/18 15:10 97.5 F L 56 16 116/57 98 Intake and Output 09/13/18 09/14/18 09/14/18 23:59 07:59 15:59 Intake Total 1340 / 1340 100 / 100 1380 / 1380 Output Total 500 / 500 850 / 850 Balance 840 / 840 -750 / -750 1380 / 1380 Intake: IV Fluids 1100 / 1100 100 / 100 900 / 900 Lactated Ringers 2,000 ML @ 150 1000 / 1000 900 / 900 mls/hr IVC .[id number] [facility] Rx#: [id number] Zosyn 3.375 GM In 0.9 % Sodium 100 / 100 100 / 100 Chloride (Mini-Bag +) 100 ML @ 25 mls/hr IVPB Q8HR [facility] Rx#: [id number] Oral 240 / 240 0 / 0 480 / 480 Output: Catheter 500 / 500 850 / 850 Other: Meal Breakfast # Bowel Movements 0 0 Weight 89.6 kg Blood Glucose* 150 94 Patient Weight 09/14/18 23:59 Weight 89.6 kg Consult Discharge Plan - Plan Referrals: Deanne Haddad CNP [Advanced Practice Nurse] - 09/16/18 1:00 pm
--- NOTE | 2018-09-14 12:18 | Internal Med Progress Note ---
Hospitalist Progress Note - Encounter Date of Encounter: 09/14/18 Time of Encounter: 11:26 - Subjective Interval History: Patient seen and examined this morning. No acute overnight events. Denies abnormal pain. Tolerating clears well. No fevers chills nausea or vomiting. has not had BM. Still with bland. - Exam Vitals: Temp Pulse Resp BP Pulse Ox 97.8 F 51 16 130/64 98 09/14/18 07:26 09/14/18 07:26 09/14/18 07:26 09/14/18 07:26 09/14/18 07:26 Exam: General: In no acute distress. Conversant. Obese. Respiratory exam: CTAB. no accessory muscle use, rales, rhonchi, wheezes Cardiovascular exam: RRR, +S1, +S2. has systolic murmur, no gallop, rubs. GI/Abdominal exam: Non-tender, Non-distended, Normal bowel sounds, soft, no peritoneal signs. Extremities exam: full ROM, no pedal edema, warm, pulses palpable in b/l lower extremities. no calf tenderness Neurological exam: CN II-XII intact, AO X3, no focal deficits. no pronater drift, facial droop, speech deficit Skin exam: No skin rash, ulcer, purpura or ecchymosis. - Assessment and Plan (1) HTN (hypertension) Current Visit: Yes Status: Chronic (2) HLD (hyperlipidemia) Current Visit: Yes Status: Chronic (3) Type 2 diabetes mellitus with polyneuropathy Current Visit: Yes Status: Chronic (4) Hypothyroidism Current Visit: No Status: Chronic (5) Carotid stenosis Current Visit: No Status: Acute (6) Acute pancreatitis Current Visit: Yes Status: Acute (7) DVT prophylaxis Current Visit: Yes Status: Acute - Summary of Assessment and Plan Summary of Assessment and Plan: Acute pancreatitis - Likely gall stone pancreatitis with CT scan 07/25 demonstrating acute pancreatitis and cholelithiasis. - amylase, lipase improved after IVF. clinically better. MRCP without cbd stone. - NPO after midnight for lap alexa. c/w IVF - Surgery following. c/w zosyn. Will DC after surgery if ok per surgery. Afib documentatioin - No afib per cardiology from 07/30/18. Noted PAT. - appears sinu on tele. Repeat EKG. HR in 50s. - not on anticoagulation currently. Not indicated. - c/w tele HTN - Hold home medication for now. BP stable DM - hold home metformin - c/w accuchecks and sliding scale. Hypothyroidism - c/w home levothyroixin Carotid stenosis - Carotid Doppler 07/18 demonstrated Right mid ICA has a severe, 60-79% stenosis and left bifurcation has a severe, 60-79% stenosis - c/w statin DVT prophylaxis - SQ Heparin - Time Spent with Patient Total time spent is greater than 50% in coordination of care (as documented) at patient's floor/unit and/or counseling patient: Internal Medicine: Result - Labs CBC & Chem 7: 09/14/18 04:51 09/14/18 04:51 Labs: Short CBC 09/14/18 Range/Units 04:51 WBC 5.3 (4.3-11.1) K/mcL Hgb 7.6 L (11.5-15.4) g/dL Hct 24.4 L (35.3-44.9) % Plt Count 171 (140-400) K/mcL Neutrophils # 3.3 (1.6-8.9) K/mcL BMP 09/14/18 04:51 Sodium 139 Potassium 3.8 Chloride 110 H Carbon Dioxide 25 BUN 18 Creatinine 0.78 Glucose 83 Calcium 8.5 L Liver Function 09/13/18 09/14/18 Range/Units 03:20 04:51 Total Bilirubin 1.6 H 1.0 (0.3-1.0) mg/dL Direct Bilirubin 0.7 H 0.4 H (0.0-0.2) mg/dL AST 47 H (13-39) Units/L ALT 67 H (7-52) Units/L Alkaline Phosphatase 149 H (34-104) Units/L Albumin 2.7 L (3.5-5.7) g/dL - ABG Interpretation ABG results: PT/INR, D-dimer PT 13.8 Seconds (9.4-12.1) H 09/13/18 07:49 Consult Discharge Plan - Plan Referrals: Deanne Haddad, [employer]ONSTRATOR SALES [Advanced Practice Nurse] - 09/16/18 1:00 pm ___ (1) HTN (hypertension) Qualifiers: Hypertension type: essential hypertension Qualified Code(s): I10 - Essential (primary) hypertension (2) HLD (hyperlipidemia) Qualifiers: Hyperlipidemia type: mixed hyperlipidemia Qualified Code(s): E78.2 - Mixed hyperlipidemia (4) Hypothyroidism Qualifiers: Hypothyroidism type: unspecified Qualified Code(s): E03.9 - Hypothyroidism, unspecified (5) Carotid stenosis Qualifiers: Laterality: bilateral Qualified Code(s): I65.23 - Occlusion and stenosis of bilateral carotid arteries (6) Acute pancreatitis Qualifiers: Pancreatitis type: biliary Acute pancreatitis complication: uninfected necrosis Qualified Code(s): K85.11 - Biliary acute pancreatitis with uninfected necrosis
[2018-09-14] MEDS: Acetaminophen 325 MG TABLET PO PRN (17:10)
[2018-09-15] MEDS ORDERED: *HR* Metoprolol 5 MG/5 ML VIAL IVP ONE (00:19)
--- NOTE | 2018-09-15 00:24 | Event Note ---
Date of Encounter: 09/15/18 Time of Encounter: 11:37 Notified by nurse of patient complaining of chest pain and having elevated heart rate. EKG obtained, shows afib with RVR, with ST depression changes suspected to be related to elevated heart rate in 120's. Patient assessed at bedside, now denying any chest pain, stated it lasted only "couple minutes". Vitals otherwise stable. Stat troponin ordered. Low dose IV lopressor ordered for heart rate due to patient previously being bradycardic. Reviwed EKG and plan with Dr Garcia and Dr Coles.
[2018-09-15] MEDS: Piperacillin/Tazobactam 3.375 GM in 0.9 % Sodium Chloride Mini Bag 100 ML IVPB SCH ×4 (00:25→23:43)
[2018-09-15] MEDS: Insulin LISPRO 300 UNITS/3 ML VIAL SQ SCH ×4 (00:26→17:12)
[2018-09-15 04:45] LABS: Basophils % 0.4 %; Eosinophils # 0.4 K/mcL (0.0-0.6); Eosinophils % 8.2 %; Hematocrit 26.2 % (35.3-44.9); Hemoglobin 7.8 g/dL (11.5-15.4); Immature Granulocytes % 0.4 % (0-4); Lymphocytes # 1.2 K/mcL (0.6-4.6); Lymphocytes % 23.4 %; Mean Corpuscular HGB Conc 29.8 g/dL (31.6-35.5); Mean Corpuscular Hemoglobin 29.3 pg (28.0-33.3); Mean Corpuscular Volume 98.5 fL (83.0-100.0); Mean Platelet Volume 10.9 fL (9.4-12.4); Monocytes # 0.4 K/mcL (0.0-1.3); Monocytes % 7.8 %; Neutrophils # 3.1 K/mcL (1.6-8.9); Platelet Count 204 K/mcL (140-400); Red Blood Count 2.66 M/mcL (3.82-4.97); Red Cell Distribution Width 15.2 % (11.5-14.5); Segmented Neutrophils % 59.8 %
[2018-09-15] MEDS: *HR* Heparin 5,000 UNIT/ML VIAL SQ SCH (05:05)
[2018-09-15 05:10] LABS: Alanine Aminotransferase 50 Units/L (7-52); Albumin 2.6 g/dL (3.5-5.7); Albumin/Globulin Ratio 0.9 (1.1-2.2); Alkaline Phosphatase 142 Units/L (34-104); Amylase 39 Units/L (29-103); Aspartate Amino Transferase 28 Units/L (13-39); BUN/Creatinine Ratio 16 (6-26); Bilirubin,Direct 0.1 mg/dL (0.0-0.2); Bilirubin,Indirect 0.6 mg/dL (0.0-1.2); Bilirubin,Total 0.7 mg/dL (0.3-1.0); Blood Urea Nitrogen 12 mg/dL (8-23); Calcium 8.5 mg/dL (8.6-10.3); Carbon Dioxide 27 mEq/L (23-29); Chloride 111 mEq/L (98-107); Glucose 95 mg/dL (70-105); Lipase 59 Units/L (11-82); Osmolality,Calculated 290 (280-300); Potassium 3.5 mEq/L (3.5-5.1); Sodium 140 mEq/L (136-145); Total Protein 5.6 g/dL (6.4-8.9); eGFR For Non-African Americans > 60 (> 60)
[2018-09-15] MEDS: Pantoprazole 40 MG VIAL IVP SCH (07:54)
[2018-09-15 08:43] LABS: Troponin I 0.03 ng/mL (< 0.04)
--- NOTE | 2018-09-15 08:56 | Cardiology Consult Note ---
<Jose Guerrero - Last Filed: 09/15/18 12:21> Date of Encounter: 09/15/18 Time of Encounter: 08:30 Assessment and Plan (1) Atrial fibrillation with RVR Current Visit: Yes Status: Acute -Transient Afib-RVR with single event on 09/15/18 via ECG -Worked up previously in 06/2018 for afib after afib on monitor during induction of anesthesia with no further evidence of afib noted that admission -TTE 07/25/18 preserved EF 60-65%, mild LV dysfuction, normal wall motion, normal RV fucnion, mild -Afib RVR on ECG 09/15/18 resolved to baseline sinus karen with single dose IV metoprolol -[id number] -Recommend starting DVT protocol heparin for stroke risk reduction if general surgery ok with anticoagulation given current pancreatitis -Would recommend a chemical stress test prior to cholecystectomy unless surgery is emergent -Will likely need penitentiary anticoagulation postop with DOAC given [id number] score of 6 -Currently in baseline sinus karen with no symptoms Discussion w patient/family: The assessment and plan as outlined above was discussed with the patient and/or family members who expressed understanding and agreement. All questions were answered. Thank you for involving us in the care of your patient. Please call with any questions. History of Present Illness Consult date: 09/15/18 Requesting physician: Joseph Huffman Consult reason: Afib and surgical clearance Chief complaint: Chest pain History of present illness: Ms. Navarro is a 83 year old female with PMH significant for HTN, DM, HLD, CAD, hypothyroidism and prior CVA. Cardiology was consulted for episode of Afib RVR overnight and surgical clearance for planned cholecystectomy. She originally was going to have cholecystectomy in Jun 2018 and during induction of anesthesia Afib RVR was noted on monitor with surgery cancelled at that point. Dr Lozoya evaluated her at that visit and no further evidence of afib was noted and dc home without medication change or anticoagulation. She returned 09/11/18 and found to have pancreatitis 2/2 cholelithiasis and plan to have cholecystectomy today. Overnight she was "moving around" in the room and had acute onset midsternal chest pain she described as aching that lasted a couple minutes with asociated nausea. She denied radiation of pain, dyspnea, palpitations, dizziness/lightheadedness, diplopia, blurry vision, diaphoresis, vomiting, feelings of impending syncope or ever having similar symptoms previously. ECG at 0140 showed Afib-RVR with hr 125 and ischemic depressions laterally which resolved with single dose IV metoprolol. single troponin drawn negative. She denies any further symptoms since event overnight. Past Med Surg Social Fam HX - Past Medical History Medical history: atrial fibrillation, coronary artery disease, diabetes, hyperlipidemia, hypertension, peripheral artery disease, thyroid disease Additional medical history: CVA Psychiatric history: no psych history - Past Surgical History Surgical History: hysterectomy, orthopedic, other (right knee scope) Additional surgical history: goiter, rt carotid endarectomy - Social History Smoking Status: Never smoker Smokeless Tobacco Status: No Alcohol use: none Drug use: none - Family History Mother Living Status: Hx Family Cardiac Disorders: No Hx Family Respiratory Disorders: No Hx Family Cancer: Yes (lymphoma) Hx Family GI Disorders: No Hx Family Endocrine Disorder: No Hx Family Neuromuscular Disorders: No Hx Family Neurologic Disorders: No Hx Family HEENT Disorders: No Hx Family Autoimmune Disorders: No Medications and Allergies RX: Aspirin Enteric Coated [Aspirin EC] 81 mg PO DAILY #30 tablet. 02/20/18 [Rx] RX: Atorvastatin [Lipitor] 40 mg PO HS #30 tablet 02/20/18 [Rx] RX: Cyanocobalamin (B-12) [Vitamin B12] 1,000 mcg PO DAILY #30 tablet 02/20/18 [Rx] RX: Levothyroxine Sodium [Levoxyl] 75 mcg PO DAILY 07/25/18 [History] RX: Loratadine [Allergy Relief] 10 mg PO DAILY 07/25/18 [History] RX: Lisinopril [Zestril] 10 mg PO DAILY #30 tablet 07/31/18 [Rx] RX: amLODIPine [Norvasc] 5 mg PO DAILY #30 tablet 07/31/18 [Rx] Allergy/AdvReac Type Severity Reaction Status Date / Time No Known Allergies Allergy Verified 09/11/18 22:46 All Systems Review: The remainder of the systems were reviewed and are negative Physical Examination Vital Signs, Last 4 Hours Temp Pulse Resp BP Pulse Ox 09/15/18 05:23 97.8 F 56 16 138/63 98 General: Conversant Neck: No JVD Cardiac: Normal S1 and S2, Other (bradycardic, regular rhythm, s1/s2+, 2/6 systolic ejection murmur best heard over R 2nd intercostal with mild apical radiation, no heaves, thrills, or gallops appreciated. Radial pulses 2+ and equal bilaterally. ) Lungs: Normal Breath Sounds, No Wheeze, Rales, Rhonchi Neuro: Alert and responsive, No focal deficits noted Musculoskeletal: No Chest Wall Tenderness Extremities: No Clubbing, No Cyanosis, No Edema Results 09/15/18 04:30 09/15/18 04:30 Lab Results 09/15/18 09/15/18 09/15/18 00:43 04:30 04:30 WBC 5.3 Hgb 7.8 L Hct 26.2 L Plt Count 204 Sodium 140 Potassium 3.5 Chloride 111 H Carbon Dioxide 27 BUN 12 Creatinine 0.74 Glucose 95 Calcium 8.5 L Total Bilirubin 0.7 AST 28 ALT 50 Alkaline Phosphatase 142 H Troponin I < 0.03 Amylase 39 Lipase 59 09/15/18 07:52 WBC Hgb Hct Plt Count Sodium Potassium Chloride Carbon Dioxide BUN Creatinine Glucose Calcium Total Bilirubin AST ALT Alkaline Phosphatase Troponin I 0.03 Amylase Lipase Consult Discharge Plan - Plan Referrals: Jessenia Dsouza, [employer] SALES CONSULTANT [Advanced Practice Nurse] - 09/24/18 10:00 am <Shadia Lim - Last Filed: 09/15/18 14:13> Date of Encounter: 09/15/18 - Attending Attestation I examined this patient and my medical decision-making was reviewed with the Resident Physician. I agree with the documented findings, disposition and treatment plan as described except to the extent set forth below. 83 YOF with multiple CRF's including DM with PAF here for pancreatic surgery. Patient had runs of PAF yesterday associated with CP. Due to symptomatic afib and no previous ischemic eval a Stress test is helpful if surgery is not urgent. Patient will also start on IV heparin if okay with surgery and started on NOAC once safe after surgery. Assessment and Plan Discussion w patient/family: The assessment and plan as outlined above was discussed with the patient and/or family members who expressed understanding and agreement. All questions were answered. Thank you for involving us in the care of your patient. Please call with any questions. History of Present Illness History of present illness: Ms. Navarro is a 83 year old female All Systems Review: The remainder of the systems were reviewed and are negative Physical Examination Vital Signs, Last 4 Hours Temp Pulse Resp BP Pulse Ox 09/15/18 10:28 97.8 F 52 16 134/61 97 Results 09/15/18 04:30 09/15/18 04:30 Lab Results 09/15/18 09/15/18 09/15/18 00:43 04:30 04:30 WBC 5.3 Hgb 7.8 L Hct 26.2 L Plt Count 204 Sodium 140 Potassium 3.5 Chloride 111 H Carbon Dioxide 27 BUN 12 Creatinine 0.74 Glucose 95 Calcium 8.5 L Magnesium Total Bilirubin 0.7 AST 28 ALT 50 Alkaline Phosphatase 142 H Troponin I < 0.03 Amylase 39 Lipase 59 TSH 09/15/18 09/15/18 07:52 10:48 WBC Hgb Hct Plt Count Sodium Potassium Chloride Carbon Dioxide BUN Creatinine Glucose Calcium Magnesium 1.9 Total Bilirubin AST ALT Alkaline Phosphatase Troponin I 0.03 0.03 Amylase Lipase TSH 2.977
[2018-09-15] MEDS ORDERED: Aspirin Enteric Coated 81 MG Tablet PO SCH (09:00)
--- NOTE | 2018-09-15 09:04 | Internal Med Progress Note ---
Hospitalist Progress Note - Encounter Date of Encounter: 09/15/18 Time of Encounter: 08:53 - Subjective Interval History: Patient seen and examined this morning. Denies abnormal pain, chest pain or shortness of breath. NPO. No fevers chills,nausea or vomiting. Still with bland. - Exam Vitals: Temp Pulse Resp BP Pulse Ox 97.8 F 56 16 138/63 98 09/15/18 05:23 09/15/18 05:23 09/15/18 05:23 09/15/18 05:23 09/15/18 05:23 Exam: General: In no acute distress. Conversant. Obese. Respiratory exam: CTAB. no accessory muscle use, rales, rhonchi, wheezes Cardiovascular exam: RRR, +S1, +S2. has systolic murmur, no gallop, rubs. GI/Abdominal exam: Non-tender, Non-distended, Normal bowel sounds, soft, no peritoneal signs. Extremities exam: full ROM, no pedal edema, warm, pulses palpable in b/l lower extremities. no calf tenderness Neurological exam: CN II-XII intact, AO X3, no focal deficits. no pronater drift, facial droop, speech deficit Skin exam: No skin rash, ulcer, purpura or ecchymosis. - Assessment and Plan (1) HTN (hypertension) Current Visit: Yes Status: Chronic (2) HLD (hyperlipidemia) Current Visit: Yes Status: Chronic (3) Type 2 diabetes mellitus with polyneuropathy Current Visit: Yes Status: Chronic (4) Hypothyroidism Current Visit: No Status: Chronic (5) Carotid stenosis Current Visit: No Status: Acute (6) Acute pancreatitis Current Visit: Yes Status: Acute (7) DVT prophylaxis Current Visit: Yes Status: Acute - Summary of Assessment and Plan Summary of Assessment and Plan: Acute pancreatitis - Likely gall stone pancreatitis with CT scan 07/25 demonstrating acute pancreatitis and cholelithiasis. - amylase, lipase improved after IVF. clinically better. MRCP without cbd stone. - NPO for lap alexa. c/w IVF - Currently with sinus rhythm. RCRI of 1. Ok to go for surgery with moderate risk. - Surgery following. c/w zosyn. Will DC after surgery if ok per surgery. Afib with RVR - EKG with afib rvr overnight. s/p 2.5 lopressor - appears sinus on tele currently. - appears to be thyroid related. - Last TSH in June with TSH of 10. Appear thyroxine was increased to 75 from 50. Repeat TSH, Magnesium. Replete Potassium. - Troponin negative. Last ECHO in june with EF of 60-65, mild Diastolic dysfunction. - Will consult cardiology for AC recommendation. HTN - Hold home medication for now. BP stable DM - hold home metformin - c/w accuchecks and sliding scale. Hypothyroidism - c/w home levothyroixin. May increase dose if signifcantly abnormal. Carotid stenosis - Carotid Doppler 07/18 demonstrated Right mid ICA has a severe, 60-79% stenosis and left bifurcation has a severe, 60-79% stenosis - c/w statin DVT prophylaxis - SQ Heparin - Time Spent with Patient Total time spent is greater than 50% in coordination of care (as documented) at patient's floor/unit and/or counseling patient: Internal Medicine: Result - Labs CBC & Chem 7: 09/15/18 04:30 09/15/18 04:30 Labs: Short CBC 09/15/18 Range/Units 04:30 WBC 5.3 (4.3-11.1) K/mcL Hgb 7.8 L (11.5-15.4) g/dL Hct 26.2 L (35.3-44.9) % Plt Count 204 (140-400) K/mcL Neutrophils # 3.1 (1.6-8.9) K/mcL BMP 09/15/18 04:30 Sodium 140 Potassium 3.5 Chloride 111 H Carbon Dioxide 27 BUN 12 Creatinine 0.74 Glucose 95 Calcium 8.5 L Cardiac Enzymes 09/15/18 09/15/18 Range/Units 00:43 07:52 Troponin I < 0.03 0.03 (< 0.04) ng/mL Liver Function 09/15/18 Range/Units 04:30 Total Bilirubin 0.7 (0.3-1.0) mg/dL Direct Bilirubin 0.1 (0.0-0.2) mg/dL AST 28 (13-39) Units/L ALT 50 (7-52) Units/L Alkaline Phosphatase 142 H (34-104) Units/L Albumin 2.6 L (3.5-5.7) g/dL - ABG Interpretation ABG results: PT/INR, D-dimer PT 13.8 Seconds (9.4-12.1) H 09/13/18 07:49 Consult Discharge Plan - Plan Referrals: Deanne Haddad, CUSTOMS PORT DIRECTOR [Advanced Practice Nurse] - 09/16/18 1:00 pm (1) HTN (hypertension) Qualifiers: Hypertension type: essential hypertension Qualified Code(s): I10 - Essential (primary) hypertension (2) HLD (hyperlipidemia) Qualifiers: Hyperlipidemia type: mixed hyperlipidemia Qualified Code(s): E78.2 - Mixed hyperlipidemia (4) Hypothyroidism Qualifiers: Hypothyroidism type: unspecified Qualified Code(s): E03.9 - Hypothyroidism, unspecified (5) Carotid stenosis Qualifiers: Laterality: bilateral Qualified Code(s): I65.23 - Occlusion and stenosis of bilateral carotid arteries (6) Acute pancreatitis Qualifiers: Pancreatitis type: biliary Acute pancreatitis complication: uninfected necrosis Qualified Code(s): K85.11 - Biliary acute pancreatitis with uninfected necrosis
[2018-09-15 09:28] LABS: Magnesium 1.9 mg/dL (1.6-2.6)
[2018-09-15 09:35] LABS: Thyroid Stimulating Hormone 2.977 mcIU/mL (0.340-5.600)
[2018-09-15] MEDS ORDERED: Potassium Chloride 20 MEQ, Lidocaine 1% 2 ML in D5% in Water 250 ML IVPB ONE (11:45)
[2018-09-15] MEDS ORDERED: *HR* Heparin 5,000 UNIT/ML VIAL IVP PRN ×2 (11:54)
[2018-09-15] MEDS ORDERED: *HR* Heparin 5,000 UNIT/ML VIAL IVP ONE (11:54)
[2018-09-15] MEDS ORDERED: Heparin 25,000 UNIT/500 ML D5W 25,000 UNIT/500 ML BAG IVC SCH (12:00)
[2018-09-15] MEDS ORDERED: Regadenoson 0.4 MG/5 ML SYRINGE IVP ONE (12:39)
--- NOTE | 2018-09-15 13:59 | Event Note ---
Date of Encounter: 09/15/18 Time of Encounter: 13:58 Pt remains off the floor for testing. Of note she was scheduled for OR today, but went into a-fib with RVR. She is scheduled for a stress test today for preoperative risk stratification. She is tentatively placed on add-on schedule for 09/16/2018. Repeat am labs npo after midnight
--- NOTE | 2018-09-15 15:34 | Electrocardiograph Report ---
[address] [address] Test Date: 2018-09-15 Pat Name: Qian Navarro Department: 115 Room: 3A31 Gender: F Specialty Development Consultant: : 1935 Requested By: Joseph Huffman Order Number: [id number] Reading MD: Ramos Kraus Measurements Intervals [place] Rate: 52 P: 40 UT: 173 QRS: -25 QRSD: 134 T: 11 QT: 455 QTc: 435 Interpretive Statements SINUS BRADYCARDIA INTRAVENTRICULAR CONDUCTION DELAY Electronically Signed On 09-15-2018 15:33:18 EST by Ramos Kraus
--- NOTE | 2018-09-15 15:34 | Electrocardiograph Report ---
[address] [address] Test Date: 2018-09-15 Pat Name: Qian Navarro Department: 115 Room: 3A31 Gender: F Balance Engineer: : 1935 Requested By: Hedy Hoffman Order Number: [id number] Reading MD: Ramos Kraus Measurements Intervals [place] Rate: 125 P: VT: 0 QRS: -29 QRSD: 113 T: 138 QT: 340 QTc: 414 Interpretive Statements ATRIAL FIBRILLATION WITH RAPID VENTRICULAR RESPONSE MODERATE INTRAVENTRICULAR CONDUCTION DELAY ST DEVIATION AND MODERATE T-WAVE ABNORMALITY, CONSIDER LATERAL ISCHEMIA Electronically Signed On 09-15-2018 15:33:06 EST by Ramos Kraus
--- NOTE | 2018-09-15 15:35 | Electrocardiograph Report ---
[address] [address] Test Date: 2018-09-15 Pat Name: Qian Navarro Department: 115 Room: 3A31 Gender: F Bumper Machine Operator: : 1935 Requested By: Joseph Huffman Order Number: [id number] Reading MD: Ramos Kraus Measurements Intervals [place] Rate: 55 P: 107 MD: 184 QRS: -24 QRSD: 131 T: 16 QT: 456 QTc: 444 Interpretive Statements SINUS BRADYCARDIA INTRAVENTRICULAR CONDUCTION DELAY Electronically Signed On 09-15-2018 15:33:32 EST by Ramos Kraus
[2018-09-15] MEDS: Ondansetron 4 MG/2 ML VIAL IVP PRN (16:04)
--- NOTE | 2018-09-15 19:23 | Anesthesia Evaluation PreOp ---
Addendum entered and electronically signed by Bebe Yousif MD 09/16/18 15:46: 10-2018 TTE: Impressions: Technically adequate exam. LVEF 60-65%. Mild left ventricular diastolic dysfunction. Normal right ventricular structure and function. Mild aortic stenosis. The estimated aortic valve area was approximately 1.6 cm2 with peak aortic valve gradient of 28 mmHg and peak aortic valve velocity of 2.62m/s Also audible heart murmur on physical exam. Patient is significantly anemic. Will insert pre-induction A-line. Original Note: Date of Encounter: 09/15/18 Time of Encounter: 19:21 - Past History Planned Operation: Lap. 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 02/20/18 [Rx] Atorvastatin [Lipitor] 40 mg PO HS #30 tablet 02/20/18 [Rx] Cyanocobalamin (B-12) [Vitamin B12] 1,000 mcg PO DAILY #30 tablet 02/20/18 [Rx] Levothyroxine Sodium [Levoxyl] 75 mcg PO DAILY 07/25/18 [History] Loratadine [Allergy Relief] 10 mg PO DAILY 07/25/18 [History] Lisinopril [Zestril] 10 mg PO DAILY #30 tablet 07/31/18 [Rx] amLODIPine [Norvasc] 5 mg PO DAILY #30 tablet 07/31/18 [Rx] Allergy/AdvReac Type Severity Reaction Status Date / Time No Known Allergies Allergy Verified 09/11/18 22:46 - Meds/Allergy Pre-op Review Medications Reviewed: Yes Allergies Reviewed: Yes Beta Blockers on Current Med List: Yes Anesthesia Results - Labs 09/15/18 04:30 09/15/18 04:30 - Imaging EKG: report reviewed, other (Sinus Bradycardia after metoprolol) Additional studies: Stress 09/15/2018 EF-72% No ischemia -TTE 07/25/18 preserved EF 60-65%, mild LV dysfuction, normal wall motion, normal RV fucnion, mild -Afib RVR on ECG 09/15/18 resolved to baseline sinus karen with single dose IV metoprolol Date of Study: 02/17/2018 Date: 1935 Ht: 64.0 in Medical Record#: [id number] Age: 82 Wt: 213.0 lb Gender: Female BSA: 2.01 Order #: [id number] Location: [facility] IP Room #: 3B33 Reading Physician: Naida Richardson DO Ordering Physician: Byron Nino MD [employer] Starter: Ghada Gilmore RVT, [facility] Indications: Cerebrovascular Accident Impressions: LIMITED ECHO LVEF 60-65%. Moderate concentric left ventricular hypertrophy. Resting, significant LVOT gradient, 22mmHg. Normal right ventricular structure and function. No PFO with saline contrast injection. Recommend clinical correlation. Anesthesia Exam Vital Signs/O2 Sat, Most Current Temp Pulse Resp BP Pulse Ox 97.9 F 58 14 153/54 98 09/15/18 18:52 09/15/18 18:52 09/15/18 18:52 09/15/18 18:52 09/15/18 18:52 NPO (# of Hours): > 8 hrs Pain Scale: 0 Pain Scale Used: Numeric (1 - 10) - HEENT Pupil (Motor): Pupils equal, EOMI Mallampati: III Teeth: Edentulous Oral Opening: Greater than 3 - SOFTWARE ENGINEER LOC: Oriented SOFTWARE ENGINEER Motor: Normal RUE, Normal LUE, Normal RLE, Normal LLE, Normal Face SOFTWARE ENGINEER Sensory: Normal: RUE, LUE, RLE, LLE, Face - Cardiac Rhythm: Regular Murmur: None JVD: No Carotid Bruit: No - Pulmonary Breath Sounds: bilateral Clear Respiratory Effort: Symmetrical Anesthesia Assess/Plan ASA Score: 3 Level of consciousness: Cooperative Anesthetic Plan: General Autologous Blood: Yes Monitoring Plan: Standard Monitors Recovery Plan: PACU
[2018-09-16] MEDS: Insulin LISPRO 300 UNITS/3 ML VIAL SQ SCH ×4 (01:04→17:26)
[2018-09-16 04:35] LABS: Basophils % 0.5 %; Eosinophils # 0.4 K/mcL (0.0-0.6); Eosinophils % 8.6 %; Hematocrit 24.1 % (35.3-44.9); Hemoglobin 7.5 g/dL (11.5-15.4); Immature Granulocytes % 0.5 % (0-4); Lymphocytes # 1.4 K/mcL (0.6-4.6); Lymphocytes % 33.5 %; Mean Corpuscular HGB Conc 31.1 g/dL (31.6-35.5); Mean Corpuscular Hemoglobin 29.9 pg (28.0-33.3); Mean Platelet Volume 12.6 fL (9.4-12.4); Monocytes # 0.3 K/mcL (0.0-1.3); Monocytes % 7.9 %; Neutrophils # 2.1 K/mcL (1.6-8.9); Platelet Count 104 K/mcL (140-400); Red Blood Count 2.51 M/mcL (3.82-4.97); Red Cell Distribution Width 15.1 % (11.5-14.5)
[2018-09-16 04:43] LABS: BUN/Creatinine Ratio 13 (6-26); Blood Urea Nitrogen 9 mg/dL (8-23); Calcium 8.6 mg/dL (8.6-10.3); Carbon Dioxide 21 mEq/L (23-29); Chloride 110 mEq/L (98-107); Glucose 81 mg/dL (70-105); Osmolality,Calculated 286 (280-300); Potassium 3.5 mEq/L (3.5-5.1); Sodium 139 mEq/L (136-145); eGFR For Non-African Americans > 60 (> 60)
--- NOTE | 2018-09-16 07:39 | Electrocardiograph Report ---
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
[2018-09-16] MEDS: Ondansetron 4 MG/2 ML VIAL IVP PRN ×2 (07:45→18:08)
[2018-09-16] MEDS: Pantoprazole 40 MG VIAL IVP SCH (07:45)
[2018-09-16] MEDS: Piperacillin/Tazobactam 3.375 GM in 0.9 % Sodium Chloride Mini Bag 100 ML IVPB SCH ×2 (07:45→16:30)
[2018-09-16] MEDS ORDERED: *HR* LORazepam 2 MG/ML VIAL IVP STA (08:59)
[2018-09-16] MEDS ORDERED: Scopolamine Patch 1.5 MG PATCH.TD72 TD STA (09:00)
[2018-09-16] MEDS ORDERED: *HR* Promethazine 25 MG/ML VIAL IVP PRN (09:00)
[2018-09-16] MEDS ORDERED: *HR* LORazepam 2 MG/ML VIAL IVP PRN ×2 (11:07→18:12)
--- NOTE | 2018-09-16 11:28 | Internal Med Progress Note ---
<Armani Gilman - Last Filed: 09/16/18 15:06> Hospitalist Progress Note - Encounter Date of Encounter: 09/16/18 Time of Encounter: 14:56 - Subjective Interval History: Patient reports that she is currently comfrotable with no acute events overnight. She is scheduled for surgery and has been NPO since midnight. 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 She is denying any abdominal pain which has been controlled on pain meds. Denies N/V. - Exam Vitals: Temp Pulse Resp BP Pulse Ox 97.7 F 51 16 150/66 97 09/16/18 06:31 09/16/18 06:31 09/16/18 06:31 09/16/18 06:31 09/16/18 06:31 Exam: General: In no acute distress. Conversant. Obese. Respiratory exam: CTAB. Cardiovascular exam: RRR, +S1, +S2. . GI/Abdominal exam: Non-tender, Non-distended, Normal bowel sounds Extremities exam: full ROM, no pedal edema, warm, pulses palpable in b/l lower extremities Neurological exam: AO X3, no focal deficits Skin exam: No skin rash, ulcer, purpura or ecchymosis. - Assessment and Plan (1) HTN (hypertension) Current Visit: Yes Status: Chronic Assessment and Plan: a. Known diagnosis of hypertension, continue Norvasc b. Hold Lisinopril for concern for developing LAURA while keeping patient NPO (2) HLD (hyperlipidemia) Current Visit: Yes Status: Chronic Assessment and Plan: known hx. (3) Type 2 diabetes mellitus with polyneuropathy Current Visit: Yes Status: Chronic Assessment and Plan: Known diagnosis of type II DM .Glucose monitoring q6 hours, low dose insulin sliding scale NPO (4) Hypothyroidism Current Visit: No Status: Chronic Assessment and Plan: Known diagnosis of hypothyroidism, continue Levothyroxin when patient is not NPO (5) Carotid stenosis Current Visit: No Status: Acute Assessment and Plan: Known diagnosis of Coronary artery stenosis, will continue atorvastatin and ASA. Carotid Doppler 07/18 demonstrated Right mid ICA has a severe, 60-79% stenosis and left bifurcation has a severe, 60-79% stenosis (6) Acute pancreatitis Current Visit: Yes Status: Acute (7) DVT prophylaxis Current Visit: Yes Status: Acute - Time Spent with Patient Total time spent is greater than 50% in coordination of care (as documented) at patient's floor/unit and/or counseling patient: Internal Medicine: Result - Labs CBC & Chem 7: 09/16/18 03:42 09/16/18 03:42 Labs: Short CBC 09/16/18 Range/Units 03:42 WBC 4.2 L (4.3-11.1) K/mcL Hgb 7.5 L (11.5-15.4) g/dL Hct 24.1 L (35.3-44.9) % Plt Count 104 L (140-400) K/mcL Neutrophils # 2.1 (1.6-8.9) K/mcL BMP 09/16/18 03:42 Sodium 139 Potassium 3.5 Chloride 110 H Carbon Dioxide 21 L BUN 9 Creatinine 0.70 Glucose 81 Calcium 8.6 - ABG Interpretation ABG results: PT/INR, D-dimer PT 13.8 Seconds (9.4-12.1) H 09/13/18 07:49 Consult Discharge Plan - Plan Referrals: Jessenia Dsouza [employer] [Advanced Practice Nurse] - 09/24/18 10:00 am <Anaya Tucker - Last Filed: 09/16/18 17:20> Hospitalist Progress Note - Encounter Date of Encounter: 09/16/18 - Exam Vitals: Temp Pulse Resp BP Pulse Ox 97.6 F 57 16 185/69 98 09/16/18 12:12 09/16/18 12:12 09/16/18 12:12 09/16/18 12:12 09/16/18 12:12 - Assessment and Plan (1) HTN (hypertension) Current Visit: Yes Status: Chronic (2) HLD (hyperlipidemia) Current Visit: Yes Status: Chronic (3) Type 2 diabetes mellitus with polyneuropathy Current Visit: Yes Status: Chronic (4) Hypothyroidism Current Visit: No Status: Chronic (5) Carotid stenosis Current Visit: No Status: Acute (6) Acute pancreatitis Current Visit: Yes Status: Acute Assessment and Plan: With gall stone. Plan for LC today. (7) DVT prophylaxis Current Visit: Yes Status: Acute (8) Atrial fibrillation with RVR Current Visit: Yes Status: Acute Assessment and Plan: Switch to NSR now. Cardio consult on case and recommendation appreciated. Will restart AC after surgery. - Time Spent with Patient Total time spent is greater than 50% in coordination of care (as documented) at patient's floor/unit and/or counseling patient: Internal Medicine: Result - Labs CBC & Chem 7: 09/16/18 03:42 09/16/18 03:42 Labs: Short CBC 09/16/18 Range/Units 03:42 WBC 4.2 L (4.3-11.1) K/mcL Hgb 7.5 L (11.5-15.4) g/dL Hct 24.1 L (35.3-44.9) % Plt Count 104 L (140-400) K/mcL Neutrophils # 2.1 (1.6-8.9) K/mcL BMP 09/16/18 03:42 Sodium 139 Potassium 3.5 Chloride 110 H Carbon Dioxide 21 L BUN 9 Creatinine 0.70 Glucose 81 Calcium 8.6 - ABG Interpretation ABG results: PT/INR, D-dimer PT 13.8 Seconds (9.4-12.1) H 09/13/18 07:49 - Attending Attestation I have seen and examined this patient independently. I have discussed with resident physician Dr Gilman regarding the management plan. Agree with the documentation. <Armani Gilman - Last Filed: 09/16/18 15:06> (1) HTN (hypertension) Qualifiers: Hypertension type: unspecified secondary hypertension Qualified Code(s): I15.9 - Secondary hypertension, unspecified; I15 - Secondary hypertension (2) HLD (hyperlipidemia) Qualifiers: Hyperlipidemia type: unspecified Qualified Code(s): E78.5 - Hyperlipidemia, unspecified (4) Hypothyroidism Qualifiers: Hypothyroidism type: unspecified Qualified Code(s): E03.9 - Hypothyroidism, unspecified (5) Carotid stenosis Qualifiers: Laterality: bilateral Qualified Code(s): I65.23 - Occlusion and stenosis of bilateral carotid arteries (6) Acute pancreatitis Qualifiers: Pancreatitis type: biliary Acute pancreatitis complication: uninfected necrosis Qualified Code(s): K85.11 - Biliary acute pancreatitis with uninfected necrosis <GarrettErichjill - Last Filed: 09/16/18 17:20> (1) HTN (hypertension) Qualifiers: Hypertension type: unspecified secondary hypertension Qualified Code(s): I15.9 - Secondary hypertension, unspecified; I15 - Secondary hypertension (2) HLD (hyperlipidemia) Qualifiers: Hyperlipidemia type: unspecified Qualified Code(s): E78.5 - Hyperlipidemia, unspecified (4) Hypothyroidism Qualifiers: Hypothyroidism type: unspecified Qualified Code(s): E03.9 - Hypothyroidism, unspecified (5) Carotid stenosis Qualifiers: Laterality: bilateral Qualified Code(s): I65.23 - Occlusion and stenosis of bilateral carotid arteries (6) Acute pancreatitis Qualifiers: Pancreatitis type: biliary Acute pancreatitis complication: uninfected necrosis Qualified Code(s): K85.11 - Biliary acute pancreatitis with uninfected necrosis
[2018-09-16] MEDS ORDERED: *HR* Succinylcholine 200 MG/10 ML VIAL IVP ONE ×2 (13:41→15:23)
[2018-09-16] MEDS ORDERED: *HR* FentaNYL (PF) 100 MCG/2 ML VIAL ONE ×3 (13:41→16:51)
[2018-09-16] MEDS ORDERED: Ondansetron 4 MG/2 ML VIAL ONE ×2 (13:41→15:23)
[2018-09-16] MEDS ORDERED: Lidocaine -MPF 2% 2 ML VIAL ONE ×2 (13:41→15:23)
[2018-09-16] MEDS ORDERED: Dexamethasone 4 MG/ML VIAL ONE ×2 (13:41→15:23)
[2018-09-16] MEDS ORDERED: *HR* Rocuronium Bromide 50 MG/5 ML VIAL ONE ×2 (13:41→15:23)
[2018-09-16] MEDS ORDERED: *HR* Propofol 200 MG/20 ML VIAL IVP ONE ×2 (13:42→15:23)
[2018-09-16] MEDS ORDERED: *HR* Midazolam HCl 2 MG/2 ML VIAL ONE (13:42)
[2018-09-16] MEDS ORDERED: Lidocaine -MPF 4% 5 ML AMPUL ONE (15:23)
[2018-09-16] MEDS ORDERED: Heparin 1,000 UNITS/500 mL 500 ML ONE (15:35)
[2018-09-16] MEDS ORDERED: Isovue-300 50 ML VIAL IVP ONE (15:41)
[2018-09-16] MEDS ORDERED: *HR* Etomidate 40 MG/20 ML VIAL IVP ONE (16:21)
[2018-09-16] MEDS ORDERED: EPHEDrine 50 MG/ML VIAL ONE (16:34)
--- NOTE | 2018-09-16 17:01 | Anesthesia Procedures ---
Date of Encounter: 09/16/18 Time of Encounter: 16:05 Procedures: Anesthesia - Arterial Line Consent obtained: written consent Time out performed: Yes Sedation: Fentanyl (mcg): 50 Supplemental Oxygen via Nasal Cannula (L/min): 3 Local Anesthetic: Lidocaine 1% Amount of Anesthetic used (mls): 1 Size (Gauge): 20 Length (inches): 1 3/4 Technique Used: sterile prep, guide wire technique Post-Procedure: line taped into place Patient tolerated procedure: well Complications: none Site: Radial L Comments: see anesthesia record for VS, procedure done in OR
[2018-09-16] MEDS ORDERED: Neostigmine Methylsulfate 3 MG/3 ML SYRINGE ONE (17:13)
--- NOTE | 2018-09-16 17:34 | Operative Note ---
Date of procedure: 09/16/18 Pre-op diagnosis: gallstone pancreatitis Post-op diagnosis: same Procedure: laparoscopic cholecystectomy with cholangiograms Complications: none immediate Anesthesia: STEPHANIE local Surgeon: Radha Potter Was there an assistant professor of german present: No Plastic Tile Layer Other: Dom Mistry Estimated blood loss (cc): 5 Specimen: gallbladder and contents Condition: stable Disposition: PACU Procedure in Detail: The patient was brought into the operating suite and placed supine on the operating table. Sign-in was performed and everyone was in agreement. Anesthesia was induced and patient was endotracheally intubated by anesthesia without incident and they also placed an OG tube. The abdomen was prepped and draped in the usual sterile fashion. A timeout was performed again everyone was in agreement. A supraumbilical incision was made through the skin into the subcutaneous tissue with an 11 blade. Towel clamps were placed on either side of the umbilicus for retraction. S retractors were used to dissect down to the anterior abdominal wall linea alba fascia. A Veress needle was placed through this incision and a water drop test confirmed placement and the abdomen was insufflated. The abdomen was entered with a 5 mm 0 degree laparoscope on a 5 mm Optiview trocar. The area and entry was visualized was no bleeding and no apparent bowel injury. A 5 mm subxiphoid port was placed under direct visualization after first incising the skin with an 11 blade. A right upper quadrant subcostal position midclavicular line 5 mm port was placed under direct visualization after first incising skin with 11 blade. The laparoscope was placed in this and we exchanged the supraumbilical port for a 12 mm port under direct visualization. The last 5 mm port was placed in the right upper quadrant subcostal position anterior axillary line after first incising the skin with an 11 blade. The patient was placed in steep reverse Trendelenburg left side down position. The dome of the gallbladder was grasped and retracted cephalad. Omental adhesions to the body and infundibulum of the gallbladder were taken down bluntly with the [place]. The infundibulum was grasped and retracted laterally. Using the [place] we dissected out the cystic duct and cystic artery. A 5 mm Hemoclip was placed proximally on the cystic artery. A 5 mm metal Hemoclip was placed proximally on the cystic duct. The cystic duct was partially transected with curved scissors. Using the Arnold clamp, the cholangiocatheter was introduced into the partially transected cystic duct with the [place]. A metal 5 mm hemoclip was placed across the proximal cystic duct and the cholangiocatheter. The catheter flushed easily. The patient was placed in Trendelenberg position. Cholangiograms were obtained showing contrast up into the left and right intrahepatic ducts down through the common hepatic and common bile duct into the duodenum. patient was returned to reverse Trendelenburg left side down position. The clip on the cholangiocatheter and proximal cystic duct was removed as well as the cholangiocatheter. Two 5 mm hemoclips were placed proximally on the cystic duct and it was transected with curved scissors. Another 5 mm hemoclip was placed proximally on the cystic artery one distally and it was transected with curved scissors. The gallbladder was removed off the cystic plate with the Bovie. Any bleeding points were stopped with the Bovie. The gallbladder was placed in a laparoscopic Endo Catch bag and removed via the supraumbilical incision site. The inferior edge of the liver was bluntly retracted cephalad and the cystic plate was copiously irrigated with sterile saline. There was no bleeding or apparent bile leak from the cystic plate and the clips on the cystic artery and duct were intact. All irrigation was suctioned free from the abdomen. All insufflation was suctioned free from the abdomen and the ports removed. The abdominal wall at the supraumbilical incision site was closed with a 0 Vicryl [id number] stitch. 30 mL of 0.5% Marcaine was injected subcutaneously at the 4 port sites. The skin at the three 5 mm port sites were closed with 4-0 Monocryl interrupted subcuticular stitches. The skin at the supraumbilical incision site was closed with a 4-0 Monocryl running subcuticular stitch. Steri-Strips were applied to all wounds. The patient was awoken in the operating suite having tolerated the procedure well and were taken to PACU in stable condition after all lap and ensuring counts were correct at the end of the case.
[2018-09-16] MEDS ORDERED: Dextrose Gel 15 GM/37.5 ML TUBE PO PRN ×2 (18:12)
[2018-09-16] MEDS ORDERED: Ondansetron 4 MG/2 ML VIAL IVP PRN (18:12)
[2018-09-16] MEDS ORDERED: *HR* Dextrose 50 % in Water (Syg) 50 ML SYRINGE IVP PRN (18:12)
[2018-09-16] MEDS ORDERED: MORPHINE SUL Oral CONC 10 MG/0.5 ML ORAL.SYG SL PRN (18:12)
[2018-09-16] MEDS ORDERED: Naloxone 0.4 MG/ML INJ IVP PRN (18:12)
[2018-09-16] MEDS ORDERED: D5% in Water 1,000 ML IVC PRN (18:12)
--- NOTE | 2018-09-16 18:41 | Anesthesia Evaluation Post Op ---
Date of Encounter: 09/16/18 Time of Encounter: 18:10 - Vital Signs Vital Signs: Last Vital Signs Temp 97.2 F L 09/16/18 18:15 Pulse 69 09/16/18 18:15 Resp 14 09/16/18 18:15 BP 177/60 09/16/18 18:15 Pulse Ox 92 09/16/18 18:15 - Lungs Lungs: Clear Ascult./Percussion - Airway Airway: Non-obstructed - Cardiovascular Regular Rate - Mental Status Mental Status: Alert & Oriented, Answers Appropriately - Pain Pain Scale: 2 - Nausea Vomiting Nausea Vomiting: Not Present - Hydration Hydration: NPO - Discharge PostOp Status: Transfer Patient to floor
[2018-09-17] MEDS: Insulin LISPRO 300 UNITS/3 ML VIAL SQ SCH ×3 (01:23→20:55)
[2018-09-17 05:44] LABS: Basophils % 0.2 %; Hematocrit 28.4 % (35.3-44.9); Hemoglobin 8.4 g/dL (11.5-15.4); Immature Granulocytes % 0.2 % (0-4); Lymphocytes # 0.4 K/mcL (0.6-4.6); Lymphocytes % 9.4 %; Mean Corpuscular HGB Conc 29.6 g/dL (31.6-35.5); Mean Corpuscular Hemoglobin 29.6 pg (28.0-33.3); Mean Platelet Volume 10.8 fL (9.4-12.4); Monocytes # 0.2 K/mcL (0.0-1.3); Monocytes % 3.4 %; Platelet Count 202 K/mcL (140-400); Red Blood Count 2.84 M/mcL (3.82-4.97); Red Cell Distribution Width 14.6 % (11.5-14.5); Segmented Neutrophils % 86.8 %
[2018-09-17 05:53] LABS: Neutrophils # 4.1 K/mcL (1.6-8.9)
[2018-09-17] MEDS: *HR* HYDROcodone/Acet 5/325 mg TABLET PO PRN ×2 (06:04→16:12)
[2018-09-17 06:05] LABS: BUN/Creatinine Ratio 12 (6-26); Blood Urea Nitrogen 9 mg/dL (8-23); Calcium 8.7 mg/dL (8.6-10.3); Carbon Dioxide 27 mEq/L (23-29); Chloride 109 mEq/L (98-107); Glucose 145 mg/dL (70-105); Osmolality,Calculated 287 (280-300); Potassium 3.8 mEq/L (3.5-5.1); Sodium 138 mEq/L (136-145); eGFR For Non-African Americans > 60 (> 60)
[2018-09-17 06:16] LABS: Platelet Clumps Few (Not Present); Platelet Estimate Normal (Normal)
[2018-09-17] MEDS ORDERED: Pantoprazole 40 MG VIAL IVP SCH (09:00)
--- NOTE | 2018-09-17 09:00 | Internal Med Progress Note ---
<Armani Gilman - Last Filed: 09/17/18 11:30> Hospitalist Progress Note - Encounter Date of Encounter: 09/17/18 Time of Encounter: 10:03 - Subjective Interval History: Patient reports that she is currently comfrotable with no acute events overnight. Patient is s/p day 1 for lap alexa. She has minor periumbilical abdominal pain from surgery but stats pain is controlled. SHe is on a liquid diet and is slowly starting to eat. Has not passed stool or gas yet. Denies N/V. - Exam Vitals: Temp Pulse Resp BP Pulse Ox 97.6 F 57 18 127/56 96 09/17/18 07:34 09/17/18 07:34 09/17/18 07:34 09/17/18 07:34 09/17/18 07:34 Exam: General: In no acute distress. Conversant. Obese. Respiratory exam: CTAB. Cardiovascular exam: RRR, +S1, +S2. .Systolic murmur appreciated. GI/Abdominal exam: periumbilical tenderness - normal post surgical tenderness. Non-distended, Normal bowel sounds Extremities exam: full ROM, no pedal edema, warm, pulses palpable in b/l lower extremities Neurological exam: AO X3, no focal deficits Skin exam: No skin rash, ulcer, purpura or ecchymosis. - Assessment and Plan (1) HTN (hypertension) Current Visit: Yes Status: Chronic Assessment and Plan: Known diagnosis of hypertension. BP controlled at 127/56. No further intervetion at this time. (2) HLD (hyperlipidemia) Current Visit: Yes Status: Chronic Assessment and Plan: known hx. on statin (3) Type 2 diabetes mellitus with polyneuropathy Current Visit: Yes Status: Chronic Assessment and Plan: Known diagnosis of type II DM .Glucose monitoring q6 hours, low dose insulin sliding scale (4) Hypothyroidism Current Visit: No Status: Chronic Assessment and Plan: Known diagnosis of hypothyroidism, continue Levothyroxin (5) Carotid stenosis Current Visit: No Status: Acute Assessment and Plan: Known diagnosis of Coronary artery stenosis, will continue atorvastatin and ASA. Carotid Doppler 07/18 demonstrated Right mid ICA has a severe, 60-79% stenosis and left bifurcation has a severe, 60-79% stenosis (6) Acute pancreatitis Current Visit: Yes Status: Acute Assessment and Plan: With gall stone. Plan for LC today. Lipase down to 59 from 250s in most recent lab. (7) DVT prophylaxis Current Visit: Yes Status: Acute Assessment and Plan: SQ Heparin 5000 units Q8hrs. (8) Atrial fibrillation with RVR Current Visit: Yes Status: Acute Assessment and Plan: Switch to NSR now. Cardio consult on case recommend longterm blood thinners. Considering eloquis 2.5 BID pending surgery recs of when to restart. Also will consult with pharmacy staff to kay eloquis and xarelto. - Time Spent with Patient Total time spent is greater than 50% in coordination of care (as documented) at patient's floor/unit and/or counseling patient: Internal Medicine: Result - Labs CBC & Chem 7: 09/17/18 05:32 09/17/18 05:32 Labs: Short CBC 09/17/18 Range/Units 05:32 WBC 4.7 (4.3-11.1) K/mcL Hgb 8.4 L (11.5-15.4) g/dL Hct 28.4 L (35.3-44.9) % Plt Count 202 D (140-400) K/mcL Neutrophils # 4.1 (1.6-8.9) K/mcL BMP 09/17/18 05:32 Sodium 138 Potassium 3.8 Chloride 109 H Carbon Dioxide 27 BUN 9 Creatinine 0.74 Glucose 145 H Calcium 8.7 - ABG Interpretation ABG results: PT/INR, D-dimer PT 13.8 Seconds (9.4-12.1) H 09/13/18 07:49 - Impressions Impressions Cholangiogram,Operative 09/16/18 00:00 IMPRESSION: No evidence of choledocholithiasis. D/ / Jean-Pierre Vanegas MD / Jean-Pierre Vanegas MD Interpreting Provider: Jean-Pierre Vanegas MD Consult Discharge Plan - Plan Referrals: Jessenia Dsouza [employer] AP[employer]AISER [Advanced Practice Nurse] - 09/24/18 10:00 am Prescriptions: RX: Apixaban [Eliquis] 5 mg PO BID 30 Days #60 tablet Rivaroxaban [Xarelto] 20 mg PO QDPC 30 Days #30 tablet <Anaya Tucker - Last Filed: 09/17/18 15:05> Hospitalist Progress Note - Encounter Date of Encounter: 09/17/18 - Exam Vitals: Temp Pulse Resp BP Pulse Ox 97.6 F 57 18 127/56 96 09/17/18 07:34 09/17/18 07:34 09/17/18 07:34 09/17/18 07:34 09/17/18 07:34 - Assessment and Plan (1) HTN (hypertension) Current Visit: Yes Status: Chronic (2) HLD (hyperlipidemia) Current Visit: Yes Status: Chronic (3) Type 2 diabetes mellitus with polyneuropathy Current Visit: Yes Status: Chronic (4) Hypothyroidism Current Visit: No Status: Chronic (5) Carotid stenosis Current Visit: No Status: Acute (6) Acute pancreatitis Current Visit: Yes Status: Acute (7) DVT prophylaxis Current Visit: Yes Status: Acute (8) Atrial fibrillation with RVR Current Visit: Yes Status: Acute - Time Spent with Patient Total time spent is greater than 50% in coordination of care (as documented) at patient's floor/unit and/or counseling patient: Internal Medicine: Result - Labs CBC & Chem 7: 09/17/18 05:32 09/17/18 05:32 Labs: Short CBC 09/17/18 Range/Units 05:32 WBC 4.7 (4.3-11.1) K/mcL Hgb 8.4 L (11.5-15.4) g/dL Hct 28.4 L (35.3-44.9) % Plt Count 202 D (140-400) K/mcL Neutrophils # 4.1 (1.6-8.9) K/mcL BMP 09/17/18 05:32 Sodium 138 Potassium 3.8 Chloride 109 H Carbon Dioxide 27 BUN 9 Creatinine 0.74 Glucose 145 H Calcium 8.7 - ABG Interpretation ABG results: PT/INR, D-dimer PT 13.8 Seconds (9.4-12.1) H 09/13/18 07:49 - Impressions Impressions Cholangiogram,Operative 09/16/18 00:00 IMPRESSION: No evidence of choledocholithiasis. D/ / Jean-Pierre Vanegas MD / Jean-Pierre Vanegas MD Interpreting Provider: Jean-Pierre Vanegas MD - Attending Attestation I have seen and examined this patient independently. I have discussed with resident physician Dr Gilman regarding the management plan. Agree with the documentation. <Armani Gilman - Last Filed: 09/17/18 11:30> (1) HTN (hypertension) Qualifiers: Hypertension type: unspecified secondary hypertension Qualified Code(s): I15 .9 - Secondary hypertension, unspecified; I15 - Secondary hypertension (2) HLD (hyperlipidemia) Qualifiers: Hyperlipidemia type: unspecified Qualified Code(s): E78.5 - Hyperlipidemia, unspecified (4) Hypothyroidism Qualifiers: Hypothyroidism type: unspecified Qualified Code(s): E03.9 - Hypothyroidism, unspecified (5) Carotid stenosis Qualifiers: Laterality: bilateral Qualified Code(s): I65.23 - Occlusion and stenosis of bilateral carotid arteries (6) Acute pancreatitis Qualifiers: Pancreatitis type: biliary Acute pancreatitis complication: uninfected necrosis Qualified Code(s): K85.11 - Biliary acute pancreatitis with uninfected necrosis <Anaya Tucker - Last Filed: 09/17/18 15:05> (1) HTN (hypertension) Qualifiers: Hypertension type: unspecified secondary hypertension Qualified Code(s): I15.9 - Secondary hypertension, unspecified; I15 - Secondary hypertension (2) HLD (hyperlipidemia) Qualifiers: Hyperlipidemia type: unspecified Qualified Code(s): E78.5 - Hyperlipidemia, unspecified (4) Hypothyroidism Qualifiers: Hypothyroidism type: unspecified Qualified Code(s): E03.9 - Hypothyroidism, unspecified (5) Carotid stenosis Qualifiers: Laterality: bilateral Qualified Code(s): I65.23 - Occlusion and stenosis of bilateral carotid arteries (6) Acute pancreatitis Qualifiers: Pancreatitis type: biliary Acute pancreatitis complication: uninfected necrosis Qualified Code(s): K85.11 - Biliary acute pancreatitis with uninfected necrosis
--- NOTE | 2018-09-17 17:02 | General Surgery Progress Note ---
Date of Encounter: 09/17/18 Time of Encounter: 12:50 - Assessment and Plan (1) Gallstone pancreatitis Current Visit: No Status: Acute pod 1 lap cholecystectomy with cholangiograms advance to diabetic diet ok to sliv ok to dc home from surgical standpoint when medically stable ok to restart anticoagulation tomorrow am Subjective Patient reports: no new complaints, pain is less, tolerating liquids well Narrative: no nausea or emesis is sore at surgical sites Objective Intake and Output 09/17/18 09/17/18 09/17/18 07:59 15:59 23:59 Intake Total 0 / 0 240 / 240 Output Total 350 / 350 Balance -350 / -350 240 / 240 Intake: Oral 0 / 0 240 / 240 Output: Catheter 350 / 350 Other: Meal Lunch Percent of Meal Consumed 75% # Bowel Movements 0 Weight 90.1 kg Blood Glucose* 122 Patient Weight 09/17/18 23:59 Weight 90.1 kg - General physical appearance well developed, well nourished, no distress - Eyes PERRL, normal ocular movement - ENT normal mucosa, normocephalic - Neck Neck exam: trachea midline - Respiratory normal expansion, clear to auscultation - Cardiovascular Cardiovascular exam: Present: RRR - Abdomen Abdomen: Present: bowel sounds present, soft, tender (expected post op tenderness). Absent: guarding, rebound - Incision Incision: Present: clean and dry, intact - Integumentary no rash, no growths - Neurologic CN 2-12 grossly intact - Musculoskeletal normal posture - Psychiatric oriented to time, oriented to person, oriented to place, speech is normal, memory intact - Labs 09/17/18 05:32 09/17/18 05:32 Diabetes panel 09/17/18 Range/Units 05:32 Sodium 138 (136-145) mEq/L Potassium 3.8 (3.5-5.1) mEq/L Chloride 109 H (98-107) mEq/L Carbon Dioxide 27 (23-29) mEq/L BUN 9 (8-23) mg/dL Creatinine 0.74 (0.60-1.20) mg/dL Glucose 145 H (70-105) mg/dL Calcium 8.7 (8.6-10.3) mg/dL Calcium panel 09/17/18 Range/Units 05:32 Calcium 8.7 (8.6-10.3) mg/dL Pituitary panel 09/17/18 Range/Units 05:32 Sodium 138 (136-145) mEq/L Potassium 3.8 (3.5-5.1) mEq/L Chloride 109 H (98-107) mEq/L Carbon Dioxide 27 (23-29) mEq/L BUN 9 (8-23) mg/dL Creatinine 0.74 (0.60-1.20) mg/dL Glucose 145 H (70-105) mg/dL Calcium 8.7 (8.6-10.3) mg/dL Adrenal panel 09/17/18 Range/Units 05:32 Sodium 138 (136-145) mEq/L Potassium 3.8 (3.5-5.1) mEq/L Chloride 109 H (98-107) mEq/L Carbon Dioxide 27 (23-29) mEq/L BUN 9 (8-23) mg/dL Creatinine 0.74 (0.60-1.20) mg/dL Glucose 145 H (70-105) mg/dL Calcium 8.7 (8.6-10.3) mg/dL Consult Discharge Plan - Plan Referrals: Jessenia Dsouza CNP [Advanced Practice Nurse] - 09/24/18 10:00 am Radha Potter MD [Partnered Physician] - (in two weeks for post lap cholecystectomy check) Prescriptions: Apixaban [Eliquis] 5 mg PO BID 30 Days #60 tablet Rivaroxaban [Xarelto] 20 mg PO QDPC 30 Days #30 tablet
[2018-09-17] MEDS ORDERED: Insulin LISPRO 300 UNITS/3 ML VIAL SQ SCH ×2 (21:00)
[2018-09-18 05:37] LABS: Basophils % 0.3 %; Eosinophils # 0.3 K/mcL (0.0-0.6); Eosinophils % 3.8 %; Hematocrit 25.3 % (35.3-44.9); Hemoglobin 7.9 g/dL (11.5-15.4); Immature Granulocytes % 0.5 % (0-4); Lymphocytes # 1.8 K/mcL (0.6-4.6); Lymphocytes % 27.2 %; Mean Corpuscular HGB Conc 31.2 g/dL (31.6-35.5); Mean Corpuscular Volume 96.2 fL (83.0-100.0); Mean Platelet Volume 10.8 fL (9.4-12.4); Monocytes # 0.5 K/mcL (0.0-1.3); Monocytes % 7.6 %; Platelet Count 230 K/mcL (140-400); Red Blood Count 2.63 M/mcL (3.82-4.97); Red Cell Distribution Width 15.6 % (11.5-14.5); Segmented Neutrophils % 60.6 %
[2018-09-18 06:02] LABS: BUN/Creatinine Ratio 15 (6-26); Blood Urea Nitrogen 14 mg/dL (8-23); Calcium 8.7 mg/dL (8.6-10.3); Carbon Dioxide 26 mEq/L (23-29); Chloride 107 mEq/L (98-107); Glucose 92 mg/dL (70-105); Osmolality,Calculated 288 (280-300); Sodium 139 mEq/L (136-145); eGFR For Non-African Americans 58 (> 60)
--- NOTE | 2018-09-18 07:22 | Internal Med Progress Note ---
<Armani Gilman - Last Filed: 09/18/18 10:39> Hospitalist Progress Note - Encounter Date of Encounter: 09/18/18 Time of Encounter: 09:38 - Subjective Interval History: POD 2 for lap cholecystectomy with cholangiogram. Surgery is okay to start anticoag this AM. Surgery is okay discharging patient today. Patient reports no acute events overnight and is cliniclly stable. - Start eloquis 5mg BID. Pharmacy has priced this med and patient is okay to go home with it. - Patient is tolerating diabetic diet. - Patient has passed gas but has not had BM yet. - PT/OT consulted - Possible d/c today after PT/OT recs. - Exam Vitals: Temp Pulse Resp BP Pulse Ox 97.7 F 49 16 149/68 96 09/18/18 06:32 09/18/18 06:32 09/18/18 06:32 09/18/18 06:32 09/18/18 06:32 Exam: General: In no acute distress. Conversant. Obese. Respiratory exam: CTAB. Cardiovascular exam: RRR, +S1, +S2. .Systolic murmur appreciated. GI/Abdominal exam: periumbilical tenderness - normal post surgical tenderness. Non-distended, Normal bowel sounds Extremities exam: full ROM, no pedal edema, warm, pulses palpable in b/l lower extremities Neurological exam: AO X3, no focal deficits Skin exam: No skin rash, ulcer, purpura or ecchymosis. - Assessment and Plan (1) Acute pancreatitis Current Visit: Yes Status: Acute Assessment and Plan: Gallstone pancreatitis resolved with surgery. (2) HLD (hyperlipidemia) Current Visit: Yes Status: Chronic Assessment and Plan: known hx. on statin (3) HTN (hypertension) Current Visit: Yes Status: Chronic Assessment and Plan: Known diagnosis of hypertension. BP controlled at 149/70. This apperas to be within normal range of this patient. No further intervetion at this time. 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 Glucose monitoring +, low dose insulin sliding scale with meals and d iabetic diet. (5) Hypothyroidism Current Visit: No Status: Chronic Assessment and Plan: Known diagnosis of hypothyroidism, continue Levothyroxin (6) Carotid stenosis Current Visit: No Status: Acute Assessment and Plan: Known diagnosis of Coronary artery stenosis, will continue atorvastatin and ASA. Carotid Doppler 07/18 demonstrated Right mid ICA has a severe, 60-79% stenosis and left bifurcation has a severe, 60-79% stenosis. Patient not experiencing CP or palpitations in bed. No acute intervention at this time. (7) DVT prophylaxis Current Visit: Yes Status: Acute Assessment and Plan: SQ Heparin 5000 units Q8hrs. (8) Atrial fibrillation with RVR Current Visit: Yes Status: Acute Assessment and Plan: Switch to NSR now. Cardio consult on case recommend assisted blood thinners. Considering eloquis 5 BID pending surgery recs of when to restart. Also will consult with pharmacy staff to kay eloquis and xarelto. - Time Spent with Patient Total time spent is greater than 50% in coordination of care (as documented) at patient's floor/unit and/or counseling patient: Internal Medicine: Result - Labs CBC & Chem 7: 09/18/18 05:15 09/18/18 05:15 Labs: Short CBC 09/18/18 Range/Units 05:15 WBC 6.6 (4.3-11.1) K/mcL Hgb 7.9 L (11.5-15.4) g/dL Hct 25.3 L (35.3-44.9) % Plt Count 230 (140-400) K/mcL Neutrophils # 4.0 (1.6-8.9) K/mcL BMP 09/18/18 05:15 Sodium 139 Potassium 4.0 Chloride 107 Carbon Dioxide 26 BUN 14 Creatinine 0.93 Glucose 92 Calcium 8.7 - ABG Interpretation ABG results: PT/INR, D-dimer PT 13.8 Seconds (9.4-12.1) H 09/13/18 07:49 Consult Discharge Plan - Plan Additional Instructions: Please schedule follow up with Dr. Potter for follow up and monitoring of recovery. Referrals: Radha Potter MD [Partnered Physician] - (in two weeks for post lap cholecystectomy check) Jessenia Dsouza SAND MIXER [Advanced Practice Nurse] - 09/24/18 10:00 am Prescriptions: RX: Apixaban [Eliquis] 5 mg PO BID 30 Days #60 tablet <Anaya Tucker - Last Filed: 09/18/18 14:44> Hospitalist Progress Note - Encounter Date of Encounter: 09/18/18 - Exam Vitals: Temp Pulse Resp BP Pulse Ox 98.1 F 53 14 135/57 90 09/18/18 10:34 09/18/18 10:34 09/18/18 10:34 09/18/18 10:34 09/18/18 10:34 - Assessment and Plan (1) HTN (hypertension) Current Visit: Yes Status: Chronic (2) HLD (hyperlipidemia) Current Visit: Yes Status: Chronic (3) Type 2 diabetes mellitus with polyneuropathy Current Visit: Yes Status: Chronic (4) Hypothyroidism Current Visit: No Status: Chronic (5) Carotid stenosis Current Visit: No Status: Acute (6) Acute pancreatitis Current Visit: Yes Status: Acute (7) DVT prophylaxis Current Visit: Yes Status: Acute (8) Atrial fibrillation with RVR Current Visit: Yes Status: Acute (9) Anemia Current Visit: No Status: Chronic Assessment and Plan: Chronic, Anemia workup suggests anemia due to chronic disease. Cont closely monitor H/H as outpatient. - Time Spent with Patient Total time spent is greater than 50% in coordination of care (as documented) at patient's floor/unit and/or counseling patient: Internal Medicine: Result - Labs CBC & Chem 7: 09/18/18 05:15 09/18/18 05:15 Labs: Short CBC 09/18/18 Range/Units 05:15 WBC 6.6 (4.3-11.1) K/mcL Hgb 7.9 L (11.5-15.4) g/dL Hct 25.3 L (35.3-44.9) % Plt Count 230 (140-400) K/mcL Neutrophils # 4.0 (1.6-8.9) K/mcL BMP 09/18/18 05:15 Sodium 139 Potassium 4.0 Chloride 107 Carbon Dioxide 26 BUN 14 Creatinine 0.93 Glucose 92 Calcium 8.7 - ABG Interpretation ABG results: PT/INR, D-dimer PT 13.8 Seconds (9.4-12.1) H 09/13/18 07:49 - Attending Attestation I have seen and examined this patient independently. I have discussed with resident physician Dr Gilman regarding the management plan. Agree with the documentation. <Armani Gilman - Last Filed: 09/18/18 10:39> (1) Acute pancreatitis Qualifiers: Pancreatitis type: biliary Acute pancreatitis complication: uninfected necrosis Qualified Code(s): K85.11 - Biliary acute pancreatitis with uninfected necrosis (2) HLD (hyperlipidemia) Qualifiers: Hyperlipidemia type: unspecified Qualified Code(s): E78.5 - Hyperlipidemia, unspecified (3) HTN (hypertension) Qualifiers: Hypertension type: unspecified secondary hypertension Qualified Code(s): I15.9 - Secondary hypertension, unspecified; I15 - Secondary hypertension (5) Hypothyroidism Qualifiers: Hypothyroidism type: unspecified Qualified Code(s): E03.9 - Hypothyroidism, unspecified (6) Carotid stenosis Qualifiers: Laterality: bilateral Qualified Code(s): I65.23 - Occlusion and stenosis of bilateral carotid arteries <Anaya Tucker - Last Filed: 09/18/18 14:44> (1) HTN (hypertension) Qualifiers: Hypertension type: unspecified secondary hypertension Qualified Code(s): I15.9 - Secondary hypertension, unspecified; I15 - Secondary hypertension (2) HLD (hyperlipidemia) Qualifiers: Hyperlipidemia type: unspecified Qualified Code(s): E78.5 - Hyperlipidemia, u nspecified (4) Hypothyroidism Qualifiers: Hypothyroidism type: unspecified Qualified Code(s): E03.9 - Hypothyroidism, unspecified (5) Carotid stenosis Qualifiers: Laterality: bilateral Qualified Code(s): I65.23 - Occlusion and stenosis of bilateral carotid arteries (6) Acute pancreatitis Qualifiers: Pancreatitis type: biliary Acute pancreatitis complication: uninfected necrosis Qualified Code(s): K85.11 - Biliary acute pancreatitis with uninfected necrosis (9) Anemia Qualifiers: Anemia type: other cause Other causes of anemia: chronic disease, other Qualified Code(s): D63.8 - Anemia in other chronic diseases classified elsewhere
[2018-09-18] MEDS: Insulin LISPRO 300 UNITS/3 ML VIAL SQ SCH ×2 (07:30→11:30)
[2018-09-18] MEDS ORDERED: Apixaban 5 MG TABLET PO SCH (09:00)
--- NOTE | 2018-09-18 10:32 | Discharge Summary ---
<Armani Gilman - Last Filed: 09/18/18 16:24> Orders not resulted at time of discharge: Pending orders 09/15/18 11:50 NM nick perf SPECT multi [NM] Routine 09/16/18 17:03 Surgical Pathology [PTH] Routine Date of Encounter: 09/18/18 Time of Encounter: 10:28 - Discharge Diagnosis (1) Acute pancreatitis Priority: Primary Status: Acute Assessment and Plan: Gallstone pancreatitis resolved with surgery. Qualifiers: Pancreatitis type: biliary Acute pancreatitis complication: uninfected necrosis Qualified Code(s): K85.11 - Biliary acute pancreatitis with uninfected necrosis (2) HLD (hyperlipidemia) Priority: Secondary Status: Chronic Assessment and Plan: known hx. on statin Qualifiers: Hyperlipidemia type: unspecified Qualified Code(s): E78.5 - Hyperlipidemia, unspecified (3) HTN (hypertension) Priority: Secondary Status: Chronic Assessment and Plan: Known diagnosis of hypertension. BP controlled at 149/70. This apperas to be within normal range of this patient. No further intervetion at this time. Qualifiers: Hypertension type: unspecified secondary hypertension Qualified Code(s): I15.9 - Secondary hypertension, unspecified; I15 - Secondary hypertension (4) Type 2 diabetes mellitus with polyneuropathy Priority: Secondary Status: Chronic Assessment and Plan: Known diagnosis of type II DM .Patient's glucose this AM before breakfast was in 90s. Glucose monitoring +, low dose insulin sliding scale with meals and diabetic diet. (5) Hypothyroidism Priority: Secondary Status: Chronic Assessment and Plan: Known diagnosis of hypothyroidism, continue Levothyroxin Qualifiers: Hypothyroidism type: unspecified Qualified Code(s): E03.9 - Hypothyroidism, unspecified (6) Carotid stenosis Priority: Secondary Status: Acute Assessment and Plan: Known diagnosis of Coronary artery stenosis, will continue atorvastatin and ASA. Carotid Doppler 07/18 demonstrated Right mid ICA has a severe, 60-79% stenosis and left bifurcation has a severe, 60-79% stenosis. Patient not experiencing CP or palpitations in bed. No acute intervention at this time. Qualifiers: Laterality: bilateral Qualified Code(s): I65.23 - Occlusion and stenosis of bilateral carotid arteries (7) DVT prophylaxis Priority: Secondary Status: Acute Assessment and Plan: SQ Heparin 5000 units Q8hrs. (8) Atrial fibrillation with RVR Priority: Secondary Status: Acute Assessment and Plan: Switch to NSR now. Cardio consult on case recommend intermediate blood thinners. Considering eloquis 5 BID pending surgery recs of when to restart. Also will consult with pharmacy staff to rahul daley. Hospital course: Ms. Navarro is a 83 year old female presenting with abdominal pain on 09/11/18. Abdoimnal u/s and labs (with elevated lipase, AST, alk phoph,identified the indicated gallstone pancreatitis. MRCP showed no cmmon bile doct stones. Lap alexa was completed at 09/16. Prior to surgery cardiology was consulted because patient had an episode of afib. They reccomended patient be put on intermediate anticoagulation after surgery. Following surgery patient was put on eloquis. Currently patient is tolerating diabetic diet and is passing gas. Surgery is okay with her being discharged. - Time Spent with Patient Total time spent providing and/or coordinating discharge services: - Discharge Medications Prescriptions: RX: Apixaban [Eliquis] 5 mg PO BID 30 Days #60 tablet Home Medications: RX: Aspirin Enteric Coated [Aspirin EC] 81 mg PO DAILY #30 tablet. 02/20/18 [Rx] RX: Atorvastatin [Lipitor] 40 mg PO HS #30 tablet 02/20/18 [Rx] RX: Cyanocobalamin (B-12) [Vitamin B12] 1,000 mcg PO DAILY #30 tablet 02/20/18 [Rx] RX: Levothyroxine Sodium [Levoxyl] 75 mcg PO DAILY 07/25/18 [History] RX: Loratadine [Allergy Relief] 10 mg PO DAILY 07/25/18 [History] RX: Lisinopril [Zestril] 10 mg PO DAILY #30 tablet 07/31/18 [Rx] RX: amLODIPine [Norvasc] 5 mg PO DAILY #30 tablet 07/31/18 [Rx] RX: Apixaban [Eliquis] 5 mg PO BID 30 Days #60 tablet 09/17/18 [Rx] RX: Apixaban [Eliquis] 5 mg PO BID tablet 09/18/18 [Rx] RX: Atorvastatin [Lipitor] 40 mg PO HS tablet 09/18/18 [Rx] RX: Levothyroxine [Synthroid] 75 mcg PO DAILY@0630 tablet 09/18/18 [Rx] RX: Ondansetron [Zofran] 4 mg IVP Q6HR PRN vial 09/18/18 [Rx] Allergies/Adverse Reactions: Allergy/AdvReac Type Severity Reaction Status Date / Time No Known Allergies Allergy Verified 09/11/18 22:46 Date of admission: 09/12/18 00:47 Primary care physician: James Tran Consults: 09/12/18 09:24 Consult to Surgery [CONS] Routine Consulting Provider: [facility] Reason for Consult: gallstone pancreatitis Call Completed: Yes 09/15/18 01:24 Consult to Cardiology [CONS] Routine Comment: Consulting Provider: Cardiology [facility] Reason for Consult: Patient with new complaints of chest pain lasting only minutes found to be in afib with rvr with ST depression changes on EKG. Repeat EKG after IV lopressor showed sinus bradycardia with improved ST depression. Will need cardiology clearance prior to surgery. Call Completed: No 09/18/18 09:31 Consult to Physical Therapy [CONS] Routine Comment: Evaluate, develop and implement POC Reason for Consult: Post surgery patient Does patient have active BEDREST order?: No Is patient medically & hemodynamically stable?: Yes Patient assessed for mobility or mobilized this visit?: No 09/18/18 09:45 OT [Consult to Occupational Therapy] [CONS] Routine Comment: Evaluate, develop and implement POC Reason for Consult: post surgical consult. possible d/c. Does patient have active BEDREST order?: No Is patient medically & hemodynamically stable?: Yes Patient assessed for mobility or mobilized this visit?: No - Constitutional Vitals: Temp Pulse Resp BP Pulse Ox 97.7 F 49 16 149/68 96 09/18/18 06:32 09/18/18 06:32 09/18/18 06:32 09/18/18 06:32 09/18/18 06:32 General appearance: Present: cooperative, A&O X 3, pleasant, no acute distress, answers questions appropriately Exam: General: In no acute distress. Conversant. Obese. Respiratory exam: CTAB. Cardiovascular exam: RRR, +S1, +S2. .Systolic murmur appreciated. GI/Abdominal exam: periumbilical tenderness - normal post surgical tenderness. Non-distended, Normal bowel sounds Extremities exam: full ROM, no pedal edema, warm, pulses palpable in b/l lower extremities Neurological exam: AO X3, no focal deficits Skin exam: No skin rash, ulcer, purpura or ecchymosis. - Patient Status Disposition: Home, Self-Care Condition: Good Overall status at discharge: patient is progressing back to baseline - Discharge Instructions Follow Up With: Radha Potter MD [Partnered Physician] - 10/01/18 8:35 am (in two weeks for post lap cholecystectomy check) Jessenia Dsouza CNP [Advanced Practice Nurse] - 09/24/18 10:00 am Additional Instructions: Please schedule follow up with Dr. Potter for follow up and monitoring of recovery. - Diet and Activity Activity: as per physical therapy Diet: diabetic diet <Anaya Tucker - Last Filed: 09/18/18 18:28> Orders not resulted at time of discharge: Pending orders 09/15/18 11:50 NM nick perf SPECT multi [NM] Routine Date of Encounter: 09/18/18 - Discharge Diagnosis (1) HTN (hypertension) Status: Chronic Qualifiers: Hypertension type: unspecified secondary hypertension Qualified Code(s): I15.9 - Secondary hypertension, unspecified; I15 - Secondary hypertension (2) HLD (hyperlipidemia) Status: Chronic Qualifiers: Hyperlipidemia type: unspecified Qualified Code(s): E78.5 - Hyperlipidemia, unspecified (3) Type 2 diabetes mellitus with polyneuropathy Status: Chronic (4) Hypothyroidism Status: Chronic Qualifiers: Hypothyroidism type: unspecified Qualified Code(s): E03.9 - Hypothyroidism, unspecified (5) Carotid stenosis Status: Acute Qualifiers: Laterality: bilateral Qualified Code(s): I65.23 - Occlusion and stenosis of bilateral carotid arteries (6) Acute pancreatitis Status: Acute Qualifiers: Pancreatitis type: biliary Acute pancreatitis complication: uninfected necrosis Qualified Code(s): K85.11 - Biliary acute pancreatitis with uninfected necrosis (7) DVT prophylaxis Status: Acute (8) Atrial fibrillation with RVR Status: Acute Hospital course: Ms. Navarro is a 83 year old female - Time Spent with Patient Total time spent providing and/or coordinating discharge services: Date of admission: 09/12/18 00:47 Primary care physician: James Tran Consults: 09/12/18 09:24 Consult to Surgery [CONS] Routine Consulting Provider: [facility] Reason for Consult: gallstone pancreatitis Call Completed: Yes 09/15/18 01:24 Consult to Cardiology [CONS] Routine Comment: Consulting Provider: Cardiology [facility] Reason for Consult: Patient with new complaints of chest pain lasting only minutes found to be in afib with rvr with ST depression changes on EKG. Repeat EKG after IV lopressor showed sinus bradycardia with improved ST depression. Will need cardiology clearance prior to surgery. Call Completed: No 09/18/18 09:31 Consult to Physical Therapy [CONS] Routine Comment: Evaluate, develop and implement POC Reason for Consult: Post surgery patient Does patient have active BEDREST order?: No Is patient medically & hemodynamically stable?: Yes Patient assessed for mobility or mobilized this visit?: No 09/18/18 09:45 OT [Consult to Occupational Therapy] [CONS] Routine Comment: Evaluate, develop and implement POC Reason for Consult: post surgical consult. possible d/c. Does patient have active BEDREST order?: No Is patient medically & hemodynamically stable?: Yes Patient assessed for mobility or mobilized this visit?: No Discharging clinician: Anaya Tucker Anticipated date of discharge: 09/18/18 - Constitutional Vitals: Temp Pulse Resp BP Pulse Ox 98.1 F 53 14 135/57 90 09/18/18 10:34 09/18/18 10:34 09/18/18 10:34 09/18/18 10:34 09/18/18 10:34 - Attending Attestation I have seen and examined this patient independently. I have discussed with resident physician Dr Gilman regarding the management plan. Agree with the documentation.
[2018-09-18 10:39] VITALS: BP 135/57
[2018-09-18] MEDS: *HR* HYDROcodone/Acet 5/325 mg TABLET PO PRN (12:05)
== END 2018-09-18 15:59 | disposition home or self-care (01) | DRG 418 ==
LOC: EMEROOARM 22:38 → 3ANU 22:38 → SUATTDRO 09-12 00:47 → 3ANU 09-12 01:00
PROVIDERS: ADMIT Pediatrics; ATTEND Internal Medicine

== ENCOUNTER 2020-06-26 00:44 | Inpatient (IN) ==
[2020-06-26 01:30] LABS: Basophils % 0.1 %; Eosinophils % 0.4 %; Hematocrit 33.9 % (35.3-44.9); Hemoglobin 10.6 g/dL (11.5-15.4); Immature Granulocytes % 0.6 % (0-4); Lymphocytes # 1.6 K/mcL (0.6-4.6); Lymphocytes % 22.3 %; Mean Corpuscular HGB Conc 31.3 g/dL (31.6-35.5); Mean Corpuscular Hemoglobin 30.9 pg (28.0-33.3); Mean Corpuscular Volume 98.8 fL (83.0-100.0); Mean Platelet Volume 10.8 fL (9.4-12.4); Monocytes # 0.4 K/mcL (0.0-1.3); Monocytes % 5.7 %; Platelet Count 221 K/mcL (140-400); Red Blood Count 3.43 M/mcL (3.82-4.97); Red Cell Distribution Width 12.8 % (11.5-14.5); Segmented Neutrophils % 70.9 %; White Blood Count 7.1 K/mcL (4.3-11.1)
[2020-06-26 01:52] LABS: Calcium 8.5 mg/dL (8.6-10.3); Potassium 3.6 mEq/L (3.5-5.1)
[2020-06-26 01:53] LABS: Troponin I 0.03 ng/mL (< 0.04)
[2020-06-26 02:06] LABS: Thyroid Stimulating Hormone 11.698 mcIU/mL (0.340-5.600)
[2020-06-26] MEDS ORDERED: cefTRIAXone 1,000 MG in 0.9 % Sodium Chloride Mini Bag 100 ML IVPB ONE (02:40)
[2020-06-26] MEDS ORDERED: Azithromycin 500 MG in 0.9 % Sodium Chloride 250 ML IVPB ONE (02:41)
[2020-06-26 02:51] LABS: Triiodothyronine (T3) Free 1.91 pg/mL (2.50-3.90)
[2020-06-26 03:02] LABS: Bilirubin,Urine Negative (Negative); Blood,Urine Negative (Negative); Clarity,Urine Clear (Clear); Color,Urine Yellow (Yellow); Glucose,Urine (UA) Normal (Normal); Ketones,Urine Negative (Negative); Leukocyte Esterase,Urine Negative (Negative); Mucus,Urine Few per lpf (None-Few); Nitrite,Urine Negative (Negative); PH,Urine 7.5 pH Units (5.0-8.0); Protein,Urine 70 mg/dL (Neg-Trace); RBC,Urine 0-3 per hpf (0-3); Specific Gravity,Urine 1.023 (1.010-1.025); Squamous Epithelial Cell,Urine Few per hpf (None-Few); Urobilinogen,Urine Normal (Normal)
[2020-06-26 03:26] LABS: Adenovirus Not Detected (Not Detect); Coronavirus 229E Not Detected (Not Detect); Coronavirus HKU1 Not Detected (Not Detect); Coronavirus NL63 Not Detected (Not Detect); Coronavirus OC43 Not Detected (Not Detect)
[2020-06-26 03:27] LABS: Bordetella Pertussis Not Detected (Not Detect); Chlamydophila pneumoniae Not Detected (Not Detect); Human Metapneumovirus Not Detected (Not Detect); Human Rhinovirus/Enterovirus Not Detected (Not Detect); Influenza A Subtype 2009 H1 Not Detected (Not Detect); Influenza B Not Detected (Not Detect); Mycoplasma pneumoniae Not Detected (Not Detect); Parainfluenza Virus 1 Not Detected (Not Detect); Parainfluenza Virus 2 Not Detected (Not Detect); Parainfluenza Virus 3 Not Detected (Not Detect); Parainfluenza Virus 4 Not Detected (Not Detect); Respiratory Syncytial Virus Not Detected (Not Detect); SARS-CoV-2 DETECTED (Not Detect)
[2020-06-26] MEDS ORDERED: Ipratropium/Albuterol Neb 3 ML IH PRN (03:51)
[2020-06-26] MEDS ORDERED: Naloxone 0.4 MG/ML INJ IVP PRN (03:53)
[2020-06-26] MEDS ORDERED: Dexamethasone 4 MG/ML VIAL IVP ONE (03:57)
[2020-06-26 05:51] LABS: Eosinophils % 0.2 %; Hematocrit 31.5 % (35.3-44.9); Immature Granulocytes % 0.5 % (0-4); Lymphocytes # 0.8 K/mcL (0.6-4.6); Lymphocytes % 13.5 %; Mean Corpuscular HGB Conc 31.7 g/dL (31.6-35.5); Mean Corpuscular Hemoglobin 31.8 pg (28.0-33.3); Mean Corpuscular Volume 100.3 fL (83.0-100.0); Mean Platelet Volume 10.2 fL (9.4-12.4); Monocytes # 0.3 K/mcL (0.0-1.3); Monocytes % 5.6 %; Neutrophils # 4.7 K/mcL (1.6-8.9); Platelet Count 186 K/mcL (140-400); Red Blood Count 3.14 M/mcL (3.82-4.97); Red Cell Distribution Width 12.8 % (11.5-14.5); Segmented Neutrophils % 80.2 %; White Blood Count 5.9 K/mcL (4.3-11.1)
[2020-06-26 05:51] LABS: VBG HCO3 23 mEq/L (21-27); VBG PCO2 38 mmHg (41-51); VBG PH 7.39 pH Units (7.32-7.42); VBG PO2 76 mmHg (25-50)
[2020-06-26 05:52] LABS: INR 1.3; Prothrombin Time 14.4 Seconds (9.4-12.1)
[2020-06-26 06:08] LABS: Albumin/Globulin Ratio 0.8 (1.1-2.2); Bilirubin,Total 0.4 mg/dL (0.3-1.0); Calcium 8.2 mg/dL (8.6-10.3); Globulin 3.6 g/dL (2.4-3.5); Magnesium 1.9 mg/dL (1.6-2.6); Potassium 3.9 mEq/L (3.5-5.1); Total Protein 6.6 g/dL (6.4-8.9)
[2020-06-26] MEDS: Apixaban 5 MG TABLET PO SCH ×2 (08:59→20:05)
[2020-06-26] MEDS: Acetaminophen 325 MG TABLET PO PRN ×2 (15:40→21:41)
[2020-06-26] MEDS: cefTRIAXone 1,000 MG in 0.9 % Sodium Chloride Mini Bag 100 ML IVPB SCH (17:17)
[2020-06-26] MEDS ORDERED: Azithromycin 500 MG in 0.9 % Sodium Chloride 250 ML IVPB SCH (18:00)
[2020-06-27 07:21] LABS: Hematocrit 30.6 % (35.3-44.9); Hemoglobin 9.6 g/dL (11.5-15.4); Mean Corpuscular HGB Conc 31.4 g/dL (31.6-35.5); Mean Corpuscular Hemoglobin 31.8 pg (28.0-33.3); Mean Corpuscular Volume 101.3 fL (83.0-100.0); Mean Platelet Volume 10.8 fL (9.4-12.4); Platelet Count 209 K/mcL (140-400); Red Blood Count 3.02 M/mcL (3.82-4.97); Red Cell Distribution Width 12.9 % (11.5-14.5)
[2020-06-27 07:43] LABS: Albumin 3.1 g/dL (3.5-5.7); Albumin/Globulin Ratio 0.9 (1.1-2.2); Bilirubin,Total 0.3 mg/dL (0.3-1.0); Calcium 8.9 mg/dL (8.6-10.3); Globulin 3.5 g/dL (2.4-3.5); Potassium 4.2 mEq/L (3.5-5.1); Total Protein 6.6 g/dL (6.4-8.9)
[2020-06-27 07:49] LABS: Lymphocytes # 0.8 K/mcL (0.6-4.6); Monocytes # 0.6 K/mcL (0.0-1.3); Neutrophils # 5.6 K/mcL (1.6-8.9); Smudge Cells Present (Not Present)
[2020-06-27 07:50] LABS: Platelet Estimate Normal (Normal)
[2020-06-27 08:37] LABS: Uric Acid 8.6 mg/dL (2.3-7.6)
[2020-06-27] MEDS: Acetaminophen 325 MG TABLET PO PRN ×2 (09:26→20:25)
[2020-06-27] MEDS: Apixaban 5 MG TABLET PO SCH ×2 (09:26→19:44)
[2020-06-27] MEDS: 0.9 % Sodium Chloride 1,000 ML IVC SCH ×2 (09:27→19:45)
[2020-06-27] MEDS: cefTRIAXone 1,000 MG in 0.9 % Sodium Chloride Mini Bag 100 ML IVPB SCH (17:16)
[2020-06-27] MEDS: *HR* Promethazine 25 MG/ML VIAL IVP PRN (17:36)
[2020-06-27 18:06] LABS: Sodium, Urine 48.5 mEq/L
[2020-06-27] MEDS: Doxycycline 100 MG CAPSULE PO SCH (19:44)
[2020-06-28 06:40] LABS: Basophils % 0.2 %; Eosinophils % 0.6 %; Hematocrit 28.7 % (35.3-44.9); Hemoglobin 8.7 g/dL (11.5-15.4); Immature Granulocytes % 0.5 % (0-4); Lymphocytes # 1.3 K/mcL (0.6-4.6); Lymphocytes % 20.8 %; Mean Corpuscular HGB Conc 30.3 g/dL (31.6-35.5); Mean Corpuscular Hemoglobin 31.3 pg (28.0-33.3); Mean Corpuscular Volume 103.2 fL (83.0-100.0); Mean Platelet Volume 10.6 fL (9.4-12.4); Monocytes # 0.3 K/mcL (0.0-1.3); Monocytes % 5.3 %; Neutrophils # 4.7 K/mcL (1.6-8.9); Platelet Count 205 K/mcL (140-400); Red Blood Count 2.78 M/mcL (3.82-4.97); Red Cell Distribution Width 12.8 % (11.5-14.5); Segmented Neutrophils % 72.6 %; White Blood Count 6.5 K/mcL (4.3-11.1)
[2020-06-28 07:11] LABS: Calcium 8.5 mg/dL (8.6-10.3)
[2020-06-28] MEDS: Doxycycline 100 MG CAPSULE PO SCH ×2 (09:13→22:14)
[2020-06-28] MEDS: Apixaban 5 MG TABLET PO SCH ×2 (09:13→22:14)
[2020-06-28] MEDS: Aspirin Enteric Coated 81 MG Tablet PO SCH (09:13)
[2020-06-28] MEDS ORDERED: Simethicone 80 MG TAB.CHEW PO PRN (14:37)
[2020-06-28] MEDS: 0.9 % Sodium Chloride 1,000 ML IVC SCH (16:20)
[2020-06-28] MEDS ORDERED: Nitroglycerin 0.4 MG TAB.SUBL SL PRN (16:33)
[2020-06-28] MEDS: cefTRIAXone 1,000 MG in 0.9 % Sodium Chloride Mini Bag 100 ML IVPB SCH (16:55)
[2020-06-28] MEDS: Nitroglycerin 0.4 MG TAB.SUBL SL PRN (16:55)
[2020-06-29 05:29] LABS: Basophils % 0.3 %; Eosinophils # 0.1 K/mcL (0.0-0.6); Eosinophils % 1.5 %; Hematocrit 30.2 % (35.3-44.9); Hemoglobin 9.1 g/dL (11.5-15.4); Immature Granulocytes % 1.1 % (0-4); Lymphocytes # 1.2 K/mcL (0.6-4.6); Lymphocytes % 18.8 %; Mean Corpuscular HGB Conc 30.1 g/dL (31.6-35.5); Mean Corpuscular Hemoglobin 30.8 pg (28.0-33.3); Mean Corpuscular Volume 102.4 fL (83.0-100.0); Mean Platelet Volume 10.2 fL (9.4-12.4); Monocytes # 0.4 K/mcL (0.0-1.3); Monocytes % 6.9 %; Neutrophils # 4.4 K/mcL (1.6-8.9); Platelet Count 220 K/mcL (140-400); Red Blood Count 2.95 M/mcL (3.82-4.97); Red Cell Distribution Width 12.8 % (11.5-14.5); Segmented Neutrophils % 71.4 %; White Blood Count 6.1 K/mcL (4.3-11.1)
[2020-06-29 05:47] LABS: Calcium 8.6 mg/dL (8.6-10.3)
[2020-06-29] MEDS: Aspirin Enteric Coated 81 MG Tablet PO SCH (08:38)
[2020-06-29] MEDS: Apixaban 5 MG TABLET PO SCH ×2 (08:38→20:27)
[2020-06-29] MEDS: Doxycycline 100 MG CAPSULE PO SCH ×2 (08:38→20:27)
[2020-06-29] MEDS: 0.9 % Sodium Chloride 1,000 ML IVC SCH (08:40)
[2020-06-29] MEDS ORDERED: lisinopriL 10 MG TABLET PO SCH (11:30)
[2020-06-29] MEDS: lisinopriL 5 MG TABLET PO SCH (12:25)
[2020-06-29] MEDS: *HR* Promethazine 25 MG/ML VIAL IVP PRN (13:56)
[2020-06-29] MEDS: cefTRIAXone 1,000 MG in Water for inj. (sterile) 10 ML IVP SCH (16:52)
[2020-06-29] MEDS: Acetaminophen 325 MG TABLET PO PRN (17:07)
[2020-06-29] MEDS: Nitroglycerin 0.4 MG TAB.SUBL SL PRN (20:43)
[2020-06-29] MEDS ORDERED: Acetaminophen IV 1,000 MG/100 ML INFUS..BTL IVPB ONE (22:59)
[2020-06-30 06:36] LABS: Hematocrit 28.5 % (35.3-44.9); Mean Corpuscular HGB Conc 31.6 g/dL (31.6-35.5); Mean Corpuscular Hemoglobin 32.6 pg (28.0-33.3); Mean Corpuscular Volume 103.3 fL (83.0-100.0); Mean Platelet Volume 10.5 fL (9.4-12.4); Platelet Count 223 K/mcL (140-400); Red Blood Count 2.76 M/mcL (3.82-4.97); White Blood Count 7.7 K/mcL (4.3-11.1)
[2020-06-30 06:58] LABS: BUN/Creatinine Ratio 21 (6-26); Blood Urea Nitrogen 24 mg/dL (8-23); Calcium 8.5 mg/dL (8.6-10.3); Carbon Dioxide 23 mEq/L (23-29); Chloride 110 mEq/L (98-107); Glucose 108 mg/dL (70-105); Magnesium 1.7 mg/dL (1.6-2.6); Osmolality,Calculated 289 (280-300); Phosphorous 2.3 mg/dL (2.7-4.5); Potassium 4.3 mEq/L (3.5-5.1); Sodium 137 mEq/L (136-145); Troponin I < 0.03 ng/mL (< 0.04); eGFR For African Americans 56 (> 60); eGFR For Non-African Americans 46 (> 60)
[2020-06-30] MEDS: Apixaban 5 MG TABLET PO SCH ×2 (09:04→19:48)
[2020-06-30] MEDS: Doxycycline 100 MG CAPSULE PO SCH ×2 (09:04→19:48)
[2020-06-30] MEDS: lisinopriL 5 MG TABLET PO SCH ×2 (09:04→09:05)
[2020-06-30] MEDS: Aspirin Enteric Coated 81 MG Tablet PO SCH (09:04)
[2020-06-30] MEDS: Benzonatate 100 MG CAPSULE PO PRN ×2 (09:09→17:24)
[2020-06-30] MEDS ORDERED: *HR* LORazepam 0.5 MG TABLET PO ONE (09:14)
[2020-06-30 09:21] LABS: C-Reactive Protein 96 mg/L (Less than 10)
[2020-06-30] MEDS: Acetaminophen 325 MG TABLET PO PRN ×2 (09:44→19:59)
[2020-06-30] MEDS: cefTRIAXone 1,000 MG in Water for inj. (sterile) 10 ML IVP SCH (17:12)
[2020-07-01 06:08] LABS: Hematocrit 28.2 % (35.3-44.9); Hemoglobin 8.6 g/dL (11.5-15.4); Mean Corpuscular HGB Conc 30.5 g/dL (31.6-35.5); Mean Corpuscular Hemoglobin 31.5 pg (28.0-33.3); Mean Corpuscular Volume 103.3 fL (83.0-100.0); Mean Platelet Volume 10.5 fL (9.4-12.4); Platelet Count 247 K/mcL (140-400); Red Blood Count 2.73 M/mcL (3.82-4.97); Red Cell Distribution Width 13.2 % (11.5-14.5); White Blood Count 9.2 K/mcL (4.3-11.1)
[2020-07-01 06:27] LABS: Calcium 8.4 mg/dL (8.6-10.3)
[2020-07-01] MEDS ORDERED: Famotidine 20 MG TABLET PO SCH (09:00)
[2020-07-01] MEDS: Aspirin Enteric Coated 81 MG Tablet PO SCH (09:38)
[2020-07-01] MEDS: Apixaban 5 MG TABLET PO SCH ×2 (09:38→19:51)
[2020-07-01] MEDS: lisinopriL 5 MG TABLET PO SCH (09:40)
[2020-07-01] MEDS: Acetaminophen 325 MG TABLET PO PRN (20:17)
[2020-07-02 02:00] LABS: Hematocrit 25.1 % (35.3-44.9); Hemoglobin 7.9 g/dL (11.5-15.4); Mean Corpuscular HGB Conc 31.5 g/dL (31.6-35.5); Mean Corpuscular Hemoglobin 32.1 pg (28.0-33.3); Mean Platelet Volume 10.9 fL (9.4-12.4); Platelet Count 254 K/mcL (140-400); Red Blood Count 2.46 M/mcL (3.82-4.97); Red Cell Distribution Width 13.2 % (11.5-14.5); White Blood Count 10.8 K/mcL (4.3-11.1)
[2020-07-02 02:23] LABS: Calcium 8.1 mg/dL (8.6-10.3); Phosphorous 2.3 mg/dL (2.7-4.5); Potassium 4.1 mEq/L (3.5-5.1)
[2020-07-02] MEDS: Apixaban 5 MG TABLET PO SCH ×2 (07:34→20:24)
[2020-07-02] MEDS: Aspirin Enteric Coated 81 MG Tablet PO SCH (07:34)
[2020-07-02] MEDS: lisinopriL 5 MG TABLET PO SCH (07:34)
[2020-07-02] MEDS ORDERED: Famotidine 20 MG TABLET PO SCH (09:00)
[2020-07-02] MEDS: Acetaminophen 325 MG TABLET PO PRN (13:50)
[2020-07-03] MEDS: Acetaminophen 325 MG TABLET PO PRN ×2 (03:48→13:20)
[2020-07-03] MEDS: Apixaban 5 MG TABLET PO SCH ×2 (07:23→22:01)
[2020-07-03] MEDS: NIFEdipine XL (24 HR) 30 MG TAB.ER.24 PO SCH (07:23)
[2020-07-03] MEDS: Aspirin Enteric Coated 81 MG Tablet PO SCH (07:23)
[2020-07-03 16:07] LABS: Hematocrit 27.2 % (35.3-44.9); Hemoglobin 8.4 g/dL (11.5-15.4); Mean Corpuscular HGB Conc 30.9 g/dL (31.6-35.5); Mean Corpuscular Hemoglobin 32.3 pg (28.0-33.3); Mean Corpuscular Volume 104.6 fL (83.0-100.0); Mean Platelet Volume 10.8 fL (9.4-12.4); Platelet Count 250 K/mcL (140-400); Red Cell Distribution Width 13.2 % (11.5-14.5); White Blood Count 8.5 K/mcL (4.3-11.1)
[2020-07-03 16:29] LABS: Calcium 8.6 mg/dL (8.6-10.3); Magnesium 2.1 mg/dL (1.6-2.6); Phosphorous 2.8 mg/dL (2.7-4.5); Potassium 4.5 mEq/L (3.5-5.1)
[2020-07-03] MEDS ORDERED: 0.9 % Sodium Chloride 1,000 ML IVC SCH (17:30)
[2020-07-04 06:43] LABS: Hematocrit 26.7 % (35.3-44.9); Hemoglobin 8.1 g/dL (11.5-15.4); Mean Corpuscular HGB Conc 30.3 g/dL (31.6-35.5); Mean Corpuscular Hemoglobin 31.5 pg (28.0-33.3); Mean Corpuscular Volume 103.9 fL (83.0-100.0); Mean Platelet Volume 10.7 fL (9.4-12.4); Platelet Count 256 K/mcL (140-400); Red Blood Count 2.57 M/mcL (3.82-4.97); Red Cell Distribution Width 13.4 % (11.5-14.5); White Blood Count 8.3 K/mcL (4.3-11.1)
[2020-07-04 07:08] LABS: BUN/Creatinine Ratio 21 (6-26); Blood Urea Nitrogen 34 mg/dL (8-23); Calcium 8.5 mg/dL (8.6-10.3); Carbon Dioxide 22 mEq/L (23-29); Chloride 109 mEq/L (98-107); Glucose 121 mg/dL (70-105); Lactate Dehydrogenase 153 Units/L (140-271); Magnesium 2.1 mg/dL (1.6-2.6); Osmolality,Calculated 293 (280-300); Phosphorous 2.6 mg/dL (2.7-4.5); Potassium 4.3 mEq/L (3.5-5.1); Sodium 137 mEq/L (136-145); eGFR For African Americans 37 (> 60); eGFR For Non-African Americans 31 (> 60)
[2020-07-04 07:40] LABS: Ferritin > 1500 ng/mL (10-120)
[2020-07-04 08:37] LABS: C-Reactive Protein 253 mg/L (Less than 10)
[2020-07-04] MEDS: Apixaban 5 MG TABLET PO SCH ×2 (09:23→21:06)
[2020-07-04] MEDS: NIFEdipine XL (24 HR) 30 MG TAB.ER.24 PO SCH (09:23)
[2020-07-04] MEDS: Aspirin Enteric Coated 81 MG Tablet PO SCH (09:23)
[2020-07-04] MEDS: Acetaminophen 325 MG TABLET PO PRN (11:28)
[2020-07-05] MEDS: Apixaban 5 MG TABLET PO SCH ×2 (08:40→22:44)
[2020-07-05] MEDS: Aspirin Enteric Coated 81 MG Tablet PO SCH (08:42)
[2020-07-05] MEDS: NIFEdipine XL (24 HR) 30 MG TAB.ER.24 PO SCH (08:42)
[2020-07-05 09:36] LABS: Hematocrit 26.7 % (35.3-44.9); Hemoglobin 8.1 g/dL (11.5-15.4); Mean Corpuscular HGB Conc 30.3 g/dL (31.6-35.5); Mean Corpuscular Hemoglobin 31.4 pg (28.0-33.3); Mean Corpuscular Volume 103.5 fL (83.0-100.0); Mean Platelet Volume 11.3 fL (9.4-12.4); Platelet Count 290 K/mcL (140-400); Red Blood Count 2.58 M/mcL (3.82-4.97); Red Cell Distribution Width 13.6 % (11.5-14.5); White Blood Count 8.7 K/mcL (4.3-11.1)
[2020-07-05 09:55] LABS: Calcium 8.6 mg/dL (8.6-10.3); Magnesium 2.1 mg/dL (1.6-2.6); Phosphorous 2.3 mg/dL (2.7-4.5); Potassium 4.4 mEq/L (3.5-5.1)
[2020-07-05] MEDS ORDERED: NIFEdipine XL (24 HR) 30 MG TAB.ER.24 PO SCH (15:10)
[2020-07-05] MEDS: Acetaminophen 325 MG TABLET PO PRN (18:09)
[2020-07-06] MEDS: Aspirin Enteric Coated 81 MG Tablet PO SCH (07:52)
[2020-07-06] MEDS: Apixaban 5 MG TABLET PO SCH (07:52)
[2020-07-06 08:00] VITALS: BP 102/62
[2020-07-06] MEDS ORDERED: NIFEdipine XL (24 HR) 30 MG TAB.ER.24 PO SCH (09:00)
== END 2020-07-06 15:52 | disposition home health service (06) | DRG 177 ==
LOC: 2NENU 00:44 → EMEROOARM 00:44 → SUATTDRO 03:43 → 2NENU 04:33 → SUATTDRO 06-27 15:23
PROVIDERS: ADMIT Internal Medicine; ATTEND Family Medicine

== ENCOUNTER 2020-08-22 00:34 | Observation (INO) ==
[2020-08-22 00:56] LABS: Basophils % 0.3 %; Eosinophils # 0.3 K/mcL (0.0-0.6); Eosinophils % 3.8 %; Hematocrit 31.4 % (35.3-44.9); Hemoglobin 9.5 g/dL (11.5-15.4); Immature Granulocytes % 0.1 % (0-4); Lymphocytes # 2.4 K/mcL (0.6-4.6); Lymphocytes % 35.3 %; Mean Corpuscular HGB Conc 30.3 g/dL (31.6-35.5); Mean Corpuscular Hemoglobin 32.2 pg (28.0-33.3); Mean Corpuscular Volume 106.4 fL (83.0-100.0); Mean Platelet Volume 10.7 fL (9.4-12.4); Monocytes # 0.5 K/mcL (0.0-1.3); Monocytes % 6.6 %; Neutrophils # 3.7 K/mcL (1.6-8.9); Platelet Count 259 K/mcL (140-400); Red Blood Count 2.95 M/mcL (3.82-4.97); Red Cell Distribution Width 14.3 % (11.5-14.5); Segmented Neutrophils % 53.9 %; White Blood Count 6.8 K/mcL (4.3-11.1)
[2020-08-22 01:18] LABS: Alanine Aminotransferase 6 Units/L (7-52); Albumin 3.9 g/dL (3.5-5.7); Alkaline Phosphatase 127 Units/L (34-104); Aspartate Amino Transferase 11 Units/L (13-39); BUN/Creatinine Ratio 24 (6-26); Bilirubin,Total 0.5 mg/dL (0.3-1.0); Blood Urea Nitrogen 29 mg/dL (8-23); Calcium 9.6 mg/dL (8.6-10.3); Carbon Dioxide 27 mEq/L (23-29); Chloride 106 mEq/L (98-107); Globulin 4.1 g/dL (2.4-3.5); Glucose 177 mg/dL (70-105); Osmolality,Calculated 300 (280-300); Potassium 4.1 mEq/L (3.5-5.1); Sodium 140 mEq/L (136-145); Troponin I < 0.03 ng/mL (< 0.04); eGFR For African Americans 52 (> 60); eGFR For Non-African Americans 43 (> 60)
[2020-08-22] MEDS ORDERED: Naloxone 0.4 MG/ML INJ IVP PRN (02:24)
[2020-08-22 02:37] LABS: Adenovirus Not Detected (Not Detect); Bordetella Pertussis Not Detected (Not Detect); Chlamydophila pneumoniae Not Detected (Not Detect); Coronavirus 229E Not Detected (Not Detect); Coronavirus HKU1 Not Detected (Not Detect); Coronavirus NL63 Not Detected (Not Detect); Coronavirus OC43 Not Detected (Not Detect); Human Metapneumovirus Not Detected (Not Detect); Human Rhinovirus/Enterovirus Not Detected (Not Detect); Influenza A Subtype 2009 H1 Not Detected (Not Detect); Influenza B Not Detected (Not Detect); Mycoplasma pneumoniae Not Detected (Not Detect); Parainfluenza Virus 1 Not Detected (Not Detect); Parainfluenza Virus 2 Not Detected (Not Detect); Parainfluenza Virus 3 Not Detected (Not Detect); Parainfluenza Virus 4 Not Detected (Not Detect); Respiratory Syncytial Virus Not Detected (Not Detect); SARS-CoV-2 Not Detected (Not Detect)
[2020-08-22 04:00] LABS: Hematocrit 29.7 % (35.3-44.9); Mean Corpuscular HGB Conc 30.3 g/dL (31.6-35.5); Mean Corpuscular Hemoglobin 32.4 pg (28.0-33.3); Mean Corpuscular Volume 106.8 fL (83.0-100.0); Mean Platelet Volume 10.7 fL (9.4-12.4); Platelet Count 240 K/mcL (140-400); Red Blood Count 2.78 M/mcL (3.82-4.97); Red Cell Distribution Width 14.2 % (11.5-14.5); White Blood Count 6.7 K/mcL (4.3-11.1)
[2020-08-22 04:25] LABS: Calcium 9.3 mg/dL (8.6-10.3); Potassium 3.9 mEq/L (3.5-5.1)
[2020-08-22] MEDS ORDERED: Benzonatate 100 MG CAPSULE PO PRN (05:49)
[2020-08-22] MEDS ORDERED: Regadenoson 0.4 MG/5 ML SYRINGE IVP ONE (06:02)
[2020-08-22] MEDS ORDERED: FLU Vac QV 20-21 (6Month+)/PF 0.5 ML SYRINGE IM ONE (08:02)
[2020-08-22] MEDS ORDERED: Apixaban 5 MG TABLET PO SCH (09:00)
[2020-08-22 09:01] LABS: Estimated Average Glucose 114 mg/dl
[2020-08-22 09:02] LABS: Chol/HDL Ratio 3.4 (0-4.9)
[2020-08-22] MEDS: lisinopriL 5 MG TABLET PO SCH (10:48)
[2020-08-22] MEDS ORDERED: Perflutren Lipid Microsphere 1.3 ML in 0.9 % Sodium Chloride 8.7 ML IVP PRN ×2 (11:12→15:14)
[2020-08-22] MEDS: Aspirin Enteric Coated 81 MG Tablet PO SCH (15:17)
[2020-08-22] MEDS: Loratadine 10 MG TABLET PO SCH (15:17)
[2020-08-22] MEDS: NIFEdipine XL (24 HR) 30 MG TAB.ER.24 PO SCH (15:17)
[2020-08-22] MEDS ORDERED: *HR* Heparin 5,000 UNIT/ML VIAL IVP ONE (15:43)
[2020-08-22] MEDS ORDERED: *HR* Heparin 5,000 UNIT/ML VIAL IVP PRN ×2 (15:43)
[2020-08-22] MEDS ORDERED: Heparin 25,000UNIT/250ML 1/2NS 25,000 UNIT/250 ML IV.SOLN IVC SCH ×2 (15:45→16:15)
[2020-08-22 17:11] LABS: INR 1.5; Prothrombin Time 17.6 Seconds (9.4-12.1)
[2020-08-22] MEDS: 0.9 % Sodium Chloride 1,000 ML IVC SCH (17:18)
[2020-08-22 17:27] LABS: Heparin anti-factor XA UFH 1.58 IU/mL (0.30-0.70)
[2020-08-22] MEDS: carvediloL 6.25 MG TABLET PO SCH (17:28)
[2020-08-22 17:36] LABS: Hematocrit 29.4 % (35.3-44.9); Hemoglobin 8.8 g/dL (11.5-15.4); Mean Corpuscular HGB Conc 29.9 g/dL (31.6-35.5); Mean Corpuscular Hemoglobin 31.7 pg (28.0-33.3); Mean Corpuscular Volume 105.8 fL (83.0-100.0); Mean Platelet Volume 10.7 fL (9.4-12.4); Platelet Count 236 K/mcL (140-400); Red Blood Count 2.78 M/mcL (3.82-4.97); Red Cell Distribution Width 14.1 % (11.5-14.5); White Blood Count 5.5 K/mcL (4.3-11.1)
[2020-08-22 20:03] LABS: Activated Partial Thrombo Time 37.8 Seconds (26.0-36.0)
[2020-08-23 01:20] LABS: Calcium 8.8 mg/dL (8.6-10.3); Potassium 4.1 mEq/L (3.5-5.1)
[2020-08-23] MEDS: 0.9 % Sodium Chloride 1,000 ML IVC SCH (06:14)
[2020-08-23] MEDS: carvediloL 6.25 MG TABLET PO SCH (08:16)
[2020-08-23] MEDS: NIFEdipine XL (24 HR) 30 MG TAB.ER.24 PO SCH (08:17)
[2020-08-23] MEDS: Aspirin Enteric Coated 81 MG Tablet PO SCH (08:17)
[2020-08-23] MEDS: Loratadine 10 MG TABLET PO SCH (08:18)
[2020-08-23] MEDS: lisinopriL 5 MG TABLET PO SCH (08:19)
[2020-08-23] MEDS ORDERED: Apixaban 5 MG TABLET PO SCH (11:00)
[2020-08-23 11:14] VITALS: BP 116/56
[2020-08-24] MEDS ORDERED: lisinopriL 10 MG TABLET PO SCH (09:00)
== END 2020-08-23 15:56 | disposition home or self-care (01) ==
LOC: 3BNU 00:34 → EMEROOARM 00:34 → SUATTDRO 02:54 → 3BNU 03:04
PROVIDERS: ADMIT Student in an Organized Health Care Education/Training Program; ATTEND Internal Medicine

== ENCOUNTER 2020-12-07 23:04 | Observation (INO) ==
[2020-12-07 23:42] LABS: Basophils % 0.4 %; Eosinophils # 0.2 K/mcL (0.0-0.6); Eosinophils % 3.3 %; Hematocrit 32.1 % (35.3-44.9); Hemoglobin 10.3 g/dL (11.5-15.4); Immature Granulocytes % 0.1 % (0-4); Lymphocytes # 2.3 K/mcL (0.6-4.6); Lymphocytes % 32.1 %; Mean Corpuscular HGB Conc 32.1 g/dL (31.6-35.5); Mean Corpuscular Hemoglobin 33.3 pg (28.0-33.3); Mean Corpuscular Volume 103.9 fL (83.0-100.0); Mean Platelet Volume 10.5 fL (9.4-12.4); Monocytes # 0.6 K/mcL (0.0-1.3); Monocytes % 8.7 %; Neutrophils # 3.9 K/mcL (1.6-8.9); Platelet Count 185 K/mcL (140-400); Red Blood Count 3.09 M/mcL (3.82-4.97); Red Cell Distribution Width 13.1 % (11.5-14.5); Segmented Neutrophils % 55.4 %
[2020-12-07] MEDS ORDERED: Nitroglycerin 0.4 MG TAB.SUBL SL PRN (23:46)
[2020-12-08 00:03] LABS: Alanine Aminotransferase 10 Units/L (7-52); Albumin/Globulin Ratio 1.1 (1.1-2.2); Alkaline Phosphatase 124 Units/L (34-104); Aspartate Amino Transferase 13 Units/L (13-39); BUN/Creatinine Ratio 30 (6-26); Bilirubin,Total 0.5 mg/dL (0.3-1.0); Blood Urea Nitrogen 35 mg/dL (8-23); Calcium 9.3 mg/dL (8.6-10.3); Carbon Dioxide 25 mEq/L (23-29); Chloride 110 mEq/L (98-107); Globulin 3.5 g/dL (2.4-3.5); Glucose 119 mg/dL (70-105); Osmolality,Calculated 301 (280-300); Potassium 4.5 mEq/L (3.5-5.1); Sodium 141 mEq/L (136-145); Total Protein 7.5 g/dL (6.4-8.9); eGFR For African Americans 53 (> 60); eGFR For Non-African Americans 44 (> 60)
[2020-12-08 00:04] LABS: Troponin I < 0.03 ng/mL (< 0.04)
[2020-12-08] MEDS ORDERED: Ondansetron 4 MG/2 ML VIAL IVP PRN (01:04)
[2020-12-08] MEDS ORDERED: Naloxone 0.4 MG/ML INJ IVP PRN (01:04)
[2020-12-08] MEDS ORDERED: Acetaminophen 325 MG TABLET PO PRN (01:04)
[2020-12-08] MEDS ORDERED: Loratadine 10 MG TABLET PO PRN (01:15)
[2020-12-08] MEDS ORDERED: carvediloL 6.25 MG TABLET PO SCH (08:00)
[2020-12-08 08:19] LABS: Chol/HDL Ratio 3.4 (0-4.9)
[2020-12-08] MEDS ORDERED: lisinopriL 10 MG TABLET PO SCH (09:00)
[2020-12-08] MEDS ORDERED: Aspirin Enteric Coated 81 MG Tablet PO SCH (09:00)
[2020-12-08 09:42] LABS: Estimated Average Glucose 111 mg/dl; Hemoglobin A1C 5.5 %
[2020-12-08] MEDS ORDERED: Isosorbide MONOnitrate (24 HR) 30 MG TAB.ER.24H PO SCH (10:45)
[2020-12-08 11:10] VITALS: BP 158/56
== END 2020-12-08 15:37 | disposition home or self-care (01) ==
LOC: 2ANU 23:04 → EMEROOARM 23:04 → 2ANU 12-08 00:59
PROVIDERS: ADMIT Student in an Organized Health Care Education/Training Program; ATTEND Student in an Organized Health Care Education/Training Program

== ENCOUNTER 2022-01-09 10:19 | Inpatient (IN) ==
[2022-01-09] MEDS ORDERED: Protamine Sulfate 50 MG/5 ML VIAL IVP ONE (10:29)
[2022-01-09] MEDS ORDERED: Heparin 1,000 UNITS/500 mL 1,000 ML ONE (10:29)
[2022-01-09] MEDS ORDERED: CeFAZolin Syr 2,000MG/20 ML 2,000 MG/20 ML SYRINGE IVPB ONE (11:13)
[2022-01-09] MEDS ORDERED: Ringers Solution, Lactated 1,000 ML IVC SCH (11:15)
[2022-01-09] MEDS ORDERED: Ondansetron 4 MG/2 ML VIAL ONE (11:19)
[2022-01-09] MEDS ORDERED: *HR* Propofol 200 MG/20 ML VIAL IVP ONE (11:19)
[2022-01-09] MEDS ORDERED: *HR* Succinylcholine 200 MG/10 ML VIAL IVP ONE (11:19)
[2022-01-09] MEDS ORDERED: *HR* Rocuronium Bromide 50 MG/5 ML VIAL ONE ×2 (11:19→12:55)
[2022-01-09] MEDS ORDERED: Lidocaine -MPF 2% 2 ML VIAL ONE (11:19)
[2022-01-09] MEDS ORDERED: *HR* FentaNYL (PF) 100 MCG/2 ML VIAL ONE ×2 (11:19→13:52)
[2022-01-09] MEDS ORDERED: *HR* Phenylephrine 10 MG/ML VIAL ONE ×2 (11:23→11:24)
[2022-01-09] MEDS ORDERED: Acetaminophen IV 1,000 MG/100 ML BAG IVPB ONE ×2 (11:55→12:00)
[2022-01-09] MEDS ORDERED: ceFAZolin 1,000 MG, Sodium Chloride IRRigation 1,000 ML IR ONE (12:00)
[2022-01-09] MEDS ORDERED: *HR* Heparin 5,000 UNIT/ML VIAL ONE (13:02)
[2022-01-09] MEDS ORDERED: EPHEDrine 50 MG/ML VIAL ONE (13:20)
[2022-01-09] MEDS ORDERED: NiCARdipine 2.5 MG/10 ML Syringe IVPB ONE (14:08)
[2022-01-09] MEDS ORDERED: Sugammadex Sodium 200 MG/2 ML VIAL IV ONE ×2 (14:59→15:01)
[2022-01-09] MEDS ORDERED: Naloxone 0.4 MG/ML INJ IVP PRN (16:19)
[2022-01-09] MEDS ORDERED: HYDROCODONE PO PRN (16:19)
[2022-01-09] MEDS ORDERED: [UNRECOGNIZED DRUG - OTHER] PO PRN (16:19)
[2022-01-09] MEDS ORDERED: Acetaminophen 325 MG TABLET PO PRN (16:19)
[2022-01-09] MEDS ORDERED: ACETAMINOPHEN PO PRN (16:19)
[2022-01-09] MEDS ORDERED: *HR* Labetalol 20 MG/4 ML SYRINGE IVP PRN (16:19)
[2022-01-09] MEDS: Ondansetron 4 MG/2 ML VIAL IVP PRN (16:37)
[2022-01-09] MEDS: *HR* HYDROcodone/Acet 5/325 mg TABLET PO PRN (17:31)
[2022-01-09] MEDS: carvediloL 6.25 MG TABLET PO SCH (17:32)
[2022-01-09] MEDS: *HR* OxyCODONE Immed Rel 5 MG TABLET PO PRN (20:56)
[2022-01-09] MEDS ORDERED: CeFAZolin 2 GM/100 ML BAG IVPB SCH (21:00)
[2022-01-10] MEDS: CeFAZolin 2 GM/100 ML BAG IVPB SCH ×2 (04:54→13:43)
[2022-01-10] MEDS: Ondansetron 4 MG/2 ML VIAL IVP PRN (04:54)
[2022-01-10 04:55] LABS: Hemoglobin 8.7 g/dL (11.5-15.4); Immature Granulocytes % 0.4 % (0-4); Lymphocytes # 0.7 K/mcL (0.6-4.6); Lymphocytes % 8.5 %; Mean Corpuscular HGB Conc 32.2 g/dL (31.6-35.5); Mean Corpuscular Hemoglobin 33.2 pg (28.0-33.3); Mean Corpuscular Volume 103.1 fL (83.0-100.0); Mean Platelet Volume 11.1 fL (9.4-12.4); Monocytes # 0.2 K/mcL (0.0-1.3); Monocytes % 1.9 %; Neutrophils # 7.6 K/mcL (1.6-8.9); Platelet Count 198 K/mcL (140-400); Red Blood Count 2.62 M/mcL (3.82-4.97); Red Cell Distribution Width 12.8 % (11.5-14.5); Segmented Neutrophils % 89.2 %; White Blood Count 8.5 K/mcL (4.3-11.1)
[2022-01-10 05:14] LABS: Calcium 8.8 mg/dL (8.6-10.3)
[2022-01-10] MEDS: carvediloL 6.25 MG TABLET PO SCH ×2 (07:43→15:50)
[2022-01-10] MEDS: Isosorbide MONOnitrate (24 HR) 30 MG TAB.ER.24H PO SCH (07:43)
[2022-01-10] MEDS: Aspirin Enteric Coated 81 MG Tablet PO SCH (07:43)
[2022-01-10] MEDS: *HR* HYDROcodone/Acet 5/325 mg TABLET PO PRN (08:00)
[2022-01-10] MEDS ORDERED: Metoclopramide 10 MG/2 ML VIAL IVP PRN (09:35)
[2022-01-10] MEDS: *HR* OxyCODONE Immed Rel 5 MG TABLET PO PRN (11:03)
[2022-01-10] MEDS: Metoclopramide 10 MG/2 ML VIAL IVP SCH (17:22)
[2022-01-11] MEDS: Metoclopramide 10 MG/2 ML VIAL IVP SCH ×3 (00:38→12:47)
[2022-01-11 01:36] LABS: Hematocrit 25.9 % (35.3-44.9); Hemoglobin 8.1 g/dL (11.5-15.4); Mean Corpuscular HGB Conc 31.3 g/dL (31.6-35.5); Mean Corpuscular Hemoglobin 33.1 pg (28.0-33.3); Mean Corpuscular Volume 105.7 fL (83.0-100.0); Mean Platelet Volume 11.1 fL (9.4-12.4); Platelet Count 229 K/mcL (140-400); Red Blood Count 2.45 M/mcL (3.82-4.97); Red Cell Distribution Width 13.1 % (11.5-14.5); White Blood Count 11.7 K/mcL (4.3-11.1)
[2022-01-11 01:58] LABS: Calcium 8.8 mg/dL (8.6-10.3); Potassium 5.8 mEq/L (3.5-5.1)
[2022-01-11] MEDS: carvediloL 6.25 MG TABLET PO SCH (07:25)
[2022-01-11] MEDS ORDERED: Furosemide 20 MG/2 ML VIAL IVP ONE (08:29)
[2022-01-11] MEDS: Isosorbide MONOnitrate (24 HR) 30 MG TAB.ER.24H PO SCH (08:48)
[2022-01-11] MEDS: Aspirin Enteric Coated 81 MG Tablet PO SCH (08:48)
[2022-01-11 11:24] VITALS: TEMP 97.6
[2022-01-11 14:18] VITALS: BP 149/53; PULSE 67; O2SAT 92
[2022-01-11] MEDS: *HR* HYDROcodone/Acet 5/325 mg TABLET PO PRN (14:18)
== END 2022-01-11 16:38 | disposition home or self-care (01) | DRG 39 ==
LOC: SAMDAY 10:19 → 2NNU 16:31
PROVIDERS: ADMIT Surgery Vascular Surgery; ATTEND Surgery Vascular Surgery